=== PATIENT | male | born 1955 | race Caucasian/White ===

== ENCOUNTER 2017-03-12 15:17 | Inpatient (IN) | payer BC, OTHER ==
[~2017-03-12] VITALS: Ht 177.8 cm; Wt 95.3 kg
[~2017-03-12 15:17] MED LIST: ADVAIR 250-501 EACH INH; ASPIRIN81 M2 PO; Albuterol/Ipratropium Nebulize NEB; CEFDINIR300 MG PO; CEFTIN PO; CYMBALTA20 MG PO; DOXYCYCLINE HY100 MG PO; FAMOTIDINE20 MG PO; GABAPENTIN300 MG PO; LEVAQUIN500 MG PO; LOPRESSOR25 MG PO; METHADONE10 MG GT; METOPROLOL TART25 MG PO; MUCINEX DM ER1 EACH PO; NORCO 7.5-3251 EACH PO; NORCO1 EA GT; OXYCODONE HCL20 M1 PO; SPIRIVA18 MCG INH; ZITHROMAX500 MG PO; ZOFRAN ODT8 MG SC
[2017-03-12] MEDS ORDERED: IPRATROPIUM BROMIDE 0.02% 2.5 ML NEB NEB STA (16:02)
[2017-03-12] MEDS ORDERED: METHYLPREDNISOLONE SOD SUCC 125 MG/2ML VIAL IV STA (16:02)
[2017-03-12] MEDS ORDERED: ALBUTEROL SULF 0.083% NEB SOLN 3 ML NEB NEB STA (16:02)
[2017-03-12 16:13] LABS: BASOPHILS % 0.5 % (0.0-1.0); EOSINOPHILS # (AUTO) 0.2 (0.0-0.4); EOSINOPHILS % 1.7 % (0.0-6.0); HEMATOCRIT 37.4 % (38.2-49.6); HEMOGLOBIN 12.5 g/dL (14.0-18.0); LYMPHOCYTES # (AUTO) 1.6 (1.0-3.2); LYMPHOCYTES % 18.3 % (18.0-39.1); MEAN CORPUSCULAR HEMOGLOBIN 31.3 pg (28-32); MEAN CORPUSCULAR HGB CONC 33.4 g/dL (31-35); MEAN CORPUSCULAR VOLUME 93.5 fL (81-99); MONOCYTES # (AUTO) 0.5 (0.2-0.8); MONOCYTES % 5.6 % (4.4-11.3); NEUTROPHILS # (AUTO) 6.4 (2.1-6.9); NEUTROPHILS % 73.6 % (38.7-80.0); PLATELET COUNT 388 x10e3/uL (140-360); RED CELL DISTRIBUTION WIDTH 12.9 % (11.7-14.4)
[2017-03-12] MEDS ORDERED: ASPIRIN 81 MG CHEW TAB PO ONE (16:15)
[2017-03-12 16:26] LABS: ALBUMIN 3.1 g/dL (3.5-5.0); ALBUMIN/GLOBULIN RATIO 0.5 (0.8-2.0); ANION GAP 13.8 mmol/L (8-16); CALCIUM 9.6 mg/dL (8.4-10.2); CREATININE, SERUM 1.22 mg/dL (0.72-1.25); POTASSIUM 3.8 mmol/L (3.5-5.1)
[2017-03-12 16:32] LABS: CREATINE KINASE MB 3.2 ng/mL (0.00-5.00)
--- NOTE | 2017-03-12 16:32 | Diagnostic Imaging Report ---
PROCEDURE: A single AP view of the chest. COMPARISON: Patients [facility], [place], DX, CHEST 2 VIEWS, 01/10/2017, 1:28. INDICATIONS: SOB, COUGH, CHEST PAIN FINDINGS: Lines/tubes: Right chest Port-A-Cath with distal tip at the cavoatrial junction. Lungs: Prominence of the pulmonary vasculature and interstitium bilaterally. Pleura: There is no pneumothorax. Large left pleural effusion layering along the lateral left hemithorax. Heart and mediastinum: The cardiac silhouette is obscured, however, it appears enlarged. Bones: No acute bony abnormality. IMPRESSION: 1. Large left pleural effusion. Pathology in the left lower lobe may be obscured. Angela Lopez M.D. Dictated by: Angela Lopez M.D. on 03/12/2017 at 16:40 Electronically approved by: Angela Lopez M.D. on 03/12/2017 at 16:40
[2017-03-12 16:59] LABS: ABG HCO3 29 mmol/L (23-28); ABG PCO2 40 mmHg (41-51); ABG PH 7.46 (7.31-7.41); ABG PO2 79 mmHg (80-105)
[2017-03-12] MEDS ORDERED: ONDANSETRON HCL INJ 2 MG/ML VIAL IV PRN (18:00)
[2017-03-12 19:50] VITALS: BP 137/86
[2017-03-12] MEDS: ALBUTEROL/IPRATROPIUM 3 ML NEB NEB SCH ×2 (20:05→23:20)
[2017-03-12 20:23] VITALS: BP 137/86
[2017-03-12 20:47] VITALS: BP 137/86
[2017-03-12] MEDS ORDERED: ONDANSETRON HCL 4 MG ORAL DISINTEGRATING TAB SL PRN (21:15)
[2017-03-12] MEDS: GUAIFENESIN 600MG/DEXTROMETHORPHAN 30MG TABSR PO SCH (21:45)
[2017-03-12] MEDS: GABAPENTIN 300 MG CAP PO SCH (21:45)
[2017-03-12] MEDS: SODIUM CHLORIDE 0.9% 1000ML 1,000 ML IV SCH (21:45)
[2017-03-12] MEDS ORDERED: ALBUTEROL/IPRATROPIUM 3 ML NEB INH PRN (23:00)
[2017-03-13] VITALS: BP 125/67
[2017-03-13] MEDS: SODIUM CHLORIDE 0.9% 1000ML 1,000 ML IV SCH (01:26)
[2017-03-13] MEDS: OXYCODONE HCL IR 5 MG TAB PO PRN ×3 (01:43→17:09)
[2017-03-13] MEDS: ALBUTEROL/IPRATROPIUM 3 ML NEB NEB SCH ×5 (03:20→23:40)
[2017-03-13 04:00] VITALS: BP 100/63
[2017-03-13 06:25] LABS: BASOPHILS % 0.5 % (0.0-1.0); EOSINOPHILS # (AUTO) 0.1 (0.0-0.4); EOSINOPHILS % 1.7 % (0.0-6.0); HEMATOCRIT 32.4 % (38.2-49.6); HEMOGLOBIN 10.4 g/dL (14.0-18.0); LYMPHOCYTES # (AUTO) 2.1 (1.0-3.2); MEAN CORPUSCULAR HEMOGLOBIN 30.5 pg (28-32); MEAN CORPUSCULAR HGB CONC 32.1 g/dL (31-35); MONOCYTES # (AUTO) 0.6 (0.2-0.8); MONOCYTES % 6.9 % (4.4-11.3); NEUTROPHILS # (AUTO) 5.2 (2.1-6.9); NEUTROPHILS % 64.7 % (38.7-80.0); PLATELET COUNT 339 x10e3/uL (140-360); RED BLOOD COUNT 3.41 x10e6/uL (4.3-5.7)
[2017-03-13 06:53] LABS: ANION GAP 13.9 mmol/L (8-16); BLOOD UREA NITROGEN 20 mg/dL (7-26); BUN/CREATININE RATIO 17 (6-25); CALCIUM 8.9 mg/dL (8.4-10.2); CARBON DIOXIDE 28 mmol/L (22-29); CHLORIDE 101 mmol/L (98-107); CREATINE KINASE 77 IU/L (30-200); CREATININE, SERUM 1.15 mg/dL (0.72-1.25); EST GLOMERULAR FILTRATION RATE > 60 ML/MIN (60-); GLUCOSE 118 mg/dL (74-118); POTASSIUM 3.9 mmol/L (3.5-5.1); SODIUM 139 mmol/L (136-145)
[2017-03-13] MEDS: SALMETEROL/FLUTICASONE 250/50 INH SCH ×2 (07:00→19:45)
[2017-03-13 08:00] VITALS: BP 116/75
[2017-03-13] MEDS: ASPIRIN 81 MG CHEW TAB PO SCH (09:00)
[2017-03-13] MEDS: METOPROLOL TARTRATE 25 MG TAB PO SCH ×2 (09:08→16:45)
[2017-03-13] MEDS: GUAIFENESIN 600MG/DEXTROMETHORPHAN 30MG TABSR PO SCH ×2 (09:09→21:00)
[2017-03-13] MEDS: GABAPENTIN 300 MG CAP PO SCH ×3 (09:09→21:00)
--- NOTE | 2017-03-13 09:38 | History and Physical ---
PRIMARY CARE PHYSICIAN: Dr. Akins CHIEF COMPLAINT: Shortness of breath. HISTORY OF PRESENT ILLNESS: A 61-year-old man with a history of stage IV lung cancer with history of pericardial effusion, status post drain in July of 2016, now developing shortness of breath at rest for the past 3 days. Here, he was found to have a large pleural effusion on the left side. He is admitted for further evaluation and management. PAST MEDICAL HISTORY: Diastolic congestive heart failure, stage IV lung cancer, pericardial effusion, status post drain, pneumonia, COPD. PAST SURGICAL HISTORY: Pericardial window. ALLERGIES: PER ELECTRONIC MEDICAL RECORDS. FAMILY HISTORY/SOCIAL HISTORY: The patient denies any illicit drug use. REVIEW OF SYSTEMS: Denies any dizziness or chest pain. Denies any fever, chills or sweats. PHYSICAL EXAMINATION VITAL SIGNS: Have been reviewed. GENERAL: A tired-appearing man resting in bed. HEENT: Anicteric. Pupils respond to light. No oral lesions. CARDIOVASCULAR: Normal S1 and S2. LUNGS: He has reduced breath sounds. Markedly reduced on the left side and almost absent in the left lung field. ABDOMEN: Soft, nontender and nondistended. EXTREMITIES: He has no edema or calf tenderness. NEUROLOGICAL: He is alert and oriented times 3. Moves all extremities. SKIN: Dry. PSYCHIATRIC: Flat affect. LABS: Reviewed. MEDICATIONS: Reviewed. ASSESSMENT AND PLAN: This is a 61-year-old man with: 1. 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 2. Stage IV lung cancer: He follows up with Dr. Akins for chemotherapy. His last chemotherapy was back in December 2016. 3. Acute exacerbation of diastolic congestive heart failure: Will use Lasix and monitor I's and O's. 4. Hypertension: Will continue beta jeni. 5. Chronic obstructive pulmonary disease: Will continue with nebs and Advair. 6. Prophylaxis: Will use sequential compression devices and Pepcid. 7. Disposition: Monitor closely. Follow I's and O's. Job#: [id number] [place]
[2017-03-13 10:36] LABS: INR 1.11; PROTHROMBIN TIME 14.9 seconds (11.9-14.5)
[2017-03-13 12:00] VITALS: BP 97/80
--- NOTE | 2017-03-13 12:00 | Cardiology Report ---
DATE OF STUDY: March 12, 2017 ECHOCARDIOGRAM M-MODE: Normal chamber size. There is left ventricular hypertrophy. Normal contractility. Normal mitral and aortic valve. Pleural effusion. SECTOR SCAN: Dilated aortic root measuring at 4.0 cm. Left ventricular hypertrophy. Normal left ventricular contractility. Ejection fraction is approximately 50% to 55%. Aortic valve sclerotic. Mitral and tricuspid valves are normal. There is thickened pleural pericardium with pleural effusion. CARDIAC DOPPLER STUDY WITH COLOR: No significant aortic stenosis or regurgitation. CONCLUSIONS 1. Left ventricular hypertrophy with ejection fraction of 50% to 55%. 2. Mild aortic sclerosis with dilated aortic root, the aortic root measuring 4.0 cm. There is no evidence of aortic stenosis. 3. Incidentally noted pleural pericardium thickening with pleural effusion. Job#: [id number] cc:PAUL XAVIER MD
--- NOTE | 2017-03-13 12:57 | Diagnostic Imaging Report ---
PROCEDURE: CHEST XRAY POST PROCEDURE COMPARISON: [facility], CT, CT CHEST W, 01/11/2017, 10:56. [facility], DX, CHEST SINGLE (PORTABLE), 03/12/2017, 16:20. INDICATIONS: POST THORACENTESIS FINDINGS: See conclusion. CONCLUSION: 1. Status post left thoracentesis, with decrease size of left pleural effusion. There is still a moderate amount of pleural fluid, which is likely loculated. 2. No pneumothorax is visualized. 3. Interval placement of right upper chest Port-A-Cath, with tip projecting at the cavoatrial junction. 4. Bilateral COPD changes. The previously visualized 2.6 x 2.3 cm mass (likely representing bronchogenic neoplasm in the left upper lobe on CT) is not clearly seen on the current exam. Sagar Ashford M.D. Dictated by: Sagar Ashford M.D. on 03/13/2017 at 13:06 Electronically approved by: Sagar Ashford M.D. on 03/13/2017 at 13:06
[2017-03-13 13:19] LABS: BODY FLUID APPEARANCE CLOUDY; BODY FLUID COLOR RED; BODY FLUID TYPE PLEURAL
[2017-03-13 15:27] LABS: RBC,BODY FLUID 88407 cells/uL; WBC,BODY FLUID 5940 cells/uL
--- NOTE | 2017-03-13 15:52 | Diagnostic Imaging Report ---
PROCEDURE: ULTRASOUND GUIDED THORACENTESIS COMPARISON: None. INDICATIONS:LEFT PLEURAL EFFUSION FINDINGS: After informed consent was obtained, the patient was placed in the sitting position and preliminary ultrasound of the posterior chest identified a safe route into the left pleural effusion. The overlying skin was prepped and draped in usual sterile fashion. Lidocaine 1% was used for local anesthesia. Under ultrasound guidance, a centesis needle was advanced into the pleural fluid and 1100 cc of bloody pleural fluid were aspirated. The patient tolerated the procedure well and there were no immediate post-procedural complications. A post-thoracentesis chest radiograph will be obtained. CONCLUSION: Uncomplicated ultrasound-guided left thoracentesis with removal of 1100 cc. Sagar Ashford M.D. Dictated by: Sagar Ashford M.D. on 03/13/2017 at 16:01 Electronically approved by: Sagar Ashford M.D. on 03/13/2017 at 16:01
[2017-03-13 16:00] VITALS: BP 110/79
[2017-03-13 16:27] LABS: EOSINOPHILS,BODY FLUID 1 %; LYMPHOCYTES,BODY FLUID 50 %; MONO/MACROPHG,BODY FLUID 24 %; NEUTROPHILS,BODY FLUID 13 %
[2017-03-13 16:32] LABS: OTHER CELLS,BODY FLUID 12 %
[2017-03-13] MEDS: FUROSEMIDE INJ 10 MG/ML 2 ML VIAL IV SCH (18:08)
--- NOTE | 2017-03-13 19:06 | Consultation ---
DATE OF CONSULTATION: March 13, 2017 Srinivasan Omalley is a 61-year-old male who was referred to me for evaluation of malignant pleural effusion. History obtained from the patient reveals that he is being treated by a Dr. Michoacano Azul for stage IV lung cancer. The last chemotherapy was approximately a month back. The patient had presented with shortness of breath and subsequently found to have left-sided pleural effusion which has been tapped, 1100 mL of bloody fluid was obtained, and subsequently referred to me for further evaluation and treatment. SOCIAL HISTORY: History of excessive smoking. FAMILY HISTORY: Noncontributory. ALLERGIES: REPORTED NONE. MEDICATIONS: At this time. 1. Oxycodone 20 mg every 6 hours p.r.n. 2. Metoprolol 12.5 mg p.o. b.i.d. 3. Gabapentin 300 mg t.i.d. 4. Albuterol. 5. Guaifenesin. 6. Fludrocortisone. 7. Aspirin 81 mg a day. 8. Lasix 20 mg b.i.d.. 9. Ondansetron 8 mg q.8 h. p.r.n. REVIEW OF SYSTEMS: HEENT: Normal. CARDIAC: History of pericardial effusion which was tapped before. RESPIRATORY: Stage IV lung cancer being treated by Dr. Michoacano Azul. Now malignant pleural effusion. GI: Normal. : Normal. MUSCULOSKELETAL: Normal. NEUROENDOCRINE: Essentially normal. PHYSICAL EXAMINATION: GENERAL: Moderately built male. Anemic. No palpable adenopathy. HEART: Within normal limits. LUNGS: Showing diminished breath sounds at the left base. ABDOMEN: Obese. There is no hepatosplenomegaly. RECTAL: Exam deferred. CENTRAL NERVOUS SYSTEM: Essentially normal. EXTREMITIES: Essentially normal. LABORATORY DATA: Shows a hemoglobin of 10.4, hematocrit 32.4, white count 8100, platelets are 339,000. Chemistry shows a sodium of 139, potassium 3.8, chloride __, CO2 28, BUN 20, creatinine 1.2, glucose 123, calcium 9.6. Bilirubin 0.6, SGOT 17, SGPT 9, alkaline phosphatase 69. Total protein is high at 9.6, low albumin of 2.1. High globulins of 6.5. IMAGING: Shows the chest x-ray which status post left thoracentesis. There is a 2.6 x 2.3 mass at the left upper lobe. There is also a Port-A-Cath insertion, bilateral COPD. IMPRESSION: 1. Anemia of chronic disease. 2. Hyperproteinemia (9.6). 3. Hypoalbuminemia (3.1). 4. 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 5. Exudative bloody pleural effusion with an extremely high LDH and more than 6 grams of protein. 6. Chronic obstructive pulmonary disease. 7. Left upper lobe cancer. 8. History of pericardial effusion. PLANS, COMMENTS AND SUGGESTIONS: Suggest best supportive care during this hospitalization. Even though I have done quantitation of immunoglobulins, this is of academic interest. 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 Once stable enough, the patient can be discharged to the care of Dr. Michoacano Azul, his medical oncologist. Job#: [id number] cc:JULIEN LARIOS MD cc:ANDRE KNOX MD
[2017-03-13 20:00] VITALS: BP 107/59
[2017-03-14] VITALS (7 sets, daily range): BP systolic 95–116; BP diastolic 60–75
[2017-03-14] MEDS: SODIUM CHLORIDE 0.9% 1000ML 1,000 ML IV SCH ×3 (04:09→16:32)
[2017-03-14] MEDS: ALBUTEROL/IPRATROPIUM 3 ML NEB NEB SCH ×6 (04:10→22:45)
[2017-03-14] MEDS: FUROSEMIDE INJ 10 MG/ML 2 ML VIAL IV SCH ×2 (06:18→17:43)
[2017-03-14] MEDS: SALMETEROL/FLUTICASONE 250/50 INH SCH ×2 (07:20→19:25)
[2017-03-14] MEDS: METOPROLOL TARTRATE 25 MG TAB PO SCH ×2 (09:17→16:32)
[2017-03-14] MEDS: GABAPENTIN 300 MG CAP PO SCH ×3 (09:17→21:00)
[2017-03-14] MEDS: ASPIRIN 81 MG CHEW TAB PO SCH (09:17)
[2017-03-14] MEDS: GUAIFENESIN 600MG/DEXTROMETHORPHAN 30MG TABSR PO SCH ×2 (09:17→21:00)
[2017-03-14] MEDS: OXYCODONE HCL IR 5 MG TAB PO PRN ×2 (16:32)
--- NOTE | 2017-03-14 17:13 | Diagnostic Imaging Report ---
EXAM: CT Chest WITH contrast INDICATION: Chest pain COMPARISON: None available TECHNIQUE: Chest was scanned utilizing a multidetector helical scanner from the lung apex through the level of the diaphragm after administration of IV contrast. Coronal and sagittal reconstructions were submitted for interpretation. Protocol: Pulmonary embolus protocol IV CONTRAST: 100 mL of Isovue 370 COMPLICATIONS: None RADIATION DOSE: Total exam DLP: 565.4 mGy*cm. CTDIvol has been reviewed. It is below the limits set by the Radiation Protocol Committee (RPC). FINDINGS: LINES/ TUBES: Right internal jugular chest port with tip projecting over the expected region of the superior vena cava. Heart: No cardiomegaly. No pericardial effusion. Vessels: No intraluminal filling defect within the pulmonary arteries to the segmental level. Normal thoracic aorta and coronary arteries. Mediastinum: No mediastinal or hilar mass or lymphadenopathy. Multiple subcentimeter nodules are present in the mediastinum. Normal thyroid. Lungs: 2.8 cm nodule is present in the left upper lobe, series 3 image 22. Smaller 1.2 cm nodule is present in the left upper lobe, series 3 image 27. Emphysematous changes are present bilaterally. Bronchiectasis and atelectasis is present in the left lower lobe. Pleura: Interval increase of the left pleural effusion, now large in size. No pneumothorax. Soft tissues: Normal. No axillary mass or lymphadenopathy. Bones: No acute osseous abnormality. Degenerative changes of the thoracic spine. Adrenal glands: No adrenal nodules.. Abdomen: The partially visualized portions of the upper abdomen are unremarkable. Prominent biliary ducts likely represent reservoir effect. IMPRESSION: 1. Stable nodules in the left upper lobe, concerning for malignancy. 2. Large left pleural effusion. 3. Emphysematous changes. Signed by: Dr. Miguel Hanna M.D. on 03/14/2017 5:10 PM
[2017-03-14] MEDS ORDERED: SODIUM CHLORIDE 0.9% 50ML 50 ML ONE (18:24)
[2017-03-14] MEDS ORDERED: IOPAMIDOL 370 MG/ML 200 ML INFUS..BTL INJ ONE (18:24)
[2017-03-15] VITALS (7 sets, daily range): BP systolic 99–115; BP diastolic 57–78
[2017-03-15] MEDS: SODIUM CHLORIDE 0.9% 1000ML 1,000 ML IV SCH ×2 (01:55→10:00)
[2017-03-15] MEDS: ALBUTEROL/IPRATROPIUM 3 ML NEB NEB SCH ×6 (02:30→23:25)
[2017-03-15] MEDS: OXYCODONE HCL IR 5 MG TAB PO PRN ×3 (02:54→20:47)
[2017-03-15] MEDS: FUROSEMIDE INJ 10 MG/ML 2 ML VIAL IV SCH ×2 (06:00→17:35)
[2017-03-15 06:46] LABS: BASOPHILS % 0.5 % (0.0-1.0); EOSINOPHILS # (AUTO) 0.2 (0.0-0.4); EOSINOPHILS % 2.2 % (0.0-6.0); HEMATOCRIT 32.7 % (38.2-49.6); HEMOGLOBIN 10.8 g/dL (14.0-18.0); LYMPHOCYTES # (AUTO) 1.9 (1.0-3.2); LYMPHOCYTES % 25.2 % (18.0-39.1); MONOCYTES # (AUTO) 0.6 (0.2-0.8); MONOCYTES % 7.4 % (4.4-11.3); NEUTROPHILS # (AUTO) 4.9 (2.1-6.9); NEUTROPHILS % 64.3 % (38.7-80.0); PLATELET COUNT 360 x10e3/uL (140-360); RED BLOOD COUNT 3.48 x10e6/uL (4.3-5.7); RED CELL DISTRIBUTION WIDTH 13.1 % (11.7-14.4)
[2017-03-15 07:06] LABS: ANION GAP 13.7 mmol/L (8-16); BLOOD UREA NITROGEN 14 mg/dL (7-26); CALCIUM 8.8 mg/dL (8.4-10.2); CARBON DIOXIDE 26 mmol/L (22-29); CHLORIDE 100 mmol/L (98-107); GLUCOSE 150 mg/dL (74-118); SODIUM 137 mmol/L (136-145)
[2017-03-15 07:13] LABS: POTASSIUM 2.7 mmol/L (3.5-5.1)
[2017-03-15] MEDS: SALMETEROL/FLUTICASONE 250/50 INH SCH ×2 (07:26→19:40)
[2017-03-15 07:30] LABS: BUN/CREATININE RATIO 13 (6-25); CREATININE, SERUM 1.04 mg/dL (0.72-1.25); EST GLOMERULAR FILTRATION RATE > 60 ML/MIN (60-)
[2017-03-15] MEDS: ASPIRIN 81 MG CHEW TAB PO SCH (08:33)
[2017-03-15] MEDS: METOPROLOL TARTRATE 25 MG TAB PO SCH ×2 (08:34→17:35)
[2017-03-15] MEDS: GUAIFENESIN 600MG/DEXTROMETHORPHAN 30MG TABSR PO SCH ×2 (08:34→20:47)
[2017-03-15] MEDS: GABAPENTIN 300 MG CAP PO SCH ×3 (08:34→20:47)
[2017-03-15] MEDS ORDERED: MAGNESIUM SULFATE 2GM/50ML 50 ML IV ONE (09:00)
[2017-03-15] MEDS ORDERED: POTASSIUM CHLORIDE 20 MEQ TAB CR PO ONE ×2 (09:00→11:00)
[2017-03-16] VITALS (7 sets, daily range): BP systolic 101–109; BP diastolic 59–82
[2017-03-16] MEDS: SODIUM CHLORIDE 0.9% 1000ML 1,000 ML IV SCH ×2 (02:15→04:57)
[2017-03-16] MEDS: ALBUTEROL/IPRATROPIUM 3 ML NEB NEB SCH ×5 (03:20→19:30)
[2017-03-16] MEDS: OXYCODONE HCL IR 5 MG TAB PO PRN ×2 (04:57→12:25)
[2017-03-16] MEDS: FUROSEMIDE INJ 10 MG/ML 2 ML VIAL IV SCH ×2 (06:00→17:11)
[2017-03-16 06:15] LABS: ANION GAP 12.1 mmol/L (8-16); BLOOD UREA NITROGEN 10 mg/dL (7-26); BUN/CREATININE RATIO 10 (6-25); CALCIUM 8.8 mg/dL (8.4-10.2); CARBON DIOXIDE 26 mmol/L (22-29); CHLORIDE 103 mmol/L (98-107); CREATININE, SERUM 0.99 mg/dL (0.72-1.25); EST GLOMERULAR FILTRATION RATE > 60 ML/MIN (60-); GLUCOSE 123 mg/dL (74-118); POTASSIUM 3.1 mmol/L (3.5-5.1); SODIUM 138 mmol/L (136-145)
[2017-03-16] MEDS: SALMETEROL/FLUTICASONE 250/50 INH SCH (07:25)
[2017-03-16 08:05] LABS: EOSINOPHILS % (MANUAL) 1 % (0-7); LYMPHOCYTES % (MANUAL) 19 % (19-48); MONOCYTES % (MANUAL) 5 % (3.4-9.0); NEUTROPHILS % (MANUAL) 72 % (40-74)
[2017-03-16 08:06] LABS: HYPOCHROMASIA SLIGHT; PLATELET ESTIMATE ADEQUATE; PLATELET MORPHOLOGY COMMENT FEW GIANT; POIKILOCYTOSIS SLIGHT; RBC MORPHOLOGY COMMENT NORMAL
[2017-03-16 08:07] LABS: ELLIPTOCYTE, RBC SLIGHT
[2017-03-16] MEDS ORDERED: POTASSIUM CHLORIDE 20 MEQ TAB CR PO ONE (09:00)
[2017-03-16] MEDS: ASPIRIN 81 MG CHEW TAB PO SCH (09:32)
[2017-03-16] MEDS: METOPROLOL TARTRATE 25 MG TAB PO SCH ×2 (09:32→17:00)
[2017-03-16] MEDS: GABAPENTIN 300 MG CAP PO SCH ×3 (09:32→20:03)
[2017-03-16] MEDS: GUAIFENESIN 600MG/DEXTROMETHORPHAN 30MG TABSR PO SCH ×2 (09:32→20:03)
--- NOTE | 2017-03-16 21:06 | Consultation ---
DATE OF CONSULTATION: March 16, 2017 REQUESTING PHYSICIAN: Dr. Srinivasa Hinojosa. 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 HISTORY OF PRESENT ILLNESS: This is a 61-year-old gentleman with a history of stage 4 lung cancer followed by Dr. Michoacano Azul with his last chemotherapy treatment in December 2016. He has a previous history of pericardial effusion back in July of 2016 which was drained with Dr. Ivan Chaparro at [facility] in [facility]. He states over the past 6 months he has been doing fairly well; however, the past week or so has had increased shortness of breath and cough. He came to [facility] for further evaluation. He was found to have a large left-sided pleural effusion, now status post thoracentesis with residual large left pleural effusion. CV surgery consulted to evaluate loculated pleural effusion. He does have a history of smoking 1 pack a day for 40 years. He states he quit in July of last year. He does not report any previous asbestosis or other lung exposures. PAST MEDICAL HISTORY: Positive for diastolic heart failure and stage IV lung cancer which he reports as small cell. History of pericardial effusion in July 2016. History of pneumonia and COPD. PAST SURGICAL HISTORY: Positive for cholecystectomy, positive for pericardial window in July of [address] Chaparro. Positive for right wrist surgery and right elbow surgery. ALLERGIES: HALOPERIDOL, PENICILLIN. FAMILY HISTORY: Is positive for colon cancer in mother and positive for lung cancer in his dad and lung cancer in his brother. SOCIAL HISTORY: Positive for smoking for 40 years, 1 pack per day. No alcohol use and no drug use. REVIEW OF SYSTEMS: GENERAL: Positive for some fatigue, no malaise. HEENT: No decreased vision or decreased hearing. CARDIAC: No chest pain. RESPIRATORY: Positive for shortness of breath and cough. GI: No constipation or diarrhea. : No hematuria or dysuria. ENDOCRINE: No polyuria or polydipsia. INFECTIOUS: No fevers or sweating. All other review of systems are negative. PHYSICAL EXAMINATION: VITALS: Blood pressure 108.67, pulses 18, temperature 97.4. GENERAL: Alert and oriented and in no acute distress. HEENT: Extraocular movements are full. Mucous membranes are moist. NECK: Supple and nontender. No JVD. No carotid bruit. CARDIAC: Normal S1 and S2. No murmurs. LUNGS: Marked decreased breath sounds over the left side. ABDOMEN: Soft and nontender. Positive bowel sounds. EXTREMITIES: No edema. No clubbing or cyanosis. SKIN: Dry with no rashes or nonhealing ulcers. NEUROLOGIC: Alert and oriented times 3. PSYCHIATRIC: Normal affect. MUSCULOSKELETAL : Appears full range of motion in all joints. BACK: No CVA tenderness or muscle spasm. LABORATORY DATA: White count 7.5, hemoglobin 10, hematocrit 32 and platelet count 360,000. His sodium 138, potassium 3.1 and BUN is 10 and creatinine 0.99. IMAGING: Chest CT scan shows 2.8 cm nodule in the left upper lobe with smaller 1.2 cm nodule in the left upper lobe with a large left pleural effusion noted. ASSESSMENT: 1. Loculated left-sided pleural effusion. 2. History of lung cancer. 3. Chronic obstructive pulmonary disease. 4. Hypertension. 5. History of diastolic heart failure. PLAN: Will plan to transfer the patient to [facility] for VATS with chest tube placement at the left side. Transfer the patient at the patient's request. Patient is stable on nasal cannula at this time. Will plan OR tomorrow. Keep the patient n.p.o. tonight. Further recommendations per Dr. Ivan Chaparro to follow. Dictated by MAVIS Max Job#: [id number]
--- NOTE | 2017-04-26 14:53 | Discharge Summary ---
The patient initially came in with what was reported as malignant pleural effusion. The patient was treated with IV antibiotics while here. The patient was being seen by Dr. Suhail Chaparro who was consulted, whose PA saw the patient today and decided to transfer the patient today being on March 16, 2017. The patient was also being followed by Dr. Sonal Arcos. During admission, the patient had some pleural effusion with status post thoracentesis awaiting thoracic surgeon to evaluate the patient. Again, the patient was evaluated by MAVIS Max for Dr. Chaparro. The patient also had stage 4 lung cancer, and was being followed by the oncologist. The patient's IV fluids were discontinued while here due to diastolic congestive heart failure. Continue with some diuresis. The patient had effortless breathing, although decreased breath sounds. The patient was discharged, transferred today for higher level of care. On March 16, 2017, today's labs the sodium 138, potassium 3.1, chloride 103, CO2 of 26, BUN 10, creatinine 0.99, glucose 123, white count 7.57, hemoglobin 10.8, hematocrit 32.7, platelets 360,000. Again, the patient was discharged for higher level of care. Dictated by Justin Smith NP ANDRE KNOX MD Job#: [id number]
[2017-06-11] MEDS ORDERED: TESSALON PERLE100 MG PO (06:50)
[2017-06-11] MEDS ORDERED: LORATADINE10 MG PO (06:50)
[2017-06-11] MEDS ORDERED: LEVAQUIN500 MG PO (06:50)
[2017-06-11] MEDS ORDERED: MUCINEX DM ER1 EACH PO (06:50)
== END 2017-03-16 20:40 | disposition other institution (70) | DRG 180 ==
LOC: ER 15:17 → ERHOLD 18:36 → MED/SURG2 19:12
PROVIDERS: ADMIT Internal Medicine; ATTEND Internal Medicine
PROC: 0W9B3ZX Drainage of Left Pleural Cavity, Percutaneous Approach, Diagnostic (ICD-10-PCS; principal; 2017-03-13)
DX: C34.90 Malignant neoplasm of unspecified part of unspecified bronchus or lung (principal); I50.33 Acute on chronic diastolic (congestive) heart failure; J91.0 Malignant pleural effusion; I31.3 Pericardial effusion (noninflammatory); J44.9 Chronic obstructive pulmonary disease, unspecified; E88.09 Other disorders of plasma-protein metabolism, not elsewhere classified; I50.32 Chronic diastolic (congestive) heart failure; I11.0 Hypertensive heart disease with heart failure; D63.8 Anemia in other chronic diseases classified elsewhere; R77.1 Abnormality of globulin; F17.210 Nicotine dependence, cigarettes, uncomplicated; Z77.090 Contact with and (suspected) exposure to asbestos
CPT/HCPCS: 32555; 36415; 36600; 71045; 71260; 74470; 80048; 80053; 82550; 82553; 82784; 82805; 83615; 83735; 83880; 84157; 84484; 85025; 85610; 85730; 87040; 87070; 87205; 87400; 88112; 88305; 88342; 89051; 93005; 93306; 94640; 94760; 99284; J1940; J2930; J7030; Q9967

== ENCOUNTER 2017-06-08 21:11 | Inpatient (IN) | payer OTHER ==
[~2017-06-08] VITALS: Ht 177.8 cm; Wt 96.0 kg
--- OUTSIDE RECORDS SUMMARY | 2017-06-08 21:16 | XMS REPORT | Clinical Summary ---
Author Author [place] [facility] Organization [facility] Address Unknown Phone Unavailable Care Team Providers Care Fpga Design Engineer Name Role Phone PCP Unavailable Allergies Active Allergy Reactions Severity Noted Date Comments Haloperidol Other (See Comments) 08/07/2016 Dystonic reaction Penicillins Rash Low 08/07/2016 Current Medications Prescription Sig. Disp. Refills Start End Date Status Date aspirin 81 MG EC tablet Take 81 mg by mouth Active daily. HYDROcodone-acetaminophen Take 1 tablet by mouth Active (NORCO 7.5-325) 7.5-325 every 6 (six) hours as mg per tablet needed for Pain. tiotropium (SPIRIVA) 18 Inhale 1 capsule (18 mcg 30 capsule 2 08/15/19 Active mcg inhalation capsule total) by mouth via 17 18 inhaler daily. albuterol HFA (VENTOLIN Inhale 1 puff by mouth 1 Inhaler 0 08/15/19 08/15/19 Active HFA) 90 mcg/actuation via inhaler every 6 (six) 17 18 inhaler hours as needed for Wheezing. fluticasone-salmeterol Inhale 1 puff by mouth 1 Inhaler 3 08/16/19 08/16/19 Active (ADVAIR) 250-50 mcg/dose via inhaler 2 (two) times 17 18 diskus inhaler daily. oxyCODONE (ROXICODONE) 15 Take 20 mg by mouth every Active MG immediate release 6 (six) hours as needed tabletIndications: Pain for Pain. gabapentin (NEURONTIN) Take 1 capsule (300 mg 0 03/27/19 Active 300 MG capsule total) by mouth 3 (three) 18 times daily. gabapentin (NEURONTIN) Take 300 mg by mouth 03/27/19 Discontin 300 MG capsule daily. 18 ued nicotine (NICODERM CQ) 21 Place 1 patch onto the 30 patch 0 08/15/19 03/27/19 Discontin mg/24 hr patch skin daily. 17 18 ued budesonide-formoterol Inhale 2 puffs by mouth 21.6 g 3 08/15/19 Discontin (SYMBICORT) 160-4.5 via inhaler 2 (two) times 17 17 ued mcg/actuation inhaler daily. acetaminophen-codeine Take 1 tablet by mouth 30 tablet 0 08/15/19 Discontin (TYLENOL #4) 300-60 mg every 4 (four) hours as 17 18 ued per tablet needed for Pain. Max Daily Amount: 6 tablets promethazine (PHENERGAN) Take 2 tablets (25 mg 30 tablet 0 10/10/19 10/17/19 12.5 MG tablet total) by mouth every 6 17 17 (six) hours as needed for Nausea for up to 7 days. metoprolol (LOPRESSOR) 25 Take 0.5 tablets (12.5 mg 30 tablet 0 04/27/19 MG tablet total) by mouth 2 (two) 18 18 times daily for 30 days. potassium chloride SA Take 2 tablets (40 mEq 40 tablet 0 03/27/19 (K-DUR,KLOR-CON) 20 MEQ total) by mouth 2 (two) 18 18 tablet times daily for 10 days. furosemide (LASIX) 20 MG Take 1 tablet (20 mg 20 tablet 0 03/27/19 04/06/19 tablet total) by mouth 2 (two) 18 18 times daily for 10 days. Active Problems Problem Noted Date Neutropenic fever, enteritis 10/04/2016 Severe sepsis(995.92) 10/04/2016 Enteritis 10/04/2016 Sinus tachycardia 10/04/2016 Pleural effusion 10/04/2016 COPD (chronic obstructive pulmonary disease) ([facility]) 08/14/2016 Metastatic lung carcinoma ([facility]) 08/13/2016 Neuropathy 08/09/2016 Mediastinal lymphadenopathy 08/08/2016 Lung mass 08/08/2016 Tobacco abuse 08/08/2016 Shock (HCC) 08/08/2016 Acute pulmonary insufficiency following thoracic surgery ([facility]) 08/08/2016 Pericardial effusion 08/07/2016 S/P thoracotomy Encounters Date Type Specialty Care Team Description 04/14/2017 [facility] Shukri Azul, Squamous cell carcinoma Encounter MD of bronchus in left upper Foteh, Anishusta Michael lobe (HCC);Malignant neoplasm of lung, unspecified laterality, unspecified part of lung (HCC) 04/13/2017 Outside Orders Central Scheduling Shukri Azul, Squamous cell carcinoma MD of bronchus in left upper lobe ([facility]) (Primary Dx);Malignant neoplasm of lung, unspecified laterality, unspecified part of lung (HCC) 03/19/2017 Anesthesia Erik Soto MD Event 03/19/2017 Procedure Pass 03/19/2017 Surgery Ivan Chaparro, THORACOSCOPY (VATS) MD 03/16/2017 [facility] Ivan Chaparro, Pulmonary emphysema, - Encounter MD unspecified emphysema 03/27/2017 type ([facility]);Pleural effusion;Centrilobular emphysema ([facility]) 03/16/2017 Orders Only General Internal Medicine 10/03/2016 [facility] Samantha Benavidez Acute pulmonary - Encounter MD Isi insufficiency following 10/10/2016 Jarrod Nix thoracic surgery MD Cayetano ([facility]);Metastatic Vitor Davis, adenocarcinoma ([facility]);Neutropenic fever SohailAntelmo-D ([facility]);Severe sepsis ([facility]);Enteritis;Pleural effusion;Pulmonary emphysema, unspecified emphysema type ([facility]);Metastatic lung carcinoma, unspecified laterality ([facility]);Sinus tachycardia;Ileus ([facility]) 08/08/2016 Orders Only General Internal Medicine 08/08/2016 Anesthesia Luther Shrestha, Jonathan KRAUSE 08/08/2016 Procedure Pass 08/08/2016 Surgery Ivan Chaparro, CREATION,PERICARDIAL MD WINDOW 08/07/2016 [facility] Ivan Chaparro, Pericardial - Encounter effusion;Acute pulmonary 08/14/2016 Yris Davison, insufficiency following thoracic surgery Jose Garcia MD (HCC);Lung mass;Mediastinal lymphadenopathy;Tobacco abuse;Pleural effusion;Neuropathy;Hypok alemia;Metastatic adenocarcinoma (HCC) after 06/07/2016 Immunizations Name Dates Previously Given Next Due Pneumococcal 08/12/2016 Polysaccharide (Pneumovax) Family History Relation Name Status Comments Father Social History Tobacco Use Types Packs/Day Years Used Date Current Every Day Smoker 2 Tobacco Cessation: Ready to Quit: Yes; Counseling Given: No Comments: Patient states counseling given Alcohol Use Drinks/Week oz/Week Comments No Sex Assigned at Date Recorded Not on file Last Filed Vital Signs Vital Sign Reading Time Taken Blood Pressure 116/66 04/14/2017 11:36 AM BRANCH SERVICE REPRESENTATIVE Pulse 117 04/14/2017 11:36 AM BRANCH SERVICE REPRESENTATIVE Temperature 37.9 C (100.2 F) 04/14/2017 11:36 AM BRANCH SERVICE REPRESENTATIVE Respiratory Rate 16 04/14/2017 11:36 AM BRANCH SERVICE REPRESENTATIVE Oxygen Saturation 99% 04/14/2017 11:36 AM BRANCH SERVICE REPRESENTATIVE Inhaled Oxygen - - Concentration Weight 89.7 kg (197 lb 11.2 oz) 03/27/2017 3:32 AM BRANCH SERVICE REPRESENTATIVE Height 177.8 cm (5' 10") 03/16/2017 9:55 PM BRANCH SERVICE REPRESENTATIVE Body Mass Index 28.37 03/27/2017 3:32 AM BRANCH SERVICE REPRESENTATIVE Plan of Treatment Not on file Procedures Procedure Name Priority Date/Time Associated Diagnosis Comments THORACOSCOPY (VATS) 03/19/2017 RECURRENT PERICARDIAL 3:25 PM BRANCH SERVICE REPRESENTATIVE EFFUSION BRONCHOSCOPY 08/08/2016 Pericardial effusion 10:15 AM CDT THORACOSCOPY (VATS) 08/08/2016 Pericardial effusion 10:15 AM CDT CREATION,PERICARDIAL 08/08/2016 Pericardial effusion WINDOW 10:15 AM CDT after 06/07/2016 Results * US chest (04/14/2017 1:42 PM) Specimen Performing Laboratory GE RIS Narrative FINAL REPORT Ultrasound of the chest, 04/14/2017. CLINICAL HISTORY: Evaluate for pleural effusion. DISCUSSION: Sonographic evaluation of the left chest was performed to evaluate for possible thoracentesis. Only a small amount of multiloculated left pleural effusion is identified. IMPRESSION: Minimal left pleural effusion, insufficient for thoracentesis. Signed: Chad Velazquez MD Report Verified Date/Time:04/14/2017 15:00:07 Reading Location: [address] Ultrasound Reading Room Procedure Note Interface, External Ris In - 04/14/2017 3:02 PM BRANCH SERVICE REPRESENTATIVE FINAL REPORT Ultrasound of the chest, 04/14/2017. CLINICAL HISTORY: Evaluate for pleural effusion. DISCUSSION: Sonographic evaluation of the left chest was performed to evaluate for possible thoracentesis. Only a small amount of multiloculated left pleural effusion is identified. IMPRESSION: Minimal left pleural effusion, insufficient for thoracentesis. Signed: Chad Velazquez MD Report Verified Date/Time: 04/14/2017 15:00:07 Reading Location: [facility] [id number] Ultrasound Reading Room * PT/aPTT (04/14/2017 11:04 AM) Only the most recent of 2 results within the time period is included. Component Value Ref Range Protime 14.7 11.7 - 14.7 seconds INR 1.2 <=5.9 PTT 30.8 22.5 - 36.0 seconds Specimen Performing Laboratory Blood [address] [address] Narrative RECOMMENDED COUMADIN/WARFARIN INR THERAPY RANGES STANDARD DOSE: 2.0 - 3.0 Includes: PROPHYLAXIS for venous thrombosis, systemic embolization; TREATMENT for venous thrombosis and/or pulmonary embolus. HIGH RISK: Target INR is 2.5-3.5 for patients with mechanical heart valves. * Platelet count (04/14/2017 11:04 AM) Component Value Ref Range Platelets 354 150 - 450 K/CU MM Specimen Performing Laboratory [address] [address] * PERMANENT LAB REPORT - SCAN (04/09/2017 2:00 PM) * RHYTHM STRIP - SCAN (04/06/2017 12:11 PM) Only the most recent of 5 results within the time period is included. * XR abdomen / KUB 1 view (03/26/2017 4:41 PM) Only the most recent of 2 results within the time period is included. Specimen Performing Laboratory GE RIS Narrative FINAL REPORT EXAM: Supine AP radiographs of the abdomen, 2 images HISTORY PROVIDED: Nausea and vomiting COMPARISON: 10/04/2016 IMPRESSION: The bowel gas pattern is nonspecific but appears nonobstructive. A moderate to large amount of stool seen within the colon is compatible with a clinical diagnosis of constipation. Given supine positioning, this examination is insensitive for the detection of free air. No acute osseous abnormality. Degenerative changes of the spine are present. There are cholecystectomy clips in the right upper quadrant. Vascular calcifications are noted. Signed: Parminder Degroot MD Report Verified Date/Time:03/26/2017 17:04:56 Reading Location: [facility] Reading Room Procedure Note Interface, External Ris In - 03/26/2017 5:07 PM BRANCH SERVICE REPRESENTATIVE FINAL REPORT EXAM: Supine AP radiographs of the abdomen, 2 images HISTORY PROVIDED: Nausea and vomiting COMPARISON: 10/04/2016 IMPRESSION: The bowel gas pattern is nonspecific but appears nonobstructive. A moderate to large amount of stool seen within the colon is compatible with a clinical diagnosis of constipation. Given supine positioning, this examination is insensitive for the detection of free air. No acute osseous abnormality. Degenerative changes of the spine are present. There are cholecystectomy clips in the right upper quadrant. Vascular calcifications are noted. Signed: Parminder Degroot MD Report Verified Date/Time: 03/26/2017 17:04:56 Reading Location: [facility] Reading Room * XR chest 1 view portable / bedside (03/26/2017 1:27 PM) Only the most recent of 19 results within the time period is included. Specimen Performing Laboratory GE RIS Narrative FINAL REPORT EXAM: Frontal chest radiograph HISTORY PROVIDED: Postop, evaluate pneumothorax COMPARISON: 03/25/2017 IMPRESSION: The right IJ Port-A-Cath is unchanged position with its tip projecting over the SVC. No significant change is seen in the left upper lobe lung mass compatible with known history of malignancy. Bilateral pulmonary opacities demonstrate no significant change. A left basilar pneumothorax is similar as is a small left pleural effusion and pleural thickening. Cardiomediastinal contours are stable. Signed: Parminder Degroot MD Report Verified Date/Time:03/26/2017 14:29:12 Reading Location: [facility] Reading Room Procedure Note Interface, External Ris In - 03/26/2017 2:31 PM BRANCH SERVICE REPRESENTATIVE FINAL REPORT EXAM: Frontal chest radiograph HISTORY PROVIDED: Postop, evaluate pneumothorax COMPARISON: 03/25/2017 IMPRESSION: The right IJ Port-A-Cath is unchanged position with its tip projecting over the SVC. No significant change is seen in the left upper lobe lung mass compatible with known history of malignancy. Bilateral pulmonary opacities demonstrate no significant change. A left basilar pneumothorax is similar as is a small left pleural effusion and pleural thickening. Cardiomediastinal contours are stable. Signed: Parminder Degroot MD Report Verified Date/Time: 03/26/2017 14:29:12 Reading Location: [facility] Mammo Reading Room * Magnesium (03/23/2017 4:51 AM) Only the most recent of 22 results within the time period is included. Component Value Ref Range Magnesium 1.4 (L) 1.6 - 2.6 mg/dL Specimen Performing Laboratory Blood [address] [address] * Basic Metabolic Panel (03/23/2017 4:51 AM) Only the most recent of 21 results within the time period is included. Component Value Ref Range Sodium 134 (L) 136 - 145 meq/L Potassium 3.5 3.5 - 5.1 meq/L Chloride 97 (L) 98 - 107 meq/L CO2 27 22 - 29 meq/L BUN 15 7 - 21 mg/dL Creatinine 0.97 0.57 - 1.25 mg/dL Glucose 114 (H) 70 - 105 mg/dL Calcium 9.7 8.4 - 10.2 mg/dL EGFR 79Comment: ESTIMATED GFR IS NOT ACCURATE mL/min/1.73 sq m CREATININE CLEARANCE IN PREDICTING GLOMERULAR FILTRATION RATE. ESTIMATED GFR IS NOT APPLICABLE FOR DIALYSIS PATIENTS. Specimen Performing Laboratory Blood [address] [address] * CBC with platelet count + automated diff (03/21/2017 9:32 AM) Only the most recent of 14 results within the time period is included. Component Value Ref Range WBC 8.2 3.5 - 10.5 K/ L RBC 3.71 (L) 4.63 - 6.08 M/ L Hemoglobin 11.2 (L) 13.7 - 17.5 GM/DL Hematocrit 34.1 (L) 40.1 - 51.0 % MCV 91.9 79.0 - 92.2 fL MCH 30.2 25.7 - 32.2 pg MCHC 32.8 32.3 - 36.5 GM/DL RDW 13.2 11.6 - 14.4 % Platelets 336 150 - 450 K/CU MM MPV 9.1 (L) 9.4 - 12.4 fL nRBC 0 0 - 0 /100 WBC % Neutros 68 % % Lymphs 23 % % Monos 7 % % Eos 2 % % Baso 0 % # Neutros 5.52 (H) 1.78 - 5.38 K/ L # Lymphs 1.88 1.32 - 3.57 K/ L # Monos 0.60 0.30 - 0.82 K/ L # Eos 0.12 0.04 - 0.54 K/ L # Baso 0.03 0.01 - 0.08 K/ L Immature 0 0 - 1 % Granulocytes-Relative Specimen Performing [place] [address] * CBC with platelet count + automated diff (03/21/2017 9:32 AM) Only the most recent of 14 results within the time period is included. Specimen Performing Laboratory Blood Narrative The following orders were created for panel order CBC with platelet count + automated diff. Procedure Abnormality Status --------- - ------ CBC with platelet count ...[[id number]]AbnormalFinal result Please view results for these tests on the individual orders. * POC-Lactic Acid, Venous (03/21/2017 3:07 AM) Component Value Ref Range POC-Lactic Acid, Venous 0.8 (L)Comment: TESTED AT [address] 0.9 - 1.7 mmol/L [place] [address] Specimen Performing [place] [address] * TRANSFUSION SERVICE REPORT - SCAN (03/20/2017 5:52 PM) Only the most recent of 3 results within the time period is included. * LIPASE (03/20/2017 12:27 PM) Component Value Ref Range Scan Result Specimen Performing Laboratory Body Fluid [facility] [address] [place], [place] * Glucose, body fluid (03/20/2017 12:23 PM) Component Value Ref Range Glucose, Body Fluid 5 (L) 70 - 110 mg/dL Specimen Performing Laboratory Body Fluid - Pleural, [facility] Left [address] [place] [address] Narrative Absence of reference range indicates that normals have not been defined. Assay performance has not been validated for this type of specimen. USE EXISTING SPECIMEN USE EXISTING SPECIMEN * Amylase, body fluid (03/20/2017 12:23 PM) Component Value Ref Range Amylase, Fluid 45 30 - 110 U/L Specimen Performing Laboratory Body Fluid - Pleural, [facility] Left [address] [place] [address] Narrative Absence of reference range indicates that normals have not been defined. Assay performance has not been validated for this type of specimen. USE EXISTING SPECIMEN USE EXISTING SPECIMEN * Lactic acid, arterial, whole blood (03/19/2017 8:53 PM) Only the most recent of 2 results within the time period is included. Component Value Ref Range Lactate, Art 1.1 0.5 - 2.2 mmol/L Specimen Performing Laboratory Blood, Arterial [address] [address] Narrative Effective 06/27/2015: Units/Reference Range Change New: 0.5-2.2 mmol/LPrevious: 5-20 mg/dL * Calcium, Ionized (03/19/2017 8:52 PM) Only the most recent of 4 results within the time period is included. Component Value Ref Range Calcium, Ion 1.01 (L) 1.12 - 1.27 mmol/L pH, Blood 7.43 Specimen Performing Laboratory Blood [address] [address] * Blood gas, arterial (03/19/2017 8:52 PM) Only the most recent of 10 results within the time period is included. Component Value Ref Range pH, Arterial 7.43 7.35 - 7.45 pCO2, Arterial 44 35 - 45 mmHg pO2, Arterial 110 (H) 80 - 90 mmHg O2 Sat, Arterial 98.2 (H) 96.0 - 97.0 % HCO3, Arterial 28 21 - 29 mmol/L Base Excess, Arterial 3.3 (H) -2.0 - 3.0 mmol/L Patient Temperature 36.6 C FIO2 44.0 % Specimen Performing Laboratory Blood, Arterial [address] [address] * aPTT (03/19/2017 8:47 PM) Only the most recent of 3 results within the time period is included. Component Value Ref Range PTT 32.3 22.5 - 36.0 seconds Specimen Performing Laboratory Blood [address] [address] * Prothrombin time/INR (03/19/2017 8:47 PM) Only the most recent of 3 results within the time period is included. Component Value Ref Range Protime 14.8 (H) 11.7 - 14.7 seconds INR 1.2 <=5.9 Specimen Performing Laboratory Blood [address] [address] Narrative RECOMMENDED COUMADIN/WARFARIN INR THERAPY RANGES STANDARD DOSE: 2.0 - 3.0 Includes: PROPHYLAXIS for venous thrombosis, systemic embolization; TREATMENT for venous thrombosis and/or pulmonary embolus. HIGH RISK: Target INR is 2.5-3.5 for patients with mechanical heart valves. * Fibrinogen (03/19/2017 8:47 PM) Component Value Ref Range Fibrinogen 608 (H) 225 - 434 mg/dl Specimen Performing Laboratory Blood [address] [address] * Prepare RBC (03/19/2017 8:42 PM) Component Value Ref Range CROSSMATCH COMPATIBLE Unit ABO A Pos UNIT NUMBER [id number] Status RETURNED FROM ISSUE Blood Bank Product RED BLOOD CELLS PRODUCT CODE E6058X76 CROSSMATCH COMPATIBLE Unit ABO A Pos UNIT NUMBER [id number] Status RETURNED FROM ISSUE Blood Bank Product RED BLOOD CELLS PRODUCT CODE [id number] Specimen Performing Laboratory [place] * pH, body fluid (03/19/2017 8:37 PM) Component Value Ref Range pH, Body Fluid 7.36 Specimen Performing Laboratory Body Fluid - Pleural, [facility] Left [address] [place] [address] * Body fluid cell count with differential (03/19/2017 8:37 PM) Component Value Ref Range Appearance Bloody (A) Clear Color Red (A) Colorless, Straw RBCs 13189 (H) <=1 /cu mm Adjusted WBC Count 2748 (H) <=5 /cu mm Lining Cells 962 (H) <=1 /cu mm % Segs 7 % % Lymphs 81 % % Monos 12 % % Eos 0 % % Baso 0 % Container Body Fluid EDTA Tube Specimen Performing Laboratory Body Fluid - Pleural, [facility] Left [address] [place] [address] * Protein, body fluid (03/19/2017 8:37 PM) Component Value Ref Range Protein, Fluid 7.8 Light's criteria identifies effusions if one or more are present: Pleural to serum protein ratio of more than 0.5; Pleural to Serum LDH of more than 0.6; Pleural LDH of more than two third of upper serum reference limit g/dL Specimen Performing Laboratory Body Fluid - Pleural, [facility] Left [address] [place] [address] Narrative Absence of reference range indicates that normals have not been defined. Assay performance has not been validated for this type of specimen. Left pleural effusion Left pleural effusion * Lactate dehydrogenase (LDH), body fluid (03/19/2017 8:37 PM) Component Value Ref Range LDH, Fluid >[address] Light's criteria identifies effusions if one or more are present: Pleural to serum protein ratio of more than 0.5; Pleural to serum LDH ratio of more than 0.6; Pleural LDH more than two third of upper serum reference limit U/L Specimen Performing Laboratory Body Fluid - Pleural, [facility] Left [address] [place] [address] Narrative Absence of reference range indicates that normals have not been defined. Assay performance has not been validated for this type of specimen. Left pleural effusion Left pleural effusion Left pleural effusion * AFB culture + smear (03/19/2017 8:27 PM) Only the most recent of 3 results within the time period is included. Component Value Ref Range Result No acid-fast bacilli isolated in 42 days AFB Smear No acid fast bacilli seen Specimen Performing Laboratory Body Fluid - Pleural, [facility] Left [address] [place] [address] * Anaerobic culture (03/19/2017 8:27 PM) Only the most recent of 4 results within the time period is included. Component Value Ref Range Result No anaerobes isolated Specimen Performing Laboratory Body Fluid - Pleural, [facility] Left [address] [place] [address] * Surgically obtained culture + gram stain (03/19/2017 8:27 PM) Only the most recent of 4 results within the time period is included. Component Value Ref Range Result No growth Gram Stain Result 1+ WBCs Gram Stain Result No organisms seen Specimen Performing Laboratory Body Fluid - Pleural, [facility] Left [address] [place] [address] * Fungus culture + smear (03/19/2017 8:27 PM) Only the most recent of 3 results within the time period is included. Component Value Ref Range Result No fungus isolated in 28 days Fungus Smear No fungi seen Specimen Performing Laboratory Body Fluid - Pleural, [facility] Left [address] [place] [address] * Cytology (03/19/2017 7:55 PM) Only the most recent of 3 results within the time period is included. Component Value Ref Range Cytology See Separate Report Specimen Performing Laboratory Body Fluid - Pleural, [facility] Left [address] [place] [address] * Cytology (03/19/2017 7:55 PM) Only the most recent of 3 results within the time period is included. Component Value Ref Range Case Report Medical Cytology Report Case: [id number] Authorizing Provider: Ivan Chaparro, Collected: 03/19/20171954 Ordering Location: [address] Received: 03/20/2017 1010 Service Pathologist: Linh Abad MD Specimen: Pleural, Left DIAGNOSIS LEFT PLEURAL FLUID (CYTOSPINS AND CELL BLOCK): - POSITIVE FOR MALIGNANCY; FEATURES CONSISTENT WITH METASTATIC ADENOCARCINOMA WITH FEATURES SIMILAR TO THOSE NOTED IN PREVIOUS PERICARDIAL FLUID SEE COMMENT Signing Pathologist Direct Phone Line: [phone] COMMENT The malignant cells in this left pleural effusion are similar to those noted in this patient's prior pericardial fluid sample, which also showed features consistent with metastatic adenocarcinoma ([id number]), from August 08, 2016. The cytologic features are quite similar in these two samples; both cases show/ed immunoreactivity for MOC-31 and CK 7, and are negative for Napsin and TTF-1. In the current tumor, CK5/6, WT-1, and p63 are negative also. Immunohistochemical stain results are similar, including CK 7 and MOC 31 positivity as well. However, a calretinin stain is also strongly positive, and a D2 40 stain, less positive. Additional subsequent immunohistochemical stains are performed in the current sample, including a CD15 and CEA, the former of which is positive, and the latter, negative Dr. Chaparro is called on 03/25/2017, and the initial results are discussed. Since an unexpected finding of a positive calretinin and positive D2 40 is noted in the current sample, the possibility of a malignant mesothelioma in this case is considered. However, the positive MOC 31 and positive CD15 would mitigate against this diagnostic possibility (these results are not specific, however). Thus, the overall features are not entirely definitive, as noted originally.This patient's clinical history is most consistent with a primary carcinoma of the lung, As discussed with Drs. Chaparro and Katharina Haney. Attempts to study additional immunohistochemical stains on the previous pericardial effusion are not successful, due to depletion of cellular material in the cell block in that case. The current case also shows cellular depletion in the block (slides A14 and A.15). Dr. Taylor Pena reviewed the initial study on 03/25/2017, and agrees with the findings, diagnosis as given, and comments. A report in Medical Records from [facility] [address] [place] [address], [address], [place] [address], is filed in Medical Records at [facility], from results obtained on 09/10/2016, in the prior pericardial sample ([id number]); indicating a POSITIVE result for PD-L1, IHC (antiboney clone [id number]); FISH studies for ALK(2p23) MET(7q31.2), ROS1 (6q22.1) and RET (10q11.21) were NEGATIVE (see entire report, available in the medical records department (Maggie Payton ), rechecked 03/27/2017. CPT Code(s) 11648, 35013 26556 x 1 45813 x 8 CLINICAL DATA Left pleural effusion, previous malignant pericardial effusion (see [id number]), history of lung cancer, Stage IV,based on the previous sample and the findings of a lung mass and probable necrotic lymph nodes, on radiologic exam. The lung tumor was not biopsied. SPECIMEN SOURCE LEFT PLEURAL FLUID GROSS DESCRIPTION 1300 mls bloody; 4 cytospins, cell block Collected: [id number] Received: [id number] MICROSCOPIC DESCRIPTION See comment. STATEMENT OF ADEQUACY Satisfactory SPECIAL STUDIES The following special studies were performed on this case and the interpretation is incorporated in the diagnostic report above: See comment section The immunohistochemistry test was developed and its performance characteristics determined by [facility], Pathology Laboratory. It has not been cleared or approved by the U.S. Food and Drug Administration. The FDA has determined that such clearance or approval is not necessary. The test is used for clinical purposes. It should not be regarded as investigational or for research. This laboratory is certified under the Clinical Laboratory Improvement Amendments of 1988 (CLIA-88) as qualified to perform high complexity clinical laboratory testing. Technical component was [facility], Department of performed at Pathology, [address] [place] [address], Professional component [facility], Department of was performed at Pathology, [address] [place] [address], Specimen Performing Laboratory Body Fluid - Pleural, [facility] Left [address] [place] [address] * [facility] Critical Labs (ABG,NA,K,H&H,GLU) (03/19/2017 7:53 PM) Only the most recent of 2 results within the time period is included. Specimen Performing Laboratory Blood, Arterial Narrative The following orders were created for panel order [facility] Critical Labs (ABG,NA,K,H& H,GLU). Procedure Abnormality Status --------- - ------ Blood gas, arterial[[id number]]Abnormal Final result Sodium Na-Stat Lab[[id number]] Normal Final result Potassium-Stat Lab[[id number]] Normal Final result Glucose-Stat Lab[[id number]] Abnormal Final result HGB/HCT (H&H)-Stat Lab[[id number]] Abnormal Final result Please view results for these tests on the individual orders. * Potassium-Stat Lab (03/19/2017 7:53 PM) Only the most recent of 5 results within the time period is included. Component Value Ref Range Potassium 3.6 3.6 - 5.5 meq/L Specimen Performing Laboratory Blood, [address] [address] * Sodium Na-Stat Lab (03/19/2017 7:53 PM) Only the most recent of 3 results within the time period is included. Component Value Ref Range Sodium 139 135 - 148 meq/L Specimen Performing Laboratory Blood, [address] [address] * Glucose-Stat Lab (03/19/2017 7:53 PM) Only the most recent of 6 results within the time period is included. Component Value Ref Range Glucose 137 (H) 70 - 110 mg/dL Specimen Performing Laboratory Blood, [address] [address] * HGB/HCT (H&H)-Stat Lab (03/19/2017 7:53 PM) Only the most recent of 6 results within the time period is included. Component Value Ref Range Hemoglobin 12.2 (L) 13.0 - 16.8 g/dL Hematocrit 36.0 (L) 40.0 - 50.0 % Specimen Performing Laboratory Blood, [address] [address] * CT chest without IV contrast (03/18/2017 6:21 PM) Specimen Performing Laboratory [employer] Narrative FINAL REPORT CLINICAL INDICATION: Pleural effusion COMPARISON: 08/13/2016 Multiple axial images of the chest were performed without IV contrast. This exam was performed according to our departmental dose-optimization program, which includes automated exposure control, adjustment of the mA and/or kV according to patient size and/or use of the iterative reconstruction technique. FINDINGS: Lung parenchyma: There is been interval increase in the size of a left upper lobe nodule, which now measures 2.9 x 2.7 cm where it previously measured 2.4 x 2.1 cm. A left upper lobe, perihilar mass measuring 1.4 cm stable from previous. Also stable is a 6 mm nodule in the right anterior midlung. There is stable appearance of pulmonary emphysema and diffuse interstitial thickening, probably scarring. Compressive atelectasis is noted in the left lower lung. Pleural effusion: Large left pleural effusion Pneumothorax: None. Tracheobronchial tree: No significant findings. Pulmonary vasculature: No significant findings. Cardiac contours and great vessels: Atherosclerotic calcification of the coronary arteries, aorta and great vessels arising from the arch Mediastinum: No significant findings. Lymph Nodes: Stable prominent mediastinal lymph nodes, including a 1.3 cm short axis diameter precarinal node. Skeleton: No acute abnormality. Other: Right IJ chest port Limited images of upper abdomen: Previous cholecystectomy IMPRESSION: Significant interval increase in the size of a left pleural effusion, now large. There is adjacent compressive atelectasis in the left lower lung. Pneumonitis should be excluded clinically. Interval increase in the size of a left upper lobe nodule, concerning for bronchogenic malignancy and measuring 2.9 x 2.7 cm. Other pulmonary nodules appear grossly similar to previous as does mediastinal adenopathy. Pulmonary emphysema. Signed: Jeff Savage MD Report Verified Date/Time:03/19/2017 00:57:13 Reading Location: [address] Body Reading Room Procedure Note Interface, External Ris In - 03/19/2017 12:59 AM BRANCH SERVICE REPRESENTATIVE FINAL REPORT CLINICAL INDICATION: Pleural effusion COMPARISON: 08/13/2016 Multiple axial images of the chest were performed without IV contrast. This exam was performed according to our departmental dose-optimization program, which includes automated exposure control, adjustment of the mA and/or kV according to patient size and/or use of the iterative reconstruction technique. FINDINGS: Lung parenchyma: There is been interval increase in the size of a left upper lobe nodule, which now measures 2.9 x 2.7 cm where it previously measured 2.4 x 2.1 cm. A left upper lobe, perihilar mass measuring 1.4 cm stable from previous. Also stable is a 6 mm nodule in the right anterior midlung. There is stable appearance of pulmonary emphysema and diffuse interstitial thickening, probably scarring. Compressive atelectasis is noted in the left lower lung. Pleural effusion: Large left pleural effusion Pneumothorax: None. Tracheobronchial tree: No significant findings. Pulmonary vasculature: No significant findings. Cardiac contours and great vessels: Atherosclerotic calcification of the coronary arteries, aorta and great vessels arising from the arch Mediastinum: No significant findings. Lymph Nodes: Stable prominent mediastinal lymph nodes, including a 1.3 cm short axis diameter precarinal node. Skeleton: No acute abnormality. Other: Right IJ chest port Limited images of upper abdomen: Previous cholecystectomy IMPRESSION: Significant interval increase in the size of a left pleural effusion, now large. There is adjacent compressive atelectasis in the left lower lung. Pneumonitis should be excluded clinically. Interval increase in the size of a left upper lobe nodule, concerning for bronchogenic malignancy and measuring 2.9 x 2.7 cm. Other pulmonary nodules appear grossly similar to previous as does mediastinal adenopathy. Pulmonary emphysema. Signed: Jeff Savage MD Report Verified Date/Time: 03/19/2017 00:57:13 Reading Location: [facility] B1 C013Y CT Body Reading Room * Electrocardiogram, 12-lead (03/16/2017 11:01 PM) Only the most recent of 2 results within the time period is included. Specimen Performing Laboratory [employer] [facility] Narrative Ventricular Rate 103 BPM Atrial Rate 103 BPM P-R Interval 144 ms QRS Duration 76 ms Q-T Interval 336 ms QTC Calculation(Bazett) 440 ms P Midland 47 degrees R Midland 41 degrees T [place]land 33 degrees Sinus tachycardia Poor R wave progression When compared with ECG of 08-AUG-2016 08:24, No significant change was found Confirmed by MD RAYMOND YOCHAI ([id number]) on 03/17/2017 6:46:55 AM Procedure Note Interface, External Ris In - 03/17/2017 6:47 AM BRANCH SERVICE REPRESENTATIVE Ventricular Rate 103 BPM Atrial Rate 103 BPM P-R Interval 144 ms QRS Duration 76 ms Q-T Interval 336 ms QTC Calculation(Bazett) 440 ms P Midland 47 degrees R Mid[place] 41 degrees T [place] 33 degrees Sinus tachycardia Poor R wave progression When compared with ECG of 08-AUG-2016 08:24, No significant change was found Confirmed by MD RAYMOND YOCHAI ([id number]) on 03/17/2017 6:46:55 AM * Type and screen, automated (03/16/2017 10:39 PM) Only the most recent of 2 results within the time period is included. Component Value Ref Range ABO/RH AUTOMATED (BEAKER) A POSITIVE Ab Scrn NEGATIVE Specimen Performing Laboratory Blood [facility] [address] [place] [address] * Comprehensive metabolic panel (03/16/2017 10:39 PM) Only the most recent of 2 results within the time period is included. Component Value Ref Range Protein, Total 8.5 (H) 6.0 - 8.3 gm/dL Albumin 3.2 (L) 3.5 - 5.0 g/dL Alkaline Phosphatase 58 40 - 150 U/L Total Bilirubin 0.5 0.2 - 1.2 mg/dL Sodium 136 136 - 145 meq/L Potassium 3.8 3.5 - 5.1 meq/L Chloride 102 98 - 107 meq/L CO2 25 22 - 29 meq/L BUN 10 7 - 21 mg/dL Creatinine 0.96 0.57 - 1.25 mg/dL Glucose 107 (H) 70 - 105 mg/dL Calcium 9.0 8.4 - 10.2 mg/dL AST 11 5 - 34 U/L ALT 7 6 - 55 U/L EGFR 80Comment: ESTIMATED GFR IS NOT ACCURATE mL/min/1.73 sq m CREATININE CLEARANCE IN PREDICTING GLOMERULAR FILTRATION RATE. ESTIMATED GFR IS NOT APPLICABLE FOR DIALYSIS PATIENTS. Specimen Performing Laboratory Blood [address] [address] * EKG-SCANNED (10/15/2016 11:51 AM) * Manual Differential (10/09/2016 4:11 AM) Only the most recent of 5 results within the time period is included. Component Value Ref Range Total Counted WBC Morphology Normal Platelet Morphology Normal RBC Morphology Normal Specimen Performing Laboratory Blood - Arm, Right [address] [address] * CBC (Hemogram only) (10/07/2016 3:54 AM) Only the most recent of 3 results within the time period is included. Component Value Ref Range WBC 4.6 3.5 - 10.5 K/ L RBC 3.76 (L) 4.63 - 6.08 M/ L Hemoglobin 11.4 (L) 13.7 - 17.5 GM/DL Hematocrit 33.2 (L) 40.1 - 51.0 % MCV 88.3 79.0 - 92.2 fL MCH 30.3 25.7 - 32.2 pg MCHC 34.3 32.3 - 36.5 GM/DL RDW 14.6 (H) 11.6 - 14.4 % Platelets 169 150 - 450 K/CU MM MPV 10.2 9.4 - 12.4 fL nRBC 0 0 - 0 /100 WBC Specimen Performing Laboratory Blood - Arm, [address] [address] * Vancomycin level, trough (10/06/2016 10:48 AM) Component Value Ref Range Vancomycin Tr 10.9 10.0 - 20.0 ug/mL Specimen Performing Laboratory Blood - Arm, [place] [address] Narrative Wait for result before giving dose. HOLD vancomycin if trough >20 * Potassium (10/06/2016 7:16 AM) Only the most recent of 2 results within the time period is included. Component Value Ref Range Potassium 3.6 3.5 - 5.1 meq/L Specimen Performing Laboratory Blood - Arm, [place] [address] * Phosphorus (10/06/2016 2:38 AM) Only the most recent of 3 results within the time period is included. Component Value Ref Range Phosphorus 2.4 2.3 - 4.7 mg/dL Specimen Performing Laboratory Blood - Line, [place] [address] * 2D Echo W/Doppler(CW/PW/Color) (10/04/2016 10:24 AM) Specimen Performing Laboratory [facility] Narrative Echocardiography Laboratory [address] [place] [address] Voice:[phone] Transthoracic Echocardiogram Pat.Name:JULIUS OMALLEY Pat.ID:[id number] .Date: 10/04/2016 Refer.MD:ROCIO NIX Exam Time: 10:24:00 AM Study Type:Echo Complete Height:70inWeight:251lb BSA: 2.3 h2JZVJsr:1955,60Y Sex: MALEBP: 122/61 HR:134 bpm Sonogrphr: Neha Vera RDCS Pat. Stat.:Inpatient Room:[facility] CPT - 4: 84840 Reason for Study:Hypotension or hemodynamic instability History / Clinical:Dyspnea, Pericardial effusion, Lung mass Procedures:2D ECHO W/ DOPPLER (CW/PW/COLOR) Race: SUMMARY: Rapid rhythm during the exam. HR is 130 bpm Left ventricular chamber size (by PSLAX dimension) is small (male - LVIDd < 4.2 cm). Global LV systolic function is normal. Estimated LVEF by qualitative assessment is normal (> 60%). Increased (cardiac index 3.5-4.0 L/min/m2) cardiac output state at rest is noted. Grade 1 diastolic dysfunction (impaired relaxation and low-normal LA pressure). The right ventricular chamber size and systolic function are within normal limits. A trace of tricuspid regurgitation. No significant pericardial effusion is visualized. S/P pericardial window on 08-08-16. Echodensities are noted anterior to the free wall of the right ventricle. Differential diagnosis includes an or ganized effusion vs. a prominent epicardial fat pad. The estimated RA pressure by IVC dynamics 5-10 mmHg. FINDINGS: Rhythm/BP: Rapid rhythm during the exam. HR is 130 bpm LV: All of the LV segments contract normally. Global LV systolic functionis normal. No evidence of LV hypertrophy. Left ventricularchamber size (by PSLAX dimension) is small (male- LVIDd < 4.2 cm). Grade 1 diastolic dysfunction (impairedrelaxation and low-normal LA pressure). Estimated LVEFby qualitative assessment is normal (> 60%). Increased (cardiacindex 3.5-4.0 L/min/m2) cardiac output state at restis noted. LV endocardium is adequately visualized with IV contrast. LA: LA size is normal (16-34 ml/m2). RV: The right ventricular chamber size and systolic function are withinnormal limits. RA: RA cavity size is normal. AV: Mild AoV cusp thickening. AoV cusp mobility is normal. Mild AoVcusp calcification. MV: Mild MV leaflet thickening. TV: A trace of tricuspid regurgitation. TV structure appears normalby available views. Unable to estimate peak systolic PApressure; inadequate TR velocity signal. PV: Normal PV structure and function. AO: Aortic root size (Sinus of Valsalva diameter) is normal. Pericard: No significant pericardial effusion is visualized. S/P pericardialwindow on 08-08-16 Systemic Veins: The estimated RA pressure by IVC dynamics 5-10 mmHg. PA/PV/Pleural: The right upper pulmonary vein (RUPV) is normal. Quality:Technically difficult exam. MEASUREMENTS: 2D LA Sng Plane LA Vol49.9 mlIndex 21.7 ml/m2 LA Area 19.7 cm2(8.8-23.4) LVOT Stroke Vol & Cardiac Out LVOT 2 cm Parasternal Long Mid[place] Ao An 2.04 cm (1.4-2.6) LV%fs 55.9 %(25-46)* Ao Rtd3.45 cmLVPWd 1.01 cm IVSd1.07 cm LA Ds3.1 cm (2.3-3.9) LVIDd3.2 cm (4.3-5.1)* LV Wmn 1.04 cm LVIDs 1.41 cm (2-4)* DOPPLER LVOT Stroke Vol & Cardiac Out LVOT VTI17.8 cmLVOT CO 7.29 l/min LVOT SV 55.9 mlLVOT CI 3.17 l/min/m2 Aortic Valve SVi (LVOT)24.3 Signed 10/04/2016 04:16 PM Flako Silva M.D. Procedure Note Interface, External Ris In - 10/05/2016 7:56 PM CDT Echocardiography Laboratory [address] [place] [address] Voice: [phone] Transthoracic Echocardiogram Pat.Name: JULIUS OMALLEY Pat.ID: [id number] St.Date: 10/04/2016 Refer.MD: ROCIO NIX Exam Time: 10:24:00 AM Study Type:Echo Complete Height: 70in Weight: 251lb BSA: 2.3 m2 Age: 9 1955,60Y Sex: MALE BP: 122/61 HR: 134 bpm Sonogrphr: Neha Vera RDCS Pat. Stat.:Inpatient Room: [facility] CPT - 4: 75613 Reason for Study:Hypotension or hemodynamic instability History / Clinical:Dyspnea, Pericardial effusion, Lung mass Procedures:2D ECHO W/ DOPPLER (CW/PW/COLOR) Race: SUMMARY: Rapid rhythm during the exam. HR is 130 bpm Left ventricular chamber size (by PSLAX dimension) is small (male - LVIDd < 4.2 cm). Global LV systolic function is normal. Estimated LVEF by qualitative assessment is normal (> 60%). Increased (cardiac index 3.5-4.0 L/min/m2) cardiac output state at rest is noted. Grade 1 diastolic dysfunction (impaired relaxation and low-normal LA pressure). The right ventricular chamber size and systolic function are within normal limits. A trace of tricuspid regurgitation. No significant pericardial effusion is visualized. S/P pericardial window on 08-08-16. Echodensities are noted anterior to the free wall of the right ventricle. Differential diagnosis includes an or ganized effusion vs. a prominent epicardial fat pad. The estimated RA pressure by IVC dynamics 5-10 mmHg. FINDINGS: Rhythm/BP: Rapid rhythm during the exam. HR is 130 bpm LV: All of the LV segments contract normally. Global LV systolic function is normal. No evidence of LV hypertrophy. Left ventricular chamber size (by PSLAX dimension) is small (male - LVIDd < 4.2 cm). Grade 1 diastolic dysfunction (impaired relaxation and low-normal LA pressure). Estimated LVEF by qualitative assessment is normal (> 60%). Increased (cardiac index 3.5-4.0 L/min/m2) cardiac output state at rest is noted. LV endocardium is adequately visualized with IV contrast. LA: LA size is normal (16-34 ml/m2). RV: The right ventricular chamber size and systolic function are within normal limits. RA: RA cavity size is normal. AV: Mild AoV cusp thickening. AoV cusp mobility is normal. Mild AoV cusp calcification. MV: Mild MV leaflet thickening. TV: A trace of tricuspid regurgitation. TV structure appears normal by available views. Unable to estimate peak systolic PA pressure; inadequate TR velocity signal. PV: Normal PV structure and function. AO: Aortic root size (Sinus of Valsalva diameter) is normal. Pericard: No significant pericardial effusion is visualized. S/P pericardial window on 08-08-16 Systemic Veins: The estimated RA pressure by IVC dynamics 5-10 mmHg. PA/PV/Pleural: The right upper pulmonary vein (RUPV) is normal. Quality: Technically difficult exam. MEASUREMENTS: 2D LA Sng Plane LA Vol 49.9 ml Index 21.7 ml/m2 LA Area 19.7 cm2 (8.8-23.4) LVOT Stroke Vol & Cardiac Out LVOT 2 cm Parasternal Long [place] Ao An 2.04 cm (1.4-2.6) LV%fs 55.9 % (25-46)* Ao Rtd 3.45 cm LVPWd 1.01 cm IVSd 1.07 cm LA Ds 3.1 cm (2.3-3.9) LVIDd 3.2 cm (4.3-5.1)* LV Wmn 1.04 cm LVIDs 1.41 cm (2-4)* DOPPLER LVOT Stroke Vol & Cardiac Out LVOT VTI 17.8 cm LVOT CO 7.29 l/min LVOT SV 55.9 ml LVOT CI 3.17 l/min/m2 Aortic Valve SVi (LVOT) 24.3 Signed 10/04/2016 04:16 PM Flako Silva M.D. * Lactic acid, venous, whole blood (10/04/2016 9:34 AM) Only the most recent of 2 results within the time period is included. Component Value Ref Range Lactate, Venous 1.7Comment: Specimen slightly hemolyzed 0.5 - 2.2 mmol/L Specimen Performing Laboratory Blood - Line, Venous [address] [address] Narrative Effective 06/27/2015: Units/Reference Range Change New: 0.5-2.2 mmol/LPrevious: 5-20 mg/dL * Urine culture (10/04/2016 8:50 AM) Component Value Ref Range Result No growth Specimen Performing Laboratory Urine [address] [address] * Urinalysis w/ Microscopic (10/04/2016 8:10 AM) Component Value Ref Range Color, UA Yellow Clarity, UA Clear Specific [place], UA >1.050 (H) 1.001 - 1.035 pH, UA 6.0 5.0 - 8.0 Protein, UA 70 mg/dL (A) Negative Glucose, UA Negative Negative Ketones, UA Trace (A) Negative Bilirubin, UA Negative Negative Blood, UA Negative Negative Nitrite, UA Negative Negative Leukocytes, UA Negative Negative Urobilinogen, UA 0.2 0.2 - 1.0 mg/dL RBC, UA 1 /HPF WBC, UA 1 /HPF Mucus Rare Specimen Source Urine, Voided Specimen Performing Laboratory Urine - Urine, Voided [address] [address] * Blood culture #2 (10/04/2016 2:15 AM) Only the most recent of 2 results within the time period is included. Component Value Ref Range Result No growth in 5 days Specimen Performing Laboratory Blood - Arm, Right [address] [address] * IR CV Access Fluoro (08/14/2016 11:30 AM) Specimen Performing Laboratory [facility] Narrative FINAL REPORT Procedure: Right internal jugularPortacath placement, History: Need for chemotherapy Sedation: Onemg Versed, 50mcg fentanyl. Monitored conscious sedation by the registered nurse. Intraservice physician time was 20 minutes. Approach: Right internal jugular vein Modality: Ultrasound and fluoroscopy Fluoroscopy time: 1.1 minutes total dose: 10.8 mGy, reference air kerma method Technique: Using maximal sterile barrier technique and after obtaining written informed consent , the right internal jugularvein was evaluated. The vein was patent and compressible. Images of the vein were recorded on PACS. Real-time ultrasound was used to access the vein.. A catheter was then advanced with fluoroscopy to the junction of the superior vena cava and right atrium. A subcutaneous pocket was created and a Portacath placed and connected to the catheter. Pocket was irrigated withgentamycin solution and then closed with subcuticular resorbable suture. The patient tolerated the procedure well. Conclusion: Placement of right internal jugularPortacath. Signed: Lashonda Brice MD Report Verified Date/Time:08/15/2016 15:55:55 Reading Location: [place] [address] Angio Body Reading Room Procedure Note Interface, External Ris In - 08/15/2016 3:58 PM CDT FINAL REPORT Procedure: Right internal jugular Portacath placement, History: Need for chemotherapy Sedation: One mg Versed, 50 mcg fentanyl. Monitored conscious sedation by the registered nurse. Intraservice physician time was 20 minutes. Approach: Right internal jugular vein Modality: Ultrasound and fluoroscopy Fluoroscopy time: 1.1 minutes total dose: 10.8 mGy, reference air kerma method Technique: Using maximal sterile barrier technique and after obtaining written informed consent , the right internal jugular vein was evaluated. The vein was patent and compressible. Images of the vein were recorded on PACS. Real-time ultrasound was used to access the vein.. A catheter was then advanced with fluoroscopy to the junction of the superior vena cava and right atrium. A subcutaneous pocket was created and a Portacath placed and connected to the catheter. Pocket was irrigated with gentamycin solution and then closed with subcuticular resorbable suture. The patient tolerated the procedure well. Conclusion: Placement of right internal jugular Portacath. Signed: Lashonda Brice MD Report Verified Date/Time: 08/15/2016 15:55:55 Reading Location: [facility] P048 Angio Body Reading Room * PULMONARY FUNCTION - SCAN (08/13/2016 2:00 PM) * CT abdomen/pelvis with IV contrast (08/13/2016 3:27 AM) Specimen Performing Laboratory [employer] Narrative FINAL REPORT CT OF THE CHEST, ABDOMEN, AND PELVIS CLINICAL HISTORY:Lung cancer TECHNIQUE: CT of the chest, abdomen, and pelvis is performed with intravenous contrast administration. Oral contrast was not administered. This exam was performed according to our departmental dose-optimization program which includes automated exposure control, adjustment of the mA and/or kV according to patient size and/or use of iterative reconstruction technique. COMPARISON FILM:None DISCUSSION: LINES/TUBES: None. LUNGS/AIRWAYS: There is a 2.6 x 2.4 x 2.1 cm mass in the left upper lobe associated with pleural retraction and scarring. Additional 6 mm nodule in the right middle lobe (image 32). Diffuse emphysema. Subpleural reticulation and scarring in the bilateral lower lobes. Subsegmental atelectasis in the left lower lobe. PLEURA: Trace left pleural effusion. HEART AND MEDIASTINUM: Necrotic mediastinal and hilar lymphadenopathy. The lower right paratracheal/4R lymph nodes measure up to 1.6 x 2.3 cm. Para-aortic/level 6 lymph node measures 2.5 x 1.6 cm. Subaortic/level 5 lymph node measures 2.8 x 1.6 cm. Left hilar/level 10 lymph nodes measure up to 2 x 1.3 cm. Right hilar/level 10 lymph nodes measure up to 1.7 x 1.2 cm. There are subcentimeter level 2R and 2L lymph nodes which are also concerning for malignancy although they do not meet size criteria for enlargement, measuring up to 1 x 0.8 cm on the left and 0.9 x 0.8 cm on the right. Thyroid unremarkable. Thoracic aorta normal in course and caliber. Trace pericardial effusion and pericardial thickening. HEPATOBILIARY: Cholelithiasis. No definite focal liver lesion. Main portal vein is patent. No biliary ductal dilation. PANCREAS: No pancreatic ductal dilation. No peripancreatic inflammatory change. SPLEEN: No splenomegaly. ADRENALS: There is a 2.1 x 1.2 cm right adrenal nodule. Additional 1.1 cm right adrenal nodule. Left adrenal gland mildly thickened without discrete nodule. KIDNEYS/URETERS: No definite solid renal lesion. No hydronephrosis or hydroureter. PELVIC ORGANS/BLADDER: Unremarkable. GI TRACT: No bowel wall thickening or distention. Normal appendix. PERITONEUM/RETROPERITONEUM: No free fluid or free air. LYMPH NODES: No upper abdominal, retroperitoneal, mesenteric, or pelvic lymphadenopathy. VESSELS: Diffuse aortoiliac atherosclerotic calcifications. BONES AND SOFT TISSUES: Findings of prior umbilical hernia repair with mesh. Unchanged subcutaneous emphysema along the left lateral chest and abdominal wall, as seen on prior chest x-ray from 08/12/2016. Indeterminate 9 mm lytic lesion at the inferior endplate of L2 without surrounding sclerosis. IMPRESSION: 1. Primary pulmonary mass measures 2.6 cm in the the left upper lobe and is associated with necrotic mediastinal and contralateral hilar lymphadenopathy. Indeterminate contralateral 6 mm nodule in the right middle lobe. Associated trace left pleural effusion. 2. Two right-sided adrenal nodules may represent metastatic disease. 3. Indeterminate 9 mm lytic lesion at the inferior endplate of L2. No other destructive osseous lesion. Consider further evaluation with nuclear medicine bone scan. Signed: Robert Ureña MD Report Verified Date/Time:08/13/2016 09:19:34 Reading Location: [facility] Diagnostic Imaging Reading Room - [place] [address] Procedure Note Interface, External Ris In - 08/13/2016 9:21 AM CDT FINAL REPORT CT OF THE CHEST, ABDOMEN, AND PELVIS CLINICAL HISTORY: Lung cancer TECHNIQUE: CT of the chest, abdomen, and pelvis is performed with intravenous contrast administration. Oral contrast was not administered. This exam was performed according to our departmental dose-optimization program which includes automated exposure control, adjustment of the mA and/or kV according to patient size and/or use of iterative reconstruction technique. COMPARISON FILM: None DISCUSSION: LINES/TUBES: None. LUNGS/AIRWAYS: There is a 2.6 x 2.4 x 2.1 cm mass in the left upper lobe associated with pleural retraction and scarring. Additional 6 mm nodule in the right middle lobe (image 32). Diffuse emphysema. Subpleural reticulation and scarring in the bilateral lower lobes. Subsegmental atelectasis in the left lower lobe. PLEURA: Trace left pleural effusion. HEART AND MEDIASTINUM: Necrotic mediastinal and hilar lymphadenopathy. The lower right paratracheal/4R lymph nodes measure up to 1.6 x 2.3 cm. Para-aortic/level 6 lymph node measures 2.5 x 1.6 cm. Subaortic/level 5 lymph node measures 2.8 x 1.6 cm. Left hilar/level 10 lymph nodes measure up to 2 x 1.3 cm. Right hilar/level 10 lymph nodes measure up to 1.7 x 1.2 cm. There are subcentimeter level 2R and 2L lymph nodes which are also concerning for malignancy although they do not meet size criteria for enlargement, measuring up to 1 x 0.8 cm on the left and 0.9 x 0.8 cm on the right. Thyroid unremarkable. Thoracic aorta normal in course and caliber. Trace pericardial effusion and pericardial thickening. HEPATOBILIARY: Cholelithiasis. No definite focal liver lesion. Main portal vein is patent. No biliary ductal dilation. PANCREAS: No pancreatic ductal dilation. No peripancreatic inflammatory change. SPLEEN: No splenomegaly. ADRENALS: There is a 2.1 x 1.2 cm right adrenal nodule. Additional 1.1 cm right adrenal nodule. Left adrenal gland mildly thickened without discrete nodule. KIDNEYS/URETERS: No definite solid renal lesion. No hydronephrosis or hydroureter. PELVIC ORGANS/BLADDER: Unremarkable. GI TRACT: No bowel wall thickening or distention. Normal appendix. PERITONEUM/RETROPERITONEUM: No free fluid or free air. LYMPH NODES: No upper abdominal, retroperitoneal, mesenteric, or pelvic lymphadenopathy. VESSELS: Diffuse aortoiliac atherosclerotic calcifications. BONES AND SOFT TISSUES: Findings of prior umbilical hernia repair with mesh. Unchanged subcutaneous emphysema along the left lateral chest and abdominal wall, as seen on prior chest x-ray from 08/12/2016. Indeterminate 9 mm lytic lesion at the inferior endplate of L2 without surrounding sclerosis. IMPRESSION: 1. Primary pulmonary mass measures 2.6 cm in the the left upper lobe and is associated with necrotic mediastinal and contralateral hilar lymphadenopathy. Indeterminate contralateral 6 mm nodule in the right middle lobe. Associated trace left pleural effusion. 2. Two right-sided adrenal nodules may represent metastatic disease. 3. Indeterminate 9 mm lytic lesion at the inferior endplate of L2. No other destructive osseous lesion. Consider further evaluation with nuclear medicine bone scan. Signed: Robert Ureña MD Report Verified Date/Time: 08/13/2016 09:19:34 Reading Location: [facility] Diagnostic Imaging Reading Room - [facility] F1 1120 * CT brain without & with IV contrast (08/13/2016 3:26 AM) Specimen Performing Laboratory GE RIS Narrative FINAL REPORT CT head with and without contrast INDICATION: Metastatic adenocarcinoma. TECHNIQUE: Axial pre and post intravenous contrast enhanced CT images through the head were obtained. This exam was performed according to our departmental dose optimization program which includes automated exposure control, adjustment of the mA and/or kV according to patient size and/or use of iterative reconstruction technique. COMPARISON: None available FINDINGS: There is no evident parenchymal or extra-axial mass. No destructive osseous lesions are identified. Left paramedian high frontal lobe and frontal opercular encephalomalacia is present, likely postischemic. Minimal microvascular ischemic changes are chronic appearing. There are no specific CT findings of acute infarct. Please note that CT is insensitive for early or small infarcts. There is no hematoma, extra-axial collection, hydrocephalus, or midline shift. Generalized volume loss and vascular calcifications are noted. There is bilateral frontoethmoidal sinus mucosal disease with right frontal sinus fluid secretions. The mastoid air cells and orbits are unremarkable. IMPRESSION: 1. No specific CT evidence of intracranial metastasis. 2. Chronic appearing ischemic and involutional changes. 3. Findings suggesting acute on chronic frontoethmoidal sinusitis. Signed: Chasity Jones MD Report Verified Date/Time:08/13/2016 07:29:57 Reading Location: [facility] Neuro Reading Room Procedure Note Interface, External Ris In - 08/13/2016 7:32 AM CDT FINAL REPORT CT head with and without contrast INDICATION: Metastatic adenocarcinoma. TECHNIQUE: Axial pre and post intravenous contrast enhanced CT images through the head were obtained. This exam was performed according to our departmental dose optimization program which includes automated exposure control, adjustment of the mA and/or kV according to patient size and/or use of iterative reconstruction technique. COMPARISON: None available FINDINGS: There is no evident parenchymal or extra-axial mass. No destructive osseous lesions are identified. Left paramedian high frontal lobe and frontal opercular encephalomalacia is present, likely postischemic. Minimal microvascular ischemic changes are chronic appearing. There are no specific CT findings of acute infarct. Please note that CT is insensitive for early or small infarcts. There is no hematoma, extra-axial collection, hydrocephalus, or midline shift. Generalized volume loss and vascular calcifications are noted. There is bilateral frontoethmoidal sinus mucosal disease with right frontal sinus fluid secretions. The mastoid air cells and orbits are unremarkable. IMPRESSION: 1. No specific CT evidence of intracranial metastasis. 2. Chronic appearing ischemic and involutional changes. 3. Findings suggesting acute on chronic frontoethmoidal sinusitis. Signed: Chasity Jones MD Report Verified Date/Time: 08/13/2016 07:29:57 Reading Location: [address] Neuro Reading Room * CT chest with IV contrast (08/13/2016 3:26 AM) Specimen Performing Laboratory [place] Narrative FINAL REPORT CT OF THE CHEST, ABDOMEN, AND PELVIS CLINICAL HISTORY:Lung cancer TECHNIQUE: CT of the chest, abdomen, and pelvis is performed with intravenous contrast administration. Oral contrast was not administered. This exam was performed according to our departmental dose-optimization program which includes automated exposure control, adjustment of the mA and/or kV according to patient size and/or use of iterative reconstruction technique. COMPARISON FILM:None DISCUSSION: LINES/TUBES: None. LUNGS/AIRWAYS: There is a 2.6 x 2.4 x 2.1 cm mass in the left upper lobe associated with pleural retraction and scarring. Additional 6 mm nodule in the right middle lobe (image 32). Diffuse emphysema. Subpleural reticulation and scarring in the bilateral lower lobes. Subsegmental atelectasis in the left lower lobe. PLEURA: Trace left pleural effusion. HEART AND MEDIASTINUM: Necrotic mediastinal and hilar lymphadenopathy. The lower right paratracheal/4R lymph nodes measure up to 1.6 x 2.3 cm. Para-aortic/level 6 lymph node measures 2.5 x 1.6 cm. Subaortic/level 5 lymph node measures 2.8 x 1.6 cm. Left hilar/level 10 lymph nodes measure up to 2 x 1.3 cm. Right hilar/level 10 lymph nodes measure up to 1.7 x 1.2 cm. There are subcentimeter level 2R and 2L lymph nodes which are also concerning for malignancy although they do not meet size criteria for enlargement, measuring up to 1 x 0.8 cm on the left and 0.9 x 0.8 cm on the right. Thyroid unremarkable. Thoracic aorta normal in course and caliber. Trace pericardial effusion and pericardial thickening. HEPATOBILIARY: Cholelithiasis. No definite focal liver lesion. Main portal vein is patent. No biliary ductal dilation. PANCREAS: No pancreatic ductal dilation. No peripancreatic inflammatory change. SPLEEN: No splenomegaly. ADRENALS: There is a 2.1 x 1.2 cm right adrenal nodule. Additional 1.1 cm right adrenal nodule. Left adrenal gland mildly thickened without discrete nodule. KIDNEYS/URETERS: No definite solid renal lesion. No hydronephrosis or hydroureter. PELVIC ORGANS/BLADDER: Unremarkable. GI TRACT: No bowel wall thickening or distention. Normal appendix. PERITONEUM/RETROPERITONEUM: No free fluid or free air. LYMPH NODES: No upper abdominal, retroperitoneal, mesenteric, or pelvic lymphadenopathy. VESSELS: Diffuse aortoiliac atherosclerotic calcifications. BONES AND SOFT TISSUES: Findings of prior umbilical hernia repair with mesh. Unchanged subcutaneous emphysema along the left lateral chest and abdominal wall, as seen on prior chest x-ray from 08/12/2016. Indeterminate 9 mm lytic lesion at the inferior endplate of L2 without surrounding sclerosis. IMPRESSION: 1. Primary pulmonary mass measures 2.6 cm in the the left upper lobe and is associated with necrotic mediastinal and contralateral hilar lymphadenopathy. Indeterminate contralateral 6 mm nodule in the right middle lobe. Associated trace left pleural effusion. 2. Two right-sided adrenal nodules may represent metastatic disease. 3. Indeterminate 9 mm lytic lesion at the inferior endplate of L2. No other destructive osseous lesion. Consider further evaluation with nuclear medicine bone scan. Signed: Robert Ureña MD Report Verified Date/Time:08/13/2016 09:19:34 Reading Location: [facility] Diagnostic Imaging Reading Room - [place] [address] Procedure Note Interface, External Ris In - 08/13/2016 9:21 AM CDT FINAL REPORT CT OF THE CHEST, ABDOMEN, AND PELVIS CLINICAL HISTORY: Lung cancer TECHNIQUE: CT of the chest, abdomen, and pelvis is performed with intravenous contrast administration. Oral contrast was not administered. This exam was performed according to our departmental dose-optimization program which includes automated exposure control, adjustment of the mA and/or kV according to patient size and/or use of iterative reconstruction technique. COMPARISON FILM: None DISCUSSION: LINES/TUBES: None. LUNGS/AIRWAYS: There is a 2.6 x 2.4 x 2.1 cm mass in the left upper lobe associated with pleural retraction and scarring. Additional 6 mm nodule in the right middle lobe (image 32). Diffuse emphysema. Subpleural reticulation and scarring in the bilateral lower lobes. Subsegmental atelectasis in the left lower lobe. PLEURA: Trace left pleural effusion. HEART AND MEDIASTINUM: Necrotic mediastinal and hilar lymphadenopathy. The lower right paratracheal/4R lymph nodes measure up to 1.6 x 2.3 cm. Para-aortic/level 6 lymph node measures 2.5 x 1.6 cm. Subaortic/level 5 lymph node measures 2.8 x 1.6 cm. Left hilar/level 10 lymph nodes measure up to 2 x 1.3 cm. Right hilar/level 10 lymph nodes measure up to 1.7 x 1.2 cm. There are subcentimeter level 2R and 2L lymph nodes which are also concerning for malignancy although they do not meet size criteria for enlargement, measuring up to 1 x 0.8 cm on the left and 0.9 x 0.8 cm on the right. Thyroid unremarkable. Thoracic aorta normal in course and caliber. Trace pericardial effusion and pericardial thickening. HEPATOBILIARY: Cholelithiasis. No definite focal liver lesion. Main portal vein is patent. No biliary ductal dilation. PANCREAS: No pancreatic ductal dilation. No peripancreatic inflammatory change. SPLEEN: No splenomegaly. ADRENALS: There is a 2.1 x 1.2 cm right adrenal nodule. Additional 1.1 cm right adrenal nodule. Left adrenal gland mildly thickened without discrete nodule. KIDNEYS/URETERS: No definite solid renal lesion. No hydronephrosis or hydroureter. PELVIC ORGANS/BLADDER: Unremarkable. GI TRACT: No bowel wall thickening or distention. Normal appendix. PERITONEUM/RETROPERITONEUM: No free fluid or free air. LYMPH NODES: No upper abdominal, retroperitoneal, mesenteric, or pelvic lymphadenopathy. VESSELS: Diffuse aortoiliac atherosclerotic calcifications. BONES AND SOFT TISSUES: Findings of prior umbilical hernia repair with mesh. Unchanged subcutaneous emphysema along the left lateral chest and abdominal wall, as seen on prior chest x-ray from 08/12/2016. Indeterminate 9 mm lytic lesion at the inferior endplate of L2 without surrounding sclerosis. IMPRESSION: 1. Primary pulmonary mass measures 2.6 cm in the the left upper lobe and is associated with necrotic mediastinal and contralateral hilar lymphadenopathy. Indeterminate contralateral 6 mm nodule in the right middle lobe. Associated trace left pleural effusion. 2. Two right-sided adrenal nodules may represent metastatic disease. 3. Indeterminate 9 mm lytic lesion at the inferior endplate of L2. No other destructive osseous lesion. Consider further evaluation with nuclear medicine bone scan. Signed: Robert Ureña MD Report Verified Date/Time: 08/13/2016 09:19:34 Reading Location: [facility] Diagnostic Imaging Reading Room - [place] [address] * Pulmonary Funct Lab Spirometry (08/12/2016 3:41 PM) Narrative Kareem Forde, DIRECTOR BUSINESS INTELLIGENCE, PROPERTY MASTER 08/12/20163:41 PM [facility] PFT CHARTING REPORT Infection Control/Hand Hygiene procedures followed throughout the encounter with patient: Yes Patient Identification Method: Patient name verified on armband, and Medical record on armband, Is the order complete?: Yes Account ID#: [id number] Patient Name: Julius Omalley Birthdate: 1955 Age: 60 y.o. Sex: male Admission Date: 08/07/2016Patient Status: Inpatient Reasons/Symptom for having the Test?: a history/complaint of a dyspnea Type of study/treatment ordered by physician: Spirometry with bronchodilators Lab Results Component Value Date HGB 16.7 08/12/2016 Ranges: Adult Male 13 - 16.8 g/dlAdult Female 12 - 15 g/dl 6 Minute Walk (read only) 08/12/2016 08/12/2016 08/12/2016 Pulse 84 - 107 SpO2 93 93 93 Study Date: 08/12/2016Study Time: 1504 ASSESSMENT History & Physical Mode of Arrival: Testing was performed at patient bedside Pulse: 107Resp: 18 SPO2: 94 %On 3 LPM/ FiO2 Pain Assessment Pain:None TESTING/THERAPEUTICS Medications ordered or required for procedure: Albuterol, PT EDUCATION/INSTRUCTIONS Barriers to learning: No known barriers to learning. Learning need identified: Yes, Patient/Family/[place] was informed of the ordered study by the physician Barriers to performing study or treatment: Patient has no known disability to perform the study or treatment. DISCHARGE The study was completed in accordance with the physician's order and patient released from the lab without adverse outcome. * Hepatic function panel (08/10/2016 4:32 AM) Component Value Ref Range Protein, Total 7.0 6.0 - 8.3 gm/dL Albumin 2.8 (L) 3.5 - 5.0 g/dL Total Bilirubin 1.5 (H) 0.2 - 1.2 mg/dL Bilirubin, Direct 0.8 (H) 0.1 - 0.5 mg/dL Alkaline Phosphatase 65 40 - 150 U/L AST 27 5 - 34 U/L ALT 14 6 - 55 U/L Specimen Performing [place] [address] * POC-Glucose meter (08/09/2016 1:33 PM) Only the most recent of 11 results within the time period is included. Component Value Ref Range POC-Glucose Meter 111 (H)Comment: TESTED AT [address] 70 - 110 mg /dL [facility] [id number] Specimen Performing [place] [address] * Oxygen saturation, measured (08/09/2016 3:51 AM) Component Value Ref Range O2 Saturation (Measured) 71.7 % Specimen Performing Laboratory [address] [address] * Limited 2D Echocardiogram (08/08/2016 5:10 PM) Specimen Performing Laboratory DIGISONICS Narrative Echocardiography Laboratory [address] [place] [address] Voice:[phone] Limited Transthoracic Echocardiogram Pat.Name:JULIUS OMALLEY Pat.ID:[id number] .Date: 08/08/2016 Refer.MD:BEVERLY RIOS Exam Time: 5:10:00 PMStudy Type:Limited Echo Height:70inWeight:174lb BSA: 1.97 m2 DOBAge:1955 ,60Y Sex: MALEBP: 109/60 HR:75 bpmSonogrphr: Julia Prajapati RDCS Pat. Stat.:Inpatient Room:[facility] Reason for Study:Suspected pericardial conditions History / Clinical:Dyspnea, Pericardial effusion, Lung mass Procedures:LIMITED 2D ECHOCARDIOGRAM Race: SUMMARY: Left ventricular chamber size (by PSLAX dimension) is small (male - LVIDd < 4.2 cm). No evidence of LV hypertrophy. LV linear measurements done on parasternal suboptimal view. Unable to reliably assess overall LV systolic function. There are no parasternal and apical views. The right ventricular chamber size and systolic function are within normal limits. A small pericardial effusion is present. The estimated RA pressure by IVC dynamics 11-15 mmHg. Limited exam to follow up pericardial effusion. S/P pericardial window 08-08-17. FINDINGS: LV: No evidence of LV hypertrophy. LV linear measurements done onparasternal suboptimal view. Left ventricular chamber size(by PSLAX dimension) is small (male - LVIDd < 4.2 cm ). Unableto reliably assess overall LV systolic function. Thereare no parasternal and apical views. Degree (grade) ofdiastolic dysfunction is indeterminate. Unable to reliablyassess LV ejection fraction. Appears low normal by availableviews. LA: LA size is normal. RV: The right ventricular chamber size and systolic function are withinnormal limits. RA: RA cavity size is mildly enlarged. AV: Mild AoV cusp thickening. MV: Mild MV leaflet thickening. TV: A trace of tricuspid regurgitation. TV structure appears normalby available views. Estimated Peak systolic PA pressureis 30-35 mm Hg. PV: PV is not well visualized. AO: Aortic root size (Sinus of Valsalva diameter) is normal. Pericard: A small pericardial effusion is present. Systemic Veins: The estimated RA pressure by IVC dynamics 11-15 mmHg. Comparison: No prior exam available for comparison. Limited exam to followup pericardial effusion. S/P pericardial window 08-08-16. MEASUREMENTS: 2D RA Sng Plane RA Vol72.9 mlIndex 37 ml/m2 RA Area 22.8 cm2(8.3-19.5)* Parasternal [place] Ao An 1.97 cm (1.4-2.6) LVPWd0.983 cm Ao Rtd3.46 cm LA Ds 3.67 cm (2.3-3.9) IVSd1.03 cmLV Wmn 1.01 cm LVIDd 4.03 cm (4.3-5.1)* Right Ventricle RV Dim3.53 cm Signed 08/09/2016 02:44 PM Curt Alberts M.D. Procedure Note Interface, External Ris In - 08/09/2016 2:45 PM CDT Echocardiography Laboratory [address] [place] [id number] Voice: [phone] Limited Transthoracic Echocardiogram Pat.Name: JULIUS OMALLEY Pat.ID: [id number] St.Date: 08/08/2016 Refer.: BEVERLY RIOS Exam Time: 5:10:00 PM Study Type:Limited Echo Height: 70in Weight: 174lb BSA: 1.97 m2 Age: 9 1955,60Y Sex: MALE BP: 109/60 HR: 75 bpm Sonogrphr: Julia Prajapati RDCS Pat. Stat.:Inpatient Room: 2C52 Reason for Study:Suspected pericardial conditions History / Clinical:Dyspnea, Pericardial effusion, Lung mass Procedures:LIMITED 2D ECHOCARDIOGRAM Race: SUMMARY: Left ventricular chamber size (by PSLAX dimension) is small (male - LVIDd < 4.2 cm). No evidence of LV hypertrophy. LV linear measurements done on parasternal suboptimal view. Unable to reliably assess overall LV systolic function. There are no parasternal and apical views. The right ventricular chamber size and systolic function are within normal limits. A small pericardial effusion is present. The estimated RA pressure by IVC dynamics 11-15 mmHg. Limited exam to follow up pericardial effusion. S/P pericardial window 08-08-17. FINDINGS: LV: No evidence of LV hypertrophy. LV linear measurements done on parasternal suboptimal view. Left ventricular chamber size (by PSLAX dimension) is small (male - LVIDd < 4.2 cm). Unable to reliably assess overall LV systolic function. There are no parasternal and apical views. Degree (grade) of diastolic dysfunction is indeterminate. Unable to reliably assess LV ejection fraction. Appears low normal by available views. LA: LA size is normal. RV: The right ventricular chamber size and systolic function are within normal limits. RA: RA cavity size is mildly enlarged. AV: Mild AoV cusp thickening. MV: Mild MV leaflet thickening. TV: A trace of tricuspid regurgitation. TV structure appears normal by available views. Estimated Peak systolic PA pressure is 30-35 mm Hg. PV: PV is not well visualized. AO: Aortic root size (Sinus of Valsalva diameter) is normal. Pericard: A small pericardial effusion is present. Systemic Veins: The estimated RA pressure by IVC dynamics 11-15 mmHg. Comparison: No prior exam available for comparison. Limited exam to follow up pericardial effusion. S/P pericardial window 08-08-16. MEASUREMENTS: 2D RA Sng Plane RA Vol 72.9 ml Index 37 ml/m2 RA Area 22.8 cm2 (8.3-19.5)* Parasternal [place] Ao An 1.97 cm (1.4-2.6) LVPWd 0.983 cm Ao Rtd 3.46 cm LA Ds 3.67 cm (2.3-3.9) IVSd 1.03 cm LV Wmn 1.01 cm LVIDd 4.03 cm (4.3-5.1)* Right Ventricle RV Dim 3.53 cm Signed 08/09/2016 02:44 PM Curt Alberts M.D. * Platelet Count-Stat Lab (08/08/2016 11:36 AM) Component Value Ref Range Platelets 156 150 - 430 K/CU MM Specimen Performing Laboratory [place] [address] * Tissue Exam (08/08/2016 10:10 AM) Component Value Ref Range Case Report Surgical Pathology Report Case: [id number] Authorizing Provider: Ivan Chaparro, Collected: 08/08/2016 1010 MD Ordering Location: [facility] [place] [facility] Received: 08/08/2016 1118 PERIOPERATIVE SERVICES Pathologist: Linh Abad MD Specimen: Pericardium, Left, LEFT PERICARDIUM DIAGNOSIS A. LEFT SIDE, PERICARDIUM, BIOPSY: - DENSE FIBROSIS, CONSISTENT WITH FIBROUS PERICARDITIS - FOCAL CHRONIC INFLAMMATION AND ADHESIONS TO ADIPOSE TISSUE CPT Code(s) 65470 CLINICAL HISTORY Malignant neoplasm of lung, unspecified laterality, unspecified part of lung, pericardial adhesion SPECIMEN SOURCE Left pericardium GROSS DESCRIPTION The specimen is received in a fluidless container labeled with patient information, labeled "left pericardium", consists of faria-red membranous tissue measuring 1.6 x 1 cm with associated adipose tissue measuring 2.5 x 1 x 0.4 cm. The tissue is entirely submitted in cassette A1. 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 There are adhesions to adjacent adipose tissue, also with reactive changes. In some foci (not prominent) there are some possible reactive mesothelial cells, and there are few there are a few foci of chronic inflammatory cells, also not prominent. A few plasma cells are noted, along with predominant lymphocytes. Atypia or malignancy of any type is not noted Specimen Performing Laboratory Tissue - Pericardium, [facility] Left [address] [place] [id number] after 06/07/2016
--- OUTSIDE RECORDS SUMMARY | 2017-06-08 21:17 | XMS REPORT | Continuity of Care Document ---
Author Author [facility] Organization [facility] Address [address] [place] [address] Phone Unavailable Care Team Providers Care Acidity Tester Name Role Phone MODESTA DIAS DO PCP Insurance Providers Guarantor Julius Omalley Address [address] [place] [address] Email PTDECLINED Payer [facility] Policy Number [id number] Subscriber's Name Julius Omalley Relationship 18 Self / Same As Patient Effective Date 17 Advance Directives Directive Response Recorded Date/Time Does the patient have an advance directive? No 04/20/17 4:21pm If yes, is advance directive on file with [facility]? No 04/20/17 4:21pm If not on file with [facility] will patient provide a copy? No 04/20/17 4:21pm Do you have a Directive to Physician? No 04/20/17 12:37pm Do you have a Medical Power of [employer]? No 04/20/17 12:37pm Do you have an out of hospital Do Not Resuscitate Order? No 04/20/17 12:37pm Do you have any special needs we should be aware of? No 04/20/17 12:37pm Do you have a support person here with you today? Yes 04/20/17 12:37pm Did patient receive Notice of Privacy Practices? Yes 04/20/17 12:37pm Did patient receive patient rights and responsibilities? Yes 04/20/17 12:37pm Problems Medical Problem Onset Date Status Acute cholecystitis Unknown Antineoplastic chemotherapy induced pancytopenia Unknown CHF (congestive heart failure) Unknown COPD (chronic obstructive pulmonary disease) Unknown COPD exacerbation Unknown Dyspnea Unknown Edema extremities Unknown Lung cancer Unknown Malignant pleural effusion Unknown Neutropenia with fever Unknown Pericardial effusion Unknown Pneumonia Unknown Pneumonia Unknown Pulmonary nodules Unknown Sepsis Unknown Tachycardia Unknown Medications Current Home Medications Medication Dose Units Route Directions Days Qty Instructions Start Date Albuterol/Ipratropium Nebulize 3 Ml Inha 3 Ml Nebullizer Rt Q4h as needed for Wheezing 30 Days 12/18/16 Aspirin 81 Mg Tablet 81 Mg Oral Daily Fluticasone/Salmeterol (Advair 250-50 Diskus) 1 Each Disk.w.dev 1 Inh Inhalation Twice A Day Gabapentin 300 Mg Capsule 300 Mg Oral Three Times A Day 60 Cap Guaifenesin/Dextromethorphan (Mucinex Dm Er 600-30 Mg Tablet) 1 Each Tab.er.12h 1 Each Oral Every 12 Hours 12 Days 01/12/17 Metoprolol Tartrate (Lopressor) 25 Mg Tab 12.5 Mg Oral Twice A Day 30 Days 01/12/17 Ondansetron (Zofran Odt) 8 Mg Tab.rapdis 8 Mg Subcutaneously Every 8 Hours as needed for Nausea Oxycodone Hcl 20 Mg Tablet 20 Mg Oral Every 6 Hours as needed for Pain Past Home Medications Medication Directions Ordered Status Acetaminophen/Hydrocodone ([place]) 1 Ea Tab, 1 Ea G Tube 3-4 Times Daily Discontinued Azithromycin (Zithromax) 500 Mg Tablet, 500 Mg Oral Daily 01/12/17 Discontinued Cefdinir (Omnicef) 300 Mg Capsule, 300 Mg Oral Every 12 Hours 12/18/16 Discontinued Ceftin , 500 Mg Oral Twice A Day 01/12/17 Discontinued Doxycycline Hyclate 100 Mg Capsule, 100 Mg Oral Twice A Day 12/24/16 Discontinued Famotidine 20 Mg Tab, 20 Mg Oral Twice Daily Before Meals 12/18/16 Discontinued Gabapentin 300 Mg Capsule, 300 Mg Oral Bedtime Discontinued Gabapentin 300 Mg Capsule, 600 Mg Oral Bedtime Discontinued Guaifenesin/Dextromethorphan (Mucinex Dm Er 600-30 Mg Tablet) 1 Each Tab.er.12h , 1 Each Oral Every 6 Hours 12/18/16 Discontinued Hydrocodone Bit/Acetaminophen ([place] 7.5-325 Tablet) 1 Each Tablet, 1 Ea Oral Every 6 Hours as needed for Pain Discontinued Levofloxacin (Levaquin) 500 Mg Tablet, 750 Mg Oral Daily 12/18/16 Discontinued Methadone Hcl (Methadone) 10 Mg Tab, 10 Mg G Tube Twice A Day Discontinued Metoprolol Tartrate 25 Mg Tablet, 25 Mg Oral Twice A Day Discontinued Social History Social History Problem Response Recorded Date/Time Onset Date Status Hx Psychiatric Problems No 04/20/2017 4:21pm Not Applicable Not Applicable Hx Eating Disorder No 04/20/2017 4:21pm Not Applicable Not Applicable Hx Substance Use Disorder No 04/20/2017 4:21pm Not Applicable Not Applicable Hx Depression No 04/20/2017 4:21pm Not Applicable Not Applicable Hx Alcohol Use Y - socially 04/20/2017 4:21pm Not Applicable Not Applicable Hx Substance Use Treatment No 04/20/2017 4:21pm Not Applicable Not Applicable Hx Physical Abuse No 04/20/2017 4:21pm Not Applicable Not Applicable Smoking Status Start Date Stop Date Former smoker Hospital Discharge Instructions No hospital discharge instruction information available. Plan of Care Discharge Date 04/24/17 1:50pm Disposition HOME, SELF-CARE Instructions/Education Provided Pneumonia - Bacterial Prescriptions See Medication Section Additional Instructions/Education Follow up with Oncologist. Follow up with PCP in one week. Functional Status Query Response Date Recorded Assistive Devices None April 20, 2017 4:24pm Ambulation Ability Independent April 20, 2017 4:24pm Toileting Ability Independent April 23, 2017 9:30am Allergies, Adverse Reactions, Alerts Allergen Type Severity Reaction Status Last Updated Haloperidol Lactate Allergy Mild JAW LOCKED Active 04/20/17 Penicillin Allergy Mild RASH Active 04/20/17 Haloperidol Allergy Mild JAW LOCKED Active 09/14/16 Immunizations No immunization information available. Vital Signs Acute Vital Signs Vital Response Date/Time Temperature (Fahrenheit) 96.7 degrees F (97.6 - 99.5) 04/24/2017 8:00am Pulse Pulse Rate (adult) 85 bpm (60 - 90) 04/24/2017 12:58pm Pulse Pulse Rate (adult) 85 bpm (60 - 90) 04/24/2017 12:58pm Pulse Pulse Rate (adult) 112 bpm (60 - 90) 04/24/2017 12:58pm Respiratory Rate 18 bpm (12 - 24) 04/24/2017 12:58pm Blood Pressure 96/53 mm Hg 04/24/2017 8:00am Height 5 ft 8 in 04/20/2017 5:40pm Weight 198.31 lb 04/23/2017 8:44am Body Mass Index 30.2 kg/m^2 04/23/2017 8:44am Results Laboratory Results Test Name Result Units Flags Reference Collection Date/Time Result Date/ Time Comments Urine Opiates Screen POSITIVE H NEGATIVE 08/06/2016 7:00pm 08/06/2016 8:13pm This test provides only a screen. Positive results should be repeated by a confirmatory test. Urine Barbiturates Screen NEGATIVE NEGATIVE 08/06/2016 7:00pm 2016 8:08pm Urine Phencyclidine Screen NEGATIVE NEGATIVE 08/06/2016 7:00pm 2016 8:08pm Urine Amphetamines Screen NEGATIVE NEGATIVE 08/06/2016 7:00pm 2016 8:08pm Urine Benzodiazepines Screen NEGATIVE NEGATIVE 08/06/2016 7:00pm 8:08pm Urine Cocaine Screen NEGATIVE NEGATIVE 08/06/2016 7:00pm 08/06/2016 8 :08pm Urine Cannabinoids Screen NEGATIVE NEGATIVE 08/06/2016 7:00pm 2016 8:08pm THESE RESULTS ARE FOR MEDICAL TREATMENT ONLY *THIS REPORT CONTAINS UNCONFIRMED SCREENING RESULTS* POSITIVE RESULTS WILL BE CONFIRMED BY REFERENCE LAB UPON REQUEST CUT-OFF DRUG CLASS CONCENTRATION ng/mL Amphetamines 1000 Methamphetamines 1000 Cocaine 300 Opiate 300 Phencyclidine 25 Cannabinoid 50 Barbiturates 300 Benzodiazepine 300 Methadone 300 Acetaminophen Level < 3 ug/mL L 1008/06/2016 7:11pm 08/06/2016 8: 23pm Salicylates Level < 5.0 mg/dL 0-08/06/2016 7:11pm 08/06/2016 8:30pm Myelocytes % 1 % H 0-0 09/16/2016 11:10am 09/16/2016 1:47pm Blast Cells % 1 09/15/2016 6:00am 09/15/2016 11:48am Toxic Granulation MODERATE 09/17/2016 8:00am 09/17/2016 9:07am Dohle Bodies FEW 09/17/2016 8:00am 09/17/2016 9:07am Smudge Cells FEW 10/03/2016 7:30pm 10/03/2016 8:41pm Amylase Level 31 U/L 25-125 10/03/2016 7:30pm 10/03/2016 8:03pm Lipase < 4 U/L L 8-78 10/03/2016 7:30pm 10/03/2016 8:03pm Urine Fine Granular Casts 1-5 H 0 11/12/2016 4:45pm 11/12/2016 5:48pm Metamyelocytes % 1 % H 0-0 12/12/2016 12:30pm 12/12/2016 5:36pm Anisocytosis SLIGHT 12/18/2016 6:11am 12/18/2016 8:09am Hemoglobin A1c Percent 5.3 % 4.0-7.0 12/14/2016 3:00am 12/14/2016 3: 21am Phosphorus Level 4.3 MG/DL 2.3-4.7 12/18/2016 6:11am 12/18/2016 7:13am Thyroid Stimulating Hormone (TSH) 1.764 uIU/mL 0.350-4.940 12/14/2016 3: 00am 12/14/2016 3:46am Random Vancomycin Level 3.3 ug/mL 12/18/2016 1:20pm 12/18/2016 1: 57pm Vancomycin Level Trough 21.3 ug/mL *H 5.0-10.0 12/17/2016 11:05am 2016 12:46pm Results called to Linh QuanRN at 1245 on 12/17/16 by Chino Reina. RB OK. Band Neutrophils % 2 % 01/11/2017 6:43am 01/11/2017 10:06am D-Dimer Quantitative (PE/DVT) 1.19 ug/mLFEU H 0.00-0.45 01/10/2017 11: 20am 01/10/2017 12:27pm B-Type Natriuretic Peptide 12.8 pg/mL 0-100 01/09/2017 11:59pm 2016 5:04am Differential Total Cells Counted 100 03/15/2017 6:24am 03/16/2017 8 :07am Neutrophils % (Manual) 72 % 40-74 03/15/2017 6:24am 03/16/2017 8:07am Lymphocytes % (Manual) 19 % 19-48 03/15/2017 6:24am 03/16/2017 8:07am Monocytes % (Manual) 5 % 3.4-9.0 03/15/2017 6:24am 03/16/2017 8:07am Eosinophils % (Manual) 1 % 0-7 03/15/2017 6:24am 03/16/2017 8:07am Reactive Lymphocytes 3 03/15/2017 6:24am 03/16/2017 8:07am Platelet Estimate ADEQUATE 03/15/2017 6:24am 03/16/2017 8:07am Platelet Morphology Comment FEW GIANT 03/15/2017 6:24am 03/16/2017 8:07am Hypochromasia SLIGHT 03/15/2017 6:24am 03/16/2017 8:07am Poikilocytosis SLIGHT 03/15/2017 6:24am 03/16/2017 8:07am Elliptocytes SLIGHT 03/15/2017 6:24am 03/16/2017 8:07am Red Cell Morphology Comment NORMAL 03/15/2017 6:24am 03/16/2017 8: 07am Magnesium Level 1.5 MG/DL 1.3-2.1 03/16/2017 7:00am 03/16/2017 9:42am Body Fluid Type PLEURAL 03/13/2017 12:00pm 03/13/2017 1:19pm Body Fluid Color RED 03/13/2017 12:00pm 03/13/2017 1:19pm Body Fluid Appearance CLOUDY 03/13/2017 12:00pm 03/13/2017 1:19pm Body Fluid WBC 5940 cells/uL 03/13/2017 12:00pm 03/13/2017 3:28pm Body Fluid RBC 30708 cells/uL 03/13/2017 12:00pm 03/13/2017 3:28pm Body Fluid Neutrophils 13 % 03/13/2017 12:00pm 03/13/2017 4:35pm Body Fluid Lymphocytes 50 % 03/13/2017 12:00pm 03/13/2017 4:35pm Body Fluid Monocytes 24 % 03/13/2017 12:00pm 03/13/2017 4:35pm Body Fluid Eosinophils 1 % 03/13/2017 12:00pm 03/13/2017 4:35pm Body Fluid Other Cells 12 % 03/13/2017 12:00pm 03/13/2017 4:35pm Blast Cells for Path Review Body Fluid Total Cells Counted 100 03/13/2017 12:00pm 03/13/2017 4: 35pm Body Fluid Total Protein 6.6 g/dL 03/13/2017 12:00pm 03/13/2017 3: 23pm Body Fluid Lactate Dehydrogenase 97081 IU/L 03/13/2017 12:00pm 2017 3:23pm No reference range has been established for this specimen type. No reference range has been established for this specimen type. Arterial Blood pH 7.46 H 7.31-7.41 03/12/2017 4:30pm 03/12/2017 5: 00pm Arterial Blood Partial Pressure CO2 40 mmHg L 41-51 03/12/2017 4:30pm 5:00pm Arterial Blood Partial Pressure O2 79 mmHg L 80-105 03/12/2017 4:30pm 5:00pm Arterial Blood HCO3 29 mmol/L H 23-28 03/12/2017 4:30pm 03/12/2017 5: 00pm Arterial Blood Base Excess 5.0 mmol/L H -2 - 3 03/12/2017 4:30pm 2017 5:00pm Arterial Blood Oxygen Saturation 96.0 % 95-98 03/12/2017 4:30pm 2017 5:00pm Immunoglobulin A 353 mg/dL 61-437 03/13/2017 5:46am 03/15/2017 2:27pm Immunoglobulin G 2389 mg/dL H 700-1600 03/13/2017 5:46am 03/15/2017 2: 27pm Immunoglobulin M 45 mg/dL 20-172 03/13/2017 5:46am 03/15/2017 2:27pm Performed at: - [facility] [address] [id number] Emergency Medicine Medical Director: Gabriel Doe MD, Phone: [phone] White Blood Count 6.07 x10e3/uL 4.8-10.8 04/24/2017 10:17am 04/24/2017 10:36am Red Blood Count 3.63 x10e6/uL L 4.3-5.7 04/24/2017 10:17am 04/24/2017 10 :36am Hemoglobin 10.7 g/dL L 14.0-18.0 04/24/2017 10:17am 04/24/2017 10:36am 04/24/17 by Rosanna Reyes Hematocrit 32.7 % L 38.2-49.6 04/24/2017 10:17am 04/24/2017 10:36am Mean Corpuscular Volume 90.1 fL 81-99 04/24/2017 10:17am 04/24/2017 10: 36am Mean Corpuscular Hemoglobin 29.5 pg 28-32 04/24/2017 10:17am 2017 10:36am Mean Corpuscular Hemoglobin Concent 32.7 g/dL 31-35 04/24/2017 10:17am 04/24/2017 10:36am Red Cell Distribution Width 14.7 % H 11.7-14.4 04/24/2017 10:17am 2017 10:36am Platelet Count 302 x10e3/uL 140-360 04/24/2017 10:17am 04/24/2017 10: 36am Neutrophils (%) (Auto) 56.9 % 38.7-80.0 04/24/2017 10:17am 04/24/2017 10:36am Lymphocytes (%) (Auto) 31.0 % 18.0-39.1 04/24/2017 10:17am 04/24/2017 10:36am Monocytes (%) (Auto) 8.1 % 4.4-11.3 04/24/2017 10:17am 04/24/2017 10: 36am Eosinophils (%) (Auto) 3.0 % 0.0-6.0 04/24/2017 10:17am 04/24/2017 10: 36am Basophils (%) (Auto) 0.7 % 0.0-1.0 04/24/2017 10:17am 04/24/2017 10: 36am IM GRANULOCYTES % 0.3 % 0.0-1.0 04/24/2017 10:17am 04/24/2017 10:36am Neutrophils # (Auto) 3.5 2.1-6.9 04/24/2017 10:17am 04/24/2017 10: 36am Lymphocytes # (Auto) 1.9 1.0-3.2 04/24/2017 10:17am 04/24/2017 10: 36am Monocytes # (Auto) 0.5 0.2-0.8 04/24/2017 10:17am 04/24/2017 10:36am Eosinophils # (Auto) 0.2 0.0-0.4 04/24/2017 10:17am 04/24/2017 10: 36am Basophils # (Auto) 0.0 0.0-0.1 04/24/2017 10:17am 04/24/2017 10:36am Absolute Immature Granulocyte (auto 0.02 x10e3/uL 0-0.1 04/24/2017 10: 17am 04/24/2017 10:36am Prothrombin Time 13.5 seconds 11.9-14.5 04/20/2017 10:38am 04/20/2017 11:27am Prothromb Time International Ratio 1.11 04/20/2017 10:38am 2017 11:27am Oral Anticoagulant Therapy INR Values: 1. Low Intensity Therapy 1.5 - 2.0 2. Moderate Intensity Therapy 2.0 - 3.0 3. High Intensity Therapy(1) 2.5 - 3.5 4. High Intensity Therapy(2) 3.0 - 4.0 5. Panic Value INR > 5.0 Activated Partial Thromboplast Time 31.7 seconds 23.8-35.5 04/20/2017 10 :38am 04/20/2017 11:27am Urine Color YELLOW YELLOW 04/20/2017 11:35am 04/20/2017 11:46am Urine Clarity SL CLOUDY H CLEAR 04/20/2017 11:35am 04/20/2017 11:46am Urine Specific [place] 1.005 L 1.010-1.025 04/20/2017 11:35am 2017 11:46am Urine pH 7 5 - 7 04/20/2017 11:35am 04/20/2017 11:46am Urine Leukocyte Esterase TRACE H NEGATIVE 04/20/2017 11:35am 2017 11:46am Urine Nitrite NEGATIVE NEGATIVE 04/20/2017 11:35am 04/20/2017 11: 46am Urine Protein NEGATIVE NEGATIVE 04/20/2017 11:35am 04/20/2017 11: 46am Urine Glucose (UA) NEGATIVE NEGATIVE 04/20/2017 11:35am 04/20/2017 11 :46am Urine Ketones NEGATIVE NEGATIVE 04/20/2017 11:35am 04/20/2017 11: 46am Urine Urobilinogen 4 mg/dL H 0.2 - 1 04/20/2017 11:35am 04/20/2017 11: 46am Urine Bilirubin NEGATIVE NEGATIVE 04/20/2017 11:35am 04/20/2017 11: 46am Urine Blood NEGATIVE NEGATIVE 04/20/2017 11:35am 04/20/2017 11:46am Urine WBC 0-5 /HPF 0-5 04/20/2017 11:35am 04/20/2017 11:54am Urine RBC NONE /HPF 0-5 04/20/2017 11:35am 04/20/2017 11:54am Urine Bacteria NONE /HPF NONE 04/20/2017 11:35am 04/20/2017 11:54am Urine Epithelial Cells FEW /LPF NONE 04/20/2017 11:35am 04/20/2017 11: 54am Urine Mucus RARE RARE 04/20/2017 11:35am 04/20/2017 11:54am Sodium Level 138 mmol/L 136-145 04/20/2017 10:38am 04/20/2017 11:41am Potassium Level 3.8 mmol/L 3.5-5.1 04/20/2017 10:38am 04/20/2017 11: 41am Chloride Level 102 mmol/L 98-107 04/20/2017 10:38am 04/20/2017 11:41am Influenza Virus Types A,B Antigen NEGATIVE NEGATIVE 04/20/2017 11: 00am 04/20/2017 12:07pm Carbon Dioxide Level 25 mmol/L 04/20/2017 10:38am 04/20/2017 11: 41am Anion Gap 14.8 mmol/L 804/20/2017 10:38am 04/20/2017 11:41am Blood Urea Nitrogen 15 mg/dL 09-1704/20/2017 10:38am 04/20/2017 11: 41am Creatinine 1.14 mg/dL 0.72-1.25 04/20/2017 10:38am 04/20/2017 11:41am BUN/Creatinine Ratio 13 6-25 04/20/2017 10:3804/20/2017 11:41am Estimat Glomerular Filtration Rate > 60 ML/MIN 60- 04/20/2017 10:38am 04/20/2017 11:41am Ranges were taken from the National Kidney Disease Education Program and the National Kid[employer] Foundation literature. Reference ranges: 60 or greater: Normal 16-59 (for 3 consecutive months): Chronic kidney disease 15 or less: Kidney failure Glucose Level 130 mg/dL H 74-118 04/20/2017 10:38am 04/20/2017 11:41am Calcium Level 9.3 mg/dL 8.4-10.2 04/20/2017 10:3804/20/2017 11:41am Lactic Acid Level 12.5 MG/DL 4.5-19.8 04/20/2017 11:00am 04/20/2017 11: 28am Total Bilirubin 0.6 mg/dL 0.2-1.2 04/20/2017 10:38am 04/20/2017 11: 41am Aspartate Amino Transf (AST/SGOT) 22 IU/L 5-34 04/20/2017 10:38am 04/20 11:41am Alanine Aminotransferase (ALT/SGPT) 14 IU/L 0-55 04/20/2017 10:38am 11:41am Total Protein 10.5 g/dL H 6.5-8.1 04/20/2017 10:3804/20/2017 11:41am Albumin 3.2 g/dL L 3.5-5.0 04/20/2017 10:38am 04/20/2017 11:41am Globulin 7.3 g/dL H 2.3-3.5 04/20/2017 10:38am 04/20/2017 11:41am Albumin/Globulin Ratio 0.4 L 0.8-2.0 04/20/2017 10:38am 04/20/2017 11: 41am Alkaline Phosphatase 77 IU/L 40-150 04/20/2017 10:38am 04/20/2017 11: 41am B-Type Natriuretic Peptide 12.6 pg/mL 0-100 04/20/2017 10:38am 2017 11:41am Creatine Kinase 75 IU/L 30-200 04/20/2017 10:38am 04/20/2017 11:41am Creatine Kinase MB 2.50 ng/mL 0-5.0 04/20/2017 10:38am 04/20/2017 11: 44am Troponin I < 0.001 ng/mL 0-0.300 04/20/2017 10:38am 04/20/2017 11:44am Microbiology Results Procedure Source Organism/Result Collection Date/Time Result Date/Time Result Status Blood Culture Blood BACILLUS SP NOT B. ANTHRACIS 12/12/2016 12:20pm 2016 8:30am Final Blood Culture Blood NO GROWTH AFTER 72 HOURS 11:00am 04/23/2017 11:08am Preliminary Procedures Procedure Status Date Provider(s) RESECTION OF GALLBLADDER, PERCUTANEOUS ENDOSCOPIC APPROACH Completed PARMINDER MONTANA MD DRAINAGE OF LEFT PLEURAL CAVITY, PERC APPROACH, DIAGN Completed 03/13/17 FRAN RIVERA MD Computed tomography of chest with contrast Active 08/06/16 RENETTA IVY MD Computed tomography of abdomen and pelvis with contrast Active 09/14/16 PAUL XAVIER MD X-ray of chest, single view Active 09/14/16 PAUL XAVIER MD US gallbladder Active 09/14/16 PAUL XAVIER MD Computed tomography of abdomen and pelvis with contrast Active 10/03/16 RENETTA IVY MD Computed tomography of abdomen and pelvis with contrast Active 11/12/16 RENETTA IVY MD X-ray of chest, two views Active 12/17/16 QUENTIN CLINE NP Computed tomography of chest without contrast Active 12/21/16 QUENTIN CLINE NP X-ray of chest, two views Active 01/10/17 RENETTA IVY MD Computed tomography of chest with contrast Active 01/11/17 DAVION ZHANG MD Thoracentesis with ultrasound guidance Active 03/13/17 JULIEN LARIOS MD Computed tomography of chest with contrast Active 03/14/17 ARVIND FLOWERS Ultrasound of chest including mediastinum Active 04/21/17 PARMINDER MYRICK MD X-ray of chest, two views Active 04/23/17 KURT AHUMADA MD Encounters Encounter Location Arrival/Admit Date Discharge/Depart Date Attending Provider Discharged Inpatient [facility] 04/20/17 2:24pm 04/24/17 1:50pm KURT AHUMADA MD Discharged Inpatient [facility] 03/12/17 6:36pm 03/16/17 8:40pm ANDRE KNOX MD Discharged Inpatient [facility] 01/10/17 5:39am 01/12/17 2:20pm ANDRE KNOX MD Discharged Inpatient [facility] 12/19/16 11:01pm 7:57pm ANDRE KNOX MD Discharged Inpatient [facility] 12/12/16 2:39pm 12/18/16 5:40pm ANDRE KNOX MD Departed Emergency Room [facility] 11/12/16 4:25pm 12:01am RENETTA IVY MD Departed Emergency Room [facility] 10/03/16 7:18pm 11:23pm RENETTA IVY MD Discharged Inpatient [facility] 09/14/16 7:57pm 09/18/16 12:10pm ANDRE KNOX MD Discharged Inpatient [facility] 08/07/16 12:25am 10:14pm ARMAAN RIVERA MD
--- OUTSIDE RECORDS SUMMARY | 2017-06-08 21:29 | XMS REPORT | Clinical Summary ---
Author Author [facility] Organization [facility] Address Unknown Phone Unavailable Care Team Providers Care Urologist Md Name Role Phone PCP Unavailable Allergies Active [...] effusion 10/04/2016 COPD (chronic obstructive pulmonary disease) ([facility]) 08/14/2016 Metastatic lung carcinoma ([facility]) 08/13/2016 Neuropathy 08/09/2016 Mediastinal lymphadenopathy 08/08/2016 Lung mass 08/08/2016 Tobacco abuse 08/08/2016 Shock (HCC) 08/08/2016 Acute pulmonary insufficiency following thoracic surgery ([facility]) 08/08/2016 Pericardial effusion 08/07/2016 S/P thoracotomy Encounters Date Type Specialty Care Team Description 04/14/2017 [facility] Radiology Shukri Azul, Squamous cell carcinoma Encounter MD of bronchus in left upper Foteh, Anishusta Michael lobe (HCC);Malignant neoplasm of lung, unspecified laterality, unspecified part of lung (HCC) 04/13/2017 Outside Orders Central Scheduling Shukri Azul, Squamous cell carcinoma MD of bronchus in left upper lobe ([facility]) (Primary Dx);Malignant neoplasm of lung, unspecified laterality, unspecified part of lung (HCC) 03/19/2017 Anesthesia Erik Soto MD Event 03/19/2017 Procedure Pass 03/19/2017 Surgery Ivan Chaparro, THORACOSCOPY (VATS) MD 03/16/2017 [facility] Cardiology Ivan Chaparro, Pulmonary emphysema, - Encounter MD unspecified emphysema 03/27/2017 type ([facility]);Pleural effusion;Centrilobular emphysema ([facility]) 03/16/2017 Orders Only General Internal Medicine 10/03/2016 [facility] Cardiology Samantha Benavidez Acute pulmonary - Encounter MD Isi insufficiency following 10/10/2016 Jarrod Nix thoracic surgery MD Cayetano ([facility]);Metastatic Vitor Davis, adenocarcinoma ([facility]);Neutropenic fever SohailAntelmo-D ([facility]);Severe sepsis ([facility]);Enteritis;Pleural effusion;Pulmonary emphysema, unspecified emphysema type ([facility]);Metastatic lung carcinoma, unspecified laterality ([facility]);Sinus tachycardia;Ileus ([facility]) 08/08/2016 Orders Only General Internal Medicine 08/08/2016 Anesthesia Luther Shrestha, Jonathan KRAUSE 08/08/2016 Procedure Pass 08/08/2016 Surgery Ivan Chaparro, CREATION,PERICARDIAL MD WINDOW 08/07/2016 [facility] Cardiology Ivan Chaparro, Pericardial - Encounter effusion;Acute [...] Taken Blood Pressure 116/66 04/14/2017 11:36 AM COMPLIANCE TESTING ANALYST Pulse 117 04/14/2017 11:36 AM COMPLIANCE TESTING ANALYST Temperature 37.9 C (100.2 F) 04/14/2017 11:36 AM COMPLIANCE TESTING ANALYST Respiratory Rate 16 04/14/2017 11:36 AM COMPLIANCE TESTING ANALYST Oxygen Saturation 99% 04/14/2017 11:36 AM COMPLIANCE TESTING ANALYST Inhaled Oxygen - - Concentration Weight 89.7 kg (197 lb 11.2 oz) 03/27/2017 3:32 AM COMPLIANCE TESTING ANALYST Height 177.8 cm (5' 10") 03/16/2017 9:55 PM COMPLIANCE TESTING ANALYST Body Mass Index 28.37 03/27/2017 3:32 AM COMPLIANCE TESTING ANALYST Plan of Treatment Not on file Procedures Procedure Name Priority Date/Time Associated Diagnosis Comments THORACOSCOPY (VATS) 03/19/2017 RECURRENT PERICARDIAL 3:25 PM COMPLIANCE TESTING ANALYST EFFUSION BRONCHOSCOPY 08/08/2016 Pericardial effusion 10:15 AM [...] MD Report Verified Date/Time:04/14/2017 15:00:07 Reading Location: [address] Ultrasound Reading Room Procedure Note Interface, External Ris In - 04/14/2017 3:02 PM COMPLIANCE TESTING ANALYST FINAL REPORT Ultrasound of the chest, 04/14/2017. CLINICAL HISTORY: Evaluate for pleural effusion. DISCUSSION: Sonographic evaluation of the left chest was performed to evaluate for possible thoracentesis. Only a small amount of multiloculated left pleural effusion is identified. IMPRESSION: Minimal left pleural effusion, insufficient for thoracentesis. Signed: Chad Velazquez MD Report Verified Date/Time: 04/14/2017 15:00:07 Reading Location: [facility] [id number] Ultrasound Reading Room * PT/aPTT (04/14/2017 11:04 AM) Only the most recent of 2 results within the time period is included. Component Value Ref Range Protime 14.7 11.7 - 14.7 seconds INR 1.2 <=5.9 PTT 30.8 22.5 - 36.0 seconds Specimen Performing Laboratory Blood [address] [address] Narrative RECOMMENDED COUMADIN/WARFARIN INR THERAPY RANGES STANDARD DOSE: 2.0 - 3.0 Includes: PROPHYLAXIS for venous thrombosis, systemic embolization; TREATMENT for venous thrombosis and/or pulmonary embolus. HIGH RISK: Target INR is 2.5-3.5 for patients with mechanical heart valves. * Platelet count (04/14/2017 11:04 AM) Component Value Ref Range Platelets 354 150 - 450 K/CU MM Specimen Performing Laboratory [address] [address] * PERMANENT LAB REPORT - SCAN (04/09/2017 [...] MD Report Verified Date/Time:03/26/2017 17:04:56 Reading Location: [facility] Reading Room Procedure Note Interface, External Ris In - 03/26/2017 5:07 PM COMPLIANCE TESTING ANALYST FINAL REPORT EXAM: Supine AP radiographs of [...] Report Verified Date/Time: 03/26/2017 17:04:56 Reading Location: [facility] Reading Room * XR chest 1 view [...] MD Report Verified Date/Time:03/26/2017 14:29:12 Reading Location: [facility] Reading Room Procedure Note Interface, External Ris In - 03/26/2017 2:31 PM COMPLIANCE TESTING ANALYST FINAL REPORT EXAM: Frontal chest radiograph HISTORY [...] Report Verified Date/Time: 03/26/2017 14:29:12 Reading Location: [facility] Mammo Reading Room * Magnesium (03/23/2017 4:51 AM) Only the most recent of 22 results within the time period is included. Component Value Ref Range Magnesium 1.4 (L) 1.6 - 2.6 mg/dL Specimen Performing Laboratory Blood [address] [address] * Basic Metabolic Panel (03/23/2017 4:51 AM) [...] FOR DIALYSIS PATIENTS. Specimen Performing Laboratory Blood [address] [address] * CBC with platelet count + automated [...] 1 % Granulocytes-Relative Specimen [place] [address] * CBC with platelet count + automated diff (03/21/2017 9:32 AM) Only the most recent of 14 results within the time period is included. Specimen Performing Laboratory Blood Narrative The following orders were created for panel order CBC with platelet count + automated diff. Procedure Abnormality Status --------- - ------ CBC with platelet count ...[[id number]]AbnormalFinal result Please view results for these tests on the individual orders. * POC-Lactic Acid, Venous (03/21/2017 3:07 AM) Component Value Ref Range POC-Lactic Acid, Venous 0.8 (L)Comment: TESTED AT [address] 0.9 - 1.7 mmol/L [place] [address] Specimen Performing [place] [address] * TRANSFUSION SERVICE REPORT - SCAN (03/20/2017 5:52 PM) Only the most recent of 3 results within the time period is included. * LIPASE (03/20/2017 12:27 PM) Component Value Ref Range Scan Result Specimen Performing Laboratory Body Fluid [facility] [address] [place], [place] * Glucose, body fluid (03/20/2017 12:23 PM) Component Value Ref Range Glucose, Body Fluid 5 (L) 70 - 110 mg/dL Specimen Performing Laboratory Body Fluid - Pleural, [facility] Left [address] [place] [address] Narrative Absence of reference range indicates that normals have not been defined. Assay performance has not been validated for this type of specimen. USE EXISTING SPECIMEN USE EXISTING SPECIMEN * Amylase, body fluid (03/20/2017 12:23 PM) Component Value Ref Range Amylase, Fluid 45 30 - 110 U/L Specimen Performing Laboratory Body Fluid - Pleural, [facility] Left [address] [place] [address] Narrative Absence of reference range indicates that [...] 2.2 mmol/L Specimen Performing Laboratory Blood, Arterial [address] [address] Narrative Effective 06/27/2015: Units/Reference Range Change New: 0.5-2.2 mmol/LPrevious: 5-20 mg/dL * Calcium, Ionized (03/19/2017 8:52 PM) Only the most recent of 4 results within the time period is included. Component Value Ref Range Calcium, Ion 1.01 (L) 1.12 - 1.27 mmol/L pH, Blood 7.43 Specimen Performing Laboratory Blood [address] [address] * Blood gas, arterial (03/19/2017 8:52 PM) [...] 44.0 % Specimen Performing Laboratory Blood, Arterial [address] [address] * aPTT (03/19/2017 8:47 PM) Only the most recent of 3 results within the time period is included. Component Value Ref Range PTT 32.3 22.5 - 36.0 seconds Specimen Performing Laboratory Blood [address] [address] * Prothrombin time/INR (03/19/2017 8:47 PM) Only the most recent of 3 results within the time period is included. Component Value Ref Range Protime 14.8 (H) 11.7 - 14.7 seconds INR 1.2 <=5.9 Specimen Performing Laboratory Blood [address] [address] Narrative RECOMMENDED COUMADIN/WARFARIN INR THERAPY RANGES STANDARD DOSE: 2.0 - 3.0 Includes: PROPHYLAXIS for venous thrombosis, systemic embolization; TREATMENT for venous thrombosis and/or pulmonary embolus. HIGH RISK: Target INR is 2.5-3.5 for patients with mechanical heart valves. * Fibrinogen (03/19/2017 8:47 PM) Component Value Ref Range Fibrinogen 608 (H) 225 - 434 mg/dl Specimen Performing Laboratory Blood [address] [address] * Prepare RBC (03/19/2017 8:42 PM) Component Value Ref Range CROSSMATCH COMPATIBLE Unit ABO A Pos UNIT NUMBER [id number] Status RETURNED FROM ISSUE Blood Bank Product RED BLOOD CELLS PRODUCT CODE Y6232A01 CROSSMATCH COMPATIBLE Unit ABO A Pos UNIT NUMBER [id number] Status RETURNED FROM ISSUE Blood Bank Product RED BLOOD CELLS PRODUCT CODE [id number] Specimen Performing Laboratory [place] * pH, body fluid (03/19/2017 8:37 PM) Component Value Ref Range pH, Body Fluid 7.36 Specimen Performing Laboratory Body Fluid - Pleural, [facility] Left [address] [place] [address] * Body fluid cell count with differential (03/19/2017 8:37 PM) Component Value Ref Range Appearance Bloody (A) Clear Color Red (A) Colorless, Straw RBCs [address] (H) <=1 /cu mm Adjusted WBC Count 2748 (H) <=5 /cu mm Lining Cells 962 (H) <=1 /cu mm % Segs 7 % % Lymphs 81 % % Monos 12 % % Eos 0 % % Baso 0 % Container Body Fluid EDTA Tube Specimen Performing Laboratory Body Fluid - Pleural, [facility] Left [address] [place] [address] * Protein, body fluid (03/19/2017 8:37 PM) Component Value Ref Range Protein, Fluid 7.8 Light's criteria identifies effusions if one or more are present: Pleural to serum protein ratio of more than 0.5; Pleural to Serum LDH of more than 0.6; Pleural LDH of more than two third of upper serum reference limit g/dL Specimen Performing Laboratory Body Fluid - Pleural, [facility] Left [address] [place] [address] Narrative Absence of reference range indicates that normals have not been defined. Assay performance has not been validated for this type of specimen. Left pleural effusion Left pleural effusion * Lactate dehydrogenase (LDH), body fluid (03/19/2017 8:37 PM) Component Value Ref Range LDH, Fluid >[address] Light's criteria identifies effusions if one or more are present: Pleural to serum protein ratio of more than 0.5; Pleural to serum LDH ratio of more than 0.6; Pleural LDH more than two third of upper serum reference limit U/L Specimen Performing Laboratory Body Fluid - Pleural, [facility] Left [address] [place] [address] Narrative Absence of reference range indicates that [...] Specimen Performing Laboratory Body Fluid - Pleural, [facility] Left [address] [place] [address] * Anaerobic culture (03/19/2017 8:27 PM) Only the most recent of 4 results within the time period is included. Component Value Ref Range Result No anaerobes isolated Specimen Performing Laboratory Body Fluid - Pleural, [facility] Left [address] [place] [address] * Surgically obtained culture + gram stain (03/19/2017 8:27 PM) Only the most recent of 4 results within the time period is included. Component Value Ref Range Result No growth Gram Stain Result 1+ WBCs Gram Stain Result No organisms seen Specimen Performing Laboratory Body Fluid - Pleural, [facility] Left [address] [place] [address] * Fungus culture + smear (03/19/2017 8:27 PM) Only the most recent of 3 results within the time period is included. Component Value Ref Range Result No fungus isolated in 28 days Fungus Smear No fungi seen Specimen Performing Laboratory Body Fluid - Pleural, [facility] Left [address] [place] [address] * Cytology (03/19/2017 7:55 PM) Only the most recent of 3 results within the time period is included. Component Value Ref Range Cytology See Separate Report Specimen Performing Laboratory Body Fluid - Pleural, [facility] Left [address] [place] [address] * Cytology (03/19/2017 7:55 PM) Only the most recent of 3 results within the time period is included. Component Value Ref Range Case Report Medical Cytology Report Case: [id number] Authorizing Provider: Ivan Chaparro, Collected: 03/19/20171954 Ordering Location: [address] Received: 03/20/2017 1010 Service Pathologist: Linh Abad MD Specimen: Pleural, Left DIAGNOSIS LEFT PLEURAL FLUID (CYTOSPINS AND CELL BLOCK): - POSITIVE FOR MALIGNANCY; FEATURES CONSISTENT WITH METASTATIC ADENOCARCINOMA WITH FEATURES SIMILAR TO THOSE NOTED IN PREVIOUS PERICARDIAL FLUID SEE COMMENT Signing Pathologist Direct Phone Line: [phone] COMMENT The malignant cells in this left pleural effusion are similar to those noted in this patient's prior pericardial fluid sample, which also showed features consistent with metastatic adenocarcinoma ([id number]), from August 08, 2016. The cytologic features [...] comments. A report in Medical Records from [employer] [address] [place] [address], [address], [place] [address], is filed in Medical Records at [facility], from results obtained on 09/10/2016, in the prior pericardial sample ([id number]); indicating a POSITIVE result for PD-L1, IHC (antiboney clone 22C3); FISH studies for ALK(2p23) MET(7q31.2), ROS1 (6q22.1) and RET (10q11.21) were NEGATIVE (see entire report, available in the medical records department (Maggie Payton ), rechecked 03/27/2017. CPT Code(s) 76737, [address] 63602 x 1 16350 x 8 CLINICAL DATA Left pleural effusion, previous malignant pericardial effusion (see [id number]), history of lung cancer, Stage IV,based on the previous sample and the findings of a lung mass and probable necrotic lymph nodes, on radiologic exam. The lung tumor was not biopsied. SPECIMEN SOURCE LEFT PLEURAL FLUID GROSS DESCRIPTION 1300 mls bloody; 4 cytospins, cell block Collected: [id number] Received: [id number] MICROSCOPIC DESCRIPTION See comment. STATEMENT OF ADEQUACY Satisfactory SPECIAL STUDIES The following special studies were performed on this case and the interpretation is incorporated in the diagnostic report above: See comment section The immunohistochemistry test was developed and its performance characteristics determined by [facility], Pathology Laboratory. It has not been cleared [...] complexity clinical laboratory testing. Technical component was [facility], Department of performed at Pathology, [address] [place] [address], Professional component [facility], Department of was performed at Pathology, [address] [place] [address], Specimen Performing Laboratory Body Fluid - Pleural, [facility] Left [address] [place] [address] * [facility] Critical Labs (ABG,NA,K,H&H,GLU) (03/19/2017 7:53 PM) Only the most recent of 2 results within the time period is included. Specimen Performing Laboratory Blood, Arterial Narrative The following orders were created for panel order [facility] Critical Labs (ABG,NA,K,H& H,GLU). Procedure Abnormality Status --------- - ------ Blood gas, arterial[[id number]]Abnormal Final result Sodium Na-Stat Lab[[id number]] Normal Final result Potassium-Stat Lab[[id number]] Normal Final result Glucose-Stat Lab[[id number]] Abnormal Final result HGB/HCT (H&H)-Stat Lab[[id number]] Abnormal Final result Please view results for these tests on the individual orders. * Potassium-Stat Lab (03/19/2017 7:53 PM) Only the most recent of 5 results within the time period is included. Component Value Ref Range Potassium 3.6 3.6 - 5.5 meq/L Specimen Performing Laboratory Blood, [address] [address] * Sodium Na-Stat Lab (03/19/2017 7:53 PM) Only the most recent of 3 results within the time period is included. Component Value Ref Range Sodium 139 135 - 148 meq/L Specimen Performing Laboratory Blood, [address] [address] * Glucose-Stat Lab (03/19/2017 7:53 PM) Only the most recent of 6 results within the time period is included. Component Value Ref Range Glucose 137 (H) 70 - 110 mg/dL Specimen Performing Laboratory Blood, [address] [address] * HGB/HCT (H&H)-Stat Lab (03/19/2017 7:53 PM) Only the most recent of 6 results within the time period is included. Component Value Ref Range Hemoglobin 12.2 (L) 13.0 - 16.8 g/dL Hematocrit 36.0 (L) 40.0 - 50.0 % Specimen Performing Laboratory Blood, [address] [address] * CT chest without IV contrast (03/18/2017 6:21 PM) Specimen Performing Laboratory [employer] Narrative FINAL REPORT CLINICAL INDICATION: Pleural effusion [...] MD Report Verified Date/Time:03/19/2017 00:57:13 Reading Location: [address] Body Reading Room Procedure Note Interface, External Ris In - 03/19/2017 12:59 AM COMPLIANCE TESTING ANALYST FINAL REPORT CLINICAL INDICATION: Pleural effusion COMPARISON: [...] Report Verified Date/Time: 03/19/2017 00:57:13 Reading Location: [facility] B1 C013Y CT Body Reading Room * Electrocardiogram, 12-lead (03/16/2017 11:01 PM) Only the most recent of 2 results within the time period is included. Specimen Performing Laboratory [employer] [facility] Narrative Ventricular Rate 103 BPM Atrial Rate 103 BPM P-R Interval 144 ms QRS Duration 76 ms Q-T Interval 336 ms QTC Calculation(Bazett) 440 ms P Medway 47 degrees R Medway 41 degrees T [place] 33 degrees Sinus tachycardia Poor R wave progression When compared with ECG of 08-AUG-2016 08:24, No significant change was found Confirmed by MD RAYMOND YOCHAI ([id number]) on 03/17/2017 6:46:55 AM Procedure Note Interface, External Ris In - 03/17/2017 6:47 AM COMPLIANCE TESTING ANALYST Ventricular Rate 103 BPM Atrial Rate 103 BPM P-R Interval 144 ms QRS Duration 76 ms Q-T Interval 336 ms QTC Calculation(Bazett) 440 ms P [place] 47 degrees R [place]way 41 degrees T [place] 33 degrees Sinus tachycardia Poor R wave [...] NEGATIVE Specimen Performing Laboratory Blood [facility] [address] [place] [address] * Comprehensive metabolic panel (03/16/2017 10:39 PM) [...] FOR DIALYSIS PATIENTS. Specimen Performing Laboratory Blood [address] [address] * EKG-SCANNED (10/15/2016 11:51 AM) * Manual Differential (10/09/2016 4:11 AM) Only the most recent of 5 results within the time period is included. Component Value Ref Range Total Counted WBC Morphology Normal Platelet Morphology Normal RBC Morphology Normal Specimen Performing Laboratory Blood - Arm, Right [address] [address] * CBC (Hemogram only) (10/07/2016 3:54 AM) [...] WBC Specimen Performing Laboratory Blood - Arm, [address] [address] * Vancomycin level, trough (10/06/2016 10:48 AM) Component Value Ref Range Vancomycin Tr 10.9 10.0 - 20.0 ug/mL Specimen Performing Laboratory Blood - Arm, [place] [address] Narrative Wait for result before giving dose. HOLD vancomycin if trough >20 * Potassium (10/06/2016 7:16 AM) Only the most recent of 2 results within the time period is included. Component Value Ref Range Potassium 3.6 3.5 - 5.1 meq/L Specimen Performing Laboratory Blood - Arm, [place] [address] * Phosphorus (10/06/2016 2:38 AM) Only the most recent of 3 results within the time period is included. Component Value Ref Range Phosphorus 2.4 2.3 - 4.7 mg/dL Specimen Performing Laboratory Blood - Line, [place] [address] * 2D Echo W/Doppler(CW/PW/Color) (10/04/2016 10:24 AM) Specimen Performing Laboratory DIGISONICS Narrative Echocardiography Laboratory [address] [place] [address] Voice:[phone] Transthoracic Echocardiogram Pat.Name:JULIUS OMALLEY Pat.ID:[id number] .Date: 10/04/2016 Refer.MD:ROCIO NIX Exam Time: 10:24:00 AM Study Type:Echo Complete Height:70inWeight:251lb BSA: 2.3 i6LTEYub:1955,60Y Sex: MALEBP: 122/61 HR:134 bpm Sonogrphr: Neha Vera RDCS Pat. Stat.:Inpatient Room:[facility] CPT - 4: 75765 Reason for Study:Hypotension or hemodynamic instability History [...] Cardiac Out LVOT 2 cm Parasternal Long [place] Ao An 2.04 cm (1.4-2.6) LV%fs 55.9 [...] - 10/05/2016 7:56 PM CDT Echocardiography Laboratory [address] [place] [address] Voice: [phone] Transthoracic Echocardiogram Pat.Name: JULIUS OMALLEY Pat.ID: [id number] St.Date: 10/04/2016 Refer.MD: ROCIO NIX Exam Time: 10:24:00 AM Study Type:Echo Complete Height: 70in Weight: 251lb BSA: 2.3 m2 Age: 9 1955,60Y Sex: MALE BP: 122/61 HR: 134 bpm Sonogrphr: Neha Vera RDCS Pat. Stat.:Inpatient Room: [facility] CPT - 4: 94410 Reason for Study:Hypotension or hemodynamic instability History [...] Cardiac Out LVOT 2 cm Parasternal Long [place] Ao An 2.04 cm (1.4-2.6) LV%fs 55.9 [...] Specimen Performing Laboratory Blood - Line, Venous [address] [address] Narrative Effective 06/27/2015: Units/Reference Range Change New: 0.5-2.2 mmol/LPrevious: 5-20 mg/dL * Urine culture (10/04/2016 8:50 AM) Component Value Ref Range Result No growth Specimen Performing Laboratory Urine [address] [address] * Urinalysis w/ Microscopic (10/04/2016 8:10 AM) Component Value Ref Range Color, UA Yellow Clarity, UA Clear Specific Evangeline, UA >1.050 (H) 1.001 - 1.035 pH, [...] Specimen Performing Laboratory Urine - Urine, Voided [address] [address] * Blood culture #2 (10/04/2016 2:15 AM) Only the most recent of 2 results within the time period is included. Component Value Ref Range Result No growth in 5 days Specimen Performing Laboratory Blood - Arm, Right [address] [address] * IR CV Access Fluoro (08/14/2016 11:30 [...] MD Report Verified Date/Time:08/15/2016 15:55:55 Reading Location: [place] [address] Angio Body Reading Room Procedure Note Interface, [...] Report Verified Date/Time: 08/15/2016 15:55:55 Reading Location: [facility] P048 Angio Body Reading Room * PULMONARY FUNCTION - SCAN (08/13/2016 2:00 PM) * CT abdomen/pelvis with IV contrast (08/13/2016 3:27 AM) Specimen Performing Laboratory [facility] Narrative FINAL REPORT CT OF THE CHEST, [...] MD Report Verified Date/Time:08/13/2016 09:19:34 Reading Location: [facility] Diagnostic Imaging Reading Room - [place] [address] Procedure Note Interface, External Ris In - [...] Report Verified Date/Time: 08/13/2016 09:19:34 Reading Location: [facility] Diagnostic Imaging Reading Room - [facility] F1 1120 * CT brain without & [...] MD Report Verified Date/Time:08/13/2016 07:29:57 Reading Location: [facility] C0[facility] Neuro Reading Room Procedure Note Interface, [...] Report Verified Date/Time: 08/13/2016 07:29:57 Reading Location: [address] Neuro Reading Room * CT chest with IV contrast (08/13/2016 3:26 AM) Specimen Performing Laboratory [facility] Narrative FINAL REPORT CT OF THE CHEST, [...] MD Report Verified Date/Time:08/13/2016 09:19:34 Reading Location: [facility] Diagnostic Imaging Reading Room - [place] [address] Procedure Note Interface, External Ris In [...] Report Verified Date/Time: 08/13/2016 09:19:34 Reading Location: [facility] Diagnostic Imaging Reading Room - [place] [address] * Pulmonary Funct Lab Spirometry (08/12/2016 3:41 PM) Narrative Kareem Forde, FINANCIAL RISK MANAGER, DOCUMENT CONTROL MANAGER 08/12/20163:41 PM [facility] PFT CHARTING REPORT Infection Control/Hand Hygiene procedures followed throughout the encounter with patient: Yes Patient Identification Method: Patient name verified on armband, and Medical record on armband, Is the order complete?: Yes Account ID#: [id number] Patient Name: Julius Omalley Birthdate: 1955 Age: [...] - 55 U/L Specimen [place] [address] * POC-Glucose meter (08/09/2016 1:33 PM) Only the most recent of 11 results within the time period is included. Component Value Ref Range POC-Glucose Meter 111 (H)Comment: TESTED AT [address] 70 - 110 mg /dL [facility] [address] Specimen [place]forming [place] [address] * Oxygen saturation, measured (08/09/2016 3:51 AM) Component Value Ref Range O2 Saturation (Measured) 71.7 % Specimen Performing Laboratory [address] [address] * Limited 2D Echocardiogram (08/08/2016 5:10 PM) Specimen Performing Laboratory DIGISONICS Narrative Echocardiography Laboratory [address] [place] [address] Voice:[phone] Limited Transthoracic Echocardiogram Pat.Name:JULIUS OMALLEY Pat.ID:[id number] .Date: 08/08/2016 Refer.MD:BEVERLY RIOS Exam Time: 5:10:00 PMStudy Type:Limited Echo Height:70inWeight:174lb BSA: 1.97 m2 DOBAge:1955 ,60Y Sex: MALEBP: 109/60 HR:75 bpmSonogrphr: Julia Prajapati RDCS Pat. Stat.:Inpatient Room:[facility] [place] Reason for Study:Suspected pericardial conditions History / [...] ml/m2 RA Area 22.8 cm2(8.3-19.5)* Parasternal Long [place] Ao An 1.97 cm (1.4-2.6) LVPWd0.983 cm Ao Rtd3.46 cm LA Ds 3.67 cm (2.3-3.9) IVSd1.03 cmLV Wmn 1.01 cm LVIDd 4.03 cm (4.3-5.1)* Right Ventricle RV Dim3.53 cm Signed 08/09/2016 02:44 PM Curt Alberts M.D. Procedure Note Interface, External Ris In - 08/09/2016 2:45 PM CDT Echocardiography Laboratory [address] [place] [address] Voice: [phone] Limited Transthoracic Echocardiogram Pat.Name: JULIUS OMALLEY Pat.ID: [id number] St.Date: 08/08/2016 Refer.: BEVERLY RIOS Exam Time: [...] RA Area 22.8 cm2 (8.3-19.5)* Parasternal [place] Ao An 1.97 cm (1.4-2.6) LVPWd 0.983 [...] K/CU MM Specimen Performing Laboratory [place] [address] * Tissue Exam (08/08/2016 10:10 AM) Component Value Ref Range Case Report Surgical Pathology Report Case: [id number] Authorizing Provider: Ivan Chaparro, Collected: 08/08/2016 1010 MD Ordering Location: [facility] Received: 08/08/2016 1118 PERIOPERATIVE SERVICES Pathologist: Linh Abad MD Specimen: Pericardium, Left, LEFT PERICARDIUM DIAGNOSIS A. LEFT SIDE, PERICARDIUM, BIOPSY: - DENSE FIBROSIS, CONSISTENT WITH FIBROUS PERICARDITIS - FOCAL CHRONIC INFLAMMATION AND ADHESIONS TO ADIPOSE TISSUE CPT Code(s) 54827 CLINICAL HISTORY Malignant neoplasm of lung, unspecified [...] noted Specimen Performing Laboratory Tissue - Pericardium, [facility] Left [address] [place] [id number] after 06/07/2016
[2017-06-08] MEDS ORDERED: ACETAMINOPHEN 325 MG TAB PO ONE (21:45)
[2017-06-08 22:09] LABS: BASOPHILS # (AUTO) 0.1 (0.0-0.1); BASOPHILS % 0.6 % (0.0-1.0); EOSINOPHILS # (AUTO) 0.4 (0.0-0.4); EOSINOPHILS % 3.7 % (0.0-6.0); HEMATOCRIT 37.7 % (38.2-49.6); HEMOGLOBIN 12.4 g/dL (14.0-18.0); LYMPHOCYTES # (AUTO) 2.5 (1.0-3.2); LYMPHOCYTES % 26.2 % (18.0-39.1); MEAN CORPUSCULAR HEMOGLOBIN 29.3 pg (28-32); MEAN CORPUSCULAR HGB CONC 32.9 g/dL (31-35); MEAN CORPUSCULAR VOLUME 89.1 fL (81-99); MONOCYTES # (AUTO) 0.7 (0.2-0.8); MONOCYTES % 7.1 % (4.4-11.3); NEUTROPHILS # (AUTO) 5.9 (2.1-6.9); NEUTROPHILS % 62.1 % (38.7-80.0); PLATELET COUNT 320 x10e3/uL (140-360); RED BLOOD COUNT 4.23 x10e6/uL (4.3-5.7); RED CELL DISTRIBUTION WIDTH 14.6 % (11.7-14.4)
[2017-06-08 22:27] LABS: ALANINE AMINOTRANSFERASE 15 IU/L (0-55); ALBUMIN 3.2 g/dL (3.5-5.0); ALBUMIN/GLOBULIN RATIO 0.5 (0.8-2.0); ALKALINE PHOSPHATASE 66 IU/L (40-150); ANION GAP 13.6 mmol/L (8-16); BLOOD UREA NITROGEN 15 mg/dL (7-26); BUN/CREATININE RATIO 13 (6-25); CALCIUM 9.7 mg/dL (8.4-10.2); CARBON DIOXIDE 27 mmol/L (22-29); CHLORIDE 99 mmol/L (98-107); CREATINE KINASE 51 IU/L (30-200); CREATININE, SERUM 1.19 mg/dL (0.72-1.25); EST GLOMERULAR FILTRATION RATE > 60 ML/MIN (60-); GLUCOSE 157 mg/dL (74-118); POTASSIUM 3.6 mmol/L (3.5-5.1); SODIUM 136 mmol/L (136-145)
[2017-06-08 22:32] LABS: B-TYPE NATRIURETIC PEPTIDE2 < 10.0 pg/mL (0-100)
--- NOTE | 2017-06-08 22:41 | Diagnostic Imaging Report ---
CHEST SINGLE (PORTABLE), 06/08/2017 9:43 PM Technique: CHEST SINGLE (PORTABLE) Comparison: 04/23/2017 Clinical history: Shortness of breath Findings: See Impression Impression: 1. Lines/Tubes: Stable right port over the cavoatrial junction. 2. Stable cardiomediastinal silhouette. 3. Emphysema with scattered scarring. Mild right basilar opacity could reflect atelectasis, or infection. Recommend upright PA and lateral for better evaluation. 4. Left upper lobe mass in keeping with malignancy. 5. No significant effusion. Signed by: Dr Adia Lopez MD on 06/08/2017 10:38 PM
[2017-06-08] MEDS ORDERED: SODIUM CHLORIDE 0.9% 1000ML 1,000 ML IV ONE (22:45)
[2017-06-08] MEDS ORDERED: SODIUM CHLORIDE 0.9% 1000ML 1,000 ML ONE (22:50)
--- OUTSIDE RECORDS SUMMARY | 2017-06-08 23:27 | XMS REPORT | Clinical Summary ---
Author Author [place] Organization [facility] Address Unknown Phone Unavailable Care Team Providers Care Barrel Assembler Name Role Phone PCP Unavailable Allergies Active [...] effusion 10/04/2016 COPD (chronic obstructive pulmonary disease) ([facility]) 08/14/2016 Metastatic lung carcinoma ([facility]) 08/13/2016 Neuropathy 08/09/2016 Mediastinal lymphadenopathy 08/08/2016 Lung mass 08/08/2016 Tobacco abuse 08/08/2016 Shock (HCC) 08/08/2016 Acute pulmonary insufficiency following thoracic surgery ([facility]) 08/08/2016 Pericardial effusion 08/07/2016 S/P thoracotomy Encounters Date Type Specialty Care Team Description 04/14/2017 [facility] Radiology Shukri Azul, Squamous cell carcinoma Encounter MD of bronchus in left upper Foteh, Anishusta Michael lobe (HCC);Malignant neoplasm of lung, unspecified laterality, unspecified part of lung (HCC) 04/13/2017 Outside Orders Central Scheduling Shukri Azul, Squamous cell carcinoma MD of bronchus in left upper lobe ([facility]) (Primary Dx);Malignant neoplasm of lung, unspecified laterality, unspecified part of lung (HCC) 03/19/2017 Anesthesia Erik Soto MD Event 03/19/2017 Procedure Pass 03/19/2017 Surgery Ivan Chaparro, THORACOSCOPY (VATS) MD 03/16/2017 [facility] Cardiology Ivan Chaparro, Pulmonary emphysema, - Encounter MD unspecified emphysema 03/27/2017 type ([facility]);Pleural effusion;Centrilobular emphysema ([facility]) 03/16/2017 Orders Only General Internal Medicine 10/03/2016 [facility] Cardiology Samantha Benavidez Acute pulmonary - Encounter MD Isi insufficiency following 10/10/2016 Jarrod Nix thoracic surgery MD Cayetano ([facility]);Metastatic Vitor Davis, adenocarcinoma ([facility]);Neutropenic fever SohailAntelmo-D ([facility]);Severe sepsis ([facility]);Enteritis;Pleural effusion;Pulmonary emphysema, unspecified emphysema type ([facility]);Metastatic lung carcinoma, unspecified laterality ([facility]);Sinus tachycardia;Ileus ([facility]) 08/08/2016 Orders Only General Internal Medicine 08/08/2016 Anesthesia Luther Shrestha, Jonathan KRAUSE 08/08/2016 Procedure Pass 08/08/2016 Surgery Ivan Chaparro, CREATION,PERICARDIAL MD WINDOW 08/07/2016 [facility] Cardiology Ivan Chaparro, Pericardial - Encounter [...] Taken Blood Pressure 116/66 04/14/2017 11:36 AM NEUROSCIENCE SPECIALIST Pulse 117 04/14/2017 11:36 AM NEUROSCIENCE SPECIALIST Temperature 37.9 C (100.2 F) 04/14/2017 11:36 AM NEUROSCIENCE SPECIALIST Respiratory Rate 16 04/14/2017 11:36 AM NEUROSCIENCE SPECIALIST Oxygen Saturation 99% 04/14/2017 11:36 AM NEUROSCIENCE SPECIALIST Inhaled Oxygen - - Concentration Weight 89.7 kg (197 lb 11.2 oz) 03/27/2017 3:32 AM NEUROSCIENCE SPECIALIST Height 177.8 cm (5' 10") 03/16/2017 9:55 PM NEUROSCIENCE SPECIALIST Body Mass Index 28.37 03/27/2017 3:32 AM NEUROSCIENCE SPECIALIST Plan of Treatment Not on file Procedures Procedure Name Priority Date/Time Associated Diagnosis Comments THORACOSCOPY (VATS) 03/19/2017 RECURRENT PERICARDIAL 3:25 PM NEUROSCIENCE SPECIALIST EFFUSION BRONCHOSCOPY 08/08/2016 Pericardial effusion 10:15 AM [...] MD Report Verified Date/Time:04/14/2017 15:00:07 Reading Location: [address] Ultrasound Reading Room Procedure Note Interface, External Ris In - 04/14/2017 3:02 PM NEUROSCIENCE SPECIALIST FINAL REPORT Ultrasound of the chest, 04/14/2017. CLINICAL HISTORY: Evaluate for pleural effusion. DISCUSSION: Sonographic evaluation of the left chest was performed to evaluate for possible thoracentesis. Only a small amount of multiloculated left pleural effusion is identified. IMPRESSION: Minimal left pleural effusion, insufficient for thoracentesis. Signed: Chad Velazquez MD Report Verified Date/Time: 04/14/2017 15:00:07 Reading Location: [facility] P006J Ultrasound Reading Room * PT/aPTT (04/14/2017 11:04 AM) Only the most recent of 2 results within the time period is included. Component Value Ref Range Protime 14.7 11.7 - 14.7 seconds INR 1.2 <=5.9 PTT 30.8 22.5 - 36.0 seconds Specimen Performing Laboratory Blood [address] [address] Narrative RECOMMENDED COUMADIN/WARFARIN INR THERAPY RANGES STANDARD DOSE: 2.0 - 3.0 Includes: PROPHYLAXIS for venous thrombosis, systemic embolization; TREATMENT for venous thrombosis and/or pulmonary embolus. HIGH RISK: Target INR is 2.5-3.5 for patients with mechanical heart valves. * Platelet count (04/14/2017 11:04 AM) Component Value Ref Range Platelets 354 150 - 450 K/CU MM Specimen Performing Laboratory [address] [address] * PERMANENT LAB REPORT - SCAN (04/09/2017 [...] MD Report Verified Date/Time:03/26/2017 17:04:56 Reading Location: [facility] Reading Room Procedure Note Interface, External Ris In - 03/26/2017 5:07 PM NEUROSCIENCE SPECIALIST FINAL REPORT EXAM: Supine AP radiographs of [...] Report Verified Date/Time: 03/26/2017 17:04:56 Reading Location: [facility] Reading Room * XR chest [...] MD Report Verified Date/Time:03/26/2017 14:29:12 Reading Location: [facility] Reading Room Procedure Note Interface, External Ris In - 03/26/2017 2:31 PM NEUROSCIENCE SPECIALIST FINAL REPORT EXAM: Frontal chest radiograph HISTORY [...] Report Verified Date/Time: 03/26/2017 14:29:12 Reading Location: [facility] Mammo Reading Room * Magnesium (03/23/2017 4:51 AM) Only the most recent of 22 results within the time period is included. Component Value Ref Range Magnesium 1.4 (L) 1.6 - 2.6 mg/dL Specimen Performing Laboratory Blood [address] [address] * Basic Metabolic Panel (03/23/2017 4:51 AM) [...] FOR DIALYSIS PATIENTS. Specimen Performing Laboratory Blood [address] [address] * CBC with platelet count + automated [...] 1 % Granulocytes-Relative Specimen [place] [address] * CBC with platelet count + automated diff (03/21/2017 9:32 AM) Only the most recent of 14 results within the time period is included. Specimen Performing Laboratory Blood Narrative The following orders were created for panel order CBC with platelet count + automated diff. Procedure Abnormality Status --------- - ------ CBC with platelet count ...[[id number]]AbnormalFinal result Please view results for these tests on the individual orders. * POC-Lactic Acid, Venous (03/21/2017 3:07 AM) Component Value Ref Range POC-Lactic Acid, Venous 0.8 (L)Comment: TESTED AT [address] 0.9 - 1.7 mmol/L [place] [address] Specimen Performing [place] [address] * TRANSFUSION SERVICE REPORT - SCAN (03/20/2017 5:52 PM) Only the most recent of 3 results within the time period is included. * LIPASE (03/20/2017 12:27 PM) Component Value Ref Range Scan Result Specimen Performing Laboratory Body Fluid [facility] [address] [place], [place] * Glucose, body fluid (03/20/2017 12:23 PM) Component Value Ref Range Glucose, Body Fluid 5 (L) 70 - 110 mg/dL Specimen Performing Laboratory Body Fluid - Pleural, [facility] Left [address] [place] [address] Narrative Absence of reference range indicates that normals have not been defined. Assay performance has not been validated for this type of specimen. USE EXISTING SPECIMEN USE EXISTING SPECIMEN * Amylase, body fluid (03/20/2017 12:23 PM) Component Value Ref Range Amylase, Fluid 45 30 - 110 U/L Specimen Performing Laboratory Body Fluid - Pleural, [facility] Left [address] [place] [address] Narrative Absence of reference range indicates that [...] 2.2 mmol/L Specimen Performing Laboratory Blood, Arterial [address] [address] Narrative Effective 06/27/2015: Units/Reference Range Change New: 0.5-2.2 mmol/LPrevious: 5-20 mg/dL * Calcium, Ionized (03/19/2017 8:52 PM) Only the most recent of 4 results within the time period is included. Component Value Ref Range Calcium, Ion 1.01 (L) 1.12 - 1.27 mmol/L pH, Blood 7.43 Specimen Performing Laboratory Blood [address] [address] * Blood gas, arterial (03/19/2017 8:52 PM) [...] 44.0 % Specimen Performing Laboratory Blood, Arterial [address] [address] * aPTT (03/19/2017 8:47 PM) Only the most recent of 3 results within the time period is included. Component Value Ref Range PTT 32.3 22.5 - 36.0 seconds Specimen Performing Laboratory Blood [address] [address] * Prothrombin time/INR (03/19/2017 8:47 PM) Only the most recent of 3 results within the time period is included. Component Value Ref Range Protime 14.8 (H) 11.7 - 14.7 seconds INR 1.2 <=5.9 Specimen Performing Laboratory Blood [address] [address] Narrative RECOMMENDED COUMADIN/WARFARIN INR THERAPY RANGES STANDARD DOSE: 2.0 - 3.0 Includes: PROPHYLAXIS for venous thrombosis, systemic embolization; TREATMENT for venous thrombosis and/or pulmonary embolus. HIGH RISK: Target INR is 2.5-3.5 for patients with mechanical heart valves. * Fibrinogen (03/19/2017 8:47 PM) Component Value Ref Range Fibrinogen 608 (H) 225 - 434 mg/dl Specimen Performing Laboratory Blood [address] [address] * Prepare RBC (03/19/2017 8:42 PM) Component Value Ref Range CROSSMATCH COMPATIBLE Unit ABO A Pos UNIT NUMBER [id number] Status RETURNED FROM ISSUE Blood Bank Product RED BLOOD CELLS PRODUCT CODE C3841C53 CROSSMATCH COMPATIBLE Unit ABO A Pos UNIT NUMBER [id number] Status RETURNED FROM ISSUE Blood Bank Product RED BLOOD CELLS PRODUCT CODE E6748X17 Specimen Performing Laboratory [place] * pH, body fluid (03/19/2017 8:37 PM) Component Value Ref Range pH, Body Fluid 7.36 Specimen Performing Laboratory Body Fluid - Pleural, [facility] Left [address] [place] [address] * Body fluid cell count with differential (03/19/2017 8:37 PM) Component Value Ref Range Appearance Bloody (A) Clear Color Red (A) Colorless, Straw RBCs 91994 (H) <=1 /cu mm Adjusted WBC Count 2748 (H) <=5 /cu mm Lining Cells 962 (H) <=1 /cu mm % Segs 7 % % Lymphs 81 % % Monos 12 % % Eos 0 % % Baso 0 % Container Body Fluid EDTA Tube Specimen Performing Laboratory Body Fluid - Pleural, [facility] Left [address] [place] [address] * Protein, body fluid (03/19/2017 8:37 PM) Component Value Ref Range Protein, Fluid 7.8 Light's criteria identifies effusions if one or more are present: Pleural to serum protein ratio of more than 0.5; Pleural to Serum LDH of more than 0.6; Pleural LDH of more than two third of upper serum reference limit g/dL Specimen Performing Laboratory Body Fluid - Pleural, [facility] Left [address] [place] [address] Narrative Absence of reference range indicates that normals have not been defined. Assay performance has not been validated for this type of specimen. Left pleural effusion Left pleural effusion * Lactate dehydrogenase (LDH), body fluid (03/19/2017 8:37 PM) Component Value Ref Range LDH, Fluid >79788 Light's criteria identifies effusions if one or more are present: Pleural to serum protein ratio of more than 0.5; Pleural to serum LDH ratio of more than 0.6; Pleural LDH more than two third of upper serum reference limit U/L Specimen Performing Laboratory Body Fluid - Pleural, [facility] Left [address] [place] [address] Narrative Absence of reference range indicates that [...] Specimen Performing Laboratory Body Fluid - Pleural, [facility] Left [address] [place] [address] * Anaerobic culture (03/19/2017 8:27 PM) Only the most recent of 4 results within the time period is included. Component Value Ref Range Result No anaerobes isolated Specimen Performing Laboratory Body Fluid - Pleural, [facility] Left [address] [place] [address] * Surgically obtained culture + gram stain (03/19/2017 8:27 PM) Only the most recent of 4 results within the time period is included. Component Value Ref Range Result No growth Gram Stain Result 1+ WBCs Gram Stain Result No organisms seen Specimen Performing Laboratory Body Fluid - Pleural, [facility] Left [address] [place] [address] * Fungus culture + smear (03/19/2017 8:27 PM) Only the most recent of 3 results within the time period is included. Component Value Ref Range Result No fungus isolated in 28 days Fungus Smear No fungi seen Specimen Performing Laboratory Body Fluid - Pleural, [facility] Left [address] [place] [address] * Cytology (03/19/2017 7:55 PM) Only the most recent of 3 results within the time period is included. Component Value Ref Range Cytology See Separate Report Specimen Performing Laboratory Body Fluid - Pleural, [facility] Left [address] [place] [address] * Cytology (03/19/2017 7:55 PM) Only the most recent of 3 results within the time period is included. Component Value Ref Range Case Report Medical Cytology Report Case: [id number] Authorizing Provider: Ivan Chaparro, Collected: 03/19/20171954 Ordering Location: [address] Received: 03/20/2017 1010 Service Pathologist: Linh Abad MD Specimen: Pleural, Left DIAGNOSIS LEFT PLEURAL FLUID (CYTOSPINS AND CELL BLOCK): - POSITIVE FOR MALIGNANCY; FEATURES CONSISTENT WITH METASTATIC ADENOCARCINOMA WITH FEATURES SIMILAR TO THOSE NOTED IN PREVIOUS PERICARDIAL FLUID SEE COMMENT Signing Pathologist Direct Phone Line: [phone] COMMENT The malignant cells in this left pleural effusion are similar to those noted in this patient's prior pericardial fluid sample, which also showed features consistent with metastatic adenocarcinoma ([id number]), from August 08, 2016. The cytologic features [...] comments. A report in Medical Records from [employer] [address] [place] [address], [address], [place] [address], is filed in Medical Records at [facility], from results obtained on 09/10/2016, in the prior pericardial sample ([id number]); indicating a POSITIVE result for PD-L1, IHC (antiboney clone [id number]); FISH studies for ALK(2p23) MET(7q31.2), ROS1 (6q22.1) and RET (10q11.21) were NEGATIVE (see entire report, available in the medical records department (Maggie Payton ), rechecked 03/27/2017. CPT Code(s) 86080, 40744 78156 x 1 89340 x 8 CLINICAL DATA Left pleural effusion, previous malignant pericardial effusion (see [id number]), history of lung cancer, Stage IV,based on the previous sample and the findings of a lung mass and probable necrotic lymph nodes, on radiologic exam. The lung tumor was not biopsied. SPECIMEN SOURCE LEFT PLEURAL FLUID GROSS DESCRIPTION 1300 mls bloody; 4 cytospins, cell block Collected: [id number] Received: [id number] MICROSCOPIC DESCRIPTION See comment. STATEMENT OF ADEQUACY Satisfactory SPECIAL STUDIES The following special studies were performed on this case and the interpretation is incorporated in the diagnostic report above: See comment section The immunohistochemistry test was developed and its performance characteristics determined by [facility], Pathology Laboratory. It has not been [...] complexity clinical laboratory testing. Technical component was [facility], Department of performed at Pathology, [address] [place] [address], Professional component [facility], Department of was performed at Pathology, [address] [place] [address], Specimen Performing Laboratory Body Fluid - Pleural, [facility] Left [address] [place] [address] * [facility] Critical Labs (ABG,NA,K,H&H,GLU) (03/19/2017 7:53 PM) Only the most recent of 2 results within the time period is included. Specimen Performing Laboratory Blood, Arterial Narrative The following orders were created for panel order [facility] Critical Labs (ABG,NA,K,H& H,GLU). Procedure Abnormality Status --------- - ------ Blood gas, arterial[[id number]]Abnormal Final result Sodium Na-Stat Lab[[id number]] Normal Final result Potassium-Stat Lab[[id number]] Normal Final result Glucose-Stat Lab[[id number]] Abnormal Final result HGB/HCT (H&H)-Stat Lab[[id number]] Abnormal Final result Please view results for these tests on the individual orders. * Potassium-Stat Lab (03/19/2017 7:53 PM) Only the most recent of 5 results within the time period is included. Component Value Ref Range Potassium 3.6 3.6 - 5.5 meq/L Specimen Performing Laboratory Blood, [address] [address] * Sodium Na-Stat Lab (03/19/2017 7:53 PM) Only the most recent of 3 results within the time period is included. Component Value Ref Range Sodium 139 135 - 148 meq/L Specimen Performing Laboratory Blood, [address] [address] * Glucose-Stat Lab (03/19/2017 7:53 PM) Only the most recent of 6 results within the time period is included. Component Value Ref Range Glucose 137 (H) 70 - 110 mg/dL Specimen Performing Laboratory Blood, [address] [address] * HGB/HCT (H&H)-Stat Lab (03/19/2017 7:53 PM) Only the most recent of 6 results within the time period is included. Component Value Ref Range Hemoglobin 12.2 (L) 13.0 - 16.8 g/dL Hematocrit 36.0 (L) 40.0 - 50.0 % Specimen Performing Laboratory Blood, [address] [address] * CT chest without IV contrast (03/18/2017 6:21 PM) Specimen Performing Laboratory GE Lydia Narrative FINAL REPORT CLINICAL INDICATION: Pleural effusion [...] MD Report Verified Date/Time:03/19/2017 00:57:13 Reading Location: [address] Body Reading Room Procedure Note Interface, External Ris In - 03/19/2017 12:59 AM NEUROSCIENCE SPECIALIST FINAL REPORT CLINICAL INDICATION: Pleural effusion COMPARISON: [...] Report Verified Date/Time: 03/19/2017 00:57:13 Reading Location: [facility] B1 C013Y CT Body Reading Room * Electrocardiogram, 12-lead (03/16/2017 11:01 PM) Only the most recent of 2 results within the time period is included. Specimen Performing Laboratory [employer] Narrative Ventricular Rate 103 BPM Atrial Rate 103 BPM P-R Interval 144 ms QRS Duration 76 ms Q-T Interval 336 ms QTC Calculation(Bazett) 440 ms P [place] 47 degrees R [place] 41 degrees T [place] 33 degrees Sinus tachycardia Poor R wave progression When compared with ECG of 08-AUG-2016 08:24, No significant change was found Confirmed by MD RAYMOND YOCHAI ([id number]) on 03/17/2017 6:46:55 AM Procedure Note Interface, External Ris In - 03/17/2017 6:47 AM NEUROSCIENCE SPECIALIST Ventricular Rate 103 BPM Atrial Rate 103 BPM P-R Interval 144 ms QRS Duration 76 ms Q-T Interval 336 ms QTC Calculation(Bazett) 440 ms P [place] 47 degrees R [place] 41 degrees T [place] 33 degrees Sinus tachycardia Poor R wave [...] Scrn NEGATIVE Specimen Performing Laboratory Blood [facility] [address] [place] [address] * Comprehensive metabolic panel (03/16/2017 10:39 PM) [...] FOR DIALYSIS PATIENTS. Specimen Performing Laboratory Blood [address] [address] * EKG-SCANNED (10/15/2016 11:51 AM) * Manual Differential (10/09/2016 4:11 AM) Only the most recent of 5 results within the time period is included. Component Value Ref Range Total Counted WBC Morphology Normal Platelet Morphology Normal RBC Morphology Normal Specimen Performing Laboratory Blood - Arm, Right [address] [address] * CBC (Hemogram only) (10/07/2016 3:54 AM) [...] WBC Specimen Performing Laboratory Blood - Arm, [address] [address] * Vancomycin level, trough (10/06/2016 10:48 AM) Component Value Ref Range Vancomycin Tr 10.9 10.0 - 20.0 ug/mL Specimen Performing Laboratory Blood - Arm, [place] [address] Narrative Wait for result before giving dose. HOLD vancomycin if trough >20 * Potassium (10/06/2016 7:16 AM) Only the most recent of 2 results within the time period is included. Component Value Ref Range Potassium 3.6 3.5 - 5.1 meq/L Specimen Performing Laboratory Blood - Arm, [place] [address] * Phosphorus (10/06/2016 2:38 AM) Only the most recent of 3 results within the time period is included. Component Value Ref Range Phosphorus 2.4 2.3 - 4.7 mg/dL Specimen Performing Laboratory Blood - Line, [place] [address] * 2D Echo W/Doppler(CW/PW/Color) (10/04/2016 10:24 AM) Specimen Performing Laboratory DIGISONICS Narrative Echocardiography Laboratory [address] [place] [address] Voice:[phone] Transthoracic Echocardiogram Pat.Name:JLUIUS OMALLEY Pat.ID:[id number] .Date: 10/04/2016 Refer.MD:ROCIO NIX Exam Time: 10:24:00 AM Study Type:Echo Complete Height:70inWeight:251lb BSA: 2.3 q6WUOOrc:1955,60Y Sex: MALEBP: 122/61 HR:134 bpm Sonogrphr: Neha Vera RDCS Pat. Stat.:Inpatient Room:[facility] CPT - 4: 98366 Reason for Study:Hypotension or hemodynamic instability History [...] Cardiac Out LVOT 2 cm Parasternal Long [place] Ao An 2.04 cm (1.4-2.6) LV%fs 55.9 [...] - 10/05/2016 7:56 PM CDT Echocardiography Laboratory [address] [place] [address] Voice: [phone] Transthoracic Echocardiogram Pat.Name: JULIUS OMALLEY Pat.ID: [id number] St.Date: 10/04/2016 Refer.MD: ROCIO NIX Exam Time: 10:24:00 AM Study Type:Echo Complete Height: 70in Weight: 251lb BSA: 2.3 m2 Age: 9 1955,60Y Sex: MALE BP: 122/61 HR: 134 bpm Sonogrphr: Neha Vera RDCS Pat. Stat.:Inpatient Room: [facility] CPT - 4: 60325 Reason for Study:Hypotension or hemodynamic instability History [...] Cardiac Out LVOT 2 cm Parasternal Long [place] Ao An 2.04 cm (1.4-2.6) LV%fs 55.9 [...] Specimen Performing Laboratory Blood - Line, Venous [address] [address] Narrative Effective 06/27/2015: Units/Reference Range Change New: 0.5-2.2 mmol/LPrevious: 5-20 mg/dL * Urine culture (10/04/2016 8:50 AM) Component Value Ref Range Result No growth Specimen Performing Laboratory Urine [address] [address] * Urinalysis w/ Microscopic (10/04/2016 8:10 AM) Component Value Ref Range Color, UA Yellow Clarity, UA Clear Specific [place], UA >1.050 (H) 1.001 - 1.035 pH, [...] Specimen Performing Laboratory Urine - Urine, Voided [address] [address] * Blood culture #2 (10/04/2016 2:15 AM) Only the most recent of 2 results within the time period is included. Component Value Ref Range Result No growth in 5 days Specimen Performing Laboratory Blood - Arm, Right [address] [address] * IR CV Access Fluoro (08/14/2016 11:30 [...] MD Report Verified Date/Time:08/15/2016 15:55:55 Reading Location: [place] [address] Angio Body Reading Room Procedure Note Interface, [...] Report Verified Date/Time: 08/15/2016 15:55:55 Reading Location: [facility] P048 Angio Body Reading Room * PULMONARY FUNCTION - SCAN (08/13/2016 2:00 PM) * CT abdomen/pelvis with IV contrast (08/13/2016 3:27 AM) Specimen Performing Laboratory [facility] Narrative FINAL REPORT CT OF THE CHEST, [...] MD Report Verified Date/Time:08/13/2016 09:19:34 Reading Location: [facility] Diagnostic Imaging Reading Room - [place] [address] Procedure Note Interface, External Ris In - [...] Report Verified Date/Time: 08/13/2016 09:19:34 Reading Location: [facility] Diagnostic Imaging Reading Room - [facility] F1 1120 * CT brain [...] MD Report Verified Date/Time:08/13/2016 07:29:57 Reading Location: [facility] C0[facility] Neuro Reading Room Procedure Note Interface, [...] Report Verified Date/Time: 08/13/2016 07:29:57 Reading Location: [address] Neuro Reading Room * CT chest with IV contrast (08/13/2016 3:26 AM) Specimen Performing Laboratory [facility] Narrative FINAL REPORT CT OF THE CHEST, [...] MD Report Verified Date/Time:08/13/2016 09:19:34 Reading Location: [facility] Diagnostic Imaging Reading Room - [place] [address] Procedure Note Interface, External Ris In [...] Report Verified Date/Time: 08/13/2016 09:19:34 Reading Location: [facility] Diagnostic Imaging Reading Room - [place] [address] * Pulmonary Funct Lab Spirometry (08/12/2016 3:41 PM) Narrative Kareem Forde, HEALTH COMMISSIONER, CLINICAL SYSTEMS EDUCATOR 08/12/20163:41 PM [facility] PFT CHARTING REPORT Infection Control/Hand Hygiene procedures followed throughout the encounter with patient: Yes Patient Identification Method: Patient name verified on armband, and Medical record on armband, Is the order complete?: Yes Account ID#: [id number] Patient Name: Julius Omalley Birthdate: 1955 Age: [...] - 55 U/L Specimen [place] [address] * POC-Glucose meter (08/09/2016 1:33 PM) Only the most recent of 11 results within the time period is included. Component Value Ref Range POC-Glucose Meter 111 (H)Comment: TESTED AT [address] 70 - 110 mg /dL [facility] [id number] Specimen [place] [address] * Oxygen saturation, measured (08/09/2016 3:51 AM) Component Value Ref Range O2 Saturation (Measured) 71.7 % Specimen Performing Laboratory [address] [address] * Limited 2D Echocardiogram (08/08/2016 5:10 PM) Specimen Performing Laboratory DIGISONICS Narrative Echocardiography Laboratory [address] [place] [address] Voice:[phone] Limited Transthoracic Echocardiogram Pat.Name:JULIUS OMALLEY Pat.ID:[id number] .Date: 08/08/2016 Refer.MD:BEVERLY RIOS Exam Time: 5:10:00 PMStudy Type:Limited Echo Height:70inWeight:174lb BSA: 1.97 m2 DOBAge:1955 ,60Y Sex: MALEBP: 109/60 HR:75 bpmSonogrphr: Julia Prajapati RDCS Pat. Stat.:[place] [place]:Suspected pericardial conditions History / [...] ml/m2 RA Area 22.8 cm2(8.3-19.5)* Parasternal Long [place] Ao An 1.97 cm (1.4-2.6) LVPWd0.983 cm Ao Rtd3.46 cm LA Ds 3.67 cm (2.3-3.9) IVSd1.03 cmLV Wmn 1.01 cm LVIDd 4.03 cm (4.3-5.1)* Right Ventricle RV Dim3.53 cm Signed 08/09/2016 02:44 PM Curt Alberts M.D. Procedure Note Interface, External Ris In - 08/09/2016 2:45 PM CDT Echocardiography Laboratory [address] [place] [address] Voice: [phone] Limited Transthoracic Echocardiogram Pat.Name: JULIUS OMALLEY Pat.ID: [id number] St.Date: 08/08/2016 Refer.: BEVERLY RIOS Exam Time: [...] RA Area 22.8 cm2 (8.3-19.5)* Parasternal Long [place] Ao An 1.97 cm (1.4-2.6) LVPWd 0.983 [...] K/CU MM Specimen Performing [place] [address] * Tissue Exam (08/08/2016 10:10 AM) Component Value Ref Range Case Report Surgical Pathology Report Case: [id number] Authorizing Provider: Ivan Chaparro, Collected: 08/08/2016 1010 MD Ordering Location: [facility] Received: 08/08/2016 1118 PERIOPERATIVE SERVICES Pathologist: Linh Abad MD Specimen: Pericardium, Left, LEFT PERICARDIUM DIAGNOSIS A. LEFT SIDE, PERICARDIUM, BIOPSY: - DENSE FIBROSIS, CONSISTENT WITH FIBROUS PERICARDITIS - FOCAL CHRONIC INFLAMMATION AND ADHESIONS TO ADIPOSE TISSUE CPT Code(s) 19152 CLINICAL HISTORY Malignant neoplasm of lung, unspecified [...] noted Specimen Performing Laboratory Tissue - Pericardium, [facility] Left [address] [place] [id number] after 06/07/2016
[2017-06-08] MEDS: CEFTRIAXONE SOD 1 GM VIAL IV SCH (23:34)
[2017-06-08] MEDS: AZITHROMYCIN 500MG/NS 250 ML 250 ML IV SCH (23:34)
[2017-06-08] MEDS: ALBUTEROL SULF 0.083% NEB SOLN 3 ML NEB NEB SCH (23:41)
[2017-06-08 23:56] VITALS: BP 125/65
[2017-06-09] VITALS (9 sets, daily range): BP systolic 94–125; BP diastolic 55–70
[2017-06-09] MEDS: SODIUM CHLORIDE 0.9% 1000ML 1,000 ML IV SCH ×2 (00:30→11:49)
[2017-06-09] MEDS: ALBUTEROL SULF 0.083% NEB SOLN 3 ML NEB NEB SCH ×5 (02:40→23:10)
[2017-06-09] MEDS: IPRATROPIUM BROMIDE 0.02% 2.5 ML NEB NEB SCH ×3 (02:40→18:40)
[2017-06-09 07:26] LABS: CREATINE KINASE 42 IU/L (30-200)
[2017-06-09] MEDS: OXYCODONE HCL 20 MG TAB CR PO PRN ×3 (09:54→22:00)
[2017-06-09 15:19] LABS: CREATINE KINASE 43 IU/L (30-200)
[2017-06-09] MEDS: CEFTRIAXONE SOD 1 GM VIAL IV SCH (21:51)
[2017-06-09 22:29] LABS: CHOL/HDL RATIO 4.3 (3.9-4.7)
[2017-06-09] MEDS: AZITHROMYCIN 500MG/NS 250 ML 250 ML IV SCH (22:57)
[2017-06-09 23:01] LABS: CREATINE KINASE 40 IU/L (30-200)
[2017-06-10] VITALS (8 sets, daily range): BP systolic 96–118; BP diastolic 56–64
--- NOTE | 2017-06-10 00:16 | History and Physical ---
TIME: 7:45 a.m. PRIMARY CARE PHYSICIAN: Dr. Shukri Azul. CHIEF COMPLAINT: Shortness of breath and leg swelling. HISTORY OF PRESENT ILLNESS: This is a 61-year-old man with a history of COPD and small cell lung cancer, now developing shortness of breath and leg swelling, prompted visit to the hospital. Patient states that the last chemo was 2 weeks ago. Patient denies any fever, chills, or sweats. Denies any other symptoms. PAST MEDICAL HISTORY: Stage 4 small cell lung cancer, status post chemotherapy; malignant pericardial effusion; recurrent left pleural effusion, status post thoracoscopy. Patient is also status post pericardial window, congestive heart failure. PAST SURGICAL HISTORY: Pericardial window, thoracoscopy, and thoracentesis. ALLERGIES: PER ELECTRONIC MEDICAL RECORD. FAMILY HISTORY/SOCIAL HISTORY: Patient has an [id number] smoking history. Quit cigarette 1 year ago. Patient is and has 2 children. No alcohol or illicit. MEDICATIONS: Per electronic medical record. REVIEW OF SYSTEMS: Denies any dizziness or chest pain. PHYSICAL EXAMINATION VITAL SIGNS: Reviewed. GENERAL: A tired-appearing man resting in bed. HEENT: Anicteric. Pupils respond to light. No oral lesions. CARDIOVASCULAR: Normal S1 and S2. LUNGS: Reduced breath sounds throughout. No wheezing. He has mild to moderate air movement throughout. ABDOMEN: Soft, nontender. EXTREMITIES: No edema. SKIN: Dry. PSYCHIATRIC: Flat affect. LABS: Reviewed. MEDICATIONS: Reviewed. ASSESSMENT AND PLAN: This is a 61-year-old man with 1. Acute exacerbation of chronic obstructive pulmonary disease. We will provide supportive oxygen care and steroid with antihistamine and antitussive medication. We will use empiric antibiotics. 2. History of stage 4 small cell lung cancer. Patient's last chemotherapy was 2 weeks ago. Patient will need followup with oncology outpatient. 3. Hypoxia. Continue oxygen support. 4. Hyperglycemia with obesity, body mass index 30.4. We will obtain hemoglobin A1c and lipid panel. 5. Physical deconditioning, physical therapy. 6. Normocytic anemia, mild. We will follow. 7. Prophylaxis: We will use Lovenox and Pepcid. 8. Disposition: Monitor closely. Job#: [id number]
[2017-06-10] MEDS: SODIUM CHLORIDE 0.9% 1000ML 1,000 ML IV SCH ×2 (02:01→17:48)
[2017-06-10] MEDS: ALBUTEROL SULF 0.083% NEB SOLN 3 ML NEB NEB SCH ×5 (02:55→20:20)
[2017-06-10] MEDS: IPRATROPIUM BROMIDE 0.02% 2.5 ML NEB NEB SCH ×4 (02:55→20:20)
[2017-06-10] MEDS: OXYCODONE HCL 20 MG TAB CR PO PRN ×3 (04:15→21:53)
[2017-06-10] MEDS ORDERED: LORATADINE 10 MG TAB PO SCH (09:00)
[2017-06-10] MEDS: FAMOTIDINE 20 MG TAB PO SCH ×2 (09:00→17:48)
[2017-06-10] MEDS: LORATADINE 10 MG TAB PO SCH (09:00)
[2017-06-10] MEDS: BENZONATATE 100 MG CAP PO SCH ×3 (09:00→21:15)
[2017-06-10] MEDS: GUAIFENESIN 600MG/DEXTROMETHORPHAN 30MG TABSR PO SCH ×2 (09:00→17:48)
[2017-06-10] MEDS ORDERED: ENOXAPARIN SOD INJ 40 MG/0.4 ML SYR SC SCH (17:00)
[2017-06-10] MEDS: CEFTRIAXONE SOD 1 GM VIAL IV SCH (22:31)
[2017-06-10] MEDS: AZITHROMYCIN 500MG/NS 250 ML 250 ML IV SCH (22:31)
[2017-06-11] VITALS: BP 114/59
[2017-06-11] MEDS: ALBUTEROL SULF 0.083% NEB SOLN 3 ML NEB NEB SCH ×3 (00:15→07:10)
[2017-06-11 04:00] VITALS: BP 121/60
[2017-06-11] MEDS: SODIUM CHLORIDE 0.9% 1000ML 1,000 ML IV SCH (04:14)
[2017-06-11] MEDS: IPRATROPIUM BROMIDE 0.02% 2.5 ML NEB NEB SCH ×2 (04:15→07:10)
[2017-06-11] MEDS ORDERED: TESSALON PERLE100 MG PO (06:50)
[2017-06-11] MEDS ORDERED: LEVAQUIN500 MG PO (06:50)
[2017-06-11] MEDS ORDERED: LORATADINE10 MG PO (06:50)
[2017-06-11] MEDS ORDERED: MUCINEX DM ER1 EACH PO (06:50)
[2017-06-11 07:20] VITALS: BP 122/58
[2017-06-11 07:30] VITALS: BP 122/58
[2017-06-11] MEDS: FAMOTIDINE 20 MG TAB PO SCH (08:03)
[2017-06-11] MEDS: GUAIFENESIN 600MG/DEXTROMETHORPHAN 30MG TABSR PO SCH (08:03)
[2017-06-11] MEDS: LORATADINE 10 MG TAB PO SCH (08:03)
[2017-06-11] MEDS: BENZONATATE 100 MG CAP PO SCH (08:03)
--- NOTE | 2017-06-11 08:53 | Progress Note ---
DATE: June 10, 2017 TIME: 8:15 a.m. OVERNIGHT: Feeling a little better. REVIEW OF SYSTEMS: Denies any dizziness. VITAL SIGNS: Reviewed. PHYSICAL EXAMINATION GENERAL: A tired-appearing man resting in bed. HEENT: Anicteric. CARDIOVASCULAR: Normal S1 and S2. LUNGS: Reduced breath sounds throughout. ABDOMEN: Soft, nontender. EXTREMITIES: No edema. SKIN: Dry. PSYCHIATRIC: Flat affect. LABS: Reviewed. MEDICATIONS: Reviewed. ASSESSMENT AND PLAN: A 61-year-old man. 1. Acute exacerbation of chronic obstructive pulmonary disease. 2. History of stage-IV lung cancer. 3. Hypoxia. 4. Hyperglycemia with obesity, body mass index 30.4. 5. Physical deconditioning. 6. Normocytic anemia. PLAN 1. Continue steroid therapy. 2. Continue antitussive medication. 3. Continue antibiotics. 4. Continue antihistamine. 5. Discharge planning and oxygen support. Job#: [id number]
--- NOTE | 2017-06-11 11:30 | Discharge Summary ---
PRINCIPAL DIAGNOSES 1. Acute exacerbation of chronic obstructive pulmonary disease. 2. Hypoxia. 3. Hyperglycemia and obesity. New diagnosis of prediabetes. Hemoglobin A1c 5.9. 4. Physical deconditioning. 5. Normocytic anemia. SECONDARY DIAGNOSIS: Chronic obstructive pulmonary disease. CHIEF COMPLAINT: Shortness of breath. HISTORY OF PRESENT ILLNESS: A 61-year-old man with shortness of breath. Refer to the H and P for further details. HOSPITAL COURSE: The patient was found to have acute exacerbation of COPD and treated with antitussive medications, antihistamines, nebs, steroids, oxygen support, and antibiotics and did well. He has stage IV lung cancer. Will need to follow up outpatient for chemotherapy and management by oncology. Had hypoxia and has improved. He uses 3 L of oxygen at home. He is currently on 3 L of oxygen here. Obesity and hyperglycemia. Hemoglobin A1c 5.9 and new diagnosis of prediabetes. Physical deconditioning was treated with physical therapy. Normocytic anemia remained stable. He is currently appropriate for discharge and follow up. DISCHARGE MEDICATIONS: Per electronic medical record. FOLLOWUP 1. Primary care doctor in 1 week. 2. Oncologist in 1 week. JULIEN LARIOS MD Job#: [id number] [place]
== END 2017-06-11 10:10 | disposition home or self-care (01) | DRG 191 ==
LOC: ER 21:26 → ERHOLD 23:24 → MED/SURG3 23:27
PROVIDERS: ADMIT Internal Medicine; ATTEND Internal Medicine
DX: J44.1 Chronic obstructive pulmonary disease with (acute) exacerbation (principal); C34.90 Malignant neoplasm of unspecified part of unspecified bronchus or lung; I50.9 Heart failure, unspecified; Z99.81 Dependence on supplemental oxygen; R53.81 Other malaise; D64.9 Anemia, unspecified; R09.02 Hypoxemia; R73.9 Hyperglycemia, unspecified; Z79.899 Other long term (current) drug therapy; Z68.30 Body mass index [BMI] 30.0-30.9, adult
CPT/HCPCS: 36415; 71045; 80053; 80061; 82550; 82553; 83036; 83605; 83880; 84484; 85025; 87040; 94640; 96361; 99284; J0456; J0696; J1650; J7030

== ENCOUNTER 2017-06-29 22:01 | Emergency (ER) | payer OTHER ==
[~2017-06-29] VITALS: Ht 177.8 cm; Wt 95.7 kg
[~2017-06-29 22:01] MED LIST changes: +LORATADINE10 MG PO; +TESSALON PERLE100 MG PO
--- OUTSIDE RECORDS SUMMARY | 2017-06-29 22:05 | XMS REPORT | Clinical Summary ---
Author Author [facility] Organization [facility] Address Unknown Phone Unavailable Care Team Providers Care [employer] Professor Name Role Phone PCP Unavailable Allergies Active [...] effusion 10/04/2016 COPD (chronic obstructive pulmonary disease) ([facility]) 08/14/2016 Metastatic lung carcinoma ([facility]) 08/13/2016 Neuropathy 08/09/2016 Mediastinal lymphadenopathy 08/08/2016 Lung mass 08/08/2016 Tobacco abuse 08/08/2016 Shock (HCC) 08/08/2016 Acute pulmonary insufficiency following thoracic surgery ([facility]) 08/08/2016 Pericardial effusion 08/07/2016 S/P thoracotomy Encounters Date Type Specialty Care Team Description 04/14/2017 [facility] Shukri Azul, Squamous cell carcinoma Encounter MD of bronchus in left upper Foteh, Anishusta Michael lobe (HCC);Malignant neoplasm of lung, unspecified laterality, unspecified part of lung (HCC) 04/13/2017 Outside Orders Central Scheduling Shukri Azul, Squamous cell carcinoma MD of bronchus in left upper lobe ([facility]) (Primary Dx);Malignant neoplasm of lung, unspecified laterality, unspecified part of lung (HCC) 03/19/2017 Anesthesia Erik Soto MD Event 03/19/2017 Procedure Pass 03/19/2017 Surgery Ivan Chaparro THORACOSCOPY (VATS) MD 03/16/2017 [facility] Ivan Chaparro, Pulmonary emphysema, - Encounter MD unspecified emphysema 03/27/2017 type ([facility]);Pleural effusion;Centrilobular emphysema ([facility]) 03/16/2017 Orders Only General Internal Medicine 10/03/2016 [facility] Tosha Benavidez Acute pulmonary - Encounter MD Isi insufficiency following 10/10/2016 Jarrod Nix thoracic surgery MD Cayetano ([facility]);Metastatic Vitor Davis, adenocarcinoma ([facility]);Neutropenic fever Antelmo Sauceda ([facility]);Severe sepsis ([facility]);Enteritis;Pleural effusion;Pulmonary emphysema, unspecified emphysema type ([facility]);Metastatic lung carcinoma, unspecified laterality ([facility]);Sinus tachycardia;Ileus ([facility]) 08/08/2016 Orders Only General Internal Medicine 08/08/2016 Anesthesia Luther Shrestha Event MD 08/08/2016 Procedure Pass 08/08/2016 Surgery Ivan Chaparro, CREATION,PERICARDIAL MD WINDOW 08/07/2016 [facility] Ivan Chaparro, Pericardial - Encounter effusion;Acute pulmonary 08/14/2016 Yris Davison, insufficiency following thoracic surgery Jose Garcia MD ([facility]);Lung mass;Mediastinal lymphadenopathy;Tobacco abuse;Pleural effusion;Neuropathy;Hypok alemia;Metastatic adenocarcinoma (HCC) after 06/28/2016 Immunizations Name Dates Previously Given Next Due [...] Taken Blood Pressure 116/66 04/14/2017 11:36 AM ELECTRICIAN OUTSIDE Pulse 117 04/14/2017 11:36 AM ELECTRICIAN OUTSIDE Temperature 37.9 C (100.2 F) 04/14/2017 11:36 AM ELECTRICIAN OUTSIDE Respiratory Rate 16 04/14/2017 11:36 AM ELECTRICIAN OUTSIDE Oxygen Saturation 99% 04/14/2017 11:36 AM ELECTRICIAN OUTSIDE Inhaled Oxygen - - Concentration Weight 89.7 kg (197 lb 11.2 oz) 03/27/2017 3:32 AM ELECTRICIAN OUTSIDE Height 177.8 cm (5' 10") 03/16/2017 9:55 PM ELECTRICIAN OUTSIDE Body Mass Index 28.37 03/27/2017 3:32 AM ELECTRICIAN OUTSIDE Plan of Treatment Not on file Procedures Procedure Name Priority Date/Time Associated Diagnosis Comments THORACOSCOPY (VATS) 03/19/2017 RECURRENT PERICARDIAL 3:25 PM ELECTRICIAN OUTSIDE EFFUSION BRONCHOSCOPY 08/08/2016 Pericardial effusion 10:15 AM CDT THORACOSCOPY (VATS) 08/08/2016 Pericardial effusion 10:15 AM CDT CREATION,PERICARDIAL 08/08/2016 Pericardial effusion WINDOW 10:15 AM CDT after 06/28/2016 Results * US chest (04/14/2017 1:42 PM) Specimen Performing Laboratory [facility] [place] Narrative FINAL REPORT Ultrasound of the chest, 04/14/2017. CLINICAL HISTORY: Evaluate for pleural effusion. DISCUSSION: Sonographic evaluation of the left chest was performed to evaluate for possible thoracentesis. Only a small amount of multiloculated left pleural effusion is identified. IMPRESSION: Minimal left pleural effusion, insufficient for thoracentesis. Signed: Chad Velazquez MD Report Verified Date/Time:04/14/2017 15:00:07 Reading Location: [address] Ultrasound Reading Room Procedure Note Interface, External Ris In - 04/14/2017 3:02 PM ELECTRICIAN OUTSIDE FINAL REPORT Ultrasound of the chest, 04/14/2017. CLINICAL HISTORY: Evaluate for pleural effusion. DISCUSSION: Sonographic evaluation of the left chest was performed to evaluate for possible thoracentesis. Only a small amount of multiloculated left pleural effusion is identified. IMPRESSION: Minimal left pleural effusion, insufficient for thoracentesis. Signed: Chad Velazquez MD Report Verified Date/Time: 04/14/2017 15:00:07 Reading Location: [facility] P006J Ultrasound Reading Room * PT/aPTT (04/14/2017 11:04 AM) Only the most recent of 2 results within the time period is included. Component Value Ref Range Protime 14.7 11.7 - 14.7 seconds INR 1.2 <=5.9 PTT 30.8 22.5 - 36.0 seconds Specimen Performing Laboratory Blood [address] [address] Narrative RECOMMENDED COUMADIN/WARFARIN INR THERAPY RANGES STANDARD DOSE: 2.0 - 3.0 Includes: PROPHYLAXIS for venous thrombosis, systemic embolization; TREATMENT for venous thrombosis and/or pulmonary embolus. HIGH RISK: Target INR is 2.5-3.5 for patients with mechanical heart valves. * Platelet count (04/14/2017 11:04 AM) Component Value Ref Range Platelets 354 150 - 450 K/CU MM Specimen Performing Laboratory Blood [address] [address] * PERMANENT LAB REPORT - SCAN (04/09/2017 [...] MD Report Verified Date/Time:03/26/2017 17:04:56 Reading Location: [facility] Reading Room Procedure Note Interface, External Ris In - 03/26/2017 5:07 PM ELECTRICIAN OUTSIDE FINAL REPORT EXAM: Supine AP radiographs of [...] Report Verified Date/Time: 03/26/2017 17:04:56 Reading Location: [facility] Reading Room * XR chest [...] MD Report Verified Date/Time:03/26/2017 14:29:12 Reading Location: [facility] Reading Room Procedure Note Interface, External Ris In - 03/26/2017 2:31 PM ELECTRICIAN OUTSIDE FINAL REPORT EXAM: Frontal chest radiograph HISTORY [...] Report Verified Date/Time: 03/26/2017 14:29:12 Reading Location: [facility] Mammo Reading Room * Magnesium (03/23/2017 4:51 AM) Only the most recent of 22 results within the time period is included. Component Value Ref Range Magnesium 1.4 (L) 1.6 - 2.6 mg/dL Specimen Performing Laboratory Blood [address] [address] * Basic Metabolic Panel (03/23/2017 4:51 AM) [...] FOR DIALYSIS PATIENTS. Specimen Performing Laboratory Blood [address] [address] * CBC with platelet count + automated [...] 1 % Granulocytes-Relative Specimen Performing [place] [address] * CBC with platelet count + automated diff (03/21/2017 9:32 AM) Only the most recent of 14 results within the time period is included. Specimen Performing Laboratory Blood Narrative The following orders were created for panel order CBC with platelet count + automated diff. Procedure Abnormality Status --------- - ------ CBC with platelet count ...[[id number]]AbnormalFinal result Please view results for these tests on the individual orders. * POC-Lactic Acid, Venous (03/21/2017 3:07 AM) Component Value Ref Range POC-Lactic Acid, Venous 0.8 (L)Comment: TESTED AT [address] 0.9 - 1.7 mmol/L [place] [address] Specimen Performing [place] [address] * TRANSFUSION SERVICE REPORT - SCAN (03/20/2017 5:52 PM) Only the most recent of 3 results within the time period is included. * LIPASE (03/20/2017 12:27 PM) Component Value Ref Range Scan Result Specimen Performing Laboratory Body Fluid [facility] NON-INTERFACED LAB [facility] [place], [place] * Glucose, body fluid (03/20/2017 12:23 PM) Component Value Ref Range Glucose, Body Fluid 5 (L) 70 - 110 mg/dL Specimen Performing Laboratory Body Fluid - Pleural, [facility] Left [address] [place] [address] Narrative Absence of reference range indicates that normals have not been defined. Assay performance has not been validated for this type of specimen. USE EXISTING SPECIMEN USE EXISTING SPECIMEN * Amylase, body fluid (03/20/2017 12:23 PM) Component Value Ref Range Amylase, Fluid 45 30 - 110 U/L Specimen Performing Laboratory Body Fluid - Pleural, [facility] Left [address] [place] [address] Narrative Absence of reference range indicates that [...] 2.2 mmol/L Specimen Performing Laboratory Blood, Arterial [address] [address] Narrative Effective 06/27/2015: Units/Reference Range Change New: 0.5-2.2 mmol/LPrevious: 5-20 mg/dL * Calcium, Ionized (03/19/2017 8:52 PM) Only the most recent of 4 results within the time period is included. Component Value Ref Range Calcium, Ion 1.01 (L) 1.12 - 1.27 mmol/L pH, Blood 7.43 Specimen Performing Laboratory Blood [address] [address] * Blood gas, arterial (03/19/2017 8:52 PM) [...] 44.0 % Specimen Performing Laboratory Blood, Arterial [address] [address] * aPTT (03/19/2017 8:47 PM) Only the most recent of 3 results within the time period is included. Component Value Ref Range PTT 32.3 22.5 - 36.0 seconds Specimen Performing Laboratory Blood [address] [address] * Prothrombin time/INR (03/19/2017 8:47 PM) Only the most recent of 3 results within the time period is included. Component Value Ref Range Protime 14.8 (H) 11.7 - 14.7 seconds INR 1.2 <=5.9 Specimen Performing Laboratory Blood [address] [address] Narrative RECOMMENDED COUMADIN/WARFARIN INR THERAPY RANGES STANDARD DOSE: 2.0 - 3.0 Includes: PROPHYLAXIS for venous thrombosis, systemic embolization; TREATMENT for venous thrombosis and/or pulmonary embolus. HIGH RISK: Target INR is 2.5-3.5 for patients with mechanical heart valves. * Fibrinogen (03/19/2017 8:47 PM) Component Value Ref Range Fibrinogen 608 (H) 225 - 434 mg/dl Specimen Performing Laboratory Blood [address] [address] * Prepare RBC (03/19/2017 8:42 PM) Component Value Ref Range CROSSMATCH COMPATIBLE Unit ABO A Pos UNIT NUMBER [id number] Status RETURNED FROM ISSUE Blood Bank Product RED BLOOD CELLS PRODUCT CODE M9307O35 CROSSMATCH COMPATIBLE Unit ABO A Pos UNIT NUMBER [id number] Status RETURNED FROM ISSUE Blood Bank Product RED BLOOD CELLS PRODUCT CODE [id number] Specimen Performing Laboratory [place] * pH, body fluid (03/19/2017 8:37 PM) Component Value Ref Range pH, Body Fluid 7.36 Specimen Performing Laboratory Body Fluid - Pleural, [facility] Left [address] [place] [address] * Body fluid cell count with differential (03/19/2017 8:37 PM) Component Value Ref Range Appearance Bloody (A) Clear Color Red (A) Colorless, Straw RBCs 9[address] (H) <=1 /cu mm Adjusted WBC Count 2748 (H) <=5 /cu mm Lining Cells 962 (H) <=1 /cu mm % Segs 7 % % Lymphs 81 % % Monos 12 % % Eos 0 % % Baso 0 % Container Body Fluid EDTA Tube Specimen Performing Laboratory Body Fluid - Pleural, [facility] Left [address] [place] [address] * Protein, body fluid (03/19/2017 8:37 PM) Component Value Ref Range Protein, Fluid 7.8 Light's criteria identifies effusions if one or more are present: Pleural to serum protein ratio of more than 0.5; Pleural to Serum LDH of more than 0.6; Pleural LDH of more than two third of upper serum reference limit g/dL Specimen Performing Laboratory Body Fluid - Pleural, [facility] Left [address] [place] [address] Narrative Absence of reference range indicates that normals have not been defined. Assay performance has not been validated for this type of specimen. Left pleural effusion Left pleural effusion * Lactate dehydrogenase (LDH), body fluid (03/19/2017 8:37 PM) Component Value Ref Range LDH, Fluid >589[address] Light's criteria identifies effusions if one or more are present: Pleural to serum protein ratio of more than 0.5; Pleural to serum LDH ratio of more than 0.6; Pleural LDH more than two third of upper serum reference limit U/L Specimen Performing Laboratory Body Fluid - Pleural, [facility] Left [address] [place] [address] Narrative Absence of reference range indicates that [...] Specimen Performing Laboratory Body Fluid - Pleural, [facility] Left [address] [place] [address] * Anaerobic culture (03/19/2017 8:27 PM) Only the most recent of 4 results within the time period is included. Component Value Ref Range Result No anaerobes isolated Specimen Performing Laboratory Body Fluid - Pleural, [facility] Left [address] [place] [address] * Surgically obtained culture + gram stain (03/19/2017 8:27 PM) Only the most recent of 4 results within the time period is included. Component Value Ref Range Result No growth Gram Stain Result 1+ WBCs Gram Stain Result No organisms seen Specimen Performing Laboratory Body Fluid - Pleural, [facility] Left [address] [place] [address] * Fungus culture + smear (03/19/2017 8:27 PM) Only the most recent of 3 results within the time period is included. Component Value Ref Range Result No fungus isolated in 28 days Fungus Smear No fungi seen Specimen Performing Laboratory Body Fluid - Pleural, [facility] Left [address] [place] [address] * Cytology (03/19/2017 7:55 PM) Only the most recent of 3 results within the time period is included. Component Value Ref Range Cytology See Separate Report Specimen Performing Laboratory Body Fluid - Pleural, [facility] Left [address] [place] [address] * Cytology (03/19/2017 7:55 PM) Only the most recent of 3 results within the time period is included. Component Value Ref Range Case Report Medical Cytology Report Case: [id number] Authorizing Provider: Ivan Chaparor, Collected: 03/19/20171954 Ordering Location: [address] Received: 03/20/2017 1010 Service Pathologist: Linh Abad MD Specimen: Pleural, Left DIAGNOSIS LEFT PLEURAL FLUID (CYTOSPINS AND CELL BLOCK): - POSITIVE FOR MALIGNANCY; FEATURES CONSISTENT WITH METASTATIC ADENOCARCINOMA WITH FEATURES SIMILAR TO THOSE NOTED IN PREVIOUS PERICARDIAL FLUID SEE COMMENT Signing Pathologist Direct Phone Line: [phone] COMMENT The malignant cells in this left pleural effusion are similar to those noted in this patient's prior pericardial fluid sample, which also showed features consistent with metastatic adenocarcinoma ([id number]), from August 08, 2016. The cytologic features [...] comments. A report in Medical Records from [facility] [address] [place] [address], [address], [place] [address], is filed in Medical Records at [facility], from results obtained on 09/10/2016, in the prior pericardial sample ([id number]); indicating a POSITIVE result for PD-L1, IHC (antiboney clone 22C3); FISH studies for ALK(2p23) MET(7q31.2), ROS1 (6q22.1) and RET (10q11.21) were NEGATIVE (see entire report, available in the medical records department (Maggie Payton ), rechecked 03/27/2017. CPT Code(s) 45048, 38807 46956 x 1 04603 x 8 CLINICAL DATA Left pleural effusion, previous malignant pericardial effusion (see [id number]), history of lung cancer, Stage IV,based on the previous sample and the findings of a lung mass and probable necrotic lymph nodes, on radiologic exam. The lung tumor was not biopsied. SPECIMEN SOURCE LEFT PLEURAL FLUID GROSS DESCRIPTION 1300 mls bloody; 4 cytospins, cell block Collected: [id number] Received: [id number] MICROSCOPIC DESCRIPTION See comment. STATEMENT OF ADEQUACY Satisfactory SPECIAL STUDIES The following special studies were performed on this case and the interpretation is incorporated in the diagnostic report above: See comment section The immunohistochemistry test was developed and its performance characteristics determined by [facility], Pathology Laboratory. It has not been [...] complexity clinical laboratory testing. Technical component was [facility], Department of performed at Pathology, [address] [place] [address], Professional component [facility], Department of was performed at Pathology, [address] [place] [address], Specimen Performing Laboratory Body Fluid - Pleural, [facility] Left [address] [place], [place] [id number] * [facility] Critical Labs (ABG,NA,K,H&H,GLU) (03/19/2017 7:53 PM) Only the most recent of 2 results within the time period is included. Specimen Performing Laboratory Blood, Arterial Narrative The following orders were created for panel order [facility]RL Critical Labs (ABG,NA,K,H& H,GLU). Procedure Abnormality Status --------- - ------ Blood gas, arterial[[id number]]Abnormal Final result Sodium Na-Stat Lab[[id number]] Normal Final result Potassium-Stat Lab[[id number]] Normal Final result Glucose-Stat Lab[[id number]] Abnormal Final result HGB/HCT (H&H)-Stat Lab[[id number]] Abnormal Final result Please view results for these tests on the individual orders. * Potassium-Stat Lab (03/19/2017 7:53 PM) Only the most recent of 5 results within the time period is included. Component Value Ref Range Potassium 3.6 3.6 - 5.5 meq/L Specimen Performing Laboratory Blood, [address] [address] * Sodium Na-Stat Lab (03/19/2017 7:53 PM) Only the most recent of 3 results within the time period is included. Component Value Ref Range Sodium 139 135 - 148 meq/L Specimen Performing Laboratory Blood, [address] [address] * Glucose-Stat Lab (03/19/2017 7:53 PM) Only the most recent of 6 results within the time period is included. Component Value Ref Range Glucose 137 (H) 70 - 110 mg/dL Specimen Performing Laboratory Blood, [address] [address] * HGB/HCT (H&H)-Stat Lab (03/19/2017 7:53 PM) Only the most recent of 6 results within the time period is included. Component Value Ref Range Hemoglobin 12.2 (L) 13.0 - 16.8 g/dL Hematocrit 36.0 (L) 40.0 - 50.0 % Specimen Performing Laboratory Blood, [address] [address] * CT chest without IV contrast (03/18/2017 6:21 PM) Specimen Performing Laboratory GE RIS Narrative FINAL REPORT CLINICAL INDICATION: Pleural effusion [...] MD Report Verified Date/Time:03/19/2017 00:57:13 Reading Location: [address] Body Reading Room Procedure Note Interface, External Ris In - 03/19/2017 12:59 AM ELECTRICIAN OUTSIDE FINAL REPORT CLINICAL INDICATION: Pleural effusion COMPARISON: [...] Report Verified Date/Time: 03/19/2017 00:57:13 Reading Location: [facility] B1 C013Y CT Body Reading Room * Electrocardiogram, 12-lead (03/16/2017 11:01 PM) Only the most recent of 2 results within the time period is included. Specimen Performing Laboratory [employer] MUSE Narrative Ventricular Rate 103 BPM Atrial Rate 103 BPM P-R Interval 144 ms QRS Duration 76 ms Q-T Interval 336 ms QTC Calculation(Bazett) 440 ms P Success 47 degrees R Success 41 degrees T Success 33 degrees Sinus tachycardia Poor R wave progression When compared with ECG of 08-AUG-2016 08:24, No significant change was found Confirmed by MD RAYMOND YOCHAI ([id number]) on 03/17/2017 6:46:55 AM Procedure Note Interface, External Ris In - 03/17/2017 6:47 AM ELECTRICIAN OUTSIDE Ventricular Rate 103 BPM Atrial Rate 103 BPM P-R Interval 144 ms QRS Duration 76 ms Q-T Interval 336 ms QTC Calculation(Bazett) 440 ms P Success 47 degrees R Success 41 degrees T Success 33 degrees Sinus tachycardia Poor R wave [...] Scrn NEGATIVE Specimen Performing Laboratory Blood [facility] [address] [address] * Comprehensive metabolic panel (03/16/2017 10:39 PM) [...] FOR DIALYSIS PATIENTS. Specimen Performing Laboratory Blood [address] [address] * EKG-SCANNED (10/15/2016 11:51 AM) * Manual Differential (10/09/2016 4:11 AM) Only the most recent of 5 results within the time period is included. Component Value Ref Range Total Counted WBC Morphology Normal Platelet Morphology Normal RBC Morphology Normal Specimen Performing Laboratory Blood - Arm, Right [address] [address] * CBC (Hemogram only) (10/07/2016 3:54 AM) [...] WBC Specimen Performing Laboratory Blood - Arm, [address] [address] * Vancomycin level, trough (10/06/2016 10:48 AM) Component Value Ref Range Vancomycin Tr 10.9 10.0 - 20.0 ug/mL Specimen Performing Laboratory Blood - Arm, [place] [address] Narrative Wait for result before giving dose. HOLD vancomycin if trough >20 * Potassium (10/06/2016 7:16 AM) Only the most recent of 2 results within the time period is included. Component Value Ref Range Potassium 3.6 3.5 - 5.1 meq/L Specimen Performing Laboratory Blood - Arm, [place] [address] * Phosphorus (10/06/2016 2:38 AM) Only the most recent of 3 results within the time period is included. Component Value Ref Range Phosphorus 2.4 2.3 - 4.7 mg/dL Specimen Performing Laboratory Blood - Line, [place] [address] * 2D Echo W/Doppler(CW/PW/Color) (10/04/2016 10:24 AM) Specimen Performing Laboratory DIGISONICS Narrative Echocardiography Laboratory [address] [place] [address] Voice:[phone] Transthoracic Echocardiogram Pat.Name:JULIUS OMALLEY Pat.ID:[id number] .Date: 10/04/2016 Refer.:ROCIO NIX Exam Time: 10:24:00 AM Study Type:Echo Complete Height:70inWeight:251lb BSA: 2.3 b3VHPApv:1955,60Y Sex: MALEBP: 122/61 HR:134 bpm Sonogrphr: Neha Vera RDCS Pat. Stat.:Inpatient Room:[facility] CPT - 4: 46867 Reason for Study:Hypotension or hemodynamic instability History [...] Cardiac Out LVOT 2 cm Parasternal Long Success Ao An 2.04 cm (1.4-2.6) LV%fs 55.9 [...] - 10/05/2016 7:56 PM CDT Echocardiography Laboratory [address] [place] [address] Voice: [phone] Transthoracic Echocardiogram Pat.Name: JULIUS OMALLEY Pat.ID: [id number] .Date: 10/04/2016 Refer.MD: ROCIO NIX Exam Time: 10:24:00 AM Study Type:Echo Complete Height: 70in Weight: 251lb BSA: 2.3 m2 Age: 9 1955,60Y Sex: MALE BP: 122/61 HR: 134 bpm Sonogrphr: Neha Vera RDCS Pat. Stat.:Inpatient Room: [facility] CPT - 4: 49039 Reason for Study:Hypotension or hemodynamic instability History [...] Cardiac Out LVOT 2 cm Parasternal Long Success Ao An 2.04 cm (1.4-2.6) LV%fs 55.9 [...] Specimen Performing Laboratory Blood - Line, [place] [address] Narrative Effective 06/27/2015: Units/Reference Range Change New: 0.5-2.2 mmol/LPrevious: 5-20 mg/dL * Urine culture (10/04/2016 8:50 AM) Component Value Ref Range Result No growth Specimen Performing [place] [address] * Urinalysis w/ Microscopic (10/04/2016 8:10 AM) Component Value Ref Range Color, UA Yellow Clarity, UA Clear Specific [place], UA >1.050 (H) 1.001 - 1.035 pH, [...] Specimen Performing Laboratory Urine - Urine, Voided [address] [address] * Blood culture #2 (10/04/2016 2:15 AM) Only the most recent of 2 results within the time period is included. Component Value Ref Range Result No growth in 5 days Specimen Performing Laboratory Blood - Arm, Right [address] [address] * IR CV Access Fluoro (08/14/2016 11:30 [...] MD Report Verified Date/Time:08/15/2016 15:55:55 Reading Location: [place] [address] Angio Body Reading Room Procedure Note Interface, [...] Report Verified Date/Time: 08/15/2016 15:55:55 Reading Location: [place] [id number] Angio Body Reading Room * PULMONARY FUNCTION - SCAN (08/13/2016 2:00 PM) * CT abdomen/pelvis with IV contrast (08/13/2016 3:27 AM) Specimen Performing Laboratory Move In History Narrative FINAL REPORT CT OF THE CHEST, [...] MD Report Verified Date/Time:08/13/2016 09:19:34 Reading Location: [facility] Diagnostic Imaging Reading Room - [place] [address] Procedure Note Interface, External Ris In - [...] Report Verified Date/Time: 08/13/2016 09:19:34 Reading Location: [facility] Diagnostic Imaging Reading Room - [facility] F1 1120 * CT brain without & [...] MD Report Verified Date/Time:08/13/2016 07:29:57 Reading Location: [facility] C013 Neuro Reading Room Procedure Note Interface, External [...] Report Verified Date/Time: 08/13/2016 07:29:57 Reading Location: [address] Neuro Reading Room * CT chest with IV contrast (08/13/2016 3:26 AM) Specimen Performing Laboratory Move In History Narrative FINAL REPORT CT OF THE CHEST, [...] MD Report Verified Date/Time:08/13/2016 09:19:34 Reading Location: [facility] Diagnostic Imaging Reading Room - [place] [address] 1120 Procedure Note Interface, External Ris In [...] Report Verified Date/Time: 08/13/2016 09:19:34 Reading Location: [facility] Diagnostic Imaging Reading Room - [place] [address] * Pulmonary Funct Lab Spirometry (08/12/2016 3:41 PM) Narrative Kareem Forde, PHTHALIC ACID PURIFIER, BAKER PIE 08/12/20163:41 PM [facility] PFT CHARTING REPORT Infection Control/Hand Hygiene procedures followed throughout the encounter with patient: Yes Patient Identification Method: Patient name verified on armband, and Medical record on armband, Is the order complete?: Yes Account ID#: [id number] Patient Name: Julius Omalley Birthdate: 1955 Age: [...] - 55 U/L Specimen Performing [place] [address] * POC-Glucose meter (08/09/2016 1:33 PM) Only the most recent of 11 results within the time period is included. Component Value Ref Range POC-Glucose Meter 111 (H)Comment: TESTED AT [address] 70 - 110 mg /dL [place] [address] Specimen Performing [place] [address] * Oxygen saturation, measured (08/09/2016 3:51 AM) Component Value Ref Range O2 Saturation (Measured) 71.7 % Specimen Performing [place] [address] * Limited 2D Echocardiogram (08/08/2016 5:10 PM) Specimen Performing Laboratory DIGISONICS Narrative Echocardiography Laboratory [address] [place] [address] Voice:[phone] Limited Transthoracic Echocardiogram Pat.Name:EDILIA JULIUS Pat.ID:[id number] .Date: 08/08/2016 Refer.MD:BEVERLY RIOS Exam Time: 5:10:00 PMStudy Type:Limited Echo Height:70inWeight:174lb BSA: 1.97 m2 DOBAge:1955 ,60Y Sex: MALEBP: 109/60 HR:75 bpmSonogrphr: Julia Prajapati RDCS Pat. Stat.:Inpatient Room:[facility] [place] Reason for Study:Suspected pericardial conditions History / [...] up pericardial effusion. S/P pericardial window 08-08-16. FINDINGS: LV: No evidence of LV hypertrophy. [...] ml/m2 RA Area 22.8 cm2(8.3-19.5)* Parasternal Long Success Ao An 1.97 cm (1.4-2.6) LVPWd0.983 cm Ao Rtd3.46 cm LA Ds 3.67 cm (2.3-3.9) IVSd1.03 cmLV Wmn 1.01 cm LVIDd 4.03 cm (4.3-5.1)* Right Ventricle RV Dim3.53 cm Signed 08/09/2016 02:44 PM Curt Alberts M.D. Procedure Note Interface, External Ris In - 08/09/2016 2:45 PM CDT Echocardiography Laboratory [address] [place] [address] Voice: [phone] Limited Transthoracic Echocardiogram Pat.Name: JULIUS OMALLEY Pat.ID: [id number] St.Date: 08/08/2016 Refer.: BEVERLY RIOS Exam Time: [...] RA Area 22.8 cm2 (8.3-19.5)* Parasternal Long Success Ao An 1.97 cm (1.4-2.6) LVPWd 0.983 [...] K/CU MM Specimen Performing Laboratory [place] [address] * Tissue Exam (08/08/2016 10:10 AM) Component Value Ref Range Case Report Surgical Pathology Report Case: [id number] Authorizing Provider: Ivan Chaparro, Collected: 08/08/2016 1010 MD Ordering Location: [facility] Received: 08/08/2016 1118 PERIOPERATIVE SERVICES Pathologist: Linh Abad MD Specimen: Pericardium, Left, LEFT PERICARDIUM DIAGNOSIS A. LEFT SIDE, PERICARDIUM, BIOPSY: - DENSE FIBROSIS, CONSISTENT WITH FIBROUS PERICARDITIS - FOCAL CHRONIC INFLAMMATION AND ADHESIONS TO ADIPOSE TISSUE CPT Code(s) 55670 CLINICAL HISTORY Malignant neoplasm of lung, unspecified [...] noted Specimen Performing Laboratory Tissue - Pericardium, [facility] Left [address] [place] [id number] after 06/28/2016
--- OUTSIDE RECORDS SUMMARY | 2017-06-29 22:06 | XMS REPORT | Continuity of Care Document ---
Author Author [facility] Organization [facility] Address [address] [place] [address] Phone Unavailable Care Team Providers Care Boring Machine Operator Production Name Role Phone PUJA RODRÍGUEZ MD PCP Insurance Providers Guarantor Julius Omalley Address [address] [place] [address] Email PTDECLINED [facility] Policy Number [id number] Subscriber's Name Julius Omalley Relationship 18 Self / Same As Patient Effective Date 17 Advance Directives Directive Response Recorded Date/Time Does the patient have an advance directive? No 06/08/17 11:51pm If yes, is advance directive on file with [facility]? No 06/08/17 11:51pm If not on file with [facility] will patient provide a copy? No 06/08/17 11:51pm Do you have a Directive to Physician? No 06/08/17 11:07pm Do you have a Medical Power of Landscape Gardener? No 06/08/17 11:07pm Do you have an out of hospital Do Not Resuscitate Order? No 06/08/17 11:07pm Do you have any special needs we should be aware of? No 06/08/17 11:07pm Do you have a support person here with you today? Yes 06/08/17 11:07pm Did patient receive Notice of Privacy Practices? Yes 06/08/17 11:07pm Did patient receive patient rights and responsibilities? Yes 06/08/17 11:07pm Problems Medical Problem Onset Date Status Acute cholecystitis Unknown Antineoplastic chemotherapy induced pancytopenia Unknown CHF (congestive heart failure) Unknown COPD (chronic obstructive pulmonary disease) Unknown COPD exacerbation Unknown COPD exacerbation Unknown Dyspnea Unknown Edema extremities Unknown Lung cancer Unknown Malignant pleural effusion Unknown Neutropenia with fever Unknown Pericardial effusion Unknown Pneumonia Unknown Pneumonia Unknown Pneumonia Unknown Pulmonary nodules Unknown Sepsis Unknown Stage 4 lung cancer Unknown Tachycardia Unknown Medications Current Home Medications Medication Dose Units Route Directions Days Qty Instructions Start Date Albuterol/Ipratropium Nebulize 3 Ml Inha 3 Ml Nebullizer Rt Q4h as needed for Wheezing 30 Days 12/18/16 Aspirin 81 Mg Tablet 81 Mg Oral Daily Benzonatate (Tessalon Perle) 100 Mg Capsule 100 Mg Oral Three Times A Day 7 Days 06/11/17 Fluticasone/Salmeterol (Advair 250-50 Diskus) 1 Each Disk.w.dev 1 Inh Inhalation Twice A Day Gabapentin 300 Mg Capsule 300 Mg Oral Three Times A Day 60 Cap Guaifenesin/Dextromethorphan (Mucinex Dm Er 600-30 Mg Tablet) 1 Each Tab.er.12h 1 Each Oral Every 12 Hours 12 Days 01/12/17 Guaifenesin/Dextromethorphan (Mucinex Dm Er 600-30 Mg Tablet) 1 Each Tab.er.12h 1 Each Oral Twice A Day 7 Days 06/11/17 Levofloxacin (Levaquin) 500 Mg Tablet 500 Mg Oral Daily 5 Days Loratadine 10 Mg Tablet 10 Mg Oral Daily 30 Days 06/11/17 Metoprolol Tartrate (Lopressor) 25 Mg Tab 12.5 Mg Oral Twice A Day 30 Days 01/12/17 Ondansetron (Zofran Odt) 8 Mg Tab.rapdis 8 Mg Subcutaneously Every 8 Hours as needed for Nausea Oxycodone Hcl 20 Mg Tablet 20 Mg Oral Every 6 Hours as needed for Pain Past Home Medications Medication Directions Ordered Status Acetaminophen/Hydrocodone ([place]) 1 Ea Tab, 1 Ea G Tube [...] Every 6 Hours 12/18/16 Discontinued Hydrocodone Bit/Acetaminophen ([place] 7.5-325 Tablet) 1 Each Tablet, 1 Ea [...] Onset Date Status Hx Psychiatric Problems No 06/08/2017 11:51pm Not Applicable Not Applicable Hx Eating Disorder No 06/08/2017 11:51pm Not Applicable Not Applicable Hx Substance Use Disorder No 06/08/2017 11:51pm Not Applicable Not Applicable Hx Depression No 06/08/2017 11:51pm Not Applicable Not Applicable Hx Alcohol Use Y - socially 06/08/2017 11:51pm Not Applicable Not Applicable Hx Substance Use Treatment No 06/08/2017 11:51pm Not Applicable Not Applicable Hx Physical Abuse No 06/08/2017 11:51pm Not Applicable Not Applicable Smoking Status Start Date Stop Date Former smoker Hospital Discharge Instructions No hospital discharge instruction information available. Plan of Care Discharge Date 06/11/17 10:10am Disposition HOME, SELF-CARE Instructions/Education Provided Pneumonia - Bacterial Prescriptions See Medication Section Referrals pcp (Internal Medicine) Order Date: 5-7 Days Entered Date: 06/11/2017 6:50am Additional Instructions/Education Cardiac diet Activities as tolerated Follow up with PCP in 5-7 days Functional Status Query Response Date Recorded Assistive Devices None June 09, 2017 12:33am Ambulation Ability Independent June 09, 2017 12:33am Toileting Ability Independent June 09, 2017 12:33am Allergies, Adverse Reactions, Alerts Allergen Type Severity Reaction Status Last Updated Haloperidol Lactate Allergy Mild JAW LOCKED Active 04/20/17 Penicillin Allergy Mild RASH Active 04/20/17 Haloperidol Allergy Mild JAW LOCKED Active 09/14/16 Immunizations No immunization information available. Vital Signs Acute Vital Signs Vital Response Date/Time Temperature (Fahrenheit) 99.7 degrees F (97.6 - 99.5) 06/11/2017 7:30am Pulse Pulse Rate (adult) 107 bpm (60 - 90) 06/11/2017 7:30am Respiratory Rate 20 bpm (12 - 24) 06/11/2017 7:30am Blood Pressure 122/58 mm Hg 06/11/2017 7:30am Height 5 ft 10 in 06/08/2017 11:57pm Weight 211.56 lb 06/08/2017 11:57pm Body Mass Index 30.4 kg/m^2 06/08/2017 11:57pm Results Laboratory Results Test Name Result Units Flags Reference Collection Date/Time Result Date/ Time Comments Myelocytes % 1 % H 0-0 09/16/2016 [...] 5:36pm Anisocytosis SLIGHT 12/18/2016 6:11am 12/18/2016 8:09am Phosphorus Level 4.3 MG/DL 2.3-4.7 12/18/2016 6:11am [...] 03/13/2017 12:00pm 03/13/2017 3:28pm Body Fluid RBC 99827 cells/uL 03/13/2017 12:00pm 03/13/2017 3:28pm Body Fluid [...] 03/13/2017 3: 23pm Body Fluid Lactate Dehydrogenase 02228 IU/L 03/13/2017 12:00pm 2017 3:23pm No reference [...] 20-172 03/13/2017 5:46am 03/15/2017 2:27pm Performed at: [facility] [address] [id number] Commercial Accountant: Gabriel Doe MD, Phone: [phone] Prothrombin Time 13.5 seconds 11.9-14.5 04/20/2017 10:38am [...] CLEAR 04/20/2017 11:35am 04/20/2017 11:46am Urine Specific [place] 1.005 L 1.010-1.025 04/20/2017 11:35am 2017 11:46am [...] Mucus RARE RARE 04/20/2017 11:35am 04/20/2017 11:54am Influenza Virus Types A,B Antigen NEGATIVE NEGATIVE 04/20/2017 11: 00am 04/20/2017 12:07pm White Blood Count 9.56 x10e3/uL 4.8-10.8 06/08/2017 10:00pm 06/08/2017 10:10pm Red Blood Count 4.23 x10e6/uL L 4.3-5.7 06/08/2017 10:00pm 06/08/2017 10 :10pm Hemoglobin 12.4 g/dL L 14.0-18.0 06/08/2017 10:00pm 06/08/2017 10:10pm Hematocrit 37.7 % L 38.2-49.6 06/08/2017 10:00pm 06/08/2017 10:10pm Mean Corpuscular Volume 89.1 fL 81-99 06/08/2017 10:00pm 06/08/2017 10: 10pm Mean Corpuscular Hemoglobin 29.3 pg 28-32 06/08/2017 10:00pm 2017 10:10pm Mean Corpuscular Hemoglobin Concent 32.9 g/dL 31-35 06/08/2017 10:00pm 06/08/2017 10:10pm Red Cell Distribution Width 14.6 % H 11.7-14.4 06/08/2017 10:00pm 2017 10:10pm Platelet Count 320 x10e3/uL 140-360 06/08/2017 10:00pm 06/08/2017 10: 10pm Neutrophils (%) (Auto) 62.1 % 38.7-80.0 06/08/2017 10:00pm 06/08/2017 10:10pm Lymphocytes (%) (Auto) 26.2 % 18.0-39.1 06/08/2017 10:00pm 06/08/2017 10:10pm Monocytes (%) (Auto) 7.1 % 4.4-11.3 06/08/2017 10:00pm 06/08/2017 10: 10pm Eosinophils (%) (Auto) 3.7 % 0.0-6.0 06/08/2017 10:00pm 06/08/2017 10: 10pm Basophils (%) (Auto) 0.6 % 0.0-1.0 06/08/2017 10:00pm 06/08/2017 10: 10pm IM GRANULOCYTES % 0.3 % 0.0-1.0 06/08/2017 10:00pm 06/08/2017 10:10pm Neutrophils # (Auto) 5.9 2.1-6.9 06/08/2017 10:00pm 06/08/2017 10: 10pm Lymphocytes # (Auto) 2.5 1.0-3.2 06/08/2017 10:00pm 06/08/2017 10: 10pm Monocytes # (Auto) 0.7 0.2-0.8 06/08/2017 10:00pm 06/08/2017 10:10pm Eosinophils # (Auto) 0.4 0.0-0.4 06/08/2017 10:00pm 06/08/2017 10: 10pm Basophils # (Auto) 0.1 0.0-0.1 06/08/2017 10:00pm 06/08/2017 10:10pm Absolute Immature Granulocyte (auto 0.03 x10e3/uL 0-0.1 06/08/2017 10: 00pm 06/08/2017 10:10pm Sodium Level 136 mmol/L 136-145 06/08/2017 10:00pm 06/08/2017 10:28pm Potassium Level 3.6 mmol/L 3.5-5.1 06/08/2017 10:00pm 06/08/2017 10: 28pm Chloride Level 99 mmol/L 98-107 06/08/2017 10:00pm 06/08/2017 10:28pm Carbon Dioxide Level 27 mmol/L 22-06/08/2017 10:00pm 06/08/2017 10: 28pm Anion Gap 13.6 mmol/L 8-06/08/2017 10:00pm 06/08/2017 10:28pm Blood Urea Nitrogen 15 mg/dL 7-06/08/2017 10:00pm 06/08/2017 10: 28pm Creatinine 1.19 mg/dL 0.72-1.25 06/08/2017 10:00pm 06/08/2017 10:28pm BUN/Creatinine Ratio 13 6-25 06/08/2017 10:00pm 06/08/2017 10:28pm Estimat Glomerular Filtration Rate > 60 ML/MIN 60- 06/08/2017 10:00pm 06/08/2017 10:28pm Ranges were taken from the National Kidney Disease Education Program and the National Kidney Foundation literature. Reference ranges: 60 or greater: Normal 16-59 (for 3 consecutive months): Chronic kidney disease 15 or less: Kidney failure Glucose Level 157 mg/dL H 74-118 06/08/2017 10:00pm 06/08/2017 10:28pm Calcium Level 9.7 mg/dL 8.4-10.2 06/08/2017 10:00pm 06/08/2017 10:28pm Hemoglobin A1c Percent 5.9 % 4.0-7.0 06/09/2017 2:50pm 06/09/2017 11: 08pm Lactic Acid Level 20.4 MG/DL H 4.5-19.8 06/08/2017 10:00pm 06/08/2017 10 :22pm Total Bilirubin 0.5 mg/dL 0.2-1.2 06/08/2017 10:00pm 06/08/2017 10: 28pm Aspartate Amino Transf (AST/SGOT) 15 IU/L 5-34 06/08/2017 10:00pm 06/08 10:28pm Alanine Aminotransferase (ALT/SGPT) 15 IU/L 0-55 06/08/2017 10:00pm 10:28pm Total Protein 9.3 g/dL H 6.5-8.1 06/08/2017 10:00pm 06/08/2017 10:28pm Albumin 3.2 g/dL L 3.5-5.0 06/08/2017 10:00pm 06/08/2017 10:28pm Globulin 6.1 g/dL H 2.3-3.5 06/08/2017 10:00pm 06/08/2017 10:28pm Albumin/Globulin Ratio 0.5 L 0.8-2.0 06/08/2017 10:00pm 06/08/2017 10: 28pm Alkaline Phosphatase 66 IU/L 40-150 06/08/2017 10:00pm 06/08/2017 10: 28pm Triglycerides Level 104 MG/DL 0-149 06/09/2017 2:50pm 06/09/2017 11: 08pm Cholesterol Level 115 MD/DL 0-199 06/09/2017 2:50pm 06/09/2017 11:08pm Less than 200 mg/dL Low Risk 201 - 239 mg/dL Borderline Risk 240 mg/dl and greater High Risk LDL Cholesterol 67 MG/DL 60-130 06/09/2017 2:50pm 06/09/2017 11:08pm HDL Cholesterol 27 MG/DL L 40-60 06/09/2017 2:50pm 06/09/2017 11:08pm Cholesterol/HDL Ratio 4.3 3.9-4.7 06/09/2017 2:50pm 06/09/2017 11: 08pm B-Type Natriuretic Peptide < 10.0 pg/mL 0-100 06/08/2017 10:00pm 2017 10:32pm Creatine Kinase 40 IU/L 30-200 06/09/2017 10:28pm 06/09/2017 11:08pm Creatine Kinase MB 1.80 ng/mL 0-5.0 06/09/2017 10:28pm 06/09/2017 11: 37pm Troponin I < 0.001 ng/mL 0-0.300 06/09/2017 10:28pm 06/09/2017 11:37pm Microbiology Results Procedure Source Organism/Result Collection Date/Time Result Date/Time Result Status Blood Culture Blood BACILLUS SP NOT B. ANTHRACIS 12/12/2016 12:20pm 2016 8:30am Final Blood Culture Blood NO GROWTH AFTER 48 HOURS 10:00pm 06/10/2017 10:10pm Preliminary Procedures Procedure Status Date Provider(s) RESECTION OF GALLBLADDER, PERCUTANEOUS ENDOSCOPIC APPROACH Completed PARMINDER MONTANA MD DRAINAGE OF LEFT PLEURAL CAVITY, PERC APPROACH, DIAGN Completed 03/13/17 FRAN RIVERA MD Computed tomography of abdomen and pelvis [...] chest without contrast Active 12/21/16 QUENTIN CLINE EMPLOYMENT RECRUITER X-ray of chest, two views Active 01/10/17 [...] Attending Provider Discharged [facility]patient [facility] 06/08/17 11:24pm 10:10am JULIEN LARIOS MD Discharged [facility]patient [facility] 04/20/17 2:24pm 04/24/17 1:50pm KURT AHUMADA MD Discharged Inpatient [facility] 03/12/17 6:36pm 03/16/17 8:40pm ANDRE KNOX MD [...]
[2017-06-29] MEDS ORDERED: ACETAMINOPHEN 325 MG TAB PO PRN (22:15)
[2017-06-29] MEDS ORDERED: SODIUM CHLORIDE 0.9% 1000ML 1,000 ML IV ONE (22:15)
[2017-06-29] MEDS ORDERED: ACETAMINOPHEN 325 MG TAB PO ONE (22:30)
[2017-06-29 22:43] LABS: BASOPHILS # (AUTO) 0.1 (0.0-0.1); BASOPHILS % 0.4 % (0.0-1.0); EOSINOPHILS # (AUTO) 0.2 (0.0-0.4); EOSINOPHILS % 1.5 % (0.0-6.0); HEMATOCRIT 41.2 % (38.2-49.6); HEMOGLOBIN 13.7 g/dL (14.0-18.0); LYMPHOCYTES # (AUTO) 3.1 (1.0-3.2); LYMPHOCYTES % 24.3 % (18.0-39.1); MEAN CORPUSCULAR HEMOGLOBIN 29.7 pg (28-32); MEAN CORPUSCULAR HGB CONC 33.3 g/dL (31-35); MEAN CORPUSCULAR VOLUME 89.4 fL (81-99); MONOCYTES # (AUTO) 0.8 (0.2-0.8); NEUTROPHILS # (AUTO) 8.7 (2.1-6.9); NEUTROPHILS % 67.5 % (38.7-80.0); PLATELET COUNT 329 x10e3/uL (140-360); RED BLOOD COUNT 4.61 x10e6/uL (4.3-5.7); RED CELL DISTRIBUTION WIDTH 15.2 % (11.7-14.4)
[2017-06-29 22:48] LABS: INR 1.04; PARTIAL THROMBOPLASTIN TIME 29.2 seconds (23.8-35.5); PROTHROMBIN TIME 12.8 seconds (11.9-14.5)
[2017-06-29 22:57] LABS: ALANINE AMINOTRANSFERASE 13 IU/L (0-55); ALBUMIN 3.5 g/dL (3.5-5.0); ALBUMIN/GLOBULIN RATIO 0.6 (0.8-2.0); ALKALINE PHOSPHATASE 83 IU/L (40-150); ANION GAP 13.9 mmol/L (8-16); BLOOD UREA NITROGEN 13 mg/dL (7-26); BUN/CREATININE RATIO 12 (6-25); CALCIUM 10.4 mg/dL (8.4-10.2); CARBON DIOXIDE 25 mmol/L (22-29); CHLORIDE 104 mmol/L (98-107); CREATINE KINASE 54 IU/L (30-200); CREATININE, SERUM 1.13 mg/dL (0.72-1.25); EST GLOMERULAR FILTRATION RATE > 60 ML/MIN (60-); GLUCOSE 136 mg/dL (74-118); POTASSIUM 3.9 mmol/L (3.5-5.1); SODIUM 139 mmol/L (136-145)
--- NOTE | 2017-06-29 23:16 | Diagnostic Imaging Report ---
CHEST SINGLE (PORTABLE), 06/29/2017 10:12 PM Technique: CHEST SINGLE (PORTABLE) Comparison: 06/08/2017 Clinical history: Shortness of breath Findings: See Impression Impression: 1. Lines/Tubes: Stable right port over the cavoatrial junction. 2. Stable cardiomediastinal silhouette. 3. Emphysema with scattered scarring. Persistent right basilar opacity which could reflect atelectasis or infection. 4. Left upper lobe mass in keeping with malignancy. 5. No significant effusion. Signed by: Dr Adia Lopez MD on 06/29/2017 11:12 PM
[2017-06-29 23:25] LABS: B-TYPE NATRIURETIC PEPTIDE2 < 10.0 pg/mL (0-100)
--- NOTE | 2017-06-30 01:25 | Diagnostic Imaging Report ---
EXAM: CT CHEST W DATE: 06/30/2017 12:28 AM INDICATION: Chest pain COMPARISON: 12/21/2016 TECHNIQUE: Multidetector CT scanning of the chest was performed. Coronal and sagittal multiplanar reformations were obtained. IV Contrast: 57 ml Isovue 370/300 FINDINGS: Right port terminates in the distal SVC. LUNGS AND PLEURA: Severe emphysema. Increased left upper lobe mass measuring 5.5 x 3.2 cm (prior 2.1 x 1.8 cm) with new 2.1 cm central inferior satellite nodule. Surrounding septal thickening could be due to congestion or localized tumor lymphangitic spread. Stable 5 mm nodule along the right fissure. There is extensive left greater than right hilar and mediastinal adenopathy (2.8 cm left hilar node, 1.5 cm right hilar node, 1.6 cm prevascular node). Decreased now tiny left pleural effusion. HEART, MEDIASTINUM, VESSELS: No evidence of acute pulmonary embolus into the segmental level. Slow flow/poor opacification of the pulmonary arteries distal to the left upper lobe mass. Normal heart size with stable mild pericardial thickening. Coronary artery and aortic calcifications. UPPER ABDOMEN: Cholecystectomy. Stable right adrenal dominant 2 cm nodule and bilateral adrenal low density nodularity, possibly underlying adenomas. MUSCULOSKELETAL: No suspicious findings. IMPRESSION: 1. Emphysema with increasing left upper lobe malignancy, new metastatic satellite nodule and extensive mediastinal and bilateral hilar adenopathy. 2. No evidence of acute pulmonary artery embolism. Signed by: Dr Adia Lopez MD on 06/30/2017 1:21 AM
[2017-06-30] MEDS ORDERED: HYDROMORPHONE 2MG/ML INJ IV ONE (02:15)
[2017-06-30] MEDS ORDERED: SODIUM CHLORIDE 0.9% 50ML 50 ML ONE (06:09)
[2017-06-30] MEDS ORDERED: IOPAMIDOL 370 MG/ML 200 ML INFUS..BTL INJ ONE (06:09)
== END 2017-06-30 02:20 | disposition home or self-care (01) ==
LOC: ER 22:01
DX: R09.1 Pleurisy (principal); C34.12 Malignant neoplasm of upper lobe, left bronchus or lung; C77.1 Secondary and unspecified malignant neoplasm of intrathoracic lymph nodes; R00.0 Tachycardia, unspecified; J44.9 Chronic obstructive pulmonary disease, unspecified; G62.9 Polyneuropathy, unspecified; Z87.891 Personal history of nicotine dependence; Z79.891 Long term (current) use of opiate analgesic
CPT/HCPCS: 36415; 71045; 71260; 80053; 82550; 82553; 83605; 83880; 84484; 85025; 85379; 85610; 85730; 87040; 87071; 87205; 99284; J7030; Q9967

== ENCOUNTER 2017-09-04 20:51 | Emergency (ER) | payer OTHER ==
[~2017-09-04] VITALS: Ht 177.8 cm; Wt 95.7 kg
[2017-09-04] MEDS ORDERED: PANTOPRAZOLE 40 MG 10ML VIAL IV STA (21:20)
[2017-09-04] MEDS ORDERED: ALBUTEROL SULF 0.083% NEB SOLN 3 ML NEB NEB STA (21:20)
[2017-09-04] MEDS ORDERED: IPRATROPIUM BROMIDE 0.02% 2.5 ML NEB NEB ONE (21:30)
[2017-09-04 21:33] LABS: BASOPHILS % 0.5 % (0.0-1.0); EOSINOPHILS # (AUTO) 0.1 (0.0-0.4); EOSINOPHILS % 2.7 % (0.0-6.0); HEMATOCRIT 31.8 % (38.2-49.6); HEMOGLOBIN 10.6 g/dL (14.0-18.0); LYMPHOCYTES # (AUTO) 2.1 (1.0-3.2); LYMPHOCYTES % 52.1 % (18.0-39.1); MEAN CORPUSCULAR HEMOGLOBIN 29.6 pg (28-32); MEAN CORPUSCULAR HGB CONC 33.3 g/dL (31-35); MEAN CORPUSCULAR VOLUME 88.8 fL (81-99); MONOCYTES # (AUTO) 0.7 (0.2-0.8); MONOCYTES % 17.3 % (4.4-11.3); NEUTROPHILS # (AUTO) 0.9 (2.1-6.9); NEUTROPHILS % 22.5 % (38.7-80.0); PLATELET COUNT 162 x10e3/uL (140-360); RED BLOOD COUNT 3.58 x10e6/uL (4.3-5.7); RED CELL DISTRIBUTION WIDTH 14.4 % (11.7-14.4)
[2017-09-04 21:43] LABS: INR 1.09; PROTHROMBIN TIME 13.3 seconds (11.9-14.5)
[2017-09-04 21:44] LABS: PARTIAL THROMBOPLASTIN TIME 33.2 seconds (23.8-35.5)
[2017-09-04 21:52] LABS: ALANINE AMINOTRANSFERASE 96 IU/L (0-55); ALBUMIN 3.1 g/dL (3.5-5.0); ALBUMIN/GLOBULIN RATIO 0.6 (0.8-2.0); ALKALINE PHOSPHATASE 82 IU/L (40-150); ANION GAP 14.5 mmol/L (8-16); BLOOD UREA NITROGEN 10 mg/dL (7-26); BUN/CREATININE RATIO 10 (6-25); CALCIUM 9.6 mg/dL (8.4-10.2); CARBON DIOXIDE 26 mmol/L (22-29); CHLORIDE 100 mmol/L (98-107); CREATINE KINASE 62 IU/L (30-200); CREATININE, SERUM 0.99 mg/dL (0.72-1.25); EST GLOMERULAR FILTRATION RATE > 60 ML/MIN (60-); GLUCOSE 122 mg/dL (74-118); MAGNESIUM 1.5 MG/DL (1.3-2.1); POTASSIUM 3.5 mmol/L (3.5-5.1); SODIUM 137 mmol/L (136-145)
[2017-09-04 21:55] LABS: B-TYPE NATRIURETIC PEPTIDE2 16.2 pg/mL (0-100)
[2017-09-04] MEDS ORDERED: SODIUM CHLORIDE 0.9% 500ML 500 ML IV ONE (22:00)
[2017-09-04] MEDS ORDERED: IOPAMIDOL 370 MG/ML 200 ML INFUS..BTL INJ ONE (22:07)
[2017-09-04] MEDS ORDERED: SODIUM CHLORIDE 0.9% 50ML 50 ML ONE (22:07)
--- NOTE | 2017-09-04 22:24 | Diagnostic Imaging Report ---
CHEST 2 VIEWS, Technique: CHEST 2 VIEWS Comparison: 06/29/2017 Clinical history: \S\sob cough, h/o lung ca on chemo (right port-a-cath) \S\[id number] \S\2125 DISCUSSION: Stable right port at the cavoatrial junction. Stable cardiomediastinal silhouette with mediastinal adenopathy better assessed on prior CT. Emphysema with approximately 5 cm left upper lobe mass in keeping with known malignancy. Trace left pleural effusion. IMPRESSION: Overall, no significant change. No new or acute abnormality. Signed by: Dr Adia Lopez MD on 09/04/2017 10:21 PM
[2017-09-04] MEDS ORDERED: METHYLPREDNISOLONE SOD SUCC 125 MG/2ML VIAL IV STA (23:26)
[2017-09-04 23:47] LABS: CLARITY,URINE CLEAR (CLEAR); COLOR,URINE YELLOW (YELLOW); LEUKOCYTE ESTERASE ,URINE NEGATIVE (NEGATIVE)
[2017-09-04 23:48] LABS: BILIRUBIN,URINE NEGATIVE (NEGATIVE); EPITHELIAL CELLS,URINE RARE /LPF; KETONES,URINE TRACE (NEGATIVE); MUCUS,URINE MODERATE (RARE); NITRITE,URINE NEGATIVE (NEGATIVE); PROTEIN,URINE DIPSTICK NEGATIVE (NEGATIVE); RBC,URINE 0-5 /HPF (0-5); URINE UROBILINOGEN 0.2 mg/dL (0.2 - 1); WBC,URINE (MAN) 0-5 /HPF (0-5)
--- NOTE | 2017-09-05 00:30 | Diagnostic Imaging Report ---
EXAM: CT CHEST W DATE: 09/04/2017 9:59 PM INDICATION: Stage IV lung cancer, Shortness of breath, concern for pulmonary embolism COMPARISON: 06/30/2017 TECHNIQUE: Multidetector CT scanning of the chest was performed. Coronal and sagittal multiplanar reformations were obtained. IV Contrast: 100 ml Isovue 370/300 FINDINGS: Right port terminates at the cavoatrial junction. LUNGS AND PLEURA: Severe emphysema. Stable to slight increase in left upper lobe mass measuring 5.7 x 3 cm, prior 5.5 x 3.2 cm, confluent with 2.1 cm central inferior satellite nodule. Surrounding septal thickening could be due to congestion or localized tumor lymphangitic spread extending to the pleural surface. Stable 5 mm nodule along the right fissure. Extensive hilar and mediastinal adenopathy, several of which appear slightly larger (left AP window node 2.9 cm in short axis on image 54, prior 2.8 cm, and prevascular nodes measuring 1.8 and 1.6 cm on images 50, 41 (prior 1.6 and 1.5 cm). Stable tiny left pleural effusion. HEART, MEDIASTINUM, VESSELS: No evidence of acute pulmonary embolus into the segmental level. Slow flow/poor opacification of the pulmonary arteries distal to the left upper lobe mass. Normal heart size with stable mild pericardial thickening. Coronary artery and aortic calcifications. UPPER ABDOMEN: Cholecystectomy. Stable right adrenal dominant 2 cm nodule and bilateral adrenal low density nodularity over multiple priors from 2017. MUSCULOSKELETAL: No suspicious findings. IMPRESSION: 1. Emphysema with stable to slight increase in left upper lobe malignancy and metastatic mediastinal and bilateral hilar adenopathy. 2. No evidence of acute pulmonary artery embolism. Signed by: Dr Adia Lopez MD on 09/05/2017 12:27 AM
[2017-09-05 00:55] VITALS: BP 129/79
== END 2017-09-05 00:56 | disposition home or self-care (01) ==
LOC: ER 20:51
DX: R06.00 Dyspnea, unspecified (principal); R05 Cough; C34.12 Malignant neoplasm of upper lobe, left bronchus or lung; J20.9 Acute bronchitis, unspecified; J44.1 Chronic obstructive pulmonary disease with (acute) exacerbation
CPT/HCPCS: 36415; 71046; 71260; 80053; 81001; 82550; 82553; 83605; 83735; 83880; 84484; 85025; 85379; 85610; 85730; 87040; 87086; 93005; 93970; 96374; 96375; 99284; J2930; J7040; Q9967

== ENCOUNTER → 2017-10-06 | Outpatient (CLI) | payer OTHER ==
[~2017-10-06] MED LIST changes: +IOPAMIDOL 370 MG/ML 200 ML INFUS..BTL INJ ONE; +SODIUM CHLORIDE 0.9% 50ML 50 ML ONE
[2017-10-06 09:42] LABS: BLOOD UREA NITROGEN 14 mg/dL (7-26); BUN/CREATININE RATIO 16 (6-25); EST GLOMERULAR FILTRATION RATE > 60 ML/MIN (60-)
--- NOTE | 2017-10-06 12:47 | Diagnostic Imaging Report ---
PROCEDURE: CT scan of the chest WITH intravenous contrast, using standard protocol. TECHNIQUE: The chest was scanned utilizing a multidetector helical scanner from the lung apex through the level of the adrenal glands after the IV administration of 100 cc of Isovue 370. Coronal and sagittal multiplanar reformations were obtained. COMPARISON: [facility], CT, CT CHEST W, 09/04/2017, 23:45. INDICATIONS: NEOPLASM OF UPPER LOBE FINDINGS: Lines/tubes: Stable right upper chest Port-A-Cath Lungs and Airways: Stable moderate bilateral paraseptal and centrilobular emphysematous changes, worse in the upper lobes, as well as bilateral subpleural reticulation and mild architectural distortion, consistent with fibrotic changes. Interval increase in size of 6.7 x 3.4 x 3.8 cm lobulated solid spiculated mass in the left upper lobe, which previously measured 5.8 x 2.9 x 3.2 cm. There is surrounding septal thickening. Stable 7 mm nodular density in the left major fissure (series 3, image 69). Stable 5 mm nodule in the minor fissure (series 3, image 57). Stable linear opacities in the lingula and lateral and posterior left lower lobes, likely reflecting scarring. No other masses or nodules. Mild left lower lobe atelectatic changes. Airways are clear, without endobronchial lesions. Pleura: Stable trace left pleural effusion Heart and mediastinum: Thyroid is unremarkable. Heart size is normal. No pericardial effusion. Atherosclerotic calcification of the coronary arteries and thoracic aorta. The aorta is non-aneurysmal. Main pulmonary artery is normal in caliber. Lymph nodes: Interval increase in size in multiple mediastinal and bilateral hilar lymph nodes, for example: Paraortic lymph node, which measures 3.3 cm in short axis previously measured 2.9 cm (series 2 image 51). Left hilar lymph node which measures 2.5 cm in short axis previously measured 1.9 cm (series 2, image 55). Prevascular lymph node which measures 1.8 cm in short axis previously measured 1.5 cm (series 2, image 48). Stable left supraclavicular adenopathy (series 2, image 13-16). Abdomen: Limited contrast-enhanced views of the upper abdomen show no abnormality within the visualized spleen, pancreas, or kidneys. Diffuse hepatic steatosis. No focal hepatic lesions. Stable 1.1 and 0.8 cm nodular densities in the right adrenal gland (series 2, images 112 and 116). Left adrenal gland is unremarkable. Bones: No aggressive lytic lesions. Multilevel degenerative disc changes in the thoracic spine. Soft tissues are grossly unremarkable. IMPRESSION: 1. Findings consistent with disease progression manifested by increasing size of primary mass in the left upper lobe, likely representing adenocarcinoma, increase in size of metastatic mediastinal, hilar, and left supraclavicular lymph nodes. 2. Septal thickening, surrounding the primary mass likely represents lymphangitic spread. 3. Nodular densities in the right adrenal gland are stable, likely represent metastatic lesions. Sagar Ashford M.D. Dictated by: Sagar Ashford M.D. on 10/06/2017 at 12:53 Electronically approved by: Sagar Ashford M.D. on 10/06/2017 at 12:53
== END ==
LOC: CT 08:37
PROVIDERS: ATTEND Internal Medicine Medical Oncology
DX: C34.12 Malignant neoplasm of upper lobe, left bronchus or lung (principal)
CPT/HCPCS: 36415; 71260; 82565; 84520; Q9967

== ENCOUNTER → 2017-11-10 | Outpatient (CLI) | payer OTHER ==
[~2017-11-10] MED LIST changes: -IOPAMIDOL 370 MG/ML 200 ML INFUS..BTL INJ ONE; -SODIUM CHLORIDE 0.9% 50ML 50 ML ONE
--- NOTE | 2017-11-10 15:25 | Diagnostic Imaging Report ---
Frontal and lateral views of the chest. HISTORY: Fever COMPARISON: CT of the chest September 04, 2017. Chest radiographs September 04, 2017. DISCUSSION: Soft tissue attenuation partially limits sensitivity of the exam. Unchanged appearance of the right chest port. Lungs: Diffusely increased pulmonary interstitial markings, increased since August 2017. The left anterior lung mass appears slightly larger compared to the prior chest radiograph. Slightly increased more confluent left basilar opacity. Pleura: The costophrenic angles are not entirely included. Heart and mediastinum: The cardiac silhouette appears unchanged. Bones: No change. IMPRESSION: 1. Findings concerning for interval increased size of the left pulmonary mass. 2. Mild patchy left basilar opacity may reflect superimposed pneumonia or aspiration. 3. Diffuse interstitial thickening and emphysematous changes. Signed by: Dr. Danie Carmona D.O., M.M.M. on 11/10/2017 3:20 PM
== END ==
LOC: RAD 14:15
PROVIDERS: ATTEND Internal Medicine Medical Oncology
DX: R50.9 Fever, unspecified (principal)
CPT/HCPCS: 71046

== ENCOUNTER 2017-11-12 14:19 | Inpatient (IN) | payer OTHER ==
[~2017-11-12] VITALS: Ht 177.8 cm; Wt 95.3 kg
[~2017-11-12 14:19] MED LIST changes: +ZOFRAN ODT8 MG PO; -ZOFRAN ODT8 MG SC
[2017-11-12] MEDS ORDERED: VANCOMYCIN 1GM/NS 250 ML 250 ML IV STA (14:28)
[2017-11-12] MEDS ORDERED: CEFEPIME HCL 1 GM VIAL IV STA (14:28)
[2017-11-12] MEDS ORDERED: FOLIC ACID1 MG PO (14:39)
[2017-11-12] MEDS ORDERED: DEXAMETHASONE4 MG PO (14:39)
--- NOTE | 2017-11-12 14:58 | Diagnostic Imaging Report ---
EXAM: CHEST SINGLE (PORTABLE) 11/12/2017 at 1437 hours INDICATION: Shortness of breath COMPARISON: Chest x-ray dated 11/10/[address] dated 09/04/2017 FINDINGS: Single portable AP view of the chest. Visualized bones, soft tissues and cardiomediastinal silhouette appear unchanged. Mediastinum is widened secondary to adenopathy. Diffuse emphysematous changes. IMPRESSION: 1. Lines/tubes: Right IJ chest port unchanged in location. 2. Left central perihilar mass again noted unchanged from the prior study. 3. Increased interstitial markings in both lung bland. Signed by: Dr. Chan Alex DO on 11/12/2017 2:53 PM
[2017-11-12] MEDS ORDERED: VANCOMYCIN HCL 1GM/NS 250 ML BAG IV SCH (15:00)
[2017-11-12 15:04] LABS: BASOPHILS % 0.2 % (0.0-1.0); HEMATOCRIT 34.3 % (38.2-49.6); HEMOGLOBIN 10.9 g/dL (14.0-18.0); LYMPHOCYTES # (AUTO) 1.7 (1.0-3.2); LYMPHOCYTES % 16.4 % (18.0-39.1); MEAN CORPUSCULAR HEMOGLOBIN 29.6 pg (28-32); MEAN CORPUSCULAR HGB CONC 31.8 g/dL (31-35); MEAN CORPUSCULAR VOLUME 93.2 fL (81-99); MONOCYTES # (AUTO) 0.4 (0.2-0.8); MONOCYTES % 3.6 % (4.4-11.3); NEUTROPHILS # (AUTO) 8.3 (2.1-6.9); NEUTROPHILS % 78.8 % (38.7-80.0); PLATELET COUNT 431 x10e3/uL (140-360); RED BLOOD COUNT 3.68 x10e6/uL (4.3-5.7); RED CELL DISTRIBUTION WIDTH 15.3 % (11.7-14.4)
[2017-11-12] MEDS: VANCOMYCIN HCL 1GM/NS 250 ML BAG IV SCH (15:12)
[2017-11-12 15:34] LABS: ALANINE AMINOTRANSFERASE 10 IU/L (0-55); ALBUMIN 3.4 g/dL (3.5-5.0); ALBUMIN/GLOBULIN RATIO 0.6 (0.8-2.0); ALKALINE PHOSPHATASE 64 IU/L (40-150); ANION GAP 16.8 mmol/L (8-16); BLOOD UREA NITROGEN 16 mg/dL (7-26); BUN/CREATININE RATIO 15 (6-25); CALCIUM 9.9 mg/dL (8.4-10.2); CARBON DIOXIDE 23 mmol/L (22-29); CHLORIDE 105 mmol/L (98-107); EST GLOMERULAR FILTRATION RATE > 60 ML/MIN (60-); GLUCOSE 170 mg/dL (74-118); POTASSIUM 3.8 mmol/L (3.5-5.1); SODIUM 141 mmol/L (136-145)
[2017-11-12 15:58] LABS: CREATINE KINASE 96 IU/L (30-200)
[2017-11-12] MEDS ORDERED: FUROSEMIDE INJ 10 MG/ML 4 ML VIAL IV ONE (16:00)
[2017-11-12 17:23] VITALS: BP 138/82
[2017-11-12] MEDS ORDERED: OXYCODONE HCL IR 15 MG TAB PO PRN (17:45)
[2017-11-12] MEDS ORDERED: ONDANSETRON 8 MG SC PRN (17:45)
[2017-11-12] MEDS ORDERED: ONDANSETRON HCL INJ 2 MG/ML VIAL IV PRN (17:45)
[2017-11-12] MEDS ORDERED: ALBUTEROL/IPRATROPIUM 3 ML NEB INH PRN (17:45)
[2017-11-12] MEDS ORDERED: OXYCODONE HCL 20 MG TAB CR PO PRN (17:45)
[2017-11-12] MEDS ORDERED: [UNRECOGNIZED DRUG - OTHER] NEB PRN (17:45)
[2017-11-12] MEDS ORDERED: ALBUTEROL NEB PRN (17:45)
[2017-11-12] MEDS: OXYCODONE HCL IR 5 MG TAB PO PRN ×2 (18:08→23:45)
[2017-11-12 18:13] VITALS: BP 138/82
[2017-11-12] MEDS ORDERED: POTASSIUM CHLO20 ME1 PO (18:51)
[2017-11-12] MEDS ORDERED: LASIX40 MG PO (18:51)
[2017-11-12] MEDS ORDERED: METOLAZONE5 MG PO (18:51)
[2017-11-12] MEDS ORDERED: HYDROCHLOROTHIA25 MG PO (18:51)
[2017-11-12 20:00] VITALS: BP 100/66
[2017-11-12] MEDS: BENZONATATE 100 MG CAP PO SCH (20:22)
[2017-11-12] MEDS: GABAPENTIN 300 MG CAP PO SCH (20:22)
[2017-11-13] VITALS (9 sets, daily range): BP systolic 98–124; BP diastolic 58–72
[2017-11-13 00:16] LABS: CREATINE KINASE MB < 2.40 ng/mL (0-4.3)
[2017-11-13 00:37] LABS: CREATINE KINASE 103 IU/L (30-200)
[2017-11-13] MEDS: OXYCODONE HCL IR 5 MG TAB PO PRN ×3 (04:47→18:31)
[2017-11-13] MEDS ORDERED: GUAIFENESIN 600MG/DEXTROMETHORPHAN 30MG TABSR PO SCH (05:30)
[2017-11-13] MEDS ORDERED: GUAIFENESIN/DEXTROMETHORPHAN LIQD 5 ML UDC NG PRN (06:00)
--- NOTE | 2017-11-13 06:52 | History and Physical ---
PRIMARY CARE PHYSICIAN: Dr. Mccurdy of oncology. CHIEF COMPLAINT: Cough, shortness of breath, and fever. HISTORY OF PRESENT ILLNESS: This is a 62-year-old male with a history of lung cancer stage IV, who has been developing productive cough for the past few days, went to get his chemo yesterday, was not given, was sent to the hospital for management of his symptoms. Patient denies any dizziness, chest pain, nausea, vomiting, or diarrhea. PAST MEDICAL HISTORY: COPD; diastolic congestive heart failure; prediabetes, hemoglobin A1c 5.9 in May 2017; obesity; physical deconditioning; normocytic anemia; stage IV lung cancer, status post chemotherapy; malignant pericardial effusion; recurrent left pleural effusion, status post thoracoscopy; also status post pericardial window. PAST SURGICAL HISTORY: Pericardial window, thoracoscopy, and thoracentesis. ALLERGIES: PER ELECTRONIC MEDICAL RECORD. FAMILY HISTORY/SOCIAL HISTORY: Patient has an [id number] smoking history. Quit cigarettes 1 year ago. He is and has 2 children. No alcohol or illicit. MEDICATIONS: Per electronic medical record. REVIEW OF SYSTEMS: Denies any dizziness or chest pain. Denies any nausea, vomiting, or diarrhea. Denies any neck pain, back pain, or vision changes. PHYSICAL EXAMINATION VITAL SIGNS: Reviewed. GENERAL: A tired-appearing man resting in bed. HEENT: Anicteric. CARDIOVASCULAR: Normal S1 and S2. LUNGS: He has mildly coarse breath sounds. No wheezing. ABDOMEN: Soft, nontender. EXTREMITIES: No edema or calf tenderness. NEUROLOGIC: He is alert and oriented times 3. Moves all extremities. SKIN: Dry. PSYCHIATRIC: Flat affect. LABS: Reviewed. MEDICATIONS: Reviewed. ASSESSMENT: This is a 62-year-old man with 1. Acute exacerbation of chronic obstructive pulmonary disease. 2. Stage IV lung cancer. 3. Obesity. 4. Hypertension. 5. Congestive heart failure, diastolic, apparently euvolemic. 6. Normocytic anemia which is mild to moderate. 7. Prediabetes. 8. Early pneumonia/bronchopneumonia. PLAN 1. We will continue with IV vancomycin. Obtain vancomycin trough every 3 days. We will also treat him with IV aztreonam. PATIENT IS ALLERGIC TO PENICILLIN; so, we will use IV aztreonam instead of ceftriaxone. We will obtain sputum cultures. 2. We will use antitussive medications. 3. We will use antihistamine. 4. Obtain hemoglobin A1c and lipid panel. 5. Use Lovenox and Pepcid. 6. Monitor closely and follow up vancomycin trough. Job#: [id number] CF
[2017-11-13] MEDS: AZTREONAM 1 GM/NS 50 ML 50 ML IV SCH ×3 (07:16→22:01)
[2017-11-13 08:28] LABS: CREATINE KINASE 80 IU/L (30-200)
[2017-11-13] MEDS ORDERED: NON-FORMULARY MEDICATION (Aspirin 81 MG) PO SCH (09:00)
[2017-11-13] MEDS ORDERED: LORATADINE 10 MG TAB PO SCH (09:00)
[2017-11-13] MEDS ORDERED: BENZONATATE 100 MG CAP PO SCH (09:00)
[2017-11-13 09:07] LABS: CHOL/HDL RATIO 5.8 (3.9-4.7)
[2017-11-13] MEDS: FAMOTIDINE 20 MG TAB PO SCH ×2 (10:02→15:40)
[2017-11-13] MEDS: FOLIC ACID 1 MG TAB PO SCH (10:02)
[2017-11-13] MEDS: ASPIRIN 81 MG ENTERIC COATED PO SCH (10:02)
[2017-11-13] MEDS: LORATADINE 10 MG TAB PO SCH (10:02)
[2017-11-13] MEDS: FUROSEMIDE 40 MG TAB PO SCH (10:02)
[2017-11-13] MEDS: HYDROCHLOROTHIAZIDE 25 MG TAB PO SCH (10:02)
[2017-11-13] MEDS: METOPROLOL TARTRATE 25 MG TAB PO SCH ×2 (10:03→17:00)
[2017-11-13] MEDS: BENZONATATE 100 MG CAP PO SCH ×3 (10:03→20:57)
[2017-11-13] MEDS: GUAIFENESIN 600MG/DEXTROMETHORPHAN 30MG TABSR PO SCH ×2 (10:03→17:28)
[2017-11-13] MEDS: METOLAZONE 5 MG TAB PO SCH (10:03)
[2017-11-13] MEDS: GABAPENTIN 300 MG CAP PO SCH ×3 (10:03→20:57)
[2017-11-13] MEDS ORDERED: SODIUM CHLORIDE 0.9% 250ML 250 ML ONE ×2 (15:27→20:46)
[2017-11-13] MEDS: VANCOMYCIN HCL 1GM/NS 250 ML BAG IV SCH (15:40)
[2017-11-13] MEDS: ENOXAPARIN SOD INJ 40 MG/0.4 ML SYR SC SCH (17:28)
[2017-11-13] MEDS: SALMETEROL/FLUTICASONE 250/50 INH SCH (19:30)
[2017-11-14] VITALS (8 sets, daily range): BP systolic 104–122; BP diastolic 61–75
[2017-11-14] MEDS: OXYCODONE HCL IR 5 MG TAB PO PRN ×3 (00:26→15:40)
[2017-11-14] MEDS: AZTREONAM 1 GM/NS 50 ML 50 ML IV SCH ×3 (05:22→21:16)
--- NOTE | 2017-11-14 06:46 | Progress Note ---
DATE: November 14, 2017 TIME: 5:43 a.m. OVERNIGHT: Some cough. REVIEW OF SYSTEMS: Denies any dizziness or chest pain. Denies any back pain or vision changes. No headache. PHYSICAL EXAMINATION VITAL SIGNS: Reviewed. GENERAL: A tired-appearing man resting in bed. HEENT: Anicteric. CARDIOVASCULAR: Normal S1 and S2. LUNGS: Mildly coarse breath sounds. Coughing with deep inspiration. ABDOMEN: Soft, nontender, and nondistended. EXTREMITIES: No edema. SKIN: Dry. PSYCHIATRIC: Normal affect. NEUROLOGICAL: Alert and oriented x3. LABS: Reviewed. MEDICATIONS: Reviewed. ASSESSMENT AND PLAN: A 62-year-old man with: 1. Acute exacerbation of chronic obstructive pulmonary disease. 2. Prolonged cough. 3. Obesity. 4. Hypertension. 5. Diastolic congestive heart failure, euvolemic. 6. Normocytic anemia, mild to moderate. 7. Prediabetes. 8. Early bronchopneumonia. PLAN 1. Continue IV vancomycin and IV aztreonam. 2. Follow up vancomycin trough. 3. Continue antitussive medications and antihistamine. 4. Hemoglobin A1c is 6.1. LDL 110 and triglycerides 127. 5. Continue Lovenox and Pepcid. 6. Continue supportive care. Obtain urinary antigen for strep and Legionella. Job#: [id number] MARV
[2017-11-14] MEDS: FAMOTIDINE 20 MG TAB PO SCH ×2 (07:41→18:03)
[2017-11-14] MEDS: SALMETEROL/FLUTICASONE 250/50 INH SCH ×2 (09:00→17:00)
[2017-11-14] MEDS: HYDROCHLOROTHIAZIDE 25 MG TAB PO SCH (09:23)
[2017-11-14] MEDS: BENZONATATE 100 MG CAP PO SCH ×3 (09:23→21:16)
[2017-11-14] MEDS: FOLIC ACID 1 MG TAB PO SCH (09:23)
[2017-11-14] MEDS: ASPIRIN 81 MG ENTERIC COATED PO SCH (09:23)
[2017-11-14] MEDS: METOPROLOL TARTRATE 25 MG TAB PO SCH ×2 (09:23→18:03)
[2017-11-14] MEDS: FUROSEMIDE 40 MG TAB PO SCH (09:23)
[2017-11-14] MEDS: METOLAZONE 5 MG TAB PO SCH (09:23)
[2017-11-14] MEDS: GABAPENTIN 300 MG CAP PO SCH ×3 (09:23→21:16)
[2017-11-14] MEDS: LORATADINE 10 MG TAB PO SCH (09:23)
[2017-11-14] MEDS: GUAIFENESIN 600MG/DEXTROMETHORPHAN 30MG TABSR PO SCH ×2 (09:23→18:02)
[2017-11-14] MEDS: VANCOMYCIN HCL 1GM/NS 250 ML BAG IV SCH (15:15)
[2017-11-14] MEDS: ENOXAPARIN SOD INJ 40 MG/0.4 ML SYR SC SCH (18:02)
[2017-11-15] VITALS (7 sets, daily range): BP systolic 99–146; BP diastolic 60–79
[2017-11-15] MEDS: OXYCODONE HCL IR 5 MG TAB PO PRN ×3 (01:33→16:55)
[2017-11-15] MEDS: AZTREONAM 1 GM/NS 50 ML 50 ML IV SCH ×3 (05:43→21:20)
[2017-11-15] MEDS: ASPIRIN 81 MG ENTERIC COATED PO SCH (08:25)
[2017-11-15] MEDS: LORATADINE 10 MG TAB PO SCH (08:25)
[2017-11-15] MEDS: FUROSEMIDE 40 MG TAB PO SCH (08:25)
[2017-11-15] MEDS: METOPROLOL TARTRATE 25 MG TAB PO SCH ×2 (08:25→16:55)
[2017-11-15] MEDS: METOLAZONE 5 MG TAB PO SCH (08:25)
[2017-11-15] MEDS: FOLIC ACID 1 MG TAB PO SCH (08:25)
[2017-11-15] MEDS: FAMOTIDINE 20 MG TAB PO SCH ×2 (08:25→16:00)
[2017-11-15] MEDS: HYDROCHLOROTHIAZIDE 25 MG TAB PO SCH (08:25)
[2017-11-15] MEDS: BENZONATATE 100 MG CAP PO SCH ×3 (08:25→21:20)
[2017-11-15] MEDS: GUAIFENESIN 600MG/DEXTROMETHORPHAN 30MG TABSR PO SCH ×2 (08:25→16:54)
[2017-11-15] MEDS: GABAPENTIN 300 MG CAP PO SCH ×3 (08:25→21:20)
[2017-11-15] MEDS: SALMETEROL/FLUTICASONE 250/50 INH SCH ×2 (09:00→17:00)
--- NOTE | 2017-11-15 13:11 | Progress Note ---
DATE: November 15, 2017 TIME: 11:20 a.m. OVERNIGHT: No acute events. Patient continues with cough. REVIEW OF SYSTEMS: The patient denies chest pain, shortness of breath, or dizziness. The patient was without fever, nausea, vomiting, diarrhea, blurry vision or leg pain. Patient continues with report of scantily productive, thick, grayish-colored sputum with frequent cough. Reports mild joint pain managed with medications. PHYSICAL EXAMINATION VITAL SIGNS: T 99.2, P 110, respirations 20, BP 146/79, SpO2 98% on 2 L nasal cannula. GENERAL APPEARANCE: A tired-appearing man resting in bed. HEENT: Normocephalic. No sinus tenderness. Oral mucosa is dry and intact. Trachea is midline without JVD. CV: S1 and S2 distant but without clicks, murmurs or rubs. LUNGS: Bilateral breath sounds coarse in all bland with slight expiratory wheezes. Nonproductive cough with deep inspiration upon examination. ABDOMEN: Soft, nondistended, nontender. EXTREMITIES: Scant post-tibial edema noted with overgrown nails. SKIN: Dry. PSYCHIATRIC: Normal affect. NEUROLOGICAL: A and O times 3, moves all extremities on command without gross focal defects noted. LABS: Urine legionella pending. Vancomycin trough therapeutic at 5.5, slightly. Other values reviewed. MEDICATIONS 1. Claritin 10 mg p.o. daily. 2. Pepcid 20 mg b.i.d. a.c. p.o. 3. Zaroxolyn 2.5 p.o. daily. 4. Hydrochlorothiazide 25 p.o. daily. 5. Lasix 40 mg p.o. daily. 6. Oxycodone 30 mg p.o. p.r.n. q.4 h. 7. An 81-mg aspirin p.o. daily. 8. Lopressor 12.5 p.o. b.i.d. 9. Mucinex DM 1 p.o. b.i.d. 10. Neurontin 300 mg p.o. t.i.d. 11. Folic acid 1 mg p.o. daily. 12. Tessalon Perles 100 mg p.o. t.i.d. 13. Aztreonam q.8 h. IV. 14. Lovenox 40 mg daily subcutaneous. 15. One gram vancomycin q.24 h. IV. 16. Advair inhaler b.i.d. 17. P.R.N. guaifenesin. 18. Albuterol q.4 h. p.r.n. 19. P.R.N. Zofran. ASSESSMENT AND PLAN: This is a 62-year-old man with: 1. Acute exacerbation of chronic obstructive pulmonary disease: Antitussives, antihistamines, nebs. 2. Prolonged cough: Antitussives, antihistamines. 3. Obesity: Outpatient counseling. Hemoglobin A1c is 6.1. T, G and CL in limits. 4. Hypertension: SBP ranging from max 146 to minimum of 104 in the last 24 hours. Continue to monitor. 5. Diastolic congestive heart failure: The patient is euvolemic. Continue with scheduled diuretics. Follow up counts in the morning. 6. Normocytic anemia, mild to moderate: Continue to monitor. 7. Prediabetes. Hemoglobin A1c is 6.1. Outpatient management. 8. Early bronchopneumonia: HCAP. Continue IV antibiotics. 9. Prophylaxis: Lovenox and Pepcid. 10. Disposition: Today is day #3 of IV antibiotics. Continue supportive care. Sputum production is slightly improved this day. Continue treatment plan as above. Job#: [id number]
[2017-11-15] MEDS: VANCOMYCIN HCL 1GM/NS 250 ML BAG IV SCH (16:00)
[2017-11-15] MEDS: ENOXAPARIN SOD INJ 40 MG/0.4 ML SYR SC SCH (16:54)
[2017-11-16] MEDS: OXYCODONE HCL IR 5 MG TAB PO PRN ×3 (00:02→12:27)
[2017-11-16 00:38] VITALS: BP 109/66
[2017-11-16 04:00] VITALS: BP 113/69
[2017-11-16] MEDS: AZTREONAM 1 GM/NS 50 ML 50 ML IV SCH ×2 (05:01→14:29)
[2017-11-16] MEDS ORDERED: AZITHROMYCIN 500MG/NS 250 ML 250 ML IV SCH (07:00)
[2017-11-16] MEDS: ASPIRIN 81 MG ENTERIC COATED PO SCH (07:54)
[2017-11-16] MEDS: FOLIC ACID 1 MG TAB PO SCH (07:54)
[2017-11-16] MEDS: LORATADINE 10 MG TAB PO SCH (07:54)
[2017-11-16] MEDS: FUROSEMIDE 40 MG TAB PO SCH (07:54)
[2017-11-16] MEDS: GABAPENTIN 300 MG CAP PO SCH ×2 (07:54→14:29)
[2017-11-16] MEDS: METOPROLOL TARTRATE 25 MG TAB PO SCH (07:54)
[2017-11-16] MEDS: FAMOTIDINE 20 MG TAB PO SCH (07:54)
[2017-11-16] MEDS: HYDROCHLOROTHIAZIDE 25 MG TAB PO SCH (07:54)
[2017-11-16] MEDS: BENZONATATE 100 MG CAP PO SCH ×2 (07:54→14:29)
[2017-11-16] MEDS: GUAIFENESIN 600MG/DEXTROMETHORPHAN 30MG TABSR PO SCH (07:54)
[2017-11-16] MEDS: METOLAZONE 5 MG TAB PO SCH (07:54)
[2017-11-16 08:00] VITALS: BP 99/67
[2017-11-16 08:33] LABS: ANION GAP 15.7 mmol/L (8-16); CALCIUM 9.4 mg/dL (8.4-10.2); CREATININE, SERUM 1.42 mg/dL (0.72-1.25); POTASSIUM 3.7 mmol/L (3.5-5.1)
[2017-11-16] MEDS: SALMETEROL/FLUTICASONE 250/50 INH SCH (09:00)
[2017-11-16] MEDS ORDERED: DOXYCYCLINE HY100 M4 PO (10:17)
[2017-11-16] MEDS ORDERED: LORATADINE10 MG PO (10:17)
[2017-11-16] MEDS ORDERED: ZITHROMAX500 MG PO (10:18)
[2017-11-16 12:00] VITALS: BP 108/65
[2017-11-16 16:00] VITALS: BP 99/56
--- NOTE | 2017-11-16 19:21 | Discharge Summary ---
PRINCIPAL DIAGNOSES 1. Acute exacerbation of chronic obstructive pulmonary disease. 2. Obesity. 3. Diastolic congestive heart failure. The patient is euvolemic. 4. Normocytic anemia, mild to moderate. 5. Prediabetes. The patient had a hemoglobin A1c of 6.1, LDL 110 and triglycerides 127. 6. Early bronchopneumonia. SECONDARY DIAGNOSES 1. Prediabetes. 2. Obesity. CHIEF COMPLAINT: Cough and shortness of breath. HISTORY OF PRESENT ILLNESS: A 62-year-old man with cough and shortness of breath. Please refer to the H and P for further details. HOSPITAL COURSE: The patient was found to have acute exacerbation of COPD and early bronchopneumonia treated with antibiotics, broad-spectrum of vancomycin and aztreonam. The patient was transitioned to azithromycin. He will be discharged home on doxycycline and azithromycin. He is doing better. He has severe COPD and on 3 L of oxygen at home. He will continue at home. The patient also had prediabetes and diastolic congestive heart failure. He was euvolemic. He is doing better and currently appropriate for discharge and followup. DISCHARGE MEDICATIONS: Per electronic medical record. FOLLOWUP: Primary care doctor in 1 week. CONDITION ON DISCHARGE: Stable and improving. DISCHARGE LOCATION: Home. JULIEN LARIOS MD Job#: [id number] [place]
== END 2017-11-16 16:07 | disposition home or self-care (01) | DRG 190 ==
LOC: ER 14:19 → ERHOLD 14:52 → IMCU 16:55 → MED/SURG 11-13 20:09 → OBSVTOIN 11-14 05:43
PROVIDERS: ADMIT Internal Medicine; ATTEND Internal Medicine
DX: J44.1 Chronic obstructive pulmonary disease with (acute) exacerbation (principal); J18.0 Bronchopneumonia, unspecified organism; I50.32 Chronic diastolic (congestive) heart failure; C34.90 Malignant neoplasm of unspecified part of unspecified bronchus or lung; C34.12 Malignant neoplasm of upper lobe, left bronchus or lung; J44.0 Chronic obstructive pulmonary disease with (acute) lower respiratory infection; R73.03 Prediabetes; D64.9 Anemia, unspecified; I11.0 Hypertensive heart disease with heart failure; E66.9 Obesity, unspecified; Z68.30 Body mass index [BMI] 30.0-30.9, adult; Z99.81 Dependence on supplemental oxygen
CPT/HCPCS: 36415; 71045; 80048; 80053; 80061; 80202; 82550; 82553; 83036; 83518; 83605; 83880; 84484; 85025; 87040; 87070; 87186; 87205; 87449; 99285; G0378; J0456; J0692; J1650; J1940; J2405; J3370; J7050

== ENCOUNTER 2017-12-16 18:12 | Inpatient (IN) | payer OTHER ==
[~2017-12-16] VITALS: Ht 177.8 cm; Wt 106.2 kg
[~2017-12-16 18:12] MED LIST changes: +DEXAMETHASONE4 MG PO; +DOXYCYCLINE HY100 M4 PO; +FOLIC ACID1 MG PO; +HYDROCHLOROTHIA25 MG PO; +LASIX40 MG PO; +METOLAZONE5 MG PO; +POTASSIUM CHLO20 ME1 PO
--- OUTSIDE RECORDS SUMMARY | 2017-12-16 18:18 | XMS REPORT | Clinical Summary ---
Author Author [facility] Organization [facility] Address Unknown Phone Unavailable Care Team Providers Care Radiotelegraphist Name Role Phone PCP Unavailable Allergies Active Allergy Reactions Severity Noted Date Comments Haloperidol Other (See Comments) 08/07/2016 Dystonic reaction Penicillins Rash Low 08/07/2016 Current Medications Prescription Sig. Disp. Refills Start End Date Status Date aspirin 81 MG EC tablet Take 81 mg by mouth Active daily. oxyCODONE (ROXICODONE) 15 Take 30 mg by mouth every Active MG immediate release 6 (six) hours as needed tabletIndications: Pain for Pain . gabapentin (NEURONTIN) Take 1 capsule (300 mg 0 03/27/19 Active 300 MG capsule total) by mouth 3 (three) 18 times daily. folic acid (FOLVITE) 1 MG Take 1 mg by mouth daily. Active tabletIndications: Folate Deficiency fluticasone-salmeterol Inhale 1 puff by mouth Active (ADVAIR DISKUS) 250-50 via inhaler daily. mcg/dose diskus inhaler potassium chloride SA Take 20 mEq by mouth Active (K-DUR,KLOR-CON) 20 MEQ daily. tablet albuterol (PROVENTIL) 2.5 USE 1 UNIT DOSE VIA 2 09/15/19 Active mg /3 mL (0.083 %) NEBULIZER EVERY 6 HOURS 18 nebulizer solution benzonatate (TESSALON) Take 100 mg by mouth 0 11/17/19 Active 100 MG capsule every 8 (eight) hours. 18 dexamethasone (DECADRON) Take 4 mg by mouth 2 2 11/17/19 Active 4 MG tablet (two) times daily. 18 furosemide (LASIX) 40 MG Take 40 mg by mouth as 1 10/24/19 Active tablet directed. 18 hydroCHLOROthiazide Take 25 mg by mouth 5 11/17/19 Active (HYDRODIURIL) 25 MG daily. 18 tablet metOLazone (ZAROXOLYN) Take 2.5 mg by mouth 1 11/21/19 Active 2.5 MG tablet daily. 18 acetaminophen (TYLENOL) Take 2 tablets (650 mg 30 tablet 0 12/07/19 12/02/19 Active 325 MG tablet total) by mouth every 6 18 19 (six) hours as needed for up to 360 days. docusate sodium (COLACE) Take 1 capsule (100 mg 10 capsule 0 12/07/19 12/17/19 Active 100 MG capsule total) by mouth 2 (two) 18 18 times daily for 10 days. pantoprazole (PROTONIX) Take 1 tablet (40 mg 30 tablet 0 12/08/19 Active 40 MG tablet total) by mouth daily. 18 gabapentin (NEURONTIN) Take 300 mg by mouth 03/27/19 Discontin 300 MG capsule daily. 18 ued HYDROcodone-acetaminophen Take 1 tablet by mouth 07/23/19 Discontin (NORCO 7.5-325) 7.5-325 every 6 (six) hours as 18 ued mg per tablet needed for Pain. nicotine (NICODERM CQ) 21 Place 1 patch onto the 30 patch 0 08/15/19 03/27/19 Discontin mg/24 hr patch skin daily. 17 18 ued tiotropium (SPIRIVA) 18 Inhale 1 capsule (18 mcg 30 capsule 2 08/15/19 08/15/19 mcg inhalation capsule total) by mouth via 17 18 inhaler daily. albuterol HFA (VENTOLIN Inhale 1 puff by mouth 1 Inhaler 0 08/15/19 08/15/19 HFA) 90 mcg/actuation via inhaler every 6 (six) 17 18 inhaler hours as needed for Wheezing. acetaminophen-codeine Take 1 tablet by mouth 30 tablet 0 08/15/19 03/27/19 Discontin (TYLENOL #4) 300-60 mg every 4 (four) hours as 17 18 ued per tablet needed for Pain. Max Daily Amount: 6 tablets fluticasone-salmeterol Inhale 1 puff by mouth 1 Inhaler 3 08/16/19 08/16/19 (ADVAIR) 250-50 mcg/dose via inhaler 2 (two) times 17 18 diskus inhaler daily. metoprolol (LOPRESSOR) 25 Take 0.5 tablets (12.5 mg 30 tablet 0 03/27/19 04/27/19 MG tablet total) by mouth 2 (two) 18 18 times daily for 30 days. potassium chloride SA Take 2 tablets (40 mEq 40 tablet 0 03/27/19 04/06/19 (K-DUR,KLOR-CON) 20 MEQ total) by mouth 2 (two) 18 18 tablet times daily for 10 days. furosemide (LASIX) 20 MG Take 1 tablet (20 mg 20 tablet 0 03/27/19 04/06/19 tablet total) by mouth 2 (two) 18 18 times daily for 10 days. nitrofurantoin, Take 1 capsule (100 mg 10 capsule 0 07/23/19 07/28/19 macrocrystal-monohydrate, total) by mouth every 12 18 18 (MACROBID) 100 MG capsule (twelve) hours for 5 days. levoFLOXacin (LEVAQUIN) Take 1 tablet (750 mg 5 tablet 0 12/08/19 12/13/19 750 MG tablet total) by mouth daily for 18 18 5 days. Active Problems Problem Noted Date Dyspnea and respiratory abnormality 11/27/2017 Neutropenic fever ([facility]) 11/27/2017 Anemia 11/27/2017 Severe sepsis(995.92) 10/04/2016 COPD (chronic obstructive pulmonary disease) ([facility]) 08/14/2016 Metastatic lung carcinoma ([facility]) 08/13/2016 Resolved Problems Problem Noted Date Resolved Date Appendicitis 07/19/2017 11/27/2017 Acute appendicitis with generalized peritonitis 07/19/2017 11/27/2017 Colitis 07/18/2017 11/27/2017 Neutropenic fever, enteritis 10/04/2016 11/27/2017 Enteritis 10/04/2016 11/27/2017 Sinus tachycardia 10/04/2016 11/27/2017 Pleural effusion 10/04/2016 11/27/2017 Neuropathy 08/09/2016 11/27/2017 Mediastinal lymphadenopathy 08/08/2016 11/27/2017 Lung mass 08/08/2016 11/27/2017 Tobacco abuse 08/08/2016 11/27/2017 Shock (HCC) 08/08/2016 11/27/2017 Acute pulmonary insufficiency following thoracic surgery (HCC) 08/08/2016 11/27/2017 Pericardial effusion 08/07/2016 11/27/2017 S/P thoracotomy 11/27/2017 Encounters Date Type Specialty Care Team Description 11/26/2017 [facility] General Internal Medicine Deo Plasencia MD Dyspnea and respiratory - Encounter Ben Ortiz-Peterson abnormality (Primary 12/06/2017 MD Pricila Dx);Secondary carcinoma Lauren Segovia MD of lung, unspecified RileyLos rey, laterality MD (HCC);Neutropenic fever (HCC);Other hypervolemia;Centrilobula r emphysema (HCC);Severe sepsis (HCC);Other emphysema (HCC) 11/26/2017 Orders Only General Internal Medicine 09/18/2017 Outside Orders Radiology Shukri Azul, Non-small cell lung MD cancer, unspecified laterality (HCC) (Primary Dx) 07/22/2017 Orders Only Iva Salas 07/19/2017 Anesthesia Artie Onrelas, Event HEAD ANIMAL TRAINER 07/19/2017 Procedure Pass 07/19/2017 Surgery Javad Moctezuma, LAPAROSCOPY,APPENDECTOMY 07/17/2017 [facility] General Internal Medicine Curt Keith, Colitis (Primary - Encounter MD Dx);Lower abdominal 07/22/2017 Laurie Saavedra Judy, pain;Acute febrile MD illness;Malignant Caroline Peterson MD neoplasm of lung, unspecified laterality, unspecified part of lung (HCC);Sinus tachycardia;Secondary carcinoma of lung, unspecified laterality (HCC);Tobacco abuse;Other acute appendicitis;Centrilobula r emphysema (HCC) 07/17/2017 Orders Only General Internal Medicine 04/14/2017 [facility] Radiology Shukri Azul, Squamous cell carcinoma Encounter MD of bronchus in left upper F[place]h, Anishusta Michael lobe (HCC);Malignant neoplasm of lung, unspecified laterality, unspecified part of lung (HCC) 04/13/2017 Outside Orders Central Scheduling Shukri Azul, 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) (Primary Dx);Malignant neoplasm of lung, unspecified laterality, unspecified part of lung (HCC) 03/19/2017 Anesthesia Erik Soto MD Event 03/19/2017 Procedure Pass 03/19/2017 Surgery Ivan Chaparro, THORACOSCOPY (VATS) 03/16/2017 [facility] Cardiology Ivan Chaparro, Pulmonary emphysema, - Encounter MD unspecified emphysema 03/27/2017 type (HCC);Pleural effusion;Centrilobular emphysema (HCC) 03/16/2017 Orders Only General Internal Medicine after 12/15/2016 Immunizations Name Dates Previously Given Next Due Influenza Four-QIV Non-PF 12/06/2017 5+ YR Pneumococcal 08/12/2016 Polysaccharide (Pneumovax) Family History Relation Name Status Comments Father Social History Tobacco Use Types Packs/Day Years Used Date Current Every Day Smoker 2 Smokeless Tobacco: Never Used Tobacco Cessation: Ready to Quit: Yes; Counseling Given: No Comments: Patient states counseling given Alcohol Use Drinks/Week oz/Week Comments No Sex Assigned at Date Recorded Not on file Last Filed Vital Signs Vital Sign Reading Time Taken Blood Pressure 129/71 12/06/2017 7:24 AM CDT Pulse 80 12/06/2017 7:45 AM CDT Temperature 37.5 C (99.5 F) 12/06/2017 7:24 AM CDT Respiratory Rate 18 12/06/2017 7:45 AM CDT Oxygen Saturation 98% 12/06/2017 7:56 AM CDT Inhaled Oxygen - - Concentration Weight 101.4 kg (223 lb 8 oz) 12/06/2017 6:00 AM CDT Height 177.8 cm (5' 10") 11/27/2017 1:50 AM CDT Body Mass Index 32.07 12/06/2017 6:00 AM CDT Plan of Treatment Not on file Procedures Procedure Name Priority Date/Time Associated Diagnosis Comments CRITICAL CARE Routine 11/29/2017 Results for this 10:48 AM CDT procedure are in the results section. LAPAROSCOPY,APPENDECTOMY 07/19/2017 Acute appendicitis with 1:30 PM CDT generalized peritonitis THORACOSCOPY (VATS) 03/19/2017 RECURRENT PERICARDIAL 3:25 PM RIG SUPERINTENDENT EFFUSION after 12/15/2016 Results * RHYTHM STRIP - SCAN (12/08/2017 11:21 AM) Only the most recent of 5 results within the time period is included. * CBC with platelet count + automated diff (12/06/2017 4:52 AM) Only the most recent of 17 results within the time period is included. Component Value Ref Range WBC 6.8 3.5 - 10.5 K/L RBC 3.65 (L) 4.63 - 6.08 M/L Hemoglobin 10.3 (L) 13.7 - 17.5 GM/DL Hematocrit 33.6 (L) 40.1 - 51.0 % MCV 92.1 79.0 - 92.2 fL MCH 28.2 25.7 - 32.2 pg MCHC 30.7 (L) 32.3 - 36.5 GM/DL RDW 17.4 (H) 11.6 - 14.4 % Platelets 415 150 - 450 K/CU MM MPV 9.5 9.4 - 12.4 fL nRBC 0 0 - 0 /100 WBC % Neutros 58 % % Lymphs 29 % % Monos 11 % % Eos 0 % % Baso 1 % # Neutros 3.97 1.78 - 5.38 K/L # Lymphs 2.01 1.32 - 3.57 K/L # Monos 0.72 0.30 - 0.82 K/L # Eos 0.01 (L) 0.04 - 0.54 K/L # Baso 0.04 0.01 - 0.08 K/L Immature 1 0 - 1 % Granulocytes-Relative Specimen Performing Laboratory Blood - Arm, [place] [address] * CBC with platelet count + automated diff (12/06/2017 4:52 AM) Only the most recent of 17 results within the time period is included. Specimen Performing Laboratory Blood Narrative The following orders were created for panel order CBC with platelet count + automated diff. Procedure Abnormality Status --------- ------ CBC with platelet count ...[[id number]]AbnormalFinal result Please view results for these tests on the individual orders. * Manual Differential (12/04/2017 10:35 AM) Only the most recent of 7 results within the time period is included. Component Value Ref Range % Neutros 60 % % Lymphs 28 % % Monos 10 % % Bands 1 0 - 10 % % Atypical Lymphs 1 (H) 0 - 0 % # Neutros 4.02 1.78 - 5.38 K/ul # Lymphs 1.88 1.32 - 3.57 K/ul # Monos 0.67 0.30 - 0.82 K/uL # Bands 0.07 0.00 - 0.80 K/uL # Atypical Lymphs 0.07 (H) 0.00 - 0.00 K/uL Total Counted 100 nRBC (manual) 2 (H) 0 - 0 /100 WBC WBC Morphology Normal Large Platelet Present Polychromasia 1+ few Hypochromia 1+ few Artifact Present Platelet Conc Adequate Specimen Performing Laboratory Blood - Arm, [place] [address] Narrative Received comment: User comments: Slide comments: * ECHOCARDIOGRAM REPORT - SCAN (12/03/2017 6:20 PM) * Vancomycin level, trough (12/03/2017 12:10 PM) Only the most recent of 3 results within the time period is included. Component Value Ref Range Vancomycin Tr 24.0 (H) 10.0 - 20.0 ug/mL Specimen [place] [address] Narrative Please draw 30 minutes prior to Vancomycin dose. Thank you. * 2D Echo W/Doppler(CW/PW/Color) (12/03/2017 11:06 AM) Component Value Ref Range Ejection Fraction Specimen Performing Laboratory [facility] CP[facility] Narrative Transthoracic Echocardiography Report (TTE) Demographics Patient Name JULIUS OMALLEYDate of Study 12/03/2017 JEAN [id number] GenderMale Visit Number [id number] [facility] [id number] Number [id number] Number Date of Birth1955 Referring Physician Deo Plasencia MD Age62 year(s) Puzzle Assembler Chuy Heredia MD Physician Fellow TORRES Joseph Procedure Type of Study TTE procedure:2DECHO W DOPPLER(CW/PW/COLOR) (Routine) Indications:Shortness of breath. Clinical History COPD LUNG CANCER PERICARDIAL WINDOW 08/08/16 Contrast Medium: Definity. Height: 70 inches Weight: 101.6 kg (224 lbs) BSA: 2.19 m^2 BMI: 32.14 kg/m^2 HR: 106 bpm BP: 109/63 mmHg Summary Global LV systolic function normal . Normal LV wall thickness. LV diastolic function is indeterminate due to tachycardia. Estimated peak systolic PA pressure is cannot be determined due to inadequate TR velocity signal . The inferior vena cava is not well visualized. Previous Study In comparison with the prior exam on 10/04/2016 there are no significant changes. Signature Findings Technical Quality: Technically adequate exam. Rhythm/BPRapid rhythm during the exam. Left Ventricle LV endocardium is adequately visualized with IV ultrasound enhancing agent. The left ventricle is chamber size (by vol index) is normal. Normal LV wall thickness. All of the LV segments are hyperkinetic . LV diastolic function is indeterminate due to tachycardia. Global LV systolic function normal . Left AtriumLA size is normal . LA is partially visualized. Right VentricleThe right ventricular chamber size and systolic function are within normal limits. Right Atrium RA size is probably normal based on available views. Aortic Valve Mild AoV cusp thickening. Mitral Valve Mild mitral annular calcification. Mild MV leaflet thickening. Tricuspid ValveTV structure is normal. No evidence of tricuspid regurgitation. Estimated peak systolic PA pressure is cannot be determined due to inadequate TR velocity signal . Pulmonic Valve Normal PV structure and function by limited views and Doppler. AortaAortic root size (SInus of Valsalva diameter) is normal . Proximal ascending aorta size is normal . PericardiumNo significant pericardial effusion is visualized. IVC/SVC/PA/PV/PleuralThe inferior vena cava is not well visualized. Chambers/Structures Left Atrium LA Volume: 32.15 ml LA Area: 13.98 cm^2 LA Vol. Index: 15 ml/m^2 Left Ventricle LVIDd: 4.95 cm LVEDV:91.9 ml LVIDs: 3.8 cmLVESV:40.38 ml LV Septum Diastolic: 1.06 cm LVEF 2D Cube: 55.4 % LV Septum Systolic: 1.21 cm LV PW Diastolic: 0.91 cm LV FS: 23.2 % LV PW Systolic: 1.13 cm LVEDV Chavez's:89.86 ml LVEDVI: 41 ml/m^2 LVESV Chavez's:28.58 ml LVESVI: 13 ml/m^2 LVEF Chavez's: 68.2 % LVOT Diameter: 2.11 cm LVEF: 56.1 % Aorta Ao Root S of Arely.: 3.1 cmAscending Aorta: 2.65 cm Doppler/Quantitative Measurements Mitral Valve MV Peak E-Wave: 0.6 m/s MV Peak A-Wave: 0.82 m/s E/A Ratio: 0.74 Peak Gradient: 1.46 mmHg MV Jamie. Peak: Tissue Doppler E' Septal Velocity: 0.1 m/s E/E': 6.15 Aortic Valve Peak Velocity: 1.31 m/sMean Velocity: 1.05 m/s Peak Gradient: 6.91 mmHg Mean Gradient: 4.84 mmHg AV Area (continuity): 2.31 cm^2 AV VTI: 21.61 cm AV DVI: 0.66 LVOT Peak Velocity: 1.07 m/s Peak Gradient: 4.59 mmHg Mean Velocity: 0.71 m/s Mean Gradient: 2.27 mmHg LVOT Diameter: 2.11 cmLVOT VTI: 14.26 cm LVOT Area: 3.5 cm^2 LVOT SV:49.84 ml LVOT CO: 5.28 l/min LVOT CI: 2.41 l/min/m^2 Procedure Note Interface, External Ris In - 12/03/2017 5:41 PM CDT Transthoracic Echocardiography Report (TTE) Demographics Patient Name JULIUS OMALLEY Date of Study 12/03/2017 JEAN Gender Male Visit Number [id number] Race Unknown Room Number 915 Number Date of 1955 Referring Physician Deo Plasencia MD Age 62 year(s) Puzzle Assembler Chuy Solomon Interpreting Lalita Heredia MD Physician Fellow TORRES Joseph Procedure Type of Study TTE procedure:2DECHO W DOPPLER(CW/PW/COLOR) (Routine) Indications:Shortness of breath. Clinical History COPD LUNG CANCER PERICARDIAL WINDOW 08/08/16 Contrast Medium: Definity. Height: 70 inches Weight: 101.6 kg (224 lbs) BSA: 2.19 m^2 BMI: 32.14 kg/m^2 HR: 106 bpm BP: 109/63 mmHg Summary Global LV systolic function normal . Normal LV wall thickness. LV diastolic function is indeterminate due to tachycardia. Estimated peak systolic PA pressure is cannot be determined due to inadequate TR velocity signal . The inferior vena cava is not well visualized. Previous Study In comparison with the prior exam on 10/04/2016 there are no significant changes. Signature Findings Technical Quality: Technically adequate exam. Rhythm/BP Rapid rhythm during the exam. Left Ventricle LV endocardium is adequately visualized with IV ultrasound enhancing agent. The left ventricle is chamber size (by vol index) is normal. Normal LV wall thickness. All of the LV segments are hyperkinetic . LV diastolic function is indeterminate due to tachycardia. Global LV systolic function normal . Left Atrium LA size is normal . LA is partially visualized. Right Ventricle The right ventricular chamber size and systolic function are within normal limits. Right Atrium RA size is probably normal based on available views. Aortic Valve Mild AoV cusp thickening. Mitral Valve Mild mitral annular calcification. Mild MV leaflet thickening. Tricuspid Valve TV structure is normal. No evidence of tricuspid regurgitation. Estimated peak systolic PA pressure is cannot be determined due to inadequate TR velocity signal . Pulmonic Valve Normal PV structure and function by limited views and Doppler. Aorta Aortic root size (SInus of Valsalva diameter) is normal . Proximal ascending aorta size is normal . Pericardium No significant pericardial effusion is visualized. IVC/SVC/PA/PV/Pleural The inferior vena cava is not well visualized. Chambers/Structures Left Atrium LA Volume: 32.15 ml LA Area: 13.98 cm^2 LA Vol. Index: 15 ml/m^2 Left Ventricle LVIDd: 4.95 cm LVEDV:91.9 ml LVIDs: 3.8 cm LVESV:40.38 ml LV Septum Diastolic: 1.06 cm LVEF 2D Cube: 55.4 % LV Septum Systolic: 1.21 cm LV PW Diastolic: 0.91 cm LV FS: 23.2 % LV PW Systolic: 1.13 cm LVEDV Chavez's:89.86 ml LVEDVI: 41 ml/m^2 LVESV Chavez's:28.58 ml LVESVI: 13 ml/m^2 LVEF Chavez's: 68.2 % LVOT Diameter: 2.11 cm LVEF: 56.1 % Aorta Ao Root S of Arely.: 3.1 cm Ascending Aorta: 2.65 cm Doppler/Quantitative Measurements Mitral Valve MV Peak E-Wave: 0.6 m/s MV Peak A-Wave: 0.82 m/s E/A Ratio: 0.74 Peak Gradient: 1.46 mmHg MV Jamie. Peak: Tissue Doppler E' Septal Velocity: 0.1 m/s E/E': 6.15 Aortic Valve Peak Velocity: 1.31 m/s Mean Velocity: 1.05 m/s Peak Gradient: 6.91 mmHg Mean Gradient: 4.84 mmHg AV Area (continuity): 2.31 cm^2 AV VTI: 21.61 cm AV DVI: 0.66 LVOT Peak Velocity: 1.07 m/s Peak Gradient: 4.59 mmHg Mean Velocity: 0.71 m/s Mean Gradient: 2.27 mmHg LVOT Diameter: 2.11 cm LVOT VTI: 14.26 cm LVOT Area: 3.5 cm^2 LVOT SV:49.84 ml LVOT CO: 5.28 l/min LVOT CI: 2.41 l/min/m^2 * Sputum Culture + Gram Stain (12/03/2017 5:48 AM) Only the most recent of 2 results within the time period is included. Component Value Ref Range Result 1+ Stenotrophomonas maltophilia (A) Specimen Performing Laboratory Sputum - Expectorated [address] [address] Narrative 1+ Normal respiratory seb present. Organism Antibiotic Method Susceptibility Stenotrophomonas Ceftazidime 2: Susceptible maltophilia Stenotrophomonas Levofloxacin <=1: Susceptible maltophilia Stenotrophomonas Minocycline <=1: Susceptible maltophilia Stenotrophomonas Trimethoprim + <=40: Susceptible maltophilia Sulfamethoxazole * Basic Metabolic Panel (12/03/2017 4:55 AM) Only the most recent of 16 results within the time period is included. Component Value Ref Range Sodium 137 136 - 145 meq/L Potassium 3.8 3.5 - 5.1 meq/L Chloride 98 98 - 107 meq/L CO2 29 22 - 29 meq/L BUN 14 7 - 21 mg/dL Creatinine 1.05 0.57 - 1.25 mg/dL Glucose 133 (H) 70 - 105 mg/dL Calcium 9.1 8.4 - 10.2 mg/dL EGFR 72Comment: ESTIMATED GFR IS NOT ACCURATE mL/min/1.73 sq m CREATININE CLEARANCE IN PREDICTING GLOMERULAR FILTRATION RATE. ESTIMATED GFR IS NOT APPLICABLE FOR DIALYSIS PATIENTS. Specimen Performing Laboratory Blood - Arm, Right [address] [address] * HISTOPLASMA AB,ID (12/02/2017 10:23 AM) Component Value Ref Range Histoplasma Ab,Id NEGATIVE Comment: REFERENCE RANGE:NEGATIVE INTERPRETIVE CRITERIA: NEGATIVE:A ntibody Not Detected POSITIVE:A ntibody Detected Positive immunodiffusion (ID) reactions involve one or more specific precipitin bands.Of these bands the first to appear in active histoplasmosis is the "M" band, which is seen in approximately 70% of proven cases. This band is also seen in some patients with past infections and in 20% of those with recent histoplasmin skin testing. The "H" band is usually seen in active and progressive histoplasmosis and almost always in the presence of the "M" band, although it is found less often (approx. 10% of proven cases.) Specimen Performing Laboratory Blood - Arm, Right [facility] [id number] [place] [address] Narrative Performing Lab *[facility] [address] [place] [phone] Wolf Ruano MD * Fungal Panel (12/02/2017 10:23 AM) Component Value Ref Range Fungal Panel1 Refer to individual Aspergillus, Blastomyces, Coccidioides & Histoplasma Ab results. Specimen Performing Laboratory Blood - Arm, [facility] [address] [address] * Coccidioides antibodies (12/02/2017 10:23 AM) Component Value Ref Range Coccidioides Ab,Id NEGATIVE Comment: REFERENCE RANGE:NEGATIVE INTERPRETIVE CRITERIA: NEGATIVE:A ntibody Not Detected POSITIVE:A ntibody Detected The immunodiffusion (ID) procedure correlates both in sensitivity and clinical utility with the CF test. The ID test, which detects IgG directed to the "F" antigen, becomes positive within 4 weeks after infection and remains positive throughout clinically active disease. It is most useful in confirming the specificity of low CF titers, where line(s) of identity are formed with reference antisera. Positive ID reactions are diagnostic for coccidioidomycosis and usually indicate active or recent disease and remain detectable for up to 1 year thereafter. Specimen Performing Laboratory Blood - Arm, [facility] [address] [address] Narrative Performing Lab *[facility] [address] [place] [phone] Wolf Ruano MD * Blastomyces antibody (12/02/2017 10:23 AM) Component Value Ref Range Blastomyces Ab,Id NEGATIVE Comment: REFERENCE RANGE: NEGATIVE INTERPRETIVE CRITERIA: NEGATIVE: Antibody Not Detected POSITIVE: Antibody Detected A positive result is diagnostic of active or recent blastomycosis and is found in approximately 80% of proven cases of blastomycosis. Specimen Performing Laboratory Blood - Arm, [facility] [address] [address] [address] Narrative Performing Lab *[facility] [address] [place] [phone] Wolf Ruano MD * Aspergillus antibodies (12/02/2017 10:23 AM) Component Value Ref Range Aspergillus flavus Ab NEGATIVE Aspergillus niger Ab NEGATIVE Aspergillus Fumigatus NEGATIVE Comment: REFERENCE RANGE: NEGATIVE INTERPRETIVE CRITERIA: Negative: Antibody not detected Positive: Antibody detected A positive result is represented by 1 or more precipitin bands, and may indicate fungus ball, allergic bronchopulmonary aspergillosis (PATRICIO) or invasive aspergillosis.Generally, the appearance of 3-4 bands indicates either fungus ball or PATRICIO. Specimen Performing Laboratory Blood - Arm, Right [facility] [address] [address] Narrative Performing Lab *[facility] [address] [place] [phone] Wolf Ruano MD * Aspergillus galactomannan antigen (12/02/2017 10:23 AM) Component Value Ref Range Aspergillus Index Value <0.50 Aspergillus Antigen NOT DETECTED Comment: REFERENCE RANGE: <0.50, NOT DETECTED A negative result does not exclude invasive aspergillosis. Follow-up testing may be indicated for high-risk patients. Specimen Performing Laboratory Blood - Arm, Right [facility] [address] [address] Narrative Performing Lab *[facility] [address] [place] [phone] Wolf Ruano MD * Histoplasma antigen, urine (12/02/2017 7:44 AM) Component Value Ref Range Histoplasma Antigen <0.5 ng/mL Comment: REFERENCE RANGE: <0.5 ng/mL Histoplasma galactomannan is frequently detected in urine from patients with disseminated histoplasmosis. However, a negative result does not exclude a diagnosis of histoplasmosis. Many patients with acute pulmonary disease or chronic cavitary disease do not exhibit antigenuria. Galactomannan levels in urine typically decrease with successful treatment. Specimens from patients with other endemic mycoses, such as blastomycosis, coccidioidomycosis, or aspergillosis, may also be positive in this assay. This test should be used in conjunction with other diagnostics tests, including culture, molecular assays, and histology in making a final diagnosis. This test was developed and its analytical performance characteristics have been determined by [facility]. It has not been cleared or approved by the U.S. Food and Drug Administration.The FDA has determined that such clearance or approval is not necessary. This assay has been validated pursuant to the CLIA regulations andis used for clinical purposes. Specimen Performing Laboratory Urine - Urine, Voided [facility] [address] [place] [address] Narrative Performing Lab *[facility] [address] [place] [address] Wolf Ruano MD * CT chest with IV contrast (12/01/2017 10:24 PM) Specimen Performing Laboratory GE RIS Narrative FINAL REPORT Chest CT without contrast CLINICAL HISTORY: Lung mass. TECHNIQUE: Contiguous axial images of the chest without contrast. This exam was performed according to the departmental dose optimization program which includes automated exposure control, adjustment of the mA and/or kV according to the patient size, and/or use of an iterative reconstruction technique. COMPARISON: CTPA dated 11/27/2017. Chest: Lungs/pleura: Moderate paraseptal and centrilobular emphysematous changes. Bilateral interlobular septal thickening particularly within the bilateral peripheral upper lobes The left pleural effusion. Unchanged size of the left lingular heterogeneously enhancing mass measuring approximately 5.6 x 3.5 m. There is adjacent left lingular consolidation may represent postobstructive collapse however superimposed infection cannot be excluded. The mass abuts the multiple lymph node conglomerates within the mediastinum. Triangular shaped nodule in the right minor fissure measuring approximately 3 mm may represent an intrafissural lymph node. Bilateral lower lobe dependent atelectasis. Mediastinum/archie: In the thenar multiple pathologically enlarged mediastinal and bilateral hilar lymph nodes not significantly change since 11/27/2017. The largest of which is in the left AP window measuring 3.9 x 3.2 cm with central heterogeneity suggestive of necrosis . Right upper paratracheal lymph node measuring 1.2 x 1.0 cm. Heart: The heart is normal in size. No pericardial effusion. Moderate to severe coronary artery calcifications. The thoracic aorta is normal in caliber. The pulmonary artery is normal in caliber. Axillae/subcutaneous soft tissues: No pathologically enlarged axillary lymph nodes. No suspicious subcutaneous nodules or fluid collections. Visualized upper abdomen: Unchanged nodularity of the right adrenal gland. Postsurgical changes of cholecystectomy. Remainder of the visualized abdomen is unremarkable. Bones: No aggressive osseous lesions or acute fractures. Multilevel degenerative changes in thoracic spine. 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 Consolidative opacity in the lingula may represent post objective collapse secondary to the mass however superimposed infection cannot excluded. Interlobular thickening superimposed on emphysematous changes may represent interstitial pulmonary edema versus fibrotic changes. Signed: Candy Merritt MD Report Verified Date/Time:12/01/2017 22:48:30 Reading Location: [facility] C013 Transitional Reading Room Procedure Note Interface, External Ris In - 12/01/2017 10:50 PM CDT FINAL REPORT Chest CT without contrast CLINICAL HISTORY: Lung mass. TECHNIQUE: Contiguous axial images of the chest without contrast. This exam was performed according to the departmental dose optimization program which includes automated exposure control, adjustment of the mA and/or kV according to the patient size, and/or use of an iterative reconstruction technique. COMPARISON: CTPA dated 11/27/2017. Chest: Lungs/pleura: Moderate paraseptal and centrilobular emphysematous changes. Bilateral interlobular septal thickening particularly within the bilateral peripheral upper lobes The left pleural effusion. Unchanged size of the left lingular heterogeneously enhancing mass measuring approximately 5.6 x 3.5 m. There is adjacent left lingular consolidation may represent postobstructive collapse however superimposed infection cannot be excluded. The mass abuts the multiple lymph node conglomerates within the mediastinum. Triangular shaped nodule in the right minor fissure measuring approximately 3 mm may represent an intrafissural lymph node. Bilateral lower lobe dependent atelectasis. Mediastinum/archie: In the thenar multiple pathologically enlarged mediastinal and bilateral hilar lymph nodes not significantly change since 11/27/2017. The largest of which is in the left AP window measuring 3.9 x 3.2 cm with central heterogeneity suggestive of necrosis . Right upper paratracheal lymph node measuring 1.2 x 1.0 cm. Heart: The heart is normal in size. No pericardial effusion. Moderate to severe coronary artery calcifications. The thoracic aorta is normal in caliber. The pulmonary artery is normal in caliber. Axillae/subcutaneous soft tissues: No pathologically enlarged axillary lymph nodes. No suspicious subcutaneous nodules or fluid collections. Visualized upper abdomen: Unchanged nodularity of the right adrenal gland. Postsurgical changes of cholecystectomy. Remainder of the visualized abdomen is unremarkable. Bones: No aggressive osseous lesions or acute fractures. Multilevel degenerative changes in thoracic spine. 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 Consolidative opacity in the lingula may represent post objective collapse secondary to the mass however superimposed infection cannot excluded. Interlobular thickening superimposed on emphysematous changes may represent interstitial pulmonary edema versus fibrotic changes. Signed: Candy Merritt MD Report Verified Date/Time: 12/01/2017 22:48:30 Reading Location: [facility] Transitional Reading Room * Critical Care (11/29/2017 10:48 AM) Narrative Deo Plasencia MD 11/29/2017 10:48 AM Critical Care Performed by: DEO PLASENCIA Authorized by: LAUREN SEGOVIA Total critical care time: 60 minutes Critical care time was exclusive of separately billable procedures and treating other patients and teaching time. Critical care was necessary to treat or prevent imminent or life-threatening deterioration of the following conditions: neutropenic fever. Critical care was time spent personally by me on the following activities: blood draw for specimens, development of treatment plan with patient or surrogate, discussions with consultants, discussions with primary provider, evaluation of patient's response to treatment, interpretation of cardiac output measurements, examination of patient, obtaining history from patient or surrogate, ordering and performing treatments and interventions, ordering and review of laboratory studies, ordering and review of radiographic studies, pulse oximetry, re-evaluation of patient's condition and review of old charts. * Phosphorus (11/29/2017 4:17 AM) Only the most recent of 3 results within the time period is included. Component Value Ref Range Phosphorus 2.9 2.3 - 4.7 mg/dL Specimen Performing Laboratory Blood [facility] [address] [address] * Magnesium (11/29/2017 4:17 AM) Only the most recent of 14 results within the time period is included. Component Value Ref Range Magnesium 1.6 1.6 - 2.6 mg/dL Specimen [place] [address] * Hepatic function panel (11/29/2017 4:17 AM) Only the most recent of 3 results within the time period is included. Component Value Ref Range Protein, Total 6.7 6.0 - 8.3 gm/dL Albumin 3.1 (L) 3.5 - 5.0 g/dL Total Bilirubin 0.7 0.2 - 1.2 mg/dL Bilirubin, Direct 0.3 0.1 - 0.5 mg/dL Alkaline Phosphatase 45 40 - 150 U/L AST 18 5 - 34 U/L ALT 12 6 - 55 U/L Specimen Performing [place] [address] * Strep pneumoniae antigen (11/27/2017 8:01 PM) Component Value Ref Range Strep pneumoniae Antigen Presumptive negative for pneumococcal pneumonia - Presumptive negative for see comment pneumococcal pneumonia - see comment, Presumptive negative for pneumococcal meningitis - see comment Specimen Performing Laboratory Urine [address] [address] Narrative Presumptive negative for pneumococcal pneumonia, suggesting no current or recent pneumococcal infection. Infection due to S. pneumoniae cannot be ruled out since the antigen present in the sample may be below the detection limit of the test. * Lactic acid, venous, whole blood (11/27/2017 5:22 PM) Only the most recent of 4 results within the time period is included. Component Value Ref Range Lactate, Venous 1.3 0.5 - 2.2 mmol/L Specimen Performing Laboratory Blood - Arm, Right [address] [address] Narrative Effective 06/27/2015: Units/Reference Range Change New: 0.5-2.2 mmol/LPrevious: 5-20 mg/dL * Legionella antigen, urine (11/27/2017 5:22 PM) Component Value Ref Range Legionella Urine Antigen Negative - see commentComment: Negative for L. pneumophila serogroup 1 antigen, suggesting no recent or current infection with this serogroup. Legionellosis cannot be ruled out since other serogroups and species may cause disease. Specimen Performing Laboratory Urine - Urine, Voided [address] [address] * Troponin I (11/27/2017 11:13 AM) Only the most recent of 3 results within the time period is included. Component Value Ref Range Troponin I <0.01 0.00 - 0.03 ng/mL Specimen Performing Laboratory Blood - Arm, Right [facility] [address] [place] [address] Narrative Troponin I (TnI) levels must be interpreted in the context of the presenting symptoms and the clinical findings. Elevated TnI levels indicate myocardial damage, but are not specific for ischemic heart disease. Elevated TnI levels are seen in patients with other cardiac conditions (including myocarditis and congestive heart failure), and slight TnI elevations occur in patients with other conditions, including sepsis, renal failure, acidosis, acute neurological disease, and persistent tachyarrhythmia. * Creatine Kinase (CK), Total and MB (11/27/2017 11:13 AM) Only the most recent of 2 results within the time period is included. Component Value Ref Range Total CK 83 29 - 200 U/L CK-MB 2.2 0.0 - 6.6 ng/mL MB Relative Index 2.7 % Specimen Performing Laboratory Blood - Arm, Right [address] [address] Narrative CK-MB Reference Range: <6.7Normal 6.7-10.0Borderline >10.0 Abnormal * ECG 12 lead (11/27/2017 8:42 AM) Only the most recent of 6 results within the time period is included. Specimen Performing Laboratory [facility] Narrative Ventricular Rate 91 BPM Atrial Rate 91 BPM P-R Interval 142 ms QRS Duration 98 ms Q-T Interval 370 ms QTC Calculation(Bazett) 455 ms P [place] 46 degrees R [place] 56 degrees T [place] 25 degrees Normal sinus rhythm Normal ECG When compared with ECG of 27-NOV-2017 08:42, No significant change was found Confirmed by MD JOSE, MAHIN ([id number]) on 11/29/2017 10:19:26 AM Procedure Note Interface, External Ris In - 11/29/2017 10:19 AM CDT Ventricular Rate 91 BPM Atrial Rate 91 BPM P-R Interval 142 ms QRS Duration 98 ms Q-T Interval 370 ms QTC Calculation(Bazett) 455 ms P [place] 46 degrees R [place] 56 degrees T [place] 25 degrees Normal sinus rhythm Normal ECG When compared with ECG of 27-NOV-2017 08:42, No significant change was found Confirmed by MD JOSE, MAHIN ([id number]) on 11/29/2017 10:19:26 AM * Venous doppler legs bilateral (11/27/2017 8:16 AM) Component Value Ref Range Ejection Fraction Specimen Performing Laboratory [facility] CP[facility] Impressions Right Impression 1. There is no deep venous obstruction in the common femoral, profunda femoral, femoral, popliteal or posterior tibial veins. 2. The peroneal veins were not visualized. 3. There is no superficial venous obstruction in the great saphenous vein. Left Impression 1. There is no deep venous obstruction in the common femoral, profunda femoral, femoral, popliteal or posterior tibial veins. 2. The peroneal veins were not visualized. 3. There is no superficial venous obstruction in the great saphenous vein. Conclusions Summary Venous duplex imaging and compression of the bilateral lower extremities were performed. The veins were technically difficult to visualize due to edema and patient body habitus. The bilateral venous systems were patent and compressible with no evidence of thrombus where visualized. The venous Doppler waveforms were phasic with respiration . Signature Velocities are measured in cm/s ; Diameters are measured in cm Narrative [facility] - Lower Extremities DVT Study Demographics Patient NameJULIUS OMALLEY Date of Study 11/27/2017 JEAN 62 Visit [id number] of 1955 Number Referring [facility] Room Number 915 Physician ARIADNE Puzzle Assembler Richie Lagunas. InterpretingMore Cabrera RVT, Francie KRAUSE, RPJOURDAN Procedure Type of Study: Veins: Lower Extremities DVT Study, VENOUS DOPPLER LEG, BILATERAL. Indications for Study:Leg swelling. Patient Status:Routine. Study Location:Vascular Lab. Technical Quality:Adequate visualization. Risk Factors History of Disease + + + + !Diagnosis !Date !Comments ! + + + + !Other ! !COPD ! + + + + Procedure Note Interface, External Ris In - 11/27/2017 1:02 PM CDT [facility] - Lower Extremities DVT Study Demographics Patient Name JULIUS OMALLEY Date of Study 11/27/2017 JEAN Age 62 Visit Number [id number] Gender Male Date of 1955 Number Referring [facility] Room Number 915 Physician ARIADNE Puzzle Assembler Richie Lagunas. Interpreting More Cabrera RVT, MALATHI Physician , SARAH Procedure Type of Study: Veins: Lower Extremities DVT Study, VENOUS DOPPLER LEG, BILATERAL. Indications for Study:Leg swelling. Patient Status:Routine. Study Location:Vascular Lab. Technical Quality:Adequate visualization. Risk Factors History of Disease + + + + !Diagnosis !Date !Comments ! + + + + !Other ! !COPD ! + + + + Impressions Right Impression 1. There is no deep venous obstruction in the common femoral, profunda femoral, femoral, popliteal or posterior tibial veins. 2. The peroneal veins were not visualized. 3. There is no superficial venous obstruction in the great saphenous vein. Left Impression 1. There is no deep venous obstruction in the common femoral, profunda femoral, femoral, popliteal or posterior tibial veins. 2. The peroneal veins were not visualized. 3. There is no superficial venous obstruction in the great saphenous vein. Conclusions Summary Venous duplex imaging and compression of the bilateral lower extremities were performed. The veins were technically difficult to visualize due to edema and patient body habitus. The bilateral venous systems were patent and compressible with no evidence of thrombus where visualized. The venous Doppler waveforms were phasic with respiration . Signature Velocities are measured in cm/s ; Diameters are measured in cm * TSH/Free T4 If Indicated (11/27/2017 3:49 AM) Component Value Ref Range TSH 1.63 0.35 - 4.94 uIU/mL Specimen [place] [address] * C-Reactive Protein (11/27/2017 3:49 AM) Component Value Ref Range CRP 12.55 (H) 0.00 - 0.50 mg/dL Specimen Performing [place] [address] * Lactate dehydrogenase (LDH) (11/27/2017 3:49 AM) Component Value Ref Range LDH 337 (H) 125 - 220 U/L Specimen Per[place] [address] * Hemoglobin A1c (11/27/2017 3:49 AM) Component Value Ref Range Hemoglobin A1C 6.7 (H) 4.3 - 6.1 % Specimen [place] [address] * Lipid panel (11/27/2017 3:49 AM) Component Value Ref Range Triglycerides 79 mg/dL Cholesterol 113 mg/dL HDL 32 mg/dL LDL Calculated 65 mg/dL Specimen Performing [place] [address] Narrative Triglyceride Reference Range: Low Risk <150 [id number] High Risk 200-499 Very High Risk>=500 Cholesterol Reference Range: Low Risk <200 [id number] High Risk>240 HDL Cholesterol Reference Range: Low Risk >=60 High Risk <40 LDL Cholesterol Reference Range: Optimal<100 Near [id number] [id number] [id number] Very High >=190 * Urinalysis Microscopic Only (11/27/2017 3:40 AM) Component Value Ref Range RBC, UA <1 /HPF WBC, UA <1 /HPF Mucus Rare Squam Epithel, UA <1 /HPF Specimen [place] [address] * Urinalysis with Microscopic If Indicated (11/27/2017 3:40 AM) Component Value Ref Range Color, UA Light Yellow Clarity, UA Clear Specific Thomson, UA >1.050 (H) 1.001 - 1.035 pH, UA 5.5 5.0 - 8.0 Protein, UA 10 mg/dL (A) Negative Glucose, UA Negative Negative Ketones, UA Negative Negative Bilirubin, UA Negative Negative Blood, UA Negative Negative Nitrite, UA Negative Negative Leukocytes, UA Negative Negative Urobilinogen, UA 0.2 0.2 - 1.0 mg/dL Specimen Source Specimen Performing [place] [address] * Rapid Influenza A&B Screen (11/27/2017 3:39 AM) Component Value Ref Range Rapid Influenza A Antigen Negative Negative, Inconclusive Rapid influenza B Antigen Negative Negative, Inconclusive Specimen Performing Laboratory Nasal - Nasopharyngeal [facility] [address] [place] [address] * Respiratory Panel [facility] (11/27/2017 3:24 AM) Component Value Ref Range Human Metapneumovirus Not detected Not detected, Equivocal Rhinovirus Not detected Not detected, Equivocal Influenza A Not detected Not detected, Equivocal INFLUENZA A (NO SUBTYPE) Not detected Not detected, Equivocal Influenza A subtype H1 Not detected Not detected, Equivocal Influenza A Subtype H3 Not detected Not detected, Equivocal Influenza A Subtype Not detected Not detected, Equivocal H1-2009 Influenza B Not detected Not detected, Equivocal Respiratory Syncytial Not detected Not detected, Equivocal Virus Parainfluenza Virus 1 Not detected Not detected, Equivocal Parainfluenza Virus 2 Not detected Not detected, Equivocal Parainfluenza virus 3 Not detected Not detected, Equivocal Parainfluenza Virus 4 Not detected Not detected, Equivocal Adenovirus Not detected Not detected, Equivocal Coronavirus 229E Not detected Not detected, Equivocal Coronavirus HKU1 Not detected Not detected, Equivocal Coronavirus NL63 Not detected Not detected, Equivocal Coronavirus OC43 Not detected Not detected, Equivocal Bordetella Pertussis Not detected Not detected, Equivocal Chlamydophila Pneumoniae Not detected Not detected, Equivocal Mycoplasma Pneumoniae Not detected Not detected, Equivocal Specimen Performing [place] [address] Narrative Other viruses and bacteria not targeted by this PCR panel cannot be excluded; therefore clinical correlation and follow up of serology, culture results, and other molecular studies is required. The results are not intended to be used as the sole means for clinical diagnosis or patient management decisions. This sample was tested at the [facility] using the [employer] Respiratory Panel. It is FDA cleared and has been verified and approved by the [facility] for clinical use on nasal swab specimens. It is not FDA-cleared for use on bronchial wash/lavage samples. However, for this sample type, validation was performed and test characteristics were determined and approved, by [facility] for clinical use under the Clinical Laboratory Improvement Amendments (CLIA) of 1988 requirements. Therefore, FDA clearance is not required.This laboratory is CLIA-certified and [employer] ([employer])-accredited to perform high complexity testing. Other viruses and bacteria not targeted by this PCR panel cannot be excluded; therefore clinical correlation and follow up of serology, culture results, and other molecular studies is required. The results are not intended to be used as the sole means for clinical diagnosis or patient management decisions. This sample was tested at the [facility] using the [employer] Film[employer] Respiratory Panel. It is FDA cleared and has been verified and approved by the [facility] for clinical use on nasal swab specimens. It is not FDA-cleared for use on bronchial wash/lavage samples. However, for this sample type, validation was performed and test characteristics were determined and approved, by [facility] for clinical use under the Clinical Laboratory Improvement Amendments (CLIA) of 1988 r equirements. Therefore, FDA clearance is not required.This laboratory is CLIA-certified and [employer] ([employer])-accredited to perform high complexity testing. * CT chest for pulmonary embolus (11/27/2017 1:15 AM) Specimen Performing Laboratory [employer] Narrative FINAL REPORT Comparison: Indication: 62-year-old male with acute chest pain, hypoxia, and shortness of breath clinically suspicious for acute pulmonary embolism. Technique: Precontrast axial images were obtained at pulmonary trunk level for the purpose of monitoring subsequent IV contrast.Postcontrast axial images of the chest were obtained from above the arch level to the lower chest at maximum enhancement of the pulmonary artery. Delayed axial images of the entire chest were obtained subsequently. Multiplanar reformation of the pulmonary arteries was performed by the dictating physician using an independent ([employer] or [employer]) workstation. This exam was performed according to the departmental dose optimization program which includes automated exposure control, adjustment of the mA and/or kV according to the patient size, and/or use of an iterative reconstruction technique. Findings: Vascular: The study is diagnostic to the level of the segmental pulmonary arteries.Summation limited by timing of contrast bolus. Pulmonary arteries: Chronic appearing right lower lobe segmental synechiae.No evidence of acute pulmonary embolism. The pulmonary arteries are normal in size. Thoracic aorta: Normal in size. No acute aortic pathology. The arch vessel branching pattern is normal, and the origins of the arch branch vessels are all widely patent. Pulmonary veins: Normal configuration. Coronary arteries: Normal configuration with moderate atherosclerotic calcifications. Systemic veins: No identified thrombus. Chest: Lungs/pleura:Intralobular septal thickening particularly. Moderate paraseptal and centrilobular emphysematous changes. No pleural effusion. Interval increase in size of the left lingular heterogeneously enhancing mass measuring approximately 6.6 x 3.3 cm previously 4.7 x 3.3 cm when measured similarly. There is adjacent left lingular consolidation may represent postobstructive collapse however superimposed infection cannot be excluded. The mass abuts the multiple lymph node conglomerates within the mediastinum. Mediastinum/archie: No increase in size of multiple pathologically enlarged mediastinal and bilateral hilar lymph nodes:the largest of which is in the left AP window measuring 3.0 x 2.9 cm, previously 2.9 x 2.4 cm and measured similarly. Right upper paratracheal lymph node measuring 1.3 cm in short axis, previously 0.3 cm increase in size. Additionally the right prevascular lymph node measuring 1.5 cm in short axis, previously 1.2 cm. Heart: The cardiac chambers demonstrate normal atrioventricular and ventriculoarterial concordance, and systemic and pulmonary venous return. The cardiac chamber sizes are normal.No pericardial effusion. No thrombus identified within the cardiac chambers. Axillae/subcutaneous soft tissues: No pathologically enlarged axillary lymph nodes. No suspicious subcutaneous nodules or fluid collections. Visualized upper abdomen: Unchanged nodularity of the right adrenal gland. Postsurgical changes of cholecystectomy. Remainder of the visualized abdomen is unremarkable. Bones: No aggressive osseous lesions or acute fractures. Multilevel degenerative changes in thoracic spine. Impression: 1. Right lower lobe segmental synechia consistent with chronic pulmonary embolus. No evidence of acute pulmonary embolus. 2. No evidence for acute aortic pathology. 3. Progression of the left lingular neoplastic process with interval increase in size of the lingular mass and interval increase in mediastinal and hilar adenopathy as described above. 4. Consolidative opacity in the lingula may represent post objective collapse secondary to the mass however superimposed infection cannot excluded. 5. There are lobular septal thickening superimposed on emphysematous changes may represent interstitial pulmonary edema versus fibrotic changes. Signed: Candy Merritt MD Report Verified Date/Time:11/27/2017 02:00:01 Reading Location: [address] Transitional Reading Room Procedure Note Interface, External Ris In - 11/27/2017 2:02 AM CDT FINAL REPORT Comparison: Indication: 62-year-old male with acute chest pain, hypoxia, and shortness of breath clinically suspicious for acute pulmonary embolism. Technique: Precontrast axial images were obtained at pulmonary trunk level for the purpose of monitoring subsequent IV contrast. Postcontrast axial images of the chest were obtained from above the arch level to the lower chest at maximum enhancement of the pulmonary artery. Delayed axial images of the entire chest were obtained subsequently. Multiplanar reformation of the pulmonary arteries was performed by the dictating physician using an independent ([employer] or [employer]) workstation. This exam was performed according to the departmental dose optimization program which includes automated exposure control, adjustment of the mA and/or kV according to the patient size, and/or use of an iterative reconstruction technique. Findings: Vascular: The study is diagnostic to the level of the segmental pulmonary arteries. Summation limited by timing of contrast bolus. Pulmonary arteries: Chronic appearing right lower lobe segmental synechiae. No evidence of acute pulmonary embolism. The pulmonary arteries are normal in size. Thoracic aorta: Normal in size. No acute aortic pathology. The arch vessel branching pattern is normal, and the origins of the arch branch vessels are all widely patent. Pulmonary veins: Normal configuration. Coronary arteries: Normal configuration with moderate atherosclerotic calcifications. Systemic veins: No identified thrombus. Chest: Lungs/pleura: Intralobular septal thickening particularly. Moderate paraseptal and centrilobular emphysematous changes. No pleural effusion. Interval increase in size of the left lingular heterogeneously enhancing mass measuring approximately 6.6 x 3.3 cm previously 4.7 x 3.3 cm when measured similarly. There is adjacent left lingular consolidation may represent postobstructive collapse however superimposed infection cannot be excluded. The mass abuts the multiple lymph node conglomerates within the mediastinum. Mediastinum/archie: No increase in size of multiple pathologically enlarged mediastinal and bilateral hilar lymph nodes: the largest of which is in the left AP window measuring 3.0 x 2.9 cm, previously 2.9 x 2.4 cm and measured similarly. Right upper paratracheal lymph node measuring 1.3 cm in short axis, previously 0.3 cm increase in size. Additionally the right prevascular lymph node measuring 1.5 cm in short axis, previously 1.2 cm. Heart: The cardiac chambers demonstrate normal atrioventricular and ventriculoarterial concordance, and systemic and pulmonary venous return. The cardiac chamber sizes are normal. No pericardial effusion. No thrombus identified within the cardiac chambers. Axillae/subcutaneous soft tissues: No pathologically enlarged axillary lymph nodes. No suspicious subcutaneous nodules or fluid collections. Visualized upper abdomen: Unchanged nodularity of the right adrenal gland. Postsurgical changes of cholecystectomy. Remainder of the visualized abdomen is unremarkable. Bones: No aggressive osseous lesions or acute fractures. Multilevel degenerative changes in thoracic spine. Impression: 1. Right lower lobe segmental synechia consistent with chronic pulmonary embolus. No evidence of acute pulmonary embolus. 2. No evidence for acute aortic pathology. 3. Progression of the left lingular neoplastic process with interval increase in size of the lingular mass and interval increase in mediastinal and hilar adenopathy as described above. 4. Consolidative opacity in the lingula may represent post objective collapse secondary to the mass however superimposed infection cannot excluded. 5. There are lobular septal thickening superimposed on emphysematous changes may represent interstitial pulmonary edema versus fibrotic changes. Signed: Candy Merritt MD Report Verified Date/Time: 11/27/2017 02:00:01 Reading Location: [facility] B1 C013T Transitional Reading Room * Blood culture (11/27/2017 12:21 AM) Only the most recent of 4 results within the time period is included. Component Value Ref Range Result No growth in 5 days Specimen Performing Laboratory Blood - Arm, Right [address] [address] * POC-Lactic Acid, Venous (11/27/2017 12:01 AM) Only the most recent of 4 results within the time period is included. Component Value Ref Range POC-Lactic Acid, Venous 0.9Comment: TESTED AT [address] 0.9 - 1.7 mmol/[place] [id number] Specimen Performing Laboratory Blood [address] [address] * XR chest 1 view portable / bedside (11/26/2017 11:22 PM) Only the most recent of 11 results within the time period is included. Specimen Performing Laboratory [facility] Narrative FINAL REPORT Chest, 1 view. History: Chest pain Comparison: CT chest dated 07/18/2017. Plain radiograph the chest dated 07/17/2017.. Impression: Right chest wall Port-A-Cath with tip overlying the cavoatrial junction. Increased reticular nodular opacities bilaterally are favored to represent interstitial pulmonary edema superimposed on interstitial fibrosis. Unchanged size of the left lower/suprahilar mass favored to represent a pulmonary neoplasm. No pleural effusion or pneumothorax. Unchanged cardiac mediastinal silhouette. Increased bandlike opacities in the bilateral lower lungs represent atelectasis however superimposed infection cannot be excluded.The soft tissues and osseous structures are intact. Signed: Candy Merritt MD Report Verified Date/Time:11/26/2017 23:44:24 Reading Location: [address] Transitional Reading Room Procedure Note Interface, External Ris In - 11/26/2017 11:46 PM CDT FINAL REPORT Chest, 1 view. History: Chest pain Comparison: CT chest dated 07/18/2017. Plain radiograph the chest dated 07/17/2017.. Impression: Right chest wall Port-A-Cath with tip overlying the cavoatrial junction. Increased reticular nodular opacities bilaterally are favored to represent interstitial pulmonary edema superimposed on interstitial fibrosis. Unchanged size of the left lower/suprahilar mass favored to represent a pulmonary neoplasm. No pleural effusion or pneumothorax. Unchanged cardiac mediastinal silhouette. Increased bandlike opacities in the bilateral lower lungs represent atelectasis however superimposed infection cannot be excluded. The soft tissues and osseous structures are intact. Signed: Candy Merritt MD Report Verified Date/Time: 11/26/2017 23:44:24 Reading Location: [address] Transitional Reading Room * PT/aPTT (11/26/2017 10:31 PM) Only the most recent of 2 results within the time period is included. Component Value Ref Range Protime 14.8 (H) 11.7 - 14.7 seconds INR 1.2 <=5.9 PTT 32.5 22.5 - 36.0 seconds Specimen Performing Laboratory Blood - Arm, [address] [address] Narrative RECOMMENDED COUMADIN/WARFARIN INR THERAPY RANGES STANDARD DOSE: 2.0 - 3.0 Includes: PROPHYLAXIS for venous thrombosis, systemic embolization; TREATMENT for venous thrombosis and/or pulmonary embolus. HIGH RISK: Target INR is 2.5-3.5 for patients with mechanical heart valves. * B-type Natriuretic Factor (BNP) (11/26/2017 10:31 PM) Component Value Ref Range BNP 32 0 - 100 pg/mL Specimen Performing Laboratory Blood - Arm, [address] [address] * Comprehensive metabolic panel (11/26/2017 10:31 PM) Only the most recent of 3 results within the time period is included. Component Value Ref Range Protein, Total 7.7 6.0 - 8.3 gm/dL Albumin 3.6 3.5 - 5.0 g/dL Alkaline Phosphatase 55 40 - 150 U/L Total Bilirubin 0.6 0.2 - 1.2 mg/dL Sodium 134 (L) 136 - 145 meq/L Potassium 3.4 (L) 3.5 - 5.1 meq/L Chloride 103 98 - 107 meq/L CO2 22 22 - 29 meq/L BUN 15 7 - 21 mg/dL Creatinine 1.01 0.57 - 1.25 mg/dL Glucose 170 (H) 70 - 105 mg/dL Calcium 8.8 8.4 - 10.2 mg/dL AST 18 5 - 34 U/L ALT 19 6 - 55 U/L EGFR 75Comment: ESTIMATED GFR IS NOT ACCURATE mL/min/1.73 sq m CREATININE CLEARANCE IN PREDICTING GLOMERULAR FILTRATION RATE. ESTIMATED GFR IS NOT APPLICABLE FOR DIALYSIS PATIENTS. Specimen Performing Laboratory Blood - Arm, [place] [address] * CBC (Hemogram only) (07/22/2017 5:28 AM) Only the most recent of 2 results within the time period is included. Component Value Ref Range WBC 10.6 (H) 3.5 - 10.5 K/L RBC 4.50 (L) 4.63 - 6.08 M/L Hemoglobin 13.3 (L) 13.7 - 17.5 GM/DL Hematocrit 41.5 40.1 - 51.0 % MCV 92.2 79.0 - 92.2 fL MCH 29.6 25.7 - 32.2 pg MCHC 32.0 (L) 32.3 - 36.5 GM/DL RDW 15.4 (H) 11.6 - 14.4 % Platelets 336 150 - 450 K/CU MM MPV 9.2 (L) 9.4 - 12.4 fL nRBC 0 0 - 0 /100 WBC Specimen [place] [address] * Tissue Exam (07/19/2017 1:26 PM) Component Value Ref Range Case Report Surgical Pathology Report Case: [id number] Authorizing Provider:Javad Moctezuma, Collected: 07/19/2017 1326 Ordering Location: [address] Received:07/21/2017 0806 Service Pathologist: Clarissa Mercedes MD Specimen:Appendix DIAGNOSIS A. APPENDIX, APPENDECTOMY: - CHRONIC APPENDICITIS - NEGATIVE FOR MALIGNANCY Signing Pathologist Direct Phone Line: [phone] CPT Code(s) 01374 CLINICAL HISTORY Appendicitis SPECIMEN SOURCE Appendix GROSS DESCRIPTION Specimen is received in formalin-filled container labeled with the patient's information and labeled "appendix" and consists of an intact appendectomy measuring 5 cm in length x up to 0.8 cm in diameter. The margin has a portion of cecum measuring 0.8 cm in length x 1.5 cm in diameter. The mesoappendix measures 2 x 1 x 0.6 cm. Ink code: Margin blue. The specimen is serially sectioned. The lumen is filled with faria-pink fluid. There is no fecalith present or mass. Section code: A1, margin en face with tip bisected; A2, junior sales representative of appendix. CG/ew MICROSCOPIC DESCRIPTION Performed. Specimen Performing Laboratory Tissue - Appendix [facility] [address] [address] * CT chest without IV contrast (07/18/2017 6:49 PM) Only the most recent of 2 results within the time period is included. Specimen Performing Laboratory [employer] Narrative FINAL REPORT EXAMINATION: Noncontrast chest CT CLINICAL HISTORY: Left hilar mass COMPARISON EXAM: Chest radiograph 07/17/2017, chest CT 03/18/2017 TECHNIQUE: Axial noncontrast tomographic images were acquired through the thorax. The exam was performed according to our departmental dose optimization program which includes automated exposure control, adjustment of the mA and/or kV according to patient's size and/or use of iterative reconstructive technique. FINDINGS: The tip of the right sided Port-A-Cath projects along the expected course of the superior vena cava. Evaluation of the mediastinal structures is limited by the absence of IV contrast. The thoracic aorta is normal in caliber. Calcific atherosclerotic changes are noted involving the aorta, great vessels arising off of the aorta and the coronary arteries. The heart size is normal. No evidence of a pericardial effusion. The esophagus is decompressed. A mass with spiculated margins is again noted in the left upper lobe. The mass measures 6 cm in its greatest dimension on today study compared with approximately 3 cm on the prior exam. Subtle nodularity in the left suprahilar region may be related to the dominant mass. A second smaller satellite lesion which has also increased in size and is now confluent with the dominant lesion cannot be excluded. Multiple small stable subcentimeter nodules are again noted in both lungs, the largest involves the right lung and measures 6 mm. Pulmonary architectural distortion compatible with advanced emphysema is again noted. Groundglass and reticular opacities are again noted throughout both lungs which may reflect chronic changes with scarring. Mild superimposed pulmonary edema or pneumonitis are difficult to completely exclude. Trace fluid and/or chronic pleural thickening is noted in the dependent portion of the left pleural space. Overall the left-sided pleural effusion has significantly decreased in size compared with the prior chest CT examination 03/18/2017. Dilatation of the trachea and central airways is likely related to the underlying obstructive lung disease. No definite evidence of a discrete endobronchial lesion or significant endoluminal debris. Previously identified mediastinal lymphadenopathy has increased including a dominant prevascular space lymph node which 4.6 x 2.9 x 3.9 cm. Additional pathologically enlarged lymph nodes are again noted in the prevascular space, paratracheal space, subcarinal space and bilateral hilar regions. Limited images of the upper abdomen demonstrate postoperative changes of the gallbladder fossa and diffuse calcific atherosclerosis. No evidence of an acute osseous abnormality or definitive pathologic bone lesion. IMPRESSION: Increased size of the dominant left upper lobe lung mass as detailed above. Imaging characteristics concerning for a primary bronchogenic carcinoma. Pulmonary emphysema. Multiple small nonspecific noncalcified pulmonary nodules, grossly stable. Mediastinal and left hilar lymphadenopathy, increased from previous. Calcific atherosclerosis including coronary involvement. Trace left pleural effusion versus pleural thickening. Signed: Vic Montilla MD Report Verified Date/Time:07/19/2017 00:58:22 Reading Location: [address] Reading Room Procedure Note Interface, External Ris In - 07/19/2017 1:00 AM CDT FINAL REPORT EXAMINATION: Noncontrast chest CT CLINICAL HISTORY: Left hilar mass COMPARISON EXAM: Chest radiograph 07/17/2017, chest CT 03/18/2017 TECHNIQUE: Axial noncontrast tomographic images were acquired through the thorax. The exam was performed according to our departmental dose optimization program which includes automated exposure control, adjustment of the mA and/or kV according to patient's size and/or use of iterative reconstructive technique. FINDINGS: The tip of the right sided Port-A-Cath projects along the expected course of the superior vena cava. Evaluation of the mediastinal structures is limited by the absence of IV contrast. The thoracic aorta is normal in caliber. Calcific atherosclerotic changes are noted involving the aorta, great vessels arising off of the aorta and the coronary arteries. The heart size is normal. No evidence of a pericardial effusion. The esophagus is decompressed. A mass with spiculated margins is again noted in the left upper lobe. The mass measures 6 cm in its greatest dimension on today study compared with approximately 3 cm on the prior exam. Subtle nodularity in the left suprahilar region may be related to the dominant mass. A second smaller satellite lesion which has also increased in size and is now confluent with the dominant lesion cannot be excluded. Multiple small stable subcentimeter nodules are again noted in both lungs, the largest involves the right lung and measures 6 mm. Pulmonary architectural distortion compatible with advanced emphysema is again noted. Groundglass and reticular opacities are again noted throughout both lungs which may reflect chronic changes with scarring. Mild superimposed pulmonary edema or pneumonitis are difficult to completely exclude. Trace fluid and/or chronic pleural thickening is noted in the dependent portion of the left pleural space. Overall the left-sided pleural effusion has significantly decreased in size compared with the prior chest CT examination 03/18/2017. Dilatation of the trachea and central airways is likely related to the underlying obstructive lung disease. No definite evidence of a discrete endobronchial lesion or significant endoluminal debris. Previously identified mediastinal lymphadenopathy has increased including a dominant prevascular space lymph node which 4.6 x 2.9 x 3.9 cm. Additional pathologically enlarged lymph nodes are again noted in the prevascular space, paratracheal space, subcarinal space and bilateral hilar regions. Limited images of the upper abdomen demonstrate postoperative changes of the gallbladder fossa and diffuse calcific atherosclerosis. No evidence of an acute osseous abnormality or definitive pathologic bone lesion. IMPRESSION: Increased size of the dominant left upper lobe lung mass as detailed above. Imaging characteristics concerning for a primary bronchogenic carcinoma. Pulmonary emphysema. Multiple small nonspecific noncalcified pulmonary nodules, grossly stable. Mediastinal and left hilar lymphadenopathy, increased from previous. Calcific atherosclerosis including coronary involvement. Trace left pleural effusion versus pleural thickening. Signed: Vic Montilla MD Report Verified Date/Time: 07/19/2017 00:58:22 Reading Location: [address] Reading Room * Clostridium difficile GDH Toxin (07/18/2017 2:01 PM) Component Value Ref Range C. Difficle Toxin Negative Negative C. Difficile GDH Antigen NegativeComment: No indication of Clostridium Negative difficile infection and no colonization. Discontinue enteric isolation and therapy. Specimen Performing Laboratory Stool [facility] [place] [address] Narrative Testing performed by [employer].For GDH, published sensitivity of the assay is 98.7% compared to cytotoxicity testing.For Toxin AB, published sensitivity is 87.8% and specificity 99.4% compared to cytotoxicity testing. Verification of kit performance was done by the [facility] prior to clinical use. * STOOL PATH CHARGE (07/18/2017 2:01 PM) Component Value Ref Range Pathogen exam charged Done Specimen Performing Laboratory [place] [address] * Shiga Toxin Screen (07/18/2017 2:01 PM) Component Value Ref Range Shiga toxin 1 Not detected Not detected Shiga toxin 2 Not detected Not detected Specimen Performing Laboratory [place] [address] * Stool culture + Shiga toxin (07/18/2017 2:01 PM) Component Value Ref Range Result No Salmonella, Shigella or Campylobacter isolated Specimen Performing Laboratory [place] [address] * ED ECG Interpretation (07/18/2017 7:58 AM) Narrative Curt Keith MD 07/18/20177:58 AM ECG/EKG Interpretation Date/Time: 07/17/2017 9:53 PM Performed by: CURT KEITH Authorized by: CURT KEITH The ECG was interpreted by ED physician. This ECG was not compared with previous ECG(s).The ECG is interpreted as sinus tachycardia. Heart rate is 117 BPM. Conduction: conduction normal. ST segments normal. Clinical Impression: non-specific ECGECG reviewed and does not meet STEMI criteria. Patient tolerance: Patient tolerated the procedure well with no immediate complications * Urinalysis w/ Microscopic (07/18/2017 3:32 AM) Component Value Ref Range Color, UA Light Yellow Clarity, UA Clear Specific Thomson, UA 1.047 (H) 1.001 - 1.035 pH, UA 6.5 5.0 - 8.0 Protein, UA 20 mg/dL (A) Negative Glucose, UA Negative Negative Ketones, UA Negative Negative Bilirubin, UA Negative Negative Blood, UA Negative Negative Nitrite, UA Negative Negative Leukocytes, UA Negative Negative Urobilinogen, UA 0.2 0.2 - 1.0 mg/dL RBC, UA <1 /HPF WBC, UA <1 /HPF Mucus Occasional Squam Epithel, UA <1 /HPF Specimen Source Urine, Voided Specimen Performing Laboratory Urine - Urine, Voided [address] [address] * Urine culture (07/18/2017 3:32 AM) Component Value Ref Range Result >100,000 col/mL Enterococcus species (A) Result >100,000 col/mL Enterococcus species (A)Comment: of a second type Specimen Performing Laboratory Urine - Urine, Voided [address] [address] Narrative >100,000 col/mL skin seb Organism Antibiotic Method Susceptibility Enterococcus species Ampicillin <=2: Susceptible Enterococcus species Linezolid 2: Susceptible Enterococcus species Nitrofurantoin <=16: Susceptible Enterococcus species Tetracycline >=16: Resistant Enterococcus species Vancomycin <=0.5: Susceptible Enterococcus species Ampicillin 4: Susceptible Enterococcus species Linezolid 2: Susceptible Enterococcus species Nitrofurantoin <=16: Susceptible Enterococcus species Tetracycline >=16: Resistant Enterococcus species Vancomycin <=0.5: Susceptible * CT abdomen/pelvis with IV contrast (07/18/2017 12:03 AM) Specimen Performing Laboratory [facility] Narrative FINAL REPORT EXAMINATION:CT SCAN OF THE ABDOMEN AND PELVIS CLINICAL HISTORY:Abdominal pain, leukocytosis, fever. Recent chemotherapy. COMPARISON EXAM: Chest CT 03/18/2014, abdominal CT is 03/15/2016 TECHNIQUE: Following the administration of IV contrast, axial tomographic images were acquired through the abdomen and pelvis. The exam was performed according to our departmental dose optimization program which includes automated exposure control, adjustment of the mA and/or kV according to patient's size and/or use of iterative reconstructive technique. FINDINGS: The heart size is normal. No evidence of pericardial effusion. Reticular and groundglass opacities are noted in both lung bases. Although a component may reflect chronic changes, an acute pneumonitis and/or mild superimposed pulmonary edema would also be considerations. There is a tiny left pleural effusion. The left pleural effusion is significantly smaller than on the prior study 03/18/2017. The liver demonstrates homogeneous contrast enhancement. The gallbladder is absent. No evidence of pathologic biliary dilatation. The spleen is at the upper limit of normal in size measuring 12.6 cm. The pancreas is grossly unremarkable. The adrenal glands are associated with a relatively stable nodularity. No evidence of renal obstruction or nephrolithiasis. The infrarenal abdominal aorta measures 2.5 cm in width. Scattered atherosclerotic plaques are noted involving the aorta, mesenteric, renal, iliac and bilateral femoral arteries. Contrast also opacifies the portal venous system, mesenteric vessels, renal vessels and the iliac arteries. Evaluation of the IVC and iliac veins is limited by timing of the contrast bolus. The stomach is relatively decompressed. Fluid is noted throughout normal caliber loops of small bowel. A moderate volume of liquid stool is noted throughout the normal caliber colon. Segments of the colon also demonstrate mild wall thickening. No evidence of mechanical obstruction, pneumatosis or pneumoperitoneum. The appendix is fluid-filled and borderline dilated (7-8 mm). There is also subtle infiltration of the periappendiceal soft tissues. The prostate gland is mildly enlarged. The bladder is unremarkable. No significant intra-abdominal or pelvic free fluid. No evidence of an acute osseous abnormality or pathologic bone lesion. IMPRESSION: Fluid throughout the colon concerning for a nonspecific diarrheal illness. Sequela from recent chemotherapy would also be consideration. Mild wall thickening of the colon may reflect incomplete distention or an associated colitis. The fluid-filled borderline dilated appendix may be related to the fluid throughout the small bowel and colon. An early appendicitis cannot be excluded given the subtle periappendiceal fat stranding. Recommend clinical correlation. Nonspecific basilar lung opacities as detailed above. Tiny left pleural effusion. Signed: Vic Montilla MD Report Verified Date/Time:07/18/2017 02:04:00 Reading Location: [address] Reading Room Procedure Note Interface, External Ris In - 07/18/2017 2:06 AM CDT FINAL REPORT EXAMINATION: CT SCAN OF THE ABDOMEN AND PELVIS CLINICAL HISTORY:Abdominal pain, leukocytosis, fever. Recent chemotherapy. COMPARISON EXAM: Chest CT 03/18/2014, abdominal CT is 03/15/2016 TECHNIQUE: Following the administration of IV contrast, axial tomographic images were acquired through the abdomen and pelvis. The exam was performed according to our departmental dose optimization program which includes automated exposure control, adjustment of the mA and/or kV according to patient's size and/or use of iterative reconstructive technique. FINDINGS: The heart size is normal. No evidence of pericardial effusion. Reticular and groundglass opacities are noted in both lung bases. Although a component may reflect chronic changes, an acute pneumonitis and/or mild superimposed pulmonary edema would also be considerations. There is a tiny left pleural effusion. The left pleural effusion is significantly smaller than on the prior study 03/18/2017. The liver demonstrates homogeneous contrast enhancement. The gallbladder is absent. No evidence of pathologic biliary dilatation. The spleen is at the upper limit of normal in size measuring 12.6 cm. The pancreas is grossly unremarkable. The adrenal glands are associated with a relatively stable nodularity. No evidence of renal obstruction or nephrolithiasis. The infrarenal abdominal aorta measures 2.5 cm in width. Scattered atherosclerotic plaques are noted involving the aorta, mesenteric, renal, iliac and bilateral femoral arteries. Contrast also opacifies the portal venous system, mesenteric vessels, renal vessels and the iliac arteries. Evaluation of the IVC and iliac veins is limited by timing of the contrast bolus. The stomach is relatively decompressed. Fluid is noted throughout normal caliber loops of small bowel. A moderate volume of liquid stool is noted throughout the normal caliber colon. Segments of the colon also demonstrate mild wall thickening. No evidence of mechanical obstruction, pneumatosis or pneumoperitoneum. The appendix is fluid-filled and borderline dilated (7-8 mm). There is also subtle infiltration of the periappendiceal soft tissues. The prostate gland is mildly enlarged. The bladder is unremarkable. No significant intra-abdominal or pelvic free fluid. No evidence of an acute osseous abnormality or pathologic bone lesion. IMPRESSION: Fluid throughout the colon concerning for a nonspecific diarrheal illness. Sequela from recent chemotherapy would also be consideration. Mild wall thickening of the colon may reflect incomplete distention or an associated colitis. The fluid-filled borderline dilated appendix may be related to the fluid throughout the small bowel and colon. An early appendicitis cannot be excluded given the subtle periappendiceal fat stranding. Recommend clinical correlation. Nonspecific basilar lung opacities as detailed above. Tiny left pleural effusion. Signed: Vic Montilla MD Report Verified Date/Time: 07/18/2017 02:04:00 Reading Location: [address] Room * POC-Glucose meter (07/17/2017 10:22 PM) Component Value Ref Range POC-Glucose Meter 138 (H)Comment: TESTED AT [address] 70 - 110 mg/dL [place] [address] Specimen [place]forming [place] [address] * US chest (04/14/2017 1:42 PM) Specimen [...] MD Report Verified Date/Time:04/14/2017 15:00:07 Reading Location: [address] Ultrasound Reading Room Procedure Note Interface, External Ris In - 04/14/2017 3:02 PM RIG SUPERINTENDENT FINAL REPORT Ultrasound of the chest, 04/14/2017. CLINICAL HISTORY: Evaluate for pleural effusion. DISCUSSION: Sonographic evaluation of the left chest was performed to evaluate for possible thoracentesis. Only a small amount of multiloculated left pleural effusion is identified. IMPRESSION: Minimal left pleural effusion, insufficient for thoracentesis. Signed: Chad Velazquez MD Report Verified Date/Time: 04/14/2017 15:00:07 Reading Location: [address] Ultrasound Reading Room * Platelet count (04/14/2017 11:04 AM) Component Value Ref Range Platelets 354 150 - 450 K/CU MM Specimen [place] [address] * PERMANENT LAB REPORT - SCAN (04/09/2017 2:00 PM) * XR abdomen / KUB 1 view (03/26/2017 4:41 PM) Specimen Performing Laboratory GE RIS Narrative [...] MD Report Verified Date/Time:03/26/2017 17:04:56 Reading Location: [facility] Reading Room Procedure Note Interface, External Ris In - 03/26/2017 5:07 PM RIG SUPERINTENDENT FINAL REPORT EXAM: Supine AP radiographs of [...] Report Verified Date/Time: 03/26/2017 17:04:56 Reading Location: [facility] Reading Room * TRANSFUSION SERVICE REPORT - SCAN (03/20/2017 5:52 PM) Only the most recent of 3 results within the time period is included. * LIPASE (03/20/2017 12:27 PM) Component Value Ref Range Scan Result Specimen Performing Laboratory Body Fluid [facility] [address] [place], [place] * Glucose, body fluid (03/20/2017 12:23 PM) Component Value Ref Range Glucose, Body Fluid 5 (L) 70 - 110 mg/dL Specimen Performing Laboratory Body Fluid - Pleural, [facility] Left [address] [place] [place] [address] Narrative Absence of reference range indicates that normals have not been defined. Assay performance has not been validated for this type of specimen. USE EXISTING SPECIMEN USE EXISTING SPECIMEN * Amylase, body fluid (03/20/2017 12:23 PM) Component Value Ref Range Amylase, Fluid 45 30 - 110 U/L Specimen Performing Laboratory Body Fluid - Pleural, [facility] Left [address] [place] [address] Narrative Absence of reference range indicates that normals have not been defined. Assay performance has not been validated for this type of specimen. USE EXISTING SPECIMEN USE EXISTING SPECIMEN * Lactic acid, arterial, whole blood (03/19/2017 8:53 PM) Component Value Ref Range Lactate, Art 1.1 0.5 - 2.2 mmol/L Specimen Performing Laboratory Blood, Arterial [address] [address] Narrative Effective 06/27/2015: Units/Reference Range Change New: 0.5-2.2 mmol/LPrevious: 5-20 mg/dL * Calcium, Ionized (03/19/2017 8:52 PM) Component Value Ref Range Calcium, Ion 1.01 (L) 1.12 - 1.27 mmol/L pH, Blood 7.43 Specimen Performing Laboratory Blood [address] [address] * Blood gas, arterial (03/19/2017 8:52 PM) Only the most recent of 2 [...] 44.0 % Specimen Performing Laboratory Blood, Arterial [address] [address] * aPTT (03/19/2017 8:47 PM) Only the most recent of 2 results within the time period is included. Component Value Ref Range PTT 32.3 22.5 - 36.0 seconds Specimen Performing Laboratory Blood [address] [address] * Prothrombin time/INR (03/19/2017 8:47 PM) Only the most recent of 2 results within the time period is included. Component Value Ref Range Protime 14.8 (H) 11.7 - 14.7 seconds INR 1.2 <=5.9 Specimen Performing Laboratory Blood [address] [address] Narrative RECOMMENDED COUMADIN/WARFARIN INR THERAPY RANGES STANDARD DOSE: 2.0 - 3.0 Includes: PROPHYLAXIS for venous thrombosis, systemic embolization; TREATMENT for venous thrombosis and/or pulmonary embolus. HIGH RISK: Target INR is 2.5-3.5 for patients with mechanical heart valves. * Fibrinogen (03/19/2017 8:47 PM) Component Value Ref Range Fibrinogen 608 (H) 225 - 434 mg/dl Specimen Performing Laboratory Blood [address] [address] * Prepare RBC (03/19/2017 8:42 PM) Component Value Ref Range CROSSMATCH COMPATIBLE Unit ABO A Pos UNIT NUMBER [id number] Status RETURNED FROM ISSUE Blood Bank Product RED BLOOD CELLS PRODUCT CODE S5386R68 CROSSMATCH COMPATIBLE Unit ABO A Pos UNIT NUMBER [id number] Status RETURNED FROM ISSUE Blood Bank Product RED BLOOD CELLS PRODUCT CODE [id number] Specimen Performing Laboratory [place] * pH, body fluid (03/19/2017 8:37 PM) Component Value Ref Range pH, Body Fluid 7.36 Specimen Performing Laboratory Body Fluid - Pleural, [facility] Left [address] [place] [address] * Body fluid cell count with differential (03/19/2017 8:37 PM) Component Value Ref Range Appearance Bloody (A) Clear Color Red (A) Colorless, Straw RBCs [address] (H) <=1 /cu mm Adjusted WBC Count 2748 (H) <=5 /cu mm Lining Cells 962 (H) <=1 /cu mm % Segs 7 % % Lymphs 81 % % Monos 12 % % Eos 0 % % Baso 0 % Container Body Fluid EDTA Tube Specimen Performing Laboratory Body Fluid - Pleural, [facility] Left [address] [place] [address] * Protein, body fluid (03/19/2017 8:37 PM) [...] Fluid - Pleural, [facility] Left [address] [place] [address] Narrative Absence of reference range indicates that normals have not been defined. Assay performance has not been validated for this type of specimen. Left pleural effusion Left pleural effusion * Lactate dehydrogenase (LDH), body fluid (03/19/2017 8:37 PM) Component Value Ref Range LDH, Fluid >94879 Light's criteria identifies effusions if one or more are present: Pleural to serum protein ratio of more than 0.5; Pleural to serum LDH ratio of more than 0.6; Pleural LDH more than two third of upper serum reference limit U/L Specimen Performing Laboratory Body Fluid - Pleural, [facility] Left [address] [place] [address] Narrative Absence of reference range indicates that normals have not been defined. Assay performance has not been validated for this type of specimen. Left pleural effusion Left pleural effusion Left pleural effusion * AFB culture + smear (03/19/2017 8:27 PM) Component Value Ref Range Result No acid-fast bacilli isolated in 42 days AFB Smear No acid fast bacilli seen Specimen Performing Laboratory Body Fluid - Pleural, [facility] Left [address] [place] [address] * Anaerobic culture (03/19/2017 8:27 PM) Component Value Ref Range Result No anaerobes isolated Specimen Performing Laboratory Body Fluid - Pleural, [facility] Left [address] [place] [address] * Surgically obtained culture + gram stain (03/19/2017 8:27 PM) Component Value Ref Range Result No growth Gram Stain Result 1+ WBCs Gram Stain Result No organisms seen Specimen Performing Laboratory Body Fluid - Pleural, [facility] Left [address] [place] [address] * Fungus culture + smear (03/19/2017 8:27 PM) Component Value Ref Range Result No fungus isolated in 28 days Fungus Smear No fungi seen Specimen Performing Laboratory Body Fluid - Pleural, [facility] Left [address] [place] [address] * Cytology (03/19/2017 7:55 PM) Component Value Ref Range Cytology See Separate Report Specimen Performing Laboratory Body Fluid - Pleural, [facility] Left [address] [place] [address] * Cytology (03/19/2017 7:55 PM) Component Value Ref Range Case Report Medical Cytology Report Case: [id number] Authorizing Provider:Ivan Chaparro, Collected: 03/19/2017 Guillaume KRAUSE Ordering Location: [address] Received:03/20/2017 1010 Service Pathologist: Linh Abad MD Specimen:Pleural, Left DIAGNOSIS LEFT PLEURAL FLUID (CYTOSPINS AND CELL BLOCK): - POSITIVE FOR MALIGNANCY; FEATURES CONSISTENT WITH METASTATIC ADENOCARCINOMA WITH FEATURES SIMILAR TO THOSE NOTED IN PREVIOUS PERICARDIAL FLUID SEE COMMENT Signing Pathologist Direct Phone Line: [phone] COMMENT The malignant cells in this left pleural effusion are similar to those noted in this patient'sprior pericardial fluid sample, which also showed features consistent with metastatic adenocarcinoma ([id number]), from August 08, 2016. The cytologic features [...] case also shows cellular depletion in the block(slides A14 and A.15). Dr. Taylor Pena reviewed the initial study on 03/25/2017, and agrees with the findings, diagnosis as given, and comments. A report in Medical Records from [employer] [address], [address], [place] [address], is filed in Medical Records at [facility], from results obtained on 09/10/2016, in the prior pericardial sample ([id number]); indicating a POSITIVE result for PD-L1, IHC (antiboney clone 22C3); FISH studies for ALK(2p23) MET(7q31.2), ROS1 (6q22.1) and RET (10q11.21) were NEGATIVE (see entire report, available in the medical records department (Maggie Payton ), rechecked 03/27/2017. CPT Code(s) 27771, 59468 33130 x 1 58444 x 8 CLINICAL DATA Left pleural effusion, previous malignant pericardial effusion (see [id number]), history of lung cancer, Stage IV,based on the previous sample and the findings of a lung mass and probable necrotic lymph nodes, on radiologic exam. The lung tumor was not biopsied. SPECIMEN SOURCE LEFT PLEURAL FLUID GROSS DESCRIPTION 1300 mls bloody; 4 cytospins, cell block Collected: [id number] Received: [id number] MICROSCOPIC DESCRIPTION See comment. STATEMENT OF ADEQUACY Satisfactory SPECIAL STUDIES The following special studies were performed on this case and the interpretation is incorporated in the diagnostic report above: See comment section The immunohistochemistry test was developed and its performance characteristics determined by [facility], Pathology Laboratory. It has not been [...] complexity clinical laboratory testing. Technical component was [facility], Department of performed at Pathology, [address] [place] [address], [place] [address], Professional component [facility], Department of was performed at Pathology, [address] [place] [address], Specimen Performing Laboratory Body Fluid - Pleural, [facility] Left [address] [place] [address] * [facility] Critical Labs (ABG,NA,K,H&H,GLU) (03/19/2017 7:53 PM) Specimen Performing Laboratory Blood, Arterial Narrative The following orders were created for panel order [facility] Critical Labs (ABG,NA,K,H&H,GLU). Procedure Abnormality Status --------- ------ Blood gas, arterial[[id number]]Abnorma lFinal result Sodium Na-Stat Lab[[id number]] NormalFinal result Potassium-Stat Lab[[id number]] Normal Final result Glucose-Stat Lab[[id number]] AbnormalFinal result HGB/HCT (H&H)-Stat Lab[[id number]] AbnormalFinal result Please view results for these tests on the individual orders. * Potassium-Stat Lab (03/19/2017 7:53 PM) Component Value Ref Range Potassium 3.6 3.6 - 5.5 meq/L Specimen Performing Laboratory Blood, Arterial [address] [address] * Sodium Na-Stat Lab (03/19/2017 7:53 PM) Component Value Ref Range Sodium 139 135 - 148 meq/L Specimen Performing Laboratory Blood, Arterial [address] [address] * Glucose-Stat Lab (03/19/2017 7:53 PM) Component Value Ref Range Glucose 137 (H) 70 - 110 mg/dL Specimen Performing Laboratory Blood, Arterial [address] [address] * HGB/HCT (H&H)-Stat Lab (03/19/2017 7:53 PM) Component Value Ref Range Hemoglobin 12.2 (L) 13.0 - 16.8 g/dL Hematocrit 36.0 (L) 40.0 - 50.0 % Specimen Performing Laboratory Blood, Arterial [address] [address] * Type and screen, automated (03/16/2017 10:39 PM) Component Value Ref Range ABO/RH AUTOMATED (BEAKER) A POSITIVE Ab Scrn NEGATIVE Specimen Performing Laboratory Blood [facility] [address] [address] after 12/15/2016
[2017-12-16] MEDS ORDERED: SODIUM CHLORIDE 0.9% 1000ML 1,000 ML IV STA (18:22)
[2017-12-16] MEDS ORDERED: VANCOMYCIN 1GM/NS 250 ML 250 ML IV ONE (18:30)
[2017-12-16] MEDS ORDERED: CEFEPIME HCL 2 GM VIAL IV ONE (18:30)
[2017-12-16] MEDS ORDERED: ACETAMINOPHEN 325 MG TAB PO ONE (18:30)
[2017-12-16 18:41] LABS: BASOPHILS # (AUTO) 0.1 (0.0-0.1); BASOPHILS % 2.6 % (0.0-1.0); EOSINOPHILS % 0.5 % (0.0-6.0); HEMATOCRIT 32.3 % (38.2-49.6); HEMOGLOBIN 10.5 g/dL (14.0-18.0); LYMPHOCYTES # (AUTO) 1.4 (1.0-3.2); LYMPHOCYTES % 72.3 % (18.0-39.1); MEAN CORPUSCULAR HEMOGLOBIN 28.6 pg (28-32); MEAN CORPUSCULAR HGB CONC 32.5 g/dL (31-35); MONOCYTES # (AUTO) 0.4 (0.2-0.8); MONOCYTES % 21.5 % (4.4-11.3); NEUTROPHILS # (AUTO) 0.1 (2.1-6.9); NEUTROPHILS % 3.1 % (38.7-80.0); PLATELET COUNT 264 x10e3/uL (140-360); RED BLOOD COUNT 3.67 x10e6/uL (4.3-5.7); RED CELL DISTRIBUTION WIDTH 16.5 % (11.7-14.4)
[2017-12-16 18:56] LABS: ALANINE AMINOTRANSFERASE 17 IU/L (0-55); ALBUMIN 3.1 g/dL (3.5-5.0); ALBUMIN/GLOBULIN RATIO 0.7 (0.8-2.0); ALKALINE PHOSPHATASE 55 IU/L (40-150); ANION GAP 13.9 mmol/L (8-16); BLOOD UREA NITROGEN 10 mg/dL (7-26); BUN/CREATININE RATIO 8 (6-25); CALCIUM 8.9 mg/dL (8.4-10.2); CARBON DIOXIDE 29 mmol/L (22-29); CHLORIDE 95 mmol/L (98-107); CREATINE KINASE 104 IU/L (30-200); CREATININE, SERUM 1.24 mg/dL (0.72-1.25); EST GLOMERULAR FILTRATION RATE 59 ML/MIN (60-); GLUCOSE 131 mg/dL (74-118); SODIUM 135 mmol/L (136-145)
[2017-12-16 18:59] LABS: POTASSIUM 2.9 mmol/L (3.5-5.1)
--- NOTE | 2017-12-16 19:05 | Diagnostic Imaging Report ---
EXAM: CHEST SINGLE (PORTABLE) 11/12/2017 at 1437 hours INDICATION: Shortness of breath COMPARISON: Chest x-ray dated 11/12/2017. FINDINGS: Single portable AP view of the chest. Visualized bones, soft tissues and cardiomediastinal silhouette appear unchanged. Mediastinum is widened secondary to adenopathy. Diffuse emphysematous changes. IMPRESSION: Overall no change. 1. Lines/tubes: Right IJ chest port unchanged in unchanged in position. 2. Left central perihilar mass again noted estimated at 5.7 cm in critical dimension, unchanged. 3. Redemonstration of diffuse thickening of the pulmonary interstitium bilaterally, stable. Signed by: Dr. Angela Lopez M.D. on 12/16/2017 7:02 PM
[2017-12-16 19:09] LABS: BILIRUBIN,URINE NEGATIVE (NEGATIVE); CLARITY,URINE CLEAR (CLEAR); COLOR,URINE YELLOW (YELLOW); KETONES,URINE NEGATIVE (NEGATIVE); LEUKOCYTE ESTERASE ,URINE NEGATIVE (NEGATIVE); NITRITE,URINE NEGATIVE (NEGATIVE); PROTEIN,URINE DIPSTICK NEGATIVE (NEGATIVE); URINE UROBILINOGEN 0.2 mg/dL (0.2 - 1)
[2017-12-16 19:19] LABS: BACTERIA,URINE FEW /HPF; EPITHELIAL CELLS,URINE MODERATE /LPF; MUCUS,URINE MODERATE (RARE)
[2017-12-16] MEDS ORDERED: FUROSEMIDE INJ 10 MG/ML 4 ML VIAL IV ONE (19:30)
[2017-12-16] MEDS ORDERED: HYDROMORPHONE 1MG/1ML INJ IV PRN (19:45)
[2017-12-16] MEDS ORDERED: MORPHINE SULFATE 2 MG/ML SYR IV PRN (19:45)
[2017-12-16] MEDS ORDERED: HYDROMORPHONE 2MG/ML 2 MG/ML ML IV PRN (20:00)
[2017-12-16 20:24] LABS: LYMPHOCYTES % (MANUAL) 82 % (19-48); MONOCYTES % (MANUAL) 14 % (3.4-9.0); NEUTROPHILS % (MANUAL) 4 % (40-74); PLATELET ESTIMATE ADEQUATE; PLATELET MORPHOLOGY COMMENT FEW GIANT; RBC MORPHOLOGY COMMENT NORMAL
--- OUTSIDE RECORDS SUMMARY | 2017-12-16 20:24 | XMS REPORT | Clinical Summary ---
Author Author [facility] Organization [facility] Address Unknown Phone Unavailable Care Team Providers Care Ambulatory Care Nurse Name Role Phone PCP Unavailable Allergies Active [...] Dyspnea and respiratory abnormality 11/27/2017 Neutropenic fever ([facility]) 11/27/2017 Anemia 11/27/2017 Severe sepsis(995.92) 10/04/2016 COPD (chronic obstructive pulmonary disease) ([facility]) 08/14/2016 Metastatic lung carcinoma ([facility]) 08/13/2016 Resolved Problems Problem Noted Date [...] Date Type Specialty Care Team Description 11/26/2017 [facility] General Internal Medicine Deo Plasencia MD Dyspnea [...] Orders Only Iva Salas 07/19/2017 Anesthesia Artie Ornelas, Event AIRPORT LOCATION MANAGER 07/19/2017 Procedure Pass 07/19/2017 Surgery Javad Moctezuma, LAPAROSCOPY,APPENDECTOMY 07/17/2017 [facility] General Internal Medicine Curt Keith, Colitis (Primary - Encounter MD Dx);Lower abdominal 07/22/2017 Laurie Saavedra Judy, pain;Acute febrile MD illness;Malignant Caroline Peterson MD neoplasm of lung, unspecified laterality, unspecified part of lung (HCC);Sinus tachycardia;Secondary carcinoma of lung, unspecified laterality (HCC);Tobacco abuse;Other acute appendicitis;Centrilobula r emphysema (HCC) 07/17/2017 Orders Only General Internal Medicine 04/14/2017 [facility] Radiology Shukri Azul, Squamous cell carcinoma Encounter [...] 03/19/2017 Surgery Ivan Chaparro, THORACOSCOPY (VATS) 03/16/2017 [facility] Cardiology Ivan Chaparro, Pulmonary emphysema, - Encounter [...] THORACOSCOPY (VATS) 03/19/2017 RECURRENT PERICARDIAL 3:25 PM MARBLE CUTTER OPERATOR EFFUSION after 12/15/2016 Results * RHYTHM STRIP [...] Granulocytes-Relative Specimen Performing Laboratory Blood - Arm, [place] [address] * CBC with platelet count + automated diff (12/06/2017 4:52 AM) Only the most recent of 17 results within the time period is included. Specimen Performing Laboratory Blood Narrative The following orders were created for panel order CBC with platelet count + automated diff. Procedure Abnormality Status --------- ------ CBC with platelet count ...[[id number]]AbnormalFinal result Please view results for these tests [...] Specimen Performing Laboratory Blood - Arm, [place] [address] Narrative Received comment: User comments: Slide comments: * ECHOCARDIOGRAM REPORT - SCAN (12/03/2017 6:20 PM) * Vancomycin level, trough (12/03/2017 12:10 PM) Only the most recent of 3 results within the time period is included. Component Value Ref Range Vancomycin Tr 24.0 (H) 10.0 - 20.0 ug/mL Specimen [place] [address] Narrative Please draw 30 minutes prior to Vancomycin dose. Thank you. * 2D Echo W/Doppler(CW/PW/Color) (12/03/2017 11:06 AM) Component Value Ref Range Ejection Fraction Specimen Performing Laboratory [facility] MK[facility] Narrative Transthoracic Echocardiography Report (TTE) Demographics Patient Name JULIUS OMALLEYDate of Study 12/03/2017 JEAN [id number] GenderMale Visit Number [id number] [facility] [id number] Number 915 Number Date of Birth1955 Referring Physician Deo Plasencia MD Age62 year(s) Shipping Technician Chuy Heredia MD Physician Fellow TORRES Joseph [...] Study 12/03/2017 JEAN Gender Male Visit Number [id number] Race Unknown Room Number 915 Number Date of 1955 Referring Physician Deo Plasencia MD Age 62 year(s) Shipping Technician Chuy Solomon Interpreting Lalita Heredia MD Physician [...] (A) Specimen Performing Laboratory Sputum - Expectorated [address] [address] Narrative 1+ Normal respiratory seb present. Organism [...] Specimen Performing Laboratory Blood - Arm, Right [address] [address] * HISTOPLASMA AB,ID (12/02/2017 10:23 AM) Component [...] Specimen Performing Laboratory Blood - Arm, Right [facility] [id number] [place] [address] Narrative Performing Lab *QDID [facility] [address] [place] [phone] Wolf Ruano MD * Fungal Panel (12/02/2017 10:23 AM) Component Value Ref Range Fungal Panel1 Refer to individual Aspergillus, Blastomyces, Coccidioides & Histoplasma Ab results. Specimen Performing Laboratory Blood - Arm, [facility] [address] [address] * Coccidioides antibodies (12/02/2017 10:23 AM) Component [...] thereafter. Specimen Performing Laboratory Blood - Arm, [facility] [address] [address] Narrative Performing Lab *Hedge[employer] [facility] [address] [place] [phone] Wolf Ruano MD * Blastomyces antibody (12/02/2017 10:23 AM) Component Value Ref Range Blastomyces Ab,Id NEGATIVE Comment: REFERENCE RANGE: NEGATIVE INTERPRETIVE CRITERIA: NEGATIVE: Antibody Not Detected POSITIVE: Antibody Detected A positive result is diagnostic of active or recent blastomycosis and is found in approximately 80% of proven cases of blastomycosis. Specimen Performing Laboratory Blood - Arm, [facility] [address] [address] Narrative Performing Lab *QDID [facility] [address] [place] [phone] Wolf Ruano MD * Aspergillus antibodies (12/02/2017 [...] Specimen Performing Laboratory Blood - Arm, Right [facility] [address] [address] Narrative Performing Lab *QDID [facility] [address] [place] [phone] Wolf Ruano MD * Aspergillus galactomannan antigen (12/02/2017 10:23 AM) Component Value Ref Range Aspergillus Index Value <0.50 Aspergillus Antigen NOT DETECTED Comment: REFERENCE RANGE: <0.50, NOT DETECTED A negative result does not exclude invasive aspergillosis. Follow-up testing may be indicated for high-risk patients. Specimen Performing Laboratory Blood - Arm, Right [facility] [address] [address] Narrative Performing Lab *QDID [facility] [address] [place] [phone] Wolf Ruano MD * Histoplasma antigen, urine [...] analytical performance characteristics have been determined by [facility]. It has not been cleared or approved by the U.S. Food and Drug Administration.The FDA has determined that such clearance or approval is not necessary. This assay has been validated pursuant to the CLIA regulations andis used for clinical purposes. Specimen Performing Laboratory Urine - Urine, Voided [facility] [address] [place] [address] Narrative Performing Lab *QDID [facility] [address] [place] [phone] Wolf Ruano MD * CT chest with [...] MD Report Verified Date/Time:12/01/2017 22:48:30 Reading Location: [facility] C013 Transitional Reading Room Procedure Note Interface, [...] Report Verified Date/Time: 12/01/2017 22:48:30 Reading Location: [facility] Transitional Reading Room * Critical Care [...] 4.7 mg/dL Specimen Performing Laboratory Blood [facility] [address] [address] * Magnesium (11/29/2017 4:17 AM) Only the most recent of 14 results within the time period is included. Component Value Ref Range Magnesium 1.6 1.6 - 2.6 mg/dL Specimen [place] [address] * Hepatic function panel (11/29/2017 4:17 AM) [...] - 55 U/L Specimen [place] [address] * Strep pneumoniae antigen (11/27/2017 8:01 PM) Component Value Ref Range Strep pneumoniae Antigen Presumptive negative for pneumococcal pneumonia - Presumptive negative for see comment pneumococcal pneumonia - see comment, Presumptive negative for pneumococcal meningitis - see comment Specimen Performing Laboratory Urine [address] [address] Narrative Presumptive negative for pneumococcal pneumonia, suggesting [...] Specimen Performing Laboratory Blood - Arm, Right [address] [address] Narrative Effective 06/27/2015: Units/Reference Range Change New: [...] Specimen Performing Laboratory Urine - Urine, Voided [address] [address] * Troponin I (11/27/2017 11:13 AM) Only the most recent of 3 results within the time period is included. Component Value Ref Range Troponin I <0.01 0.00 - 0.03 ng/mL Specimen Performing Laboratory Blood - Arm, Right [facility] [address] [place] [address] Narrative Troponin I (TnI) levels must be [...] Specimen Performing Laboratory Blood - Arm, Right [address] [address] Narrative CK-MB Reference Range: <6.7Normal 6.7-10.0Borderline >10.0 Abnormal * ECG 12 lead (11/27/2017 8:42 AM) Only the most recent of 6 results within the time period is included. Specimen Performing Laboratory [facility] Narrative Ventricular Rate 91 BPM Atrial Rate 91 BPM P-R Interval 142 ms QRS Duration 98 ms Q-T Interval 370 ms QTC Calculation(Bazett) 455 ms P Garrison 46 degrees R Garrison 56 degrees T Garrison 25 degrees Normal sinus rhythm Normal ECG [...] 370 ms QTC Calculation(Bazett) 455 ms P Garrison 46 degrees R Garrison 56 degrees T Garrison 25 degrees Normal sinus rhythm Normal ECG When compared with ECG of 27-NOV-2017 08:42, No significant change was found Confirmed by MD JOSE, MAHIN ([id number]) on 11/29/2017 10:19:26 AM * Venous doppler legs bilateral (11/27/2017 8:16 AM) Component Value Ref Range Ejection Fraction Specimen Performing Laboratory [facility] CP[facility] Impressions Right Impression [...] Date of Study 11/27/2017 JEAN 62 Visit [id number] of 1955 Number Referring [facility] Room Number 915 Physician ARIADNE Shipping Technician Richie Lagunas. InterpretingMore Cabrera RVT, Francie KRAUSE, [...] Study 11/27/2017 JEAN Age 62 Visit Number [id number] Gender Male Date of 1955 Number Referring [facility] Room Number 915 Physician ARIADNE Shipping Technician Richie Lagunas. Interpreting More Cabrera RVT, MALATHI [...] - 4.94 uIU/mL Specimen [place] [address] * C-Reactive Protein (11/27/2017 3:49 AM) Component Value Ref Range CRP 12.55 (H) 0.00 - 0.50 mg/dL Specimen [place] [address] * Lactate dehydrogenase (LDH) (11/27/2017 3:49 AM) Component Value Ref Range LDH 337 (H) 125 - 220 U/L Specimen [place] [address] * Hemoglobin A1c (11/27/2017 3:49 AM) Component Value Ref Range Hemoglobin A1C 6.7 (H) 4.3 - 6.1 % Specimen [place] [address] * Lipid panel (11/27/2017 3:49 AM) Component Value Ref Range Triglycerides 79 mg/dL Cholesterol 113 mg/dL HDL 32 mg/dL LDL Calculated 65 mg/dL Specimen [place] [address] Narrative Triglyceride Reference Range: Low Risk <150 [id number] High Risk 200-499 Very High Risk>=500 Cholesterol Reference Range: Low Risk <200 Lsjxrdplwf238-389 High Risk>240 HDL Cholesterol Reference Range: Low Risk >=60 High Risk <40 LDL Cholesterol Reference Range: Optimal<100 Near Adembas838-147 Utkgtjlvwh168-774 Jclc379-505 Very High >=190 * Urinalysis Microscopic Only (11/27/2017 3:40 AM) Component Value Ref Range RBC, UA <1 /HPF WBC, UA <1 /HPF Mucus Rare Squam Epithel, UA <1 /HPF Specimen [place] [address] * Urinalysis with Microscopic If Indicated (11/27/2017 3:40 AM) Component Value Ref Range Color, UA Light Yellow Clarity, UA Clear Specific Reedley, UA >1.050 (H) 1.001 - 1.035 pH, UA 5.5 5.0 - 8.0 Protein, UA 10 mg/dL (A) Negative Glucose, UA Negative Negative Ketones, UA Negative Negative Bilirubin, UA Negative Negative Blood, UA Negative Negative Nitrite, UA Negative Negative Leukocytes, UA Negative Negative Urobilinogen, UA 0.2 0.2 - 1.0 mg/dL Specimen Source Specimen [place] [address] * Rapid Influenza A&B Screen (11/27/2017 3:39 AM) Component Value Ref Range Rapid Influenza A Antigen Negative Negative, Inconclusive Rapid influenza B Antigen Negative Negative, Inconclusive Specimen Performing Laboratory Nasal - Nasopharyngeal [facility] Swab [address] [place] [address] * Respiratory Panel SLHS (11/27/2017 3:24 AM) [...] Not detected, Equivocal Specimen [place] [address] Narrative Other viruses and bacteria not targeted by this PCR panel cannot be excluded; therefore clinical correlation and follow up of serology, culture results, and other molecular studies is required. The results are not intended to be used as the sole means for clinical diagnosis or patient management decisions. This sample was tested at the [facility] Molecular Diagnostics Laboratory using the [employer] FilmArray Respiratory Panel. It is FDA cleared and has been verified and approved by the [facility] Molecular Diagnostics Laboratory for clinical use on nasal swab specimens. It is not FDA-cleared for use on bronchial wash/lavage samples. However, for this sample type, validation was performed and test characteristics were determined and approved, by [facility] Molecular Diagnostics laboratory for clinical use under the Clinical Laboratory Improvement Amendments (CLIA) of 1988 requirements. Therefore, FDA clearance is not required.This laboratory is CLIA-certified and [employer] (CAP)-accredited to perform high complexity testing. Other viruses and bacteria not targeted by this PCR panel cannot be excluded; therefore clinical correlation and follow up of serology, culture results, and other molecular studies is required. The results are not intended to be used as the sole means for clinical diagnosis or patient management decisions. This sample was tested at the [facility] Molecular Diagnostics Laboratory using the Bio[employer] FilmArray Respiratory Panel. It is FDA cleared and has been verified and approved by the [facility] Molecular Diagnostics Laboratory for clinical use on nasal swab specimens. It is not FDA-cleared for use on bronchial wash/lavage samples. However, for this sample type, validation was performed and test characteristics were determined and approved, by [facility] Molecular Diagnostics laboratory for clinical use under the Clinical Laboratory Improvement Amendments (CLIA) of 1988 r equirements. Therefore, FDA clearance is not required.This laboratory is CLIA-certified and [employer] (CAP)-accredited to perform high complexity testing. * CT chest for pulmonary embolus (11/27/2017 1:15 AM) Specimen Performing Laboratory [employer] Narrative FINAL REPORT Comparison: Indication: 62-year-old male [...] by the dictating physician using an independent ([employer] or [employer]) workstation. This exam was performed according to [...] MD Report Verified Date/Time:11/27/2017 02:00:01 Reading Location: [address] Transitional Reading Room Procedure Note Interface, [...] by the dictating physician using an independent ([employer] or [employer]) workstation. This exam was performed according to [...] Report Verified Date/Time: 11/27/2017 02:00:01 Reading Location: [facility] B1 C013T Transitional Reading Room * Blood culture (11/27/2017 12:21 AM) Only the most recent of 4 results within the time period is included. Component Value Ref Range Result No growth in 5 days Specimen Performing Laboratory Blood - Arm, Right [address] [address] * POC-Lactic Acid, Venous (11/27/2017 12:01 AM) Only the most recent of 4 results within the time period is included. Component Value Ref Range POC-Lactic Acid, Venous 0.9Comment: TESTED AT [address] 0.9 - 1.7 mmol/[place] [address] Specimen Performing Laboratory Blood [address] [address] * XR chest 1 view portable / [...] MD Report Verified Date/Time:11/26/2017 23:44:24 Reading Location: [address] Transitional Reading Room Procedure Note Interface, [...] Report Verified Date/Time: 11/26/2017 23:44:24 Reading Location: [address] Transitional Reading Room * PT/aPTT (11/26/2017 10:31 PM) Only the most recent of 2 results within the time period is included. Component Value Ref Range Protime 14.8 (H) 11.7 - 14.7 seconds INR 1.2 <=5.9 PTT 32.5 22.5 - 36.0 seconds Specimen Performing Laboratory Blood - Arm, [address] [address] Narrative RECOMMENDED COUMADIN/WARFARIN INR THERAPY RANGES STANDARD DOSE: 2.0 - 3.0 Includes: PROPHYLAXIS for venous thrombosis, systemic embolization; TREATMENT for venous thrombosis and/or pulmonary embolus. HIGH RISK: Target INR is 2.5-3.5 for patients with mechanical heart valves. * B-type Natriuretic Factor (BNP) (11/26/2017 10:31 PM) Component Value Ref Range BNP 32 0 - 100 pg/mL Specimen Performing Laboratory Blood - Arm, [address] [address] * Comprehensive metabolic panel (11/26/2017 10:31 PM) [...] Specimen Performing Laboratory Blood - Arm, [place] [address] * CBC (Hemogram only) (07/22/2017 5:28 AM) [...] 0 /100 WBC Specimen [place] [address] * Tissue Exam (07/19/2017 1:26 PM) Component Value Ref Range Case Report Surgical Pathology Report Case: [id number] Authorizing Provider:Javad Moctezuma, Collected: 07/19/2017 1326 Ordering Location: [address] Received:07/21/2017 0806 Service Pathologist: Clarissa Mercedes MD Specimen:Appendix DIAGNOSIS A. APPENDIX, APPENDECTOMY: - CHRONIC APPENDICITIS - NEGATIVE FOR MALIGNANCY Signing Pathologist Direct Phone Line: [phone] CPT Code(s) 17733 CLINICAL HISTORY Appendicitis SPECIMEN SOURCE Appendix GROSS [...] margin en face with tip bisected; A2, manufacturers representative of appendix. CG/ew MICROSCOPIC DESCRIPTION Performed. Specimen Performing Laboratory Tissue - Appendix [facility] [address] [address] * CT chest without IV contrast (07/18/2017 6:49 PM) Only the most recent of 2 results within the time period is included. Specimen Performing Laboratory [employer] Narrative FINAL REPORT EXAMINATION: Noncontrast chest CT [...] MD Report Verified Date/Time:07/19/2017 00:58:22 Reading Location: [address] Reading Room Procedure Note Interface, External [...] Report Verified Date/Time: 07/19/2017 00:58:22 Reading Location: [address] Reading Room * Clostridium difficile GDH Toxin (07/18/2017 2:01 PM) Component Value Ref Range C. Difficle Toxin Negative Negative C. Difficile GDH Antigen NegativeComment: No indication of Clostridium Negative difficile infection and no colonization. Discontinue enteric isolation and therapy. Specimen Performing Laboratory [place] [address] Narrative Testing performed by [employer] Rapid Cassette Assay.For GDH, published sensitivity of the assay is 98.7% compared to cytotoxicity testing.For Toxin AB, published sensitivity is 87.8% and specificity 99.4% compared to cytotoxicity testing. Verification of kit performance was done by the [facility] Microbiology Lab prior to clinical use. * STOOL PATH CHARGE (07/18/2017 2:01 PM) Component Value Ref Range Pathogen exam charged Done Specimen Performing [place] [address] * Shiga Toxin Screen (07/18/2017 2:01 PM) Component Value Ref Range Shiga toxin 1 Not detected Not detected Shiga toxin 2 Not detected Not detected Specimen Performing Laboratory [place] [address] * Stool culture + Shiga toxin (07/18/2017 2:01 PM) Component Value Ref Range Result No Salmonella, Shigella or Campylobacter isolated Specimen Performing Laboratory [place] [address] * ED ECG Interpretation (07/18/2017 7:58 AM) [...] UA Light Yellow Clarity, UA Clear Specific Reedley, UA 1.047 (H) 1.001 - 1.035 pH, [...] Specimen Performing Laboratory Urine - Urine, Voided [address] [address] * Urine culture (07/18/2017 3:32 AM) Component Value Ref Range Result >100,000 col/mL Enterococcus species (A) Result >100,000 col/mL Enterococcus species (A)Comment: of a second type Specimen Performing Laboratory Urine - Urine, Voided [address] [address] Narrative >100,000 col/mL skin seb Organism Antibiotic [...] MD Report Verified Date/Time:07/18/2017 02:04:00 Reading Location: [address] Reading Room Procedure Note Interface, External [...] Report Verified Date/Time: 07/18/2017 02:04:00 Reading Location: [address] Room * POC-Glucose meter (07/17/2017 10:22 PM) Component Value Ref Range POC-Glucose Meter 138 (H)Comment: TESTED AT [address] 70 - 110 mg/dL [place] [address] Specimen [place] [address] * US chest (04/14/2017 1:42 PM) Specimen [...] MD Report Verified Date/Time:04/14/2017 15:00:07 Reading Location: [address] Ultrasound Reading Room Procedure Note Interface, External Ris In - 04/14/2017 3:02 PM MARBLE CUTTER OPERATOR FINAL REPORT Ultrasound of the chest, 04/14/2017. CLINICAL HISTORY: Evaluate for pleural effusion. DISCUSSION: Sonographic evaluation of the left chest was performed to evaluate for possible thoracentesis. Only a small amount of multiloculated left pleural effusion is identified. IMPRESSION: Minimal left pleural effusion, insufficient for thoracentesis. Signed: Chad Velazquez MD Report Verified Date/Time: 04/14/2017 15:00:07 Reading Location: [address] Ultrasound Reading Room * Platelet count (04/14/2017 11:04 AM) Component Value Ref Range Platelets 354 150 - 450 K/CU MM Specimen [place] [address] * PERMANENT LAB REPORT - SCAN (04/09/2017 [...] MD Report Verified Date/Time:03/26/2017 17:04:56 Reading Location: [facility] Reading Room Procedure Note Interface, External Ris In - 03/26/2017 5:07 PM MARBLE CUTTER OPERATOR FINAL REPORT EXAM: Supine AP radiographs of [...] Report Verified Date/Time: 03/26/2017 17:04:56 Reading Location: [facility] Reading Room * TRANSFUSION SERVICE REPORT - SCAN (03/20/2017 5:52 PM) Only the most recent of 3 results within the time period is included. * LIPASE (03/20/2017 12:27 PM) Component Value Ref Range Scan Result Specimen Performing Laboratory Body Fluid [facility] [address] [place], [place] * Glucose, body fluid (03/20/2017 12:23 PM) Component Value Ref Range Glucose, Body Fluid 5 (L) 70 - 110 mg/dL Specimen Performing Laboratory Body Fluid - Pleural, [facility] [address] [place] [address] Narrative Absence of reference range indicates that normals have not been defined. Assay performance has not been validated for this type of specimen. USE EXISTING SPECIMEN USE EXISTING SPECIMEN * Amylase, body fluid (03/20/2017 12:23 PM) Component Value Ref Range Amylase, Fluid 45 30 - 110 U/L Specimen Performing Laboratory Body Fluid - Pleural, [facility] Left [address] [place] [address] Narrative Absence of reference range indicates that normals have not been defined. Assay performance has not been validated for this type of specimen. USE EXISTING SPECIMEN USE EXISTING SPECIMEN * Lactic acid, arterial, whole blood (03/19/2017 8:53 PM) Component Value Ref Range Lactate, Art 1.1 0.5 - 2.2 mmol/L Specimen Performing Laboratory Blood, Arterial [address] [address] Narrative Effective 06/27/2015: Units/Reference Range Change New: 0.5-2.2 mmol/LPrevious: 5-20 mg/dL * Calcium, Ionized (03/19/2017 8:52 PM) Component Value Ref Range Calcium, Ion 1.01 (L) 1.12 - 1.27 mmol/L pH, Blood 7.43 Specimen Performing Laboratory Blood [address] [address] * Blood gas, arterial (03/19/2017 8:52 PM) [...] 44.0 % Specimen Performing Laboratory Blood, Arterial [address] [address] * aPTT (03/19/2017 8:47 PM) Only the most recent of 2 results within the time period is included. Component Value Ref Range PTT 32.3 22.5 - 36.0 seconds Specimen Performing Laboratory Blood [address] [address] * Prothrombin time/INR (03/19/2017 8:47 PM) Only the most recent of 2 results within the time period is included. Component Value Ref Range Protime 14.8 (H) 11.7 - 14.7 seconds INR 1.2 <=5.9 Specimen Performing Laboratory Blood [address] [address] Narrative RECOMMENDED COUMADIN/WARFARIN INR THERAPY RANGES STANDARD DOSE: 2.0 - 3.0 Includes: PROPHYLAXIS for venous thrombosis, systemic embolization; TREATMENT for venous thrombosis and/or pulmonary embolus. HIGH RISK: Target INR is 2.5-3.5 for patients with mechanical heart valves. * Fibrinogen (03/19/2017 8:47 PM) Component Value Ref Range Fibrinogen 608 (H) 225 - 434 mg/dl Specimen Performing Laboratory Blood [address] [address] * Prepare RBC (03/19/2017 8:42 PM) Component Value Ref Range CROSSMATCH COMPATIBLE Unit ABO A Pos UNIT NUMBER [id number] Status RETURNED FROM ISSUE Blood Bank Product RED BLOOD CELLS PRODUCT CODE I6198I91 CROSSMATCH COMPATIBLE Unit ABO A Pos UNIT NUMBER [id number] Status RETURNED FROM ISSUE Blood Bank Product RED BLOOD CELLS PRODUCT CODE [id number] Specimen Performing Laboratory [place] * pH, body fluid (03/19/2017 8:37 PM) Component Value Ref Range pH, Body Fluid 7.36 Specimen Performing Laboratory Body Fluid - Pleural, [facility] Left [address] [place] [address] * Body fluid cell count with differential (03/19/2017 8:37 PM) Component Value Ref Range Appearance Bloody (A) Clear Color Red (A) Colorless, Straw RBCs 85454 (H) <=1 /cu mm Adjusted WBC Count 2748 (H) <=5 /cu mm Lining Cells 962 (H) <=1 /cu mm % Segs 7 % % Lymphs 81 % % Monos 12 % % Eos 0 % % Baso 0 % Container Body Fluid EDTA Tube Specimen Performing Laboratory Body Fluid - Pleural, [facility] Left [address] [place] [address] * Protein, body fluid (03/19/2017 8:37 PM) Component Value Ref Range Protein, Fluid 7.8 Light's criteria identifies effusions if one or more are present: Pleural to serum protein ratio of more than 0.5; Pleural to Serum LDH of more than 0.6; Pleural LDH of more than two third of upper serum reference limit g/dL Specimen Performing Laboratory Body Fluid - Pleural, [facility] Left [address] [place] [address] Narrative Absence of reference range indicates that normals have not been defined. Assay performance has not been validated for this type of specimen. Left pleural effusion Left pleural effusion * Lactate dehydrogenase (LDH), body fluid (03/19/2017 8:37 PM) Component Value Ref Range LDH, Fluid >42333 Light's criteria identifies effusions if one or more are present: Pleural to serum protein ratio of more than 0.5; Pleural to serum LDH ratio of more than 0.6; Pleural LDH more than two third of upper serum reference limit U/L Specimen Performing Laboratory Body Fluid - Pleural, [facility] Left [address] [place] [address] Narrative Absence of reference range indicates that [...] Specimen Performing Laboratory Body Fluid - Pleural, [facility] Left [address] [place] [address] * Anaerobic culture (03/19/2017 8:27 PM) Component Value Ref Range Result No anaerobes isolated Specimen Performing Laboratory Body Fluid - Pleural, [facility] Left [address] [place] [address] * Surgically obtained culture + gram stain (03/19/2017 8:27 PM) Component Value Ref Range Result No growth Gram Stain Result 1+ WBCs Gram Stain Result No organisms seen Specimen Performing Laboratory Body Fluid - Pleural, [facility] Left [address] [place] [address] * Fungus culture + smear (03/19/2017 8:27 PM) Component Value Ref Range Result No fungus isolated in 28 days Fungus Smear No fungi seen Specimen Performing Laboratory Body Fluid - Pleural, [facility] Left [address] [place] [address] * Cytology (03/19/2017 7:55 PM) Component Value Ref Range Cytology See Separate Report Specimen Performing Laboratory Body Fluid - Pleural, [facility] Left [address] [place] [address] * Cytology (03/19/2017 7:55 PM) Component Value Ref Range Case Report Medical Cytology Report Case: [id number] Authorizing Provider:Ivan Chaparro, Collected: 03/19/2017 Guillaume KRAUSE Ordering Location: [address] Received:03/20/2017 1010 Service Pathologist: Linh Abad MD Specimen:Pleural, Left DIAGNOSIS LEFT PLEURAL FLUID (CYTOSPINS AND CELL BLOCK): - POSITIVE FOR MALIGNANCY; FEATURES CONSISTENT WITH METASTATIC ADENOCARCINOMA WITH FEATURES SIMILAR TO THOSE NOTED IN PREVIOUS PERICARDIAL FLUID SEE COMMENT Signing Pathologist Direct Phone Line: [phone] COMMENT The malignant cells in this left pleural effusion are similar to those noted in this patient'sprior pericardial fluid sample, which also showed features consistent with metastatic adenocarcinoma ([id number]), from August 08, 2016. The cytologic features [...] comments. A report in Medical Records from [facility] [address] [address], [address], [place] [address], is filed in Medical Records at [facility], from results obtained on 09/10/2016, in the prior pericardial sample ([id number]); indicating a POSITIVE result for PD-L1, IHC (antiboney clone 22C3); FISH studies for ALK(2p23) MET(7q31.2), ROS1 (6q22.1) and RET (10q11.21) were NEGATIVE (see entire report, available in the medical records department (Maggie Payton ), rechecked 03/27/2017. CPT Code(s) 89270, 06050 63060 x 1 37320 x 8 CLINICAL DATA Left pleural effusion, previous malignant pericardial effusion (see [id number]), history of lung cancer, Stage IV,based on the previous sample and the findings of a lung mass and probable necrotic lymph nodes, on radiologic exam. The lung tumor was not biopsied. SPECIMEN SOURCE LEFT PLEURAL FLUID GROSS DESCRIPTION 1300 mls bloody; 4 cytospins, cell block Collected: [id number] Received: [id number] MICROSCOPIC DESCRIPTION See comment. STATEMENT OF ADEQUACY Satisfactory SPECIAL STUDIES The following special studies were performed on this case and the interpretation is incorporated in the diagnostic report above: See comment section The immunohistochemistry test was developed and its performance characteristics determined by [facility], Pathology Laboratory. It has [...] complexity clinical laboratory testing. Technical component was [facility], Department of performed at Pathology, [address] [place] [address], [place] [address], Professional component [facility], Department of was performed at Pathology, [address] [place] [address], Specimen Performing Laboratory Body Fluid - Pleural, [facility] Left [address] [place] [address] * RRL Critical Labs (ABG,NA,K,H&H,GLU) (03/19/2017 7:53 PM) Specimen Performing Laboratory Blood, Arterial Narrative The following orders were created for panel order RRL Critical Labs (ABG,NA,K,H&H,GLU). Procedure Abnormality Status --------- ------ Blood gas, arterial[[id number]]Abnorma lFinal result Sodium Na-Stat Lab[[id number]] NormalFinal result Potassium-Stat Lab[[id number]] Normal Final result Glucose-Stat Lab[[id number]] AbnormalFinal result HGB/HCT (H&H)-Stat Lab[[id number]] AbnormalFinal result Please view results for these tests on the individual orders. * Potassium-Stat Lab (03/19/2017 7:53 PM) Component Value Ref Range Potassium 3.6 3.6 - 5.5 meq/L Specimen Performing Laboratory Blood, Arterial [address] [address] * Sodium Na-Stat Lab (03/19/2017 7:53 PM) Component Value Ref Range Sodium 139 135 - 148 meq/L Specimen Performing Laboratory Blood, Arterial [address] [address] * Glucose-Stat Lab (03/19/2017 7:53 PM) Component Value Ref Range Glucose 137 (H) 70 - 110 mg/dL Specimen Performing Laboratory Blood, Arterial [address] [address] * HGB/HCT (H&H)-Stat Lab (03/19/2017 7:53 PM) Component Value Ref Range Hemoglobin 12.2 (L) 13.0 - 16.8 g/dL Hematocrit 36.0 (L) 40.0 - 50.0 % Specimen Performing Laboratory Blood, Arterial [address] [address] * Type and screen, automated (03/16/2017 10:39 PM) Component Value Ref Range ABO/RH AUTOMATED (BEAKER) A POSITIVE Ab Scrn NEGATIVE Specimen Performing Laboratory Blood [facility] [address] [address] after 12/15/2016
[2017-12-16] MEDS: SODIUM CHLORIDE 0.9% 1000ML 1,000 ML IV SCH (20:57)
[2017-12-16] MEDS ORDERED: POTASSIUM CHLORIDE 20 MEQ TAB CR PO ONE (21:45)
[2017-12-16] MEDS ORDERED: POTASSIUM CHLORIDE 10MEQ/100ML 100 ML IV ONE (21:45)
[2017-12-17] MEDS: MORPHINE SULFATE INJ 4 MG/ML INJ IV PRN ×3 (00:07→21:22)
[2017-12-17] MEDS: SODIUM CHLORIDE 0.9% 1000ML 1,000 ML IV SCH ×3 (04:34→21:21)
[2017-12-17 05:06] LABS: BASOPHILS % 1.6 % (0.0-1.0); EOSINOPHILS % 0.5 % (0.0-6.0); HEMATOCRIT 29.6 % (38.2-49.6); HEMOGLOBIN 9.6 g/dL (14.0-18.0); LYMPHOCYTES # (AUTO) 1.3 (1.0-3.2); LYMPHOCYTES % 70.7 % (18.0-39.1); MEAN CORPUSCULAR HEMOGLOBIN 28.7 pg (28-32); MEAN CORPUSCULAR HGB CONC 32.4 g/dL (31-35); MEAN CORPUSCULAR VOLUME 88.4 fL (81-99); MONOCYTES # (AUTO) 0.5 (0.2-0.8); MONOCYTES % 23.9 % (4.4-11.3); NEUTROPHILS # (AUTO) 0.1 (2.1-6.9); NEUTROPHILS % 2.8 % (38.7-80.0); PLATELET COUNT 218 x10e3/uL (140-360); RED BLOOD COUNT 3.35 x10e6/uL (4.3-5.7); RED CELL DISTRIBUTION WIDTH 16.6 % (11.7-14.4)
[2017-12-17 05:34] LABS: ALANINE AMINOTRANSFERASE 14 IU/L (0-55); ALBUMIN 2.7 g/dL (3.5-5.0); ALBUMIN/GLOBULIN RATIO 0.7 (0.8-2.0); ALKALINE PHOSPHATASE 57 IU/L (40-150); ANION GAP 10.8 mmol/L (8-16); BLOOD UREA NITROGEN 8 mg/dL (7-26); BUN/CREATININE RATIO 8 (6-25); CALCIUM 8.2 mg/dL (8.4-10.2); CARBON DIOXIDE 29 mmol/L (22-29); CHLORIDE 97 mmol/L (98-107); CREATININE, SERUM 1.03 mg/dL (0.72-1.25); EST GLOMERULAR FILTRATION RATE > 60 ML/MIN (60-); GLUCOSE 97 mg/dL (74-118); SODIUM 134 mmol/L (136-145)
[2017-12-17 05:52] LABS: POTASSIUM 2.8 mmol/L (3.5-5.1)
[2017-12-17] MEDS ORDERED: POTASSIUM CHLORIDE 20 MEQ TAB CR PO STA (05:54)
[2017-12-17] MEDS ORDERED: POTASSIUM CHLORIDE 10MEQ/100ML 100 ML IV STA (05:54)
[2017-12-17] MEDS ORDERED: POTASSIUM CHLORIDE 10MEQ/100ML 100 ML ONE (06:06)
[2017-12-17] MEDS ORDERED: POTASSIUM CHLORIDE 20 MEQ TAB CR PO ONE (06:06)
[2017-12-17] MEDS: POTASSIUM CHLORIDE 10MEQ/100ML 100 ML INJ SCH ×3 (06:20→10:25)
[2017-12-17] MEDS ORDERED: POTASSIUM CHLORIDE 20 MEQ TAB CR PO SCH (06:30)
[2017-12-17] MEDS ORDERED: POTASSIUM CHLORIDE 10MEQ/100ML 10 MEQ in POTASSIUM CHLORIDE 10MEQ/100ML 100 ML IV ONE (07:00)
[2017-12-17] MEDS ORDERED: POTASSIUM CHLORIDE 10MEQ/100ML 100 ML IV ONE (08:00)
[2017-12-17 08:20] LABS: ANISOCYTOSIS MODERATE; BLAST CELLS % MANUAL 3; HYPOCHROMASIA SLIGHT; LYMPHOCYTES % (MANUAL) 77 % (19-48); MONOCYTES % (MANUAL) 14 % (3.4-9.0); NEUTROPHILS % (MANUAL) 1 % (40-74); PLATELET ESTIMATE ADEQUATE; PLATELET MORPHOLOGY COMMENT FEW LARGE; POIKILOCYTOSIS SLIGHT; RBC MORPHOLOGY COMMENT ABNORMAL; SMUDGE CELLS FEW
[2017-12-17] MEDS: FILGRASTIM 480 MCG/0.8 ML VIAL SC SCH (09:07)
--- NOTE | 2017-12-17 10:59 | History and Physical ---
Mr. Omalley is a 62-year-old man, former smoker, with history of lung cancer, small cell, stage 4, undergoing his 4th round of chemotherapy in the last year, history of pericardial window due to effusion, came to the emergency room complaining of fever, sore throat, mouth ulcers, and white count was very low. Admitted with possible diagnosis of neutropenic sepsis. PAST MEDICAL HISTORY: He has small cell lung cancer, stage 4, on chemotherapy. He has history of pleural effusion and pericardial window. SURGICAL HISTORY: He had bilateral knee surgeries, right elbow surgery, appendectomy, cholecystectomy, and a hernia repair. ALLERGIES: HE IS ALLERGIC TO HALDOL. SOCIAL HISTORY: He does not drink but he smoked and quit 15 months ago. PHYSICAL EXAMINATION GENERAL: Today, he is awake and alert. He states he is feeling better. VITALS: Temperature 99.2, blood pressure 94/56. HEART: Regular rate. LUNGS: Decreased breath sounds. ABDOMEN: Distended and soft. LOWER EXTREMITIES: No edema. BLOOD WORK: White count is 1.88, hemoglobin is 9.6, and hematocrit is 29.6. Potassium is 2.8, calcium is 8.2, and creatinine 1.02. Urine does not show any white cells. Influenza negative. Streptococcal is negative Chest x-ray shows left central perihilar mass, thickening of the pulmonary . ADMITTING DIAGNOSES 1. Neutropenic sepsis. 2. History of lung cancer, small cell, stage 4. 3. Former smoker. PLAN: At the present time is to admit the patient to the hospital. Oncology consult with Dr. Vazquez, infectious disease consult with Dr. Higgins. We are going to continue IV cefepime and vancomycin. We are awaiting a throat culture and blood culture. Continue other home medications. All this was discussed with patient and questions were answered to satisfaction. Job#: [id number]
[2017-12-17 13:56] LABS: ALANINE AMINOTRANSFERASE 13 IU/L (0-55); ALBUMIN 2.5 g/dL (3.5-5.0); ALBUMIN/GLOBULIN RATIO 0.7 (0.8-2.0); ALKALINE PHOSPHATASE 51 IU/L (40-150); ANION GAP 11.3 mmol/L (8-16); BLOOD UREA NITROGEN 9 mg/dL (7-26); BUN/CREATININE RATIO 9 (6-25); CALCIUM 7.9 mg/dL (8.4-10.2); CARBON DIOXIDE 27 mmol/L (22-29); CHLORIDE 99 mmol/L (98-107); CREATININE, SERUM 0.96 mg/dL (0.72-1.25); EST GLOMERULAR FILTRATION RATE > 60 ML/MIN (60-); GLUCOSE 110 mg/dL (74-118); POTASSIUM 3.3 mmol/L (3.5-5.1); SODIUM 134 mmol/L (136-145)
[2017-12-17 15:51] VITALS: BP 106/55
[2017-12-17] MEDS: ONDANSETRON HCL INJ 2 MG/ML VIAL IV PRN (16:43)
[2017-12-17 19:50] VITALS: BP 112/62
[2017-12-17] MEDS: CEFEPIME HCL 1 GM VIAL IV SCH (20:15)
[2017-12-17] MEDS: VANCOMYCIN 1GM/NS 250 ML 250 ML IV SCH (20:15)
[2017-12-18] VITALS (7 sets, daily range): BP systolic 84–107; BP diastolic 50–60
[2017-12-18] MEDS: MORPHINE SULFATE INJ 4 MG/ML INJ IV PRN ×2 (01:26→11:20)
[2017-12-18] MEDS: SODIUM CHLORIDE 0.9% 1000ML 1,000 ML IV SCH ×3 (05:35→21:05)
[2017-12-18 06:21] LABS: BASOPHILS % 1.4 % (0.0-1.0); EOSINOPHILS % 0.5 % (0.0-6.0); HEMATOCRIT 27.3 % (38.2-49.6); HEMOGLOBIN 8.8 g/dL (14.0-18.0); LYMPHOCYTES # (AUTO) 1.3 (1.0-3.2); LYMPHOCYTES % 56.3 % (18.0-39.1); MEAN CORPUSCULAR HEMOGLOBIN 28.7 pg (28-32); MEAN CORPUSCULAR HGB CONC 32.2 g/dL (31-35); MEAN CORPUSCULAR VOLUME 88.9 fL (81-99); MONOCYTES # (AUTO) 0.8 (0.2-0.8); MONOCYTES % 34.7 % (4.4-11.3); NEUTROPHILS # (AUTO) 0.2 (2.1-6.9); NEUTROPHILS % 6.6 % (38.7-80.0); PLATELET COUNT 219 x10e3/uL (140-360); RED BLOOD COUNT 3.07 x10e6/uL (4.3-5.7)
[2017-12-18] MEDS: FILGRASTIM 480 MCG/0.8 ML VIAL SC SCH (09:20)
[2017-12-18] MEDS: CEFEPIME HCL 1 GM VIAL IV SCH (09:20)
[2017-12-18 09:30] LABS: EOSINOPHILS % (MANUAL) 1 % (0-7); LYMPHOCYTES % (MANUAL) 60 % (19-48); MONOCYTES % (MANUAL) 31 % (3.4-9.0); NEUTROPHILS % (MANUAL) 6 % (40-74)
[2017-12-18 09:31] LABS: ANISOCYTOSIS SLIGHT; HYPOCHROMASIA SLIGHT; PLATELET ESTIMATE ADEQUATE; PLATELET MORPHOLOGY COMMENT NORMAL; RBC MORPHOLOGY COMMENT NORMAL
--- NOTE | 2017-12-18 09:44 | Progress Note ---
DATE: December 18, 2017 Mr. Omalley is a 62-year-old former smoker with history of small cell lung carcinoma, stage IV, undergoing his 4th round of chemotherapy. Apparently, he had some pleural effusion and pericardial effusion. He had a pericardial window done. He came to the emergency room complaining of fever, sore throat, mouth ulcers, and decreased white count. He has been seen by Dr. Vazquez, oncologist. We are going to request an infectious disease consult with Dr. Higgins. PHYSICAL EXAMINATION GENERAL: Today, he is awake and alert. He is feeling a little better. VITALS: He still has low-grade temp. Now it is 99.4. Blood pressure is 99/57. HEART: Regular rate. LUNGS: Poor inspiratory effort. ABDOMEN: Soft. LABS: On the blood work, potassium is 3.3, creatinine 0.96, glucose 110. White count is 2.22, hemoglobin 8.8, hematocrit 27.3. Influenza test was negative. Streptococcal test was negative. ADMITTING DIAGNOSES 1. Probably neutropenic sepsis. 2. History of small cell carcinoma of the lung, stage IV, on chemotherapy. 3. Former smoker. 4. Leukopenia. 5. Anemia. The plan at the present time is to continue to monitor for fever. Continue IV cefepime and vancomycin. Continue home medications. Follow up throat and blood culture results. All this was discussed with patient, and questions were answered to satisfaction. Job#: [id number]
--- NOTE | 2017-12-18 09:57 | Consultation ---
DATE OF CONSULTATION: December 17, 2017 Srinivasan Omalley is a 62-year-old white male who has been treated downtown for inoperable lung cancer. The last systemic chemotherapy he had was last Thursday. The patient presents with fever, fairly neutropenic with a white count of 1800. ANC less than 1000. Subsequently, referred to me for further evaluation and treatment. HISTORY OF PAST ILLNESSES: History of lung cancer, history of pleural effusion, history of pericardial effusion being treated with systemic chemotherapy. SOCIAL HISTORY: History of smoking. FAMILY HISTORY: Noncontributory. ALLERGIES: REPORTED NONE. MEDICATIONS: At this time: 1. Vancomycin. 2. Potassium. 3. Ondansetron. 4. Cefepime. 5. Morphine. REVIEW OF SYSTEMS HEENT: Normal. CARDIAC: History of pericardial effusion. RESPIRATORY: Inoperable nonsmall cell lung cancer as per history. I do not have the pathology at this institution. GI: Normal. : Normal. MUSCULOSKELETAL: Normal. SKIN AND BREASTS: Normal. NEUROENDOCRINE: Normal. PHYSICAL EXAMINATION GENERAL: A large-built male. No adenopathy. HEART: Within normal limits. LUNGS: A few rales at the right base. ABDOMEN: Obese. There is no hepatosplenomegaly. RECTAL: Exam deferred. CENTRAL NERVOUS SYSTEM: Essentially normal. EXTREMITIES: Essentially normal. LAB INVESTIGATIONS: Of interest shows a sodium of 135, potassium 2.9, chloride 95, CO2 29, BUN 10, creatinine 1.2, glucose 131. Total protein 6.2, albumin 2.5, globulin 3.5. CBC shows a hemoglobin of 9.6, hematocrit 29.6, white count 1800, and platelets are reported at 218,000 with 77% lymphocytes and 1% neutrophils. Absolute neutrophil count 0.1. Chest x-ray is reported with left central perihilar mass, 5.7 cm. Diffuse thickening of the pulmonary interstitium bilaterally. IMPRESSION 1. Neutropenia. 2. Anemia. 3. Hypokalemia. 4. Hypoproteinemia. 5. Hypoalbuminemia. 6. Urinary tract infection until proven otherwise. He has some bacteria in the urine. 7. Perihilar mass. 8. Pulmonary interstitial fibrosis. 9. History of congestive heart failure. 10. History of chronic obstructive pulmonary disease. 11. History of lung cancer. 12. History of malignant pleural effusion. 13. Hypocalcemia. PLAN, COMMENTS AND SUGGESTIONS: Suggest Neupogen. Suggest strict handwashing technique. Suggest antibiotics. Suggest potassium supplement. When stable, the patient will be discharged for his medical oncologist to take over. Thank you very much for allowing me to participate in the management of this patient. I will confine myself to hematology/oncology during this hospitalization only. Job#: [id number] RI cc:KURT AHUMADA MD
[2017-12-18] MEDS: ONDANSETRON HCL INJ 2 MG/ML VIAL IV PRN (11:20)
--- NOTE | 2017-12-18 15:34 | Consultation ---
DATE OF CONSULTATION: December 17, 2017 The patient was seen on 12/17/2017, and this was dictated the next day. The patient was seen and evaluated in the emergency room. He is a 62-year-old gentleman with history of smoking before and history of lung cancer, small cell stage IV. He is under chemotherapy. He is getting his 4th round of chemotherapy. The patient has a history of pericardial window because of effusion. Patient is followed by MD Lagunas. He is coming to us with shortness of breath, fever, chills and sore throat for 1 day, not feeling well. I did see the patient in the emergency room, contacted by the ER physician. Case was discussed. The patient was being admitted. Infectious disease was consulted. When I saw the patient, he was complaining of sore throat. PAST MEDICAL HISTORY: Lung cancer, stage IV, on chemotherapy. History of pleural effusion. History of pericardial effusion. PAST SURGICAL HISTORY: Bilateral total knee replacement, right knee surgery, cholecystectomy, appendectomy and hernia repair. ALLERGIES: HALDOL. SOCIAL HISTORY: There is no smoking, drug abuse or alcohol abuse. He quit smoking 15 months ago. REVIEW OF SYSTEMS HEENT: There is no headache, visual changes or hearing changes. The patient does have some sore throat he said. There is no pain in the neck. HEART: No arrhythmia. No chest pain. : There is no urgency, no frequency. SKIN: There is no rash, jaundice, swelling or erythema. NEURO: Nonfocal. PSYCH: No depression. OTHER: All other systems within normal limits. LABORATORY DATA: White count 1.8. Hemoglobin 9.6. Hematocrit of 29. Calcium of 8.21. Creatinine 1.2. His influenza screen and streptococcus screen were negative. Chest x-ray showed left central perihilar mass. MEDICATIONS: Reviewed. PHYSICAL EXAMINATION GENERAL: He is currently alert and oriented, does not seem to be in acute distress. VITALS: Stable. Afebrile. When he first came, had 101.0. HEENT: Normocephalic, not icteric. NECK: Supple. CHEST: Clear bilaterally. COR: S1 and S2, no murmur. ABDOMEN: Soft. Bowel sounds present. No tenderness. EXTREMITIES: No edema. IMPRESSION: Fever in a patient leukopenic with lung cancer. Concern about infection. Concern about pneumonia. Obtain blood cultures. Will start him on vancomycin 1 gram q.12 and cefepime 1 gram q.8. Recheck CBC. Recheck chem panel. Oncology consulted. Agree with IV fluids and supportive care. Will follow with you. YOLY CALDERON MD Job#: [id number]
[2017-12-18] MEDS: VANCOMYCIN 1GM/NS 250 ML 250 ML IV SCH (21:05)
[2017-12-19] VITALS: BP 109/60
[2017-12-19 04:00] VITALS: BP 102/55
[2017-12-19 06:14] LABS: BASOPHILS # (AUTO) 0.1 (0.0-0.1); BASOPHILS % 0.9 % (0.0-1.0); EOSINOPHILS % 0.1 % (0.0-6.0); HEMATOCRIT 29.4 % (38.2-49.6); HEMOGLOBIN 9.4 g/dL (14.0-18.0); LYMPHOCYTES # (AUTO) 1.7 (1.0-3.2); LYMPHOCYTES % 25.2 % (18.0-39.1); MEAN CORPUSCULAR HEMOGLOBIN 28.6 pg (28-32); MEAN CORPUSCULAR VOLUME 89.4 fL (81-99); MONOCYTES # (AUTO) 1.6 (0.2-0.8); MONOCYTES % 23.2 % (4.4-11.3); NEUTROPHILS # (AUTO) 3.2 (2.1-6.9); NEUTROPHILS % 48.4 % (38.7-80.0); PLATELET COUNT 228 x10e3/uL (140-360); RED BLOOD COUNT 3.29 x10e6/uL (4.3-5.7); RED CELL DISTRIBUTION WIDTH 17.5 % (11.7-14.4)
[2017-12-19 07:35] LABS: BAND NEUTROPHILS % (MANUAL) 12 %; LYMPHOCYTES % (MANUAL) 33 % (19-48); MONOCYTES % (MANUAL) 27 % (3.4-9.0); MYELOCYTES % (MANUAL) 1 % (0-0); NEUTROPHILS % (MANUAL) 25 % (40-74); NUCLEATED RED BLOOD CELLS 5; PLATELET ESTIMATE ADEQUATE; PLATELET MORPHOLOGY COMMENT NORMAL; RBC MORPHOLOGY COMMENT NORMAL
[2017-12-19 08:19] VITALS: BP 100/61
[2017-12-19 09:30] VITALS: BP 100/61
[2017-12-19] MEDS: FILGRASTIM 480 MCG/0.8 ML VIAL SC SCH (09:30)
[2017-12-19] MEDS: CEFEPIME HCL 1 GM VIAL IV SCH (09:30)
[2017-12-19] MEDS ORDERED: POTASSIUM CHLORIDE 20 MEQ TAB CR PO ONE (14:00)
[2017-12-19 15:09] LABS: ANION GAP 12.4 mmol/L (8-16); BLOOD UREA NITROGEN < 5 mg/dL (7-26); CALCIUM 8.4 mg/dL (8.4-10.2); CARBON DIOXIDE 25 mmol/L (22-29); CHLORIDE 106 mmol/L (98-107); CREATININE, SERUM 0.88 mg/dL (0.72-1.25); EST GLOMERULAR FILTRATION RATE > 60 ML/MIN (60-); GLUCOSE 95 mg/dL (74-118); POTASSIUM 3.4 mmol/L (3.5-5.1); SODIUM 140 mmol/L (136-145)
[2017-12-19 15:10] LABS: BUN/CREATININE RATIO 6 (6-25)
--- NOTE | 2017-12-19 15:33 | Progress Note ---
DATE: December 19, 2017 INTERNAL MEDICINE PROGRESS NOTE SUBJECTIVE: Patient is doing better today. PHYSICAL EXAM VITAL SIGNS: Blood pressure 100/61, temperature 99.3, heart rate 105 per minute, respiratory rate is 20 per minute, oxygen saturation 97%. HEART: Shows regular rhythm. Normal S1, S2 sounds. LUNGS: Clear bilaterally. ABDOMEN: Soft. EXTREMITIES: Show 1+ bilateral pedal edema. Blood Work: BMP shows sodium of 134, potassium 3.3, chloride 99, CO2 of 27, BUN 9, creatinine 0.96, glucose 110. On the CBC; white blood count 6.67, hemoglobin 9.4, hematocrit 29.4, platelet count 220,000. AST 18, ALT 13, total bilirubin 1.0, alkaline phosphatase 51. FINAL IMPRESSION 1. Neutropenic fever with hypokalemia. 2. Chronic obstructive pulmonary disease. 3. Anemia of chronic disease. 4. History of lung cancer. 5. Congestive heart failure. PLAN OF TREATMENT: Continue vancomycin 1 g IV once a day, Zofran 4 mg IV q.4 hours, cefepime 1 g daily, filgrastim which is Neupogen 480 mcg daily, morphine 4 mg IV q.4 hours as needed. I am going to discontinue the morphine. Dilaudid 1 mg IV q.3 hours as needed. Continue [place] 5/325 q.4 hours as needed. Discontinue IV fluids. Continue following blood culture and urine culture. Job#: [id number] RAISA
[2017-12-19] MEDS ORDERED: MAGNESIUM SULFATE 2GM/50ML 50 ML IV ONE ×3 (15:45→20:30)
[2017-12-19 17:07] VITALS: BP 101/57
[2017-12-19 20:00] VITALS: BP 102/56
[2017-12-19] MEDS: VANCOMYCIN 1GM/NS 250 ML 250 ML IV SCH (20:40)
[2017-12-20] VITALS (7 sets, daily range): BP systolic 97–115; BP diastolic 55–72
[2017-12-20] MEDS: HYDROCODONE/APAP 5MG-325MG TAB PO PRN (00:38)
[2017-12-20 06:26] LABS: BASOPHILS # (AUTO) 0.1 (0.0-0.1); BASOPHILS % 0.2 % (0.0-1.0); HEMATOCRIT 30.2 % (38.2-49.6); HEMOGLOBIN 9.6 g/dL (14.0-18.0); LYMPHOCYTES # (AUTO) 2.1 (1.0-3.2); LYMPHOCYTES % 10.2 % (18.0-39.1); MEAN CORPUSCULAR HEMOGLOBIN 28.8 pg (28-32); MEAN CORPUSCULAR HGB CONC 31.8 g/dL (31-35); MEAN CORPUSCULAR VOLUME 90.7 fL (81-99); MONOCYTES # (AUTO) 2.5 (0.2-0.8); MONOCYTES % 12.3 % (4.4-11.3); NEUTROPHILS # (AUTO) 13.3 (2.1-6.9); NEUTROPHILS % 65.3 % (38.7-80.0); PLATELET COUNT 228 x10e3/uL (140-360); RED BLOOD COUNT 3.33 x10e6/uL (4.3-5.7)
[2017-12-20 06:39] LABS: ANION GAP 10.5 mmol/L (8-16); BLOOD UREA NITROGEN < 5 mg/dL (7-26); CALCIUM 8.7 mg/dL (8.4-10.2); CARBON DIOXIDE 25 mmol/L (22-29); CHLORIDE 108 mmol/L (98-107); CREATININE, SERUM 0.82 mg/dL (0.72-1.25); EST GLOMERULAR FILTRATION RATE > 60 ML/MIN (60-); GLUCOSE 87 mg/dL (74-118); POTASSIUM 3.5 mmol/L (3.5-5.1); SODIUM 140 mmol/L (136-145)
[2017-12-20 06:42] LABS: BUN/CREATININE RATIO 6 (6-25)
[2017-12-20] MEDS: CEFEPIME HCL 1 GM VIAL IV SCH (10:00)
[2017-12-20 10:01] LABS: BAND NEUTROPHILS % (MANUAL) 18 %; LYMPHOCYTES % (MANUAL) 18 % (19-48); MONOCYTES % (MANUAL) 8 % (3.4-9.0); NEUTROPHILS % (MANUAL) 56 % (40-74); NUCLEATED RED BLOOD CELLS 3; PLATELET ESTIMATE ADEQUATE; RBC MORPHOLOGY COMMENT NORMAL
[2017-12-20] MEDS: SODIUM CHLORIDE 0.9% 1000ML 1,000 ML IV SCH (10:30)
--- NOTE | 2017-12-20 13:51 | Progress Note ---
DATE: December 20, 2017 INTERNAL MEDICINE PROGRESS NOTE SUBJECTIVE: Patient is doing better right now. White blood count is coming up. We are going to discontinue the reverse isolation. Patient is doing better. The magnesium was low. We replaced the magnesium . PHYSICAL EXAM VITAL SIGNS: Blood pressure 100/60, temperature 98 degrees, heart rate 99 per minute, respiratory rate 20 per minute, and ox saturation 94%. HEART: Regular rhythm. Normal S1, S2 sounds. LUNGS: Clear bilaterally. ABDOMEN: Soft. EXTREMITIES: Show no evidence of cyanosis, edema, or trauma. BLOOD WORK: On the BMP; sodium 140, potassium 3.5, chloride 108, CO2 25, BUN 5, creatinine 0.82, and glucose 87. On the CBC; white blood count 22.3, hemoglobin 9.6, hematocrit 30.2, and platelet count of 228,000. AST 18, ALT 13, total bilirubin 1.0, and alkaline phosphatase 51. FINAL IMPRESSION 1. Neutropenic fever. 2. Hypokalemia. 3. Chronic obstructive pulmonary disease. 4. Anemia of chronic disease. PLAN OF TREATMENT: Continue vancomycin 1 g IV once a day. Continue sodium chloride 50 mL per hour. Zofran 4 mg IV q.4 hours. Cefepime 1 g IV daily. We are going to discontinue Neupogen because the white blood count is extremely elevated. Discontinue reverse isolation. Continue [place] 1 tablet q.4 hours as needed and Dilaudid 1 mg IV q.3 hours. CBC tomorrow. Job#: [id number] GERARDO
[2017-12-20] MEDS: VANCOMYCIN 1GM/NS 250 ML 250 ML IV SCH (20:22)
[2017-12-21] VITALS: BP 115/59
[2017-12-21 04:00] VITALS: BP 118/58
[2017-12-21 06:15] LABS: BASOPHILS # (AUTO) 0.1 (0.0-0.1); BASOPHILS % 0.6 % (0.0-1.0); EOSINOPHILS % 0.1 % (0.0-6.0); HEMATOCRIT 29.6 % (38.2-49.6); HEMOGLOBIN 9.3 g/dL (14.0-18.0); LYMPHOCYTES # (AUTO) 2.2 (1.0-3.2); LYMPHOCYTES % 17.5 % (18.0-39.1); MEAN CORPUSCULAR HEMOGLOBIN 28.6 pg (28-32); MEAN CORPUSCULAR HGB CONC 31.4 g/dL (31-35); MEAN CORPUSCULAR VOLUME 91.1 fL (81-99); MONOCYTES # (AUTO) 2.1 (0.2-0.8); MONOCYTES % 16.4 % (4.4-11.3); NEUTROPHILS # (AUTO) 6.7 (2.1-6.9); NEUTROPHILS % 53.9 % (38.7-80.0); PLATELET COUNT 227 x10e3/uL (140-360); RED BLOOD COUNT 3.25 x10e6/uL (4.3-5.7)
[2017-12-21 08:03] VITALS: BP 116/69
[2017-12-21 08:40] VITALS: BP 116/69
[2017-12-21] MEDS: CEFEPIME HCL 1 GM VIAL IV SCH (08:40)
[2017-12-21] MEDS: HYDROCODONE/APAP 5MG-325MG TAB PO PRN (08:40)
--- NOTE | 2017-12-21 09:18 | Discharge Summary ---
Mr. Omalley is a 62-year-old former smoker with stage-IV small cell carcinoma of the lung undergoing his 4th round of chemotherapy. He came to the emergency room complaining of fever, sore throat and decreased white count. He was started on Neupogen, and the white count went up. Infectious disease and oncology are following the patient with us. If the patient gets cleared, he is going to be able to go home today. On physical examination, he is awake and alert. Temperature is 97. Blood pressure 116/69. The heart is regular rate. Lungs have poor inspiratory effort. Abdomen is soft. On the blood work, potassium is 3.5, creatinine 0.82, glucose 87, white count 12.4, hemoglobin 9.3, hematocrit 29.6. Blood culture and throat cultures came back negative. Chest x-ray shows the left central perihilar mass and right IJ chest port. DISCHARGE DIAGNOSES 1. Neutropenic sepsis. 2. Small cell carcinoma of the lung, stage IV, on chemotherapy. 3. Former smoker. 4. Leukopenia, improving. 5. Anemia. The plan at the present time is, if the patient gets cleared by the oncologist, he may go home on p.o. antibiotics. He has to follow up with his oncologist sometime this week. Please see home medication reconciliation list. All of this was discussed with the patient, and all questions were answered to satisfaction. KURT AHUMADA MD Job#: [id number]
[2017-12-21] MEDS: SODIUM CHLORIDE 0.9% 1000ML 1,000 ML IV SCH (10:30)
[2017-12-21 11:58] VITALS: BP 100/58
[2017-12-21 12:52] LABS: BAND NEUTROPHILS % (MANUAL) 7 %; LYMPHOCYTES % (MANUAL) 21 % (19-48); METAMYELOCYTES % (MANUAL) 1 % (0-0); MONOCYTES % (MANUAL) 15 % (3.4-9.0); MYELOCYTES % (MANUAL) 1 % (0-0); NEUTROPHILS % (MANUAL) 55 % (40-74)
[2017-12-21 12:53] LABS: PLATELET ESTIMATE ADEQUATE
[2017-12-21 16:30] VITALS: BP 108/63
[2017-12-21] MEDS ORDERED: HEPARIN 500 UNITS/5ML MDV INJ ONE (17:30)
== END 2017-12-21 17:23 | disposition home or self-care (01) | DRG 872 ==
LOC: ER 18:12 → OBSVTOIN 20:20 → ERHOLD 20:20 → MED/SURG 12-17 14:47
PROVIDERS: ADMIT Internal Medicine; ATTEND Internal Medicine
DX: A41.9 Sepsis, unspecified organism (principal); N39.0 Urinary tract infection, site not specified; C34.02 Malignant neoplasm of left main bronchus; R50.81 Fever presenting with conditions classified elsewhere; Z87.891 Personal history of nicotine dependence; E87.6 Hypokalemia; E77.8 Other disorders of glycoprotein metabolism; E88.09 Other disorders of plasma-protein metabolism, not elsewhere classified; J84.10 Pulmonary fibrosis, unspecified; I50.9 Heart failure, unspecified; E83.51 Hypocalcemia; J44.9 Chronic obstructive pulmonary disease, unspecified; D70.3 Neutropenia due to infection; D70.1 Agranulocytosis secondary to cancer chemotherapy; R53.81 Other malaise
CPT/HCPCS: 36415; 71045; 80048; 80053; 81001; 82550; 82553; 83518; 83605; 83735; 84484; 85025; 87040; 87070; 87400; 93005; 96367; 96374; 99285; J0692; J1442; J1940; J2270; J2405; J3370; J3475; J3480; J7030

== ENCOUNTER 2018-03-23 18:28 | Observation (INO) | payer OTHER ==
[~2018-03-23] VITALS: Ht 177.8 cm; Wt 95.3 kg
[2018-03-23] MEDS ORDERED: SODIUM CHLORIDE 0.9% 1000ML 1,000 ML IV ONE ×2 (20:45→23:00)
[2018-03-23] MEDS ORDERED: ONDANSETRON HCL INJ 2MG/ML 2ML 2 MG/ML VIAL IV NR (21:00)
[2018-03-23 21:17] LABS: BASOPHILS % 0.5 % (0.0-1.0); EOSINOPHILS # (AUTO) 0.1 (0.0-0.4); EOSINOPHILS % 1.3 % (0.0-6.0); HEMATOCRIT 43.6 % (38.2-49.6); HEMOGLOBIN 13.5 g/dL (14.0-18.0); LYMPHOCYTES # (AUTO) 1.6 (1.0-3.2); LYMPHOCYTES % 18.8 % (18.0-39.1); MEAN CORPUSCULAR HEMOGLOBIN 27.4 pg (28-32); MEAN CORPUSCULAR VOLUME 88.6 fL (81-99); MONOCYTES # (AUTO) 0.5 (0.2-0.8); MONOCYTES % 6.2 % (4.4-11.3); NEUTROPHILS # (AUTO) 6.4 (2.1-6.9); NEUTROPHILS % 72.9 % (38.7-80.0); PLATELET COUNT 384 x10e3/uL (140-360); RED BLOOD COUNT 4.92 x10e6/uL (4.3-5.7); RED CELL DISTRIBUTION WIDTH 15.3 % (11.7-14.4)
[2018-03-23 21:35] LABS: ALANINE AMINOTRANSFERASE 6 IU/L (0-55); ALBUMIN 3.2 g/dL (3.5-5.0); ALBUMIN/GLOBULIN RATIO 0.6 (0.8-2.0); ALKALINE PHOSPHATASE 71 IU/L (40-150); ANION GAP 16.1 mmol/L (8-16); BLOOD UREA NITROGEN 10 mg/dL (7-26); BUN/CREATININE RATIO 10 (6-25); CALCIUM 9.8 mg/dL (8.4-10.2); CARBON DIOXIDE 25 mmol/L (22-29); CHLORIDE 101 mmol/L (98-107); CREATINE KINASE 62 IU/L (30-200); CREATININE, SERUM 1.02 mg/dL (0.72-1.25); EST GLOMERULAR FILTRATION RATE > 60 ML/MIN (60-); GLUCOSE 112 mg/dL (74-118); POTASSIUM 4.1 mmol/L (3.5-5.1); SODIUM 138 mmol/L (136-145)
[2018-03-23 21:46] LABS: AMYLASE 66 U/L (25-125); LIPASE 21 U/L (8-78)
--- NOTE | 2018-03-23 22:56 | Diagnostic Imaging Report ---
EXAM: CT ABDOMEN/PELVIS W DATE: 03/23/2018 8:34 PM INDICATION: Abdominal pain, known lung cancer COMPARISON: Prior chest CT from 09/04/2017 TECHNIQUE: The abdomen and pelvis were scanned using a multidetector helical scanner. Coronal and sagittal reformations were obtained. CT low dose techniques were utilized, as applicable. IV Contrast: 100 ml Isovue 300/370 FINDINGS: LOWER THORAX: Emphysema with underlying scarring/fibrosis. Partially imaged mass along the medial anterior left upper lobe/mediastinum likely corresponding to known malignancy. Small left pleural effusion and/or thickening as seen on prior chest CT. LIVER/BILIARY: No masses. No ductal dilatation. GALLBLADDER: Surgically absent SPLEEN: Unremarkable PANCREAS: Unremarkable ADRENALS: Stable right adrenal dominant 1.9 cm nodule and left adrenal nodularity over multiple priors. KIDNEYS: No suspicious renal masses. No hydronephrosis. GI TRACT: Appendectomy. There is mild rectal wall thickening and hyperemia. No bowel obstruction. VESSELS: Severe atherosclerotic changes with borderline ectasia of the infrarenal abdominal aorta at 2.5 cm PERITONEUM/RETROPERITONEUM: No free air or fluid LYMPH NODES: No lymphadenopathy REPRODUCTIVE ORGANS/BLADDER: Nonspecific mild circumferential bladder wall thickening. SOFT TISSUES: Postsurgical changes likely related to prior ventral hernia repair BONES: No suspicious bone lesions. IMPRESSION: Findings which can be seen with proctitis. Signed by: Dr Adia Lopez MD on 03/23/2018 10:53 PM
[2018-03-23 23:28] LABS: BILIRUBIN,URINE NEGATIVE (NEGATIVE); CLARITY,URINE CLEAR (CLEAR); COLOR,URINE YELLOW (YELLOW); KETONES,URINE NEGATIVE (NEGATIVE); LEUKOCYTE ESTERASE ,URINE NEGATIVE (NEGATIVE); NITRITE,URINE NEGATIVE (NEGATIVE); PROTEIN,URINE DIPSTICK 1+ (NEGATIVE); URINE UROBILINOGEN 0.2 mg/dL (0.2 - 1)
[2018-03-23 23:36] LABS: BACTERIA,URINE RARE /HPF; EPITHELIAL CELLS,URINE RARE /LPF; MUCUS,URINE MANY (RARE); RBC,URINE 0-5 /HPF (0-5); WBC,URINE (MAN) 0-5 /HPF (0-5)
[2018-03-24] VITALS (9 sets, daily range): BP systolic 106–133; BP diastolic 60–71
[2018-03-24] MEDS ORDERED: ACETAMINOPHEN 325 MG TAB PO PRN
[2018-03-24] MEDS ORDERED: HYDROMORPHONE 1MG/1ML INJ IV PRN
[2018-03-24] MEDS: SODIUM CHLORIDE 0.9% 1000ML 1,000 ML IV SCH ×4 (01:11→23:42)
[2018-03-24] MEDS: LEVOFLOXACIN 500MG/D5W 100ML 100 ML IV SCH (01:11)
[2018-03-24] MEDS ORDERED: HYDROMORPHONE 2MG/ML 2 MG/ML ML ONE (01:48)
[2018-03-24] MEDS: ONDANSETRON HCL INJ 2MG/ML 2ML 2 MG/ML VIAL IV PRN ×5 (02:04→20:30)
--- NOTE | 2018-03-24 02:20 | NUR ---
PT ARRIVED TO THE UNIT FROM ER IN A STRETCHER WITH C/O VOMITING,DEHYDRATION AFTER RADIATION THERAPY.ASSESSMENT DONE.NO RESP.DISTRESS.GENERALIZED PAIN VOICED /10.PT IS ON O2 3L NC.AAOX3.IV NS CONNECTED TO LAC #20.SCD APPLIED.BED LOCKED AND IN LOWEST POSITION.PHONE NAD CALL LIGHT WITHIN REACH.INSTRUCTED TO CALL FOR ASISTANCE NEEDED.GETTING NEB.TREATMENT.
[2018-03-24] MEDS: ALBUTEROL/IPRATROPIUM 3 ML NEB NEB SCH ×6 (03:25→23:50)
[2018-03-24] MEDS: METRONIDAZOLE 500MG/NS 100ML 100 ML IV SCH ×5 (04:54→23:30)
[2018-03-24] MEDS ORDERED: IOPAMIDOL 370 MG/ML 200 ML INFUS..BTL INJ ONE (05:04)
[2018-03-24] MEDS ORDERED: SODIUM CHLORIDE 0.9% 50ML 50 ML ONE (05:04)
[2018-03-24] MEDS: HYDROMORPHONE 2MG/ML 2 MG/ML ML IV PRN ×2 (05:15→09:00)
--- NOTE | 2018-03-24 06:50 | NUR ---
REPORT GIVEN TO THE ONCOMING RN.WALKING ROUNDS DONE.STABLE CONDITION.
--- NOTE | 2018-03-24 07:30 | NUR ---
Rcvd patient in report this am. Patient is asleep in bed at this time. No s/s of distress noted
[2018-03-24 07:50] LABS: BASOPHILS % 0.6 % (0.0-1.0); EOSINOPHILS # (AUTO) 0.1 (0.0-0.4); EOSINOPHILS % 0.7 % (0.0-6.0); HEMATOCRIT 36.8 % (38.2-49.6); HEMOGLOBIN 11.5 g/dL (14.0-18.0); LYMPHOCYTES # (AUTO) 1.5 (1.0-3.2); LYMPHOCYTES % 21.8 % (18.0-39.1); MEAN CORPUSCULAR HEMOGLOBIN 27.4 pg (28-32); MEAN CORPUSCULAR HGB CONC 31.3 g/dL (31-35); MEAN CORPUSCULAR VOLUME 87.8 fL (81-99); MONOCYTES # (AUTO) 0.5 (0.2-0.8); MONOCYTES % 7.7 % (4.4-11.3); NEUTROPHILS # (AUTO) 4.7 (2.1-6.9); NEUTROPHILS % 68.8 % (38.7-80.0); PLATELET COUNT 314 x10e3/uL (140-360); RED BLOOD COUNT 4.19 x10e6/uL (4.3-5.7); RED CELL DISTRIBUTION WIDTH 15.6 % (11.7-14.4)
[2018-03-24 08:05] LABS: ALANINE AMINOTRANSFERASE 6 IU/L (0-55); ALBUMIN 2.7 g/dL (3.5-5.0); ALBUMIN/GLOBULIN RATIO 0.6 (0.8-2.0); ALKALINE PHOSPHATASE 60 IU/L (40-150); ANION GAP 13.7 mmol/L (8-16); BLOOD UREA NITROGEN 9 mg/dL (7-26); BUN/CREATININE RATIO 9 (6-25); CALCIUM 8.8 mg/dL (8.4-10.2); CARBON DIOXIDE 22 mmol/L (22-29); CHLORIDE 103 mmol/L (98-107); EST GLOMERULAR FILTRATION RATE > 60 ML/MIN (60-); GLUCOSE 109 mg/dL (74-118); POTASSIUM 3.7 mmol/L (3.5-5.1); SODIUM 135 mmol/L (136-145)
[2018-03-24] MEDS ORDERED: DOCUSATE SODIUM 100 MG CAP PO PRN (09:00)
[2018-03-24] MEDS ORDERED: HYDRALAZINE HCL 20 MG/ML VIAL IV PRN (09:00)
[2018-03-24] MEDS ORDERED: POTASSIUM CHLORIDE 20 MEQ TAB CR PO SCH (09:00)
[2018-03-24] MEDS ORDERED: HYDROCODONE/APAP 5MG-325MG TAB PO PRN (09:00)
[2018-03-24] MEDS ORDERED: OXYCODONE HCL 20 MG TAB CR PO PRN (10:15)
[2018-03-24] MEDS ORDERED: ALBUTEROL/IPRATROPIUM 3 ML NEB NEB PRN (11:00)
--- NOTE | 2018-03-24 11:24 | History and Physical ---
CHIEF COMPLAINT: Nausea, vomiting and diarrhea. HPI: This is a 62-year-old male with known stage-IV lung cancer, nonsmall cell, being treated by his oncologist, Dr. Azul in the [facility], COPD, chronic smoker, who came into the ED with complaints of underlying nausea, vomiting and dehydration and underlying diarrhea ongoing for the last several days at home. The patient denies any chest pain or any palpitations. The patient reports having a recent colonoscopy about a month ago, found to be normal. Here, imaging studies were consistent with enteritis and proctitis. He denies any fever at home. No chest pain and no palpitations. The patient was seen and evaluated at bedside on the medical floor. Currently, he is doing well with no other issues at this time. REVIEW OF SYSTEMS Pertinent positives: Nausea, vomiting, diarrhea, abdominal pain. Pertinent negatives: Denies any chest pain, palpitations, dysuria, hematuria, frequency, urgency, lightheadedness, dizziness, headache, shortness of breath, cough, congestion, fever, or any other complaints. The rest of the 14-point review of systems have been reviewed with the patient and are negative. ALLERGIES: HALDOL. HOME MEDICATIONS 1. Aspirin 81 mg daily. 2. Lasix 40 mg a day. 3. Hydrochlorothiazide 25 mg a day. 4. Metolazone 2.5 mg daily. 5. Oxycodone 30 mg every 4 hours as needed for pain. 6. Tessalon Perles 100 mg p.o. t.i.d. p.r.n. 7. Zofran. 8. Advair. 9. Folic acid. 10. Gabapentin. 11. Metoprolol 12.5 mg p.o. b.i.d. PAST MEDICAL HISTORY: Stage-IV lung cancer with metastases, hypertension, chronic pain, COPD, chronic smoker. SURGICAL HISTORY: Reports none. FAMILY HISTORY: Hypertension and diabetes. SOCIAL HISTORY: No drugs. No alcohol. Is a former smoker. . VITAL SIGNS: Temperature 98.1, pulse 102, respiratory rate 18, blood pressure 133/64. Pulse ox 98% on 4 L nasal cannula, which he is on chronically. LAB FINDINGS: White count 6.7, hemoglobin 11.5, hematocrit 37, platelets 214. Chemistries: Sodium 135, potassium 3.7, chloride 103, bicarb 22, anion gap 13, BUN 9, creatinine 1, albumin 2.7, lipase 21. Troponins were negative. Urinalysis was negative. MICROBIOLOGY: None. IMAGING STUDIES: CT abdomen and pelvis shows evidence of proctitis. He does have a mass in the anterior upper lobe of the mediastinum which is currently on treatment with radiation. PHYSICAL EXAMINATION GENERAL: No acute distress. Alert and oriented x3. Cooperative on examination. HEENT: Head is normocephalic and atraumatic. Eyes: Pupils are equal and reactive to light bilaterally. Extraocular movements are intact bilaterally. NECK: Supple. Good range of motion. Throat with no evidence of any erythema or exudates in the posterior pharynx. Has poor dentition. PULMONARY: Clear to auscultation bilaterally. No wheezing. No rales. No rhonchi. No crackles appreciated. CARDIOVASCULAR: Positive S1, S2. No murmurs, rubs, or gallops appreciated. ABDOMEN: Soft, nondistended, and nontender to palpation. Bowel sounds are present. MUSCULOSKELETAL: Strength is 5/5 throughout. No evidence of any musculoskeletal deficit on examination. No weakness appreciated. NEUROLOGICAL: Cranial nerves II through XII are grossly intact. No evidence of any neurological deficits on exam. SKIN: Intact. Warm to touch. Good cap refill. PSYCHIATRIC: Normal affect and mood. EXTREMITIES: No edema. Good range of motion throughout. IMPRESSION 1. Abdominal pain with nausea, vomiting, and dehydration. 2. Sigmoid proctitis. 3. Stage-IV lung cancer. 4. Decreased oral intake. 5. Chronic obstructive pulmonary disease. 6. Hypertension. PLAN: At this time, continue with IV antibiotics. Start on clear liquid diet and advance as tolerated. Continue with IV antibiotics for the proctitis. Convert his pain medicines to what he takes at home. We are going to resume his pain meds and antihypertensive medications. Continue with Advair due to his COPD. We are going to get a.m. labs. Put him on neb treatments. He will be on Lovenox for DVT prophylaxis. Otherwise, we will continue the same plan of care and monitor closely. Job#: [id number]
--- NOTE | 2018-03-24 12:00 | NUR ---
Patient is AAOx3. Patient lung bland diminished to auscultation with some wheezing noted. No shortness of breath noted on exertion. Bowel sounds present x4. Patient c/o generalized pain all over. PRN pain meds given. Patient ambulates on his own. Left AC IV in place with IV fluids infusing. Patient not tolerating clear liquids at this time.
[2018-03-24] MEDS: FOLIC ACID 1 MG TAB PO SCH (12:18)
[2018-03-24] MEDS: GABAPENTIN 300 MG CAP PO SCH ×3 (12:18→20:34)
[2018-03-24] MEDS: METOPROLOL TARTRATE 25 MG TAB PO SCH ×2 (12:18→16:20)
[2018-03-24] MEDS: GUAIFENESIN 600MG/DEXTROMETHORPHAN 30MG TABSR PO SCH ×2 (12:19→20:34)
[2018-03-24] MEDS: OXYCODONE HCL IR 5 MG TAB PO PRN ×2 (12:31→20:30)
[2018-03-24] MEDS: ENOXAPARIN SOD INJ 40 MG/0.4 ML SYR SC SCH (16:20)
[2018-03-24] MEDS: SALMETEROL/FLUTICASONE 250/50 INH SCH ×2 (17:07→19:50)
--- NOTE | 2018-03-24 19:10 | NUR ---
REPORT TAKEN FROM AM RN.WALKING ROUNDS DONE.RESTING IN THE BED.STABLE CONDITION.
--- NOTE | 2018-03-24 21:45 | NUR ---
ASSESSMENT DONE.NO RESP.DISTRESS.AMBULATES .PAIN VOICED 10/02.PAIN MEDICATION GIVEN.VOIDED.BED LOCKED AND IN LOWEST POSITION.PHONE AND CALL LIGHT WITHIN REACH.INSTRUCTED TO CALL FOR ASSISTANCE NEEDED.
[2018-03-25] VITALS: BP 100/47
[2018-03-25] MEDS: LEVOFLOXACIN 500MG/D5W 100ML 100 ML IV SCH (00:32)
[2018-03-25] MEDS: ALBUTEROL/IPRATROPIUM 3 ML NEB NEB SCH ×4 (03:00→15:48)
[2018-03-25] MEDS: ONDANSETRON HCL INJ 2MG/ML 2ML 2 MG/ML VIAL IV PRN (03:20)
[2018-03-25] MEDS: OXYCODONE HCL IR 5 MG TAB PO PRN ×2 (03:22→10:16)
[2018-03-25 04:00] VITALS: BP 104/55
[2018-03-25 05:21] LABS: BASOPHILS % 0.3 % (0.0-1.0); EOSINOPHILS # (AUTO) 0.1 (0.0-0.4); EOSINOPHILS % 1.4 % (0.0-6.0); HEMATOCRIT 34.4 % (38.2-49.6); HEMOGLOBIN 10.6 g/dL (14.0-18.0); LYMPHOCYTES # (AUTO) 1.2 (1.0-3.2); LYMPHOCYTES % 18.4 % (18.0-39.1); MEAN CORPUSCULAR HEMOGLOBIN 27.3 pg (28-32); MEAN CORPUSCULAR HGB CONC 30.8 g/dL (31-35); MEAN CORPUSCULAR VOLUME 88.7 fL (81-99); MONOCYTES # (AUTO) 0.6 (0.2-0.8); MONOCYTES % 9.8 % (4.4-11.3); NEUTROPHILS # (AUTO) 4.3 (2.1-6.9); NEUTROPHILS % 69.3 % (38.7-80.0); PLATELET COUNT 274 x10e3/uL (140-360); RED BLOOD COUNT 3.88 x10e6/uL (4.3-5.7); RED CELL DISTRIBUTION WIDTH 15.8 % (11.7-14.4)
[2018-03-25] MEDS: METRONIDAZOLE 500MG/NS 100ML 100 ML IV SCH ×3 (05:28→17:34)
[2018-03-25 05:42] LABS: ANION GAP 11.5 mmol/L (8-16); BLOOD UREA NITROGEN 11 mg/dL (7-26); BUN/CREATININE RATIO 11 (6-25); CALCIUM 8.4 mg/dL (8.4-10.2); CARBON DIOXIDE 23 mmol/L (22-29); CHLORIDE 104 mmol/L (98-107); CREATININE, SERUM 1.04 mg/dL (0.72-1.25); EST GLOMERULAR FILTRATION RATE > 60 ML/MIN (60-); GLUCOSE 106 mg/dL (74-118); POTASSIUM 3.5 mmol/L (3.5-5.1); SODIUM 135 mmol/L (136-145)
--- NOTE | 2018-03-25 06:50 | NUR ---
Report given to the oncoming rn.walking rounds done.stable condition.
--- NOTE | 2018-03-25 07:12 | NUR ---
Rcvd patient in report this am. Patient is asleep in bed at this time. No s/s of distress noted
[2018-03-25] MEDS: SALMETEROL/FLUTICASONE 250/50 INH SCH (07:29)
[2018-03-25 07:50] VITALS: BP 104/58
[2018-03-25] MEDS: SODIUM CHLORIDE 0.9% 1000ML 1,000 ML IV SCH ×2 (07:58→15:19)
[2018-03-25] MEDS: METOPROLOL TARTRATE 25 MG TAB PO SCH ×2 (08:17→17:31)
[2018-03-25] MEDS: FOLIC ACID 1 MG TAB PO SCH (08:17)
[2018-03-25] MEDS: GUAIFENESIN 600MG/DEXTROMETHORPHAN 30MG TABSR PO SCH (08:17)
[2018-03-25] MEDS: GABAPENTIN 300 MG CAP PO SCH ×2 (08:17→15:16)
[2018-03-25] MEDS ORDERED: POTASSIUM CHLORIDE 10MEQ EA PO SCH (09:00)
--- NOTE | 2018-03-25 09:15 | NUR ---
Pt. expressed no spiritual or emotional concerns at this time. Provided hospitality and information on how to contact laundry machine tender, if needed. BLANCO NAYAK Claims Correspondence Clerk Spiritual Care Department O: [phone] Pager: [phone] ([phone] number calling from)
[2018-03-25 12:16] VITALS: BP 99/55
[2018-03-25 14:38] VITALS: BP 99/55
--- NOTE | 2018-03-25 16:13 | NUR ---
IV removed from left AC at this time. Pressure dressing applied. Tip intact
[2018-03-25 16:14] VITALS: BP 105/53
--- NOTE | 2018-03-25 16:26 | Discharge Summary ---
FINAL DISCHARGE DIAGNOSES 1. Abdominal pain with associated nausea, vomiting and dehydration, all resolved. 2. Sigmoid proctitis. 3. Stage-IV lung cancer on chemotherapy and radiation as an outpatient. 4. Decreased oral intake, resolved. 5. Chronic obstructive pulmonary disease. 6. Hypertension. SECOND BAKER: None. VITAL SIGNS: Temperature 97.8, pulse 111, respiratory rate 18, blood pressure 104/58, pulse ox 96%. He is on 3 liters nasal cannula chronically. LAB FINDINGS: White count 6.2, hemoglobin 10.6, hematocrit 34, platelets 274. Chemistries: Sodium 135, potassium 3.5, chloride 104, bicarb 23, anion gap 11, BUN 11, creatinine 1, calcium 8.4, lipase 21. Urinalysis was negative. MICROBIOLOGY: None. IMAGING STUDIES: CT abdomen and pelvis showed evidence of proctitis. HOSPITAL COURSE: This is a 62-year-old male with known stage-IV lung cancer on chemo and radiation as an outpatient with an oncologist [facility]. He comes in with complaints of abdominal pain, nausea, vomiting, and decreased oral intake. Patient was also found to be dehydrated. Patient was given IV fluids and started on a clear liquid diet, advanced as tolerated. Patient was also given antinausea medication, and he improved throughout the hospital course. Imaging studies were consistent with proctitis. He was started on IV antibiotics. The patient will be discharged on oral Cipro and Flagyl. On discharge, patient was doing well and back to normal baseline. He was tolerating a regular diet well. On the day of discharge, vital signs were stable. Labs were reviewed and stable. The patient was seen and evaluated and examined thoroughly on the day of discharge. No new complaints. Patient verbalized an understanding and agreed with the plan of care to follow up accordingly as an outpatient with primary care physician in 1 week and with his oncologist in 1 week's time. MEDICATIONS: See med reconciliation form. DISPOSITION: To home. CONDITION: Stable. DIET: Heart healthy. In the event of any worsening symptoms, the patient was advised to come back to the ED for further evaluation. Discharge summary took greater than 35 minutes. BOAZ PATEL MD Job#: [id number] MH
[2018-03-25] MEDS: ENOXAPARIN SOD INJ 40 MG/0.4 ML SYR SC SCH (17:30)
--- NOTE | 2018-03-25 17:58 | NUR ---
Patient discharged from facility to home. Patient assisted out via staff. Reviewed all discharge paperwork, follow up appts and RX's given.
== END 2018-03-25 17:59 | disposition home or self-care (01) ==
LOC: ER 18:28 → INTOOBSV 03-24 00:02 → ERHOLD 03-24 00:02 → MED/SURG 03-24 02:16
PROVIDERS: ADMIT Internal Medicine; ATTEND Internal Medicine
DX: E86.0 Dehydration (principal); K62.89 Other specified diseases of anus and rectum; C34.12 Malignant neoplasm of upper lobe, left bronchus or lung; C78.1 Secondary malignant neoplasm of mediastinum; J44.9 Chronic obstructive pulmonary disease, unspecified; I10 Essential (primary) hypertension; Z87.891 Personal history of nicotine dependence
CPT/HCPCS: 36415 ×3; 74177; 80048; 80053 ×2; 81001; 82150; 82550; 82553; 83690; 84484; 85025 ×3; 93005; 94640 ×4; 94664; 99284; G0378 ×2; J1170; J1650 ×2; J1956; J2405 ×3; J7030 ×2; Q9967

== ENCOUNTER 2018-05-05 18:50 | Emergency (ER) | payer OTHER ==
[~2018-05-05] VITALS: Ht 177.8 cm; Wt 95.3 kg
--- OUTSIDE RECORDS SUMMARY | 2018-05-05 18:56 | XMS REPORT | Clinical Summary ---
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 Active gabapentin (NEURONTIN) Take 1 0 300 MG capsule capsule (300 8 mg total) by mouth 3 (three) times daily. Active folic acid (FOLVITE) 1 MG Take 1 mg by 0 tabletIndications: folate mouth daily. deficiency Active fluticasone-salmeterol Inhale 1 puff 0 (ADVAIR DISKUS) 250-50 by mouth via mcg/dose diskus inhaler inhaler daily. Active potassium chloride SA Take 20 mEq 0 (K-DUR,KLOR-CON) 20 MEQ by mouth tablet daily. Active albuterol (PROVENTIL) 2.5 USE 1 UNIT 2 mg /3 mL (0.083 %) DOSE VIA 8 nebulizer solution NEBULIZER EVERY 6 HOURS Active benzonatate (TESSALON) Take 100 mg 0 100 MG capsule by mouth 8 every 8 (eight) hours. Active furosemide (LASIX) 40 MG Take 40 mg by 1 tablet mouth as 8 directed. Active hydroCHLOROthiazide Take 25 mg by 5 (HYDRODIURIL) 25 MG mouth daily. 8 tablet 01/23/2019 Active enoxaparin (LOVENOX) 80 Inject 0.8 48 mL 11 mg/0.8 mL Syrg mLs (80 mg 8 total) subcutaneousl y every 12 (twelve) hours. 01/23/2018 Discontinued aspirin 81 MG EC tablet Take 81 mg by 0 mouth daily. 07/22/2017 Discontinued HYDROcodone-acetaminophen Take 1 tablet 0 (NORCO 7.5-325) 7.5-325 by mouth mg per tablet every 6 (six) hours as needed for Pain. 08/14/2017 tiotropium (SPIRIVA) 18 Inhale 1 30 capsule 2 mcg inhalation capsule capsule (18 7 mcg total) by mouth via inhaler daily. 08/14/2017 albuterol HFA (VENTOLIN Inhale 1 puff 1 Inhaler 0 HFA) 90 mcg/actuation by mouth via 7 inhaler inhaler every 6 (six) hours as needed for Wheezing. 08/15/2017 fluticasone-salmeterol Inhale 1 puff 1 Inhaler 3 (ADVAIR) 250-50 mcg/dose by mouth via 7 diskus inhaler inhaler 2 (two) times daily. 07/27/2017 nitrofurantoin, Take 1 10 capsule 0 macrocrystal-monohydrate, capsule (100 8 (MACROBID) 100 MG capsule mg total) by mouth every 12 (twelve) hours for 5 days. 01/17/2018 Discontinued dexamethasone (DECADRON) Take 4 mg by 2 4 MG tablet mouth 2 (two) 8 times daily. 01/17/2018 Discontinued metOLazone (ZAROXOLYN) Take 2.5 mg 1 2.5 MG tablet by mouth 8 daily. 01/17/2018 Discontinued acetaminophen (TYLENOL) Take 2 30 tablet 0 325 MG tablet tablets (650 8 mg total) by mouth every 6 (six) hours as needed for up to 360 days. 12/16/2017 docusate sodium (COLACE) Take 1 10 capsule 0 100 MG capsule capsule (100 8 mg total) by mouth 2 (two) times daily for 10 days. 12/12/2017 levoFLOXacin (LEVAQUIN) Take 1 tablet 5 tablet 0 750 MG tablet (750 mg 8 total) by mouth daily for 5 days. 01/17/2018 Discontinued pantoprazole (PROTONIX) Take 1 tablet 30 tablet 0 40 MG tablet (40 mg total) 8 by mouth daily. 01/14/2018 levoFLOXacin (LEVAQUIN) Take 1 tablet 5 tablet 0 500 MG tablet (500 mg 8 total) by mouth daily for 5 days. Active Problems Problem Noted Date Chest pain, rule out acute myocardial infarction 02/07/2018 Other acute pulmonary embolism without acute cor pulmonale 01/17/2018 Pneumonia 01/04/2018 Dyspnea and respiratory abnormality 11/27/2017 Neutropenic fever 11/27/2017 Anemia 11/27/2017 Severe sepsis(995.92) 10/04/2016 COPD (chronic obstructive pulmonary disease) 08/14/2016 Metastatic lung carcinoma 08/13/2016 Resolved Problems Problem Noted Date Resolved Date Appendicitis 07/19/2017 11/27/2017 Acute appendicitis with generalized peritonitis 07/19/2017 11/27/2017 Colitis 07/18/2017 11/27/2017 Neutropenic fever, enteritis 10/04/2016 11/27/2017 Enteritis 10/04/2016 11/27/2017 Sinus tachycardia 10/04/2016 11/27/2017 Pleural effusion 10/04/2016 11/27/2017 Neuropathy 08/09/2016 11/27/2017 Mediastinal lymphadenopathy 08/08/2016 11/27/2017 Lung mass 08/08/2016 11/27/2017 Tobacco abuse 08/08/2016 11/27/2017 Shock 08/08/2016 11/27/2017 Acute pulmonary insufficiency following thoracic surgery 08/08/2016 11/27/2017 Pericardial effusion 08/07/2016 11/27/2017 S/P thoracotomy 11/27/2017 Encounters Care Team Description Date Type Specialty Osito Enriquez MD Brann, MD Shahida Mendoza Sonal Muralinath, MD Chest pain, rule out acute myocardial infarction (Primary Dx); Positive D dimer; Shortness of breath at rest; Anemia due to other cause, not classified; Non compliance with medical treatment; Other emphysema (HCC) 02/07/2018 Emergency Cardiology - 02/09/2018 02/07/2018 Orders Only General Internal Medicine 02/07/2018 Travel Reena Brady CRNA 01/22/2018 Anesthesia Gastroenterology Event Sylvester Treviño MD COLONOSCOPY 01/22/2018 Surgery Gastroenterology 01/22/2018 Travel Deo Plasencia MD Vernon, Kimberly Ann, MD Henderson, Edith Ifeoma, MD Bhattarai, Alok, MD Other acute pulmonary embolism without acute cor pulmonale (HCC) (Primary Dx); Other emphysema (HCC); Secondary carcinoma of lung, unspecified laterality (HCC); Acute on chronic respiratory failure, unspecified whether with hypoxia or hypercapnia (HCC); Hypomagnesemia; Hematochezia; Anemia in neoplastic disease; Family history of colon cancer in mother 01/17/2018 Hospital Cardiology - Encounter 01/23/2018 01/17/2018 Travel 01/05/2018 Kat Wright MD Shamsee, MD Martín Jiménez Elie G., MD Asim, MD Lauren Fever, unspecified fever cause; Neutropenia, unspecified type (HCC); Secondary carcinoma of lung, unspecified laterality (HCC); Other emphysema (HCC); Neutropenic fever (HCC) 01/04/2018 Hospital Oncology - Encounter 01/08/2018 Los Lin MD 01/04/2018 Orders Only Oncology Deo Plasencia MD Shamsee, Syed-Saleem Iqbal-Ahmed, MD Asim, Amna, MD Neal, Ryan Christopher, MD Dyspnea and respiratory abnormality (Primary Dx); Secondary carcinoma of lung, unspecified laterality (HCC); Neutropenic fever (HCC); Other hypervolemia; Centrilobular emphysema (HCC); Severe sepsis (HCC); Other emphysema (HCC) 11/26/2017 Hospital General Internal Medicine - Encounter 12/06/2017 11/26/2017 Orders Only General Internal Medicine Shukri Azul MD Non-small cell lung cancer, unspecified laterality (HCC) (Primary Dx) 09/18/2017 Outside Orders Radiology Iva Salas 07/22/2017 Orders Only Javad Moctezuma MD LAPAROSCOPY,APPENDECTOMY 07/19/2017 Surgery Artie Ornelas, ANITA 07/19/2017 Anesthesia Event Curt Keith MD Henderson, MD Kristen Templeton Sahar, MD Colitis (Primary Dx); Lower abdominal pain; Acute febrile illness; Malignant neoplasm of lung, unspecified laterality, unspecified part of lung (HCC); Sinus tachycardia; Secondary carcinoma of lung, unspecified laterality (HCC); Tobacco abuse; Other acute appendicitis; Centrilobular emphysema (HCC) 07/17/2017 Hospital General Internal Medicine - Encounter 07/22/2017 07/17/2017 Orders Only General Internal Medicine after 05/04/2017 Immunizations Name Dates Previously Given Next Due Influenza Four-QIV Non-PF 12/06/2017 5+ YR Pneumococcal 08/12/2016 Polysaccharide (Pneumovax) Family History Medical History Relation Name Comments Cancer Brother Cancer Father Cancer Mother Relation Name Status Comments Brother Father Mother Social History Date Tobacco Use Types Packs/Day Years Used Former Smoker 2 Smokeless Tobacco: Never Used Tobacco Cessation: Counseling Given: No Comments: Patient states counseling given Alcohol Use Drinks/Week oz/Week Comments No Sex Assigned at Date Recorded Not on file Industry Job Start Date Occupation Not on file Not on file Not on file Travel End Travel History Travel Start No recent travel history available. Last Filed Vital Signs Time Taken Vital Sign Reading 02/09/2018 8:00 AM HUMAN RESOURCES BENEFITS COORDINATOR Blood Pressure 101/60 02/09/2018 8:00 AM HUMAN RESOURCES BENEFITS COORDINATOR Pulse 99 02/09/2018 8:00 AM HUMAN RESOURCES BENEFITS COORDINATOR Temperature 36.9 C (98.5 F) 02/09/2018 8:00 AM HUMAN RESOURCES BENEFITS COORDINATOR Respiratory Rate 18 02/09/2018 8:00 AM HUMAN RESOURCES BENEFITS COORDINATOR Oxygen Saturation 99% 01/17/2018 9:20 PM HUMAN RESOURCES BENEFITS COORDINATOR Inhaled Oxygen 32% Concentration 02/09/2018 8:00 AM HUMAN RESOURCES BENEFITS COORDINATOR Weight 101.1 kg (222 lb 14.4 oz) 02/07/2018 9:34 PM HUMAN RESOURCES BENEFITS COORDINATOR Height 180.3 cm (5' 11") 02/09/2018 8:00 AM HUMAN RESOURCES BENEFITS COORDINATOR Body Mass Index 31.09 Plan of Treatment Not on file Procedures Comments Procedure Name Priority Date/Time Associated Diagnosis REPORT OF PROCEDURE - 04/23/2018 ENDOSCOPY SCAN 11:03 AM HUMAN RESOURCES BENEFITS COORDINATOR RHYTHM STRIP - SCAN 03/01/2018 8:10 AM HUMAN RESOURCES BENEFITS COORDINATOR ECHOCARDIOGRAM REPORT - 02/09/2018 SCAN 8:22 AM HUMAN RESOURCES BENEFITS COORDINATOR PROTHROMBIN TIME/INR Routine 02/09/2018 3:52 AM HUMAN RESOURCES BENEFITS COORDINATOR BASIC METABOLIC PANEL (7) Routine 02/09/2018 3:52 AM HUMAN RESOURCES BENEFITS COORDINATOR 2D ECHO W/ DOPPLER Routine 02/08/2018 (CW/PW/COLOR) 4:38 PM HUMAN RESOURCES BENEFITS COORDINATOR CBC W/PLT COUNT & AUTO Routine 02/08/2018 DIFFERENTIAL 5:47 AM HUMAN RESOURCES BENEFITS COORDINATOR TROPONIN I Routine 02/08/2018 5:47 AM HUMAN RESOURCES BENEFITS COORDINATOR CBC W/PLT COUNT & AUTO Routine 02/08/2018 DIFFERENTIAL 5:47 AM HUMAN RESOURCES BENEFITS COORDINATOR PROTHROMBIN TIME/INR Routine 02/08/2018 5:47 AM HUMAN RESOURCES BENEFITS COORDINATOR BASIC METABOLIC PANEL (7) Routine 02/08/2018 5:47 AM HUMAN RESOURCES BENEFITS COORDINATOR TROPONIN I Routine 02/07/2018 11:07 PM HUMAN RESOURCES BENEFITS COORDINATOR URINALYSIS W/ MICROSCOPIC Routine 02/07/2018 11:03 PM HUMAN RESOURCES BENEFITS COORDINATOR CT CHEST PE TEST DESIGN STAT 02/07/2018 6:40 PM HUMAN RESOURCES BENEFITS COORDINATOR CBC W/PLT COUNT & AUTO STAT 02/07/2018 DIFFERENTIAL 5:49 PM HUMAN RESOURCES BENEFITS COORDINATOR CBC W/PLT COUNT & AUTO STAT 02/07/2018 DIFFERENTIAL 5:49 PM HUMAN RESOURCES BENEFITS COORDINATOR COMPREHENSIVE METABOLIC STAT 02/07/2018 PANEL 5:49 PM HUMAN RESOURCES BENEFITS COORDINATOR TROPONIN I STAT 02/07/2018 5:49 PM HUMAN RESOURCES BENEFITS COORDINATOR PT/APTT STAT 02/07/2018 5:49 PM HUMAN RESOURCES BENEFITS COORDINATOR B-TYPE NATRIURETIC FACTOR STAT 02/07/2018 (BNP) 5:49 PM HUMAN RESOURCES BENEFITS COORDINATOR PHOSPHORUS STAT 02/07/2018 5:49 PM HUMAN RESOURCES BENEFITS COORDINATOR MAGNESIUM STAT 02/07/2018 5:49 PM HUMAN RESOURCES BENEFITS COORDINATOR ECG 12-LEAD Routine 02/07/2018 5:20 PM HUMAN RESOURCES BENEFITS COORDINATOR Procedure Note - Interface, External Ris In - 02/07/2018 9:41 PM HUMAN RESOURCES BENEFITS COORDINATOR Ventricula r Rate 136 BPM Atrial Rate 136 BPM P-R Interval 124 ms QRS Duration 88 ms Q-T Interval 288 ms QTC Calculatio n(Bazett) 433 ms P [place] 52 degrees R [place] 105 degrees T [place] 39 degrees Sinus tachycardi a Rightward axis Possible Anterior infarct , age undetermin ed Abnormal ECG When compared with ECG of 14:01, No significan t change was found ECG 12-LEAD STAT 02/07/2018 5:20 PM HUMAN RESOURCES BENEFITS COORDINATOR RHYTHM STRIP - SCAN 01/26/2018 2:00 PM HUMAN RESOURCES BENEFITS COORDINATOR PROTHROMBIN TIME/INR Routine 01/23/2018 4:42 AM HUMAN RESOURCES BENEFITS COORDINATOR BASIC METABOLIC PANEL (7) Routine 01/23/2018 4:42 AM HUMAN RESOURCES BENEFITS COORDINATOR CYTOLOGY REQUEST Routine 01/22/2018 9:20 AM HUMAN RESOURCES BENEFITS COORDINATOR CYTOLOGY AP Routine 01/22/2018 9:20 AM HUMAN RESOURCES BENEFITS COORDINATOR BRONCHIAL CULTURE + GRAM Routine 01/22/2018 STAIN 9:19 AM HUMAN RESOURCES BENEFITS COORDINATOR REPORT OF PROCEDURE - 01/22/2018 ENDOSCOPY URL 9:17 AM HUMAN RESOURCES BENEFITS COORDINATOR REPORT OF PROCEDURE - 01/22/2018 ENDOSCOPY URL 8:45 AM HUMAN RESOURCES BENEFITS COORDINATOR BRONCHOSCOPY,BRONCHIAL 01/22/2018 Gastrointestinal ALVEOLAR LAVAGE 8:00 AM HUMAN RESOURCES BENEFITS COORDINATOR hemorrhage, unspecified gastrointestinal hemorrhage type COLONOSCOPY 01/22/2018 Gastrointestinal 8:00 AM HUMAN RESOURCES BENEFITS COORDINATOR hemorrhage, unspecified gastrointestinal hemorrhage type CBC W/PLT COUNT & AUTO Routine 01/22/2018 DIFFERENTIAL 4:48 AM HUMAN RESOURCES BENEFITS COORDINATOR CBC W/PLT COUNT & AUTO Routine 01/22/2018 DIFFERENTIAL 4:48 AM HUMAN RESOURCES BENEFITS COORDINATOR PROTHROMBIN TIME/INR Routine 01/22/2018 4:48 AM HUMAN RESOURCES BENEFITS COORDINATOR BASIC METABOLIC PANEL (7) Routine 01/22/2018 4:48 AM HUMAN RESOURCES BENEFITS COORDINATOR TRANSFUSION SERVICE 01/21/2018 REPORT - SCAN 6:00 PM HUMAN RESOURCES BENEFITS COORDINATOR VITAMIN B12 AND FOLATE Routine 01/21/2018 6:00 PM HUMAN RESOURCES BENEFITS COORDINATOR FERRITIN Routine 01/21/2018 6:00 PM HUMAN RESOURCES BENEFITS COORDINATOR IRON, TIBC, % SAT. Routine 01/21/2018 (WITHOUT FERRITIN) 6:00 PM HUMAN RESOURCES BENEFITS COORDINATOR VENOUS DOPPLER ARMS Routine 01/21/2018 BILATERAL 3:19 PM HUMAN RESOURCES BENEFITS COORDINATOR CBC W/PLT COUNT & AUTO Routine 01/21/2018 DIFFERENTIAL 4:26 AM HUMAN RESOURCES BENEFITS COORDINATOR PROTHROMBIN TIME/INR Routine 01/21/2018 4:26 AM HUMAN RESOURCES BENEFITS COORDINATOR BASIC METABOLIC PANEL (7) Routine 01/21/2018 4:26 AM HUMAN RESOURCES BENEFITS COORDINATOR CBC W/PLT COUNT & AUTO Routine 01/21/2018 DIFFERENTIAL 4:26 AM HUMAN RESOURCES BENEFITS COORDINATOR TYPE AND SCREEN, Routine 01/20/2018 AUTOMATED 7:32 PM HUMAN RESOURCES BENEFITS COORDINATOR VENOUS DOPPLER LEGS Routine 01/20/2018 BILATERAL 6:01 PM HUMAN RESOURCES BENEFITS COORDINATOR ECHOCARDIOGRAM REPORT - 01/20/2018 SCAN 5:50 PM HUMAN RESOURCES BENEFITS COORDINATOR MAGNESIUM Routine 01/20/2018 11:11 AM HUMAN RESOURCES BENEFITS COORDINATOR CBC W/PLT COUNT & AUTO Routine 01/20/2018 DIFFERENTIAL 4:57 AM HUMAN RESOURCES BENEFITS COORDINATOR BASIC METABOLIC PANEL (7) Routine 01/20/2018 4:57 AM HUMAN RESOURCES BENEFITS COORDINATOR CBC W/PLT COUNT & AUTO Routine 01/20/2018 DIFFERENTIAL 4:57 AM HUMAN RESOURCES BENEFITS COORDINATOR D-DIMER STAT 01/19/2018 5:01 PM HUMAN RESOURCES BENEFITS COORDINATOR FIBRINOGEN STAT 01/19/2018 5:01 PM HUMAN RESOURCES BENEFITS COORDINATOR HEPARIN ASSAY - LOW STAT 01/19/2018 MOLECULAR WEIGHT 5:01 PM HUMAN RESOURCES BENEFITS COORDINATOR LIMITED 2D ECHOCARDIOGRAM Routine 01/19/2018 1:29 PM HUMAN RESOURCES BENEFITS COORDINATOR CBC W/PLT COUNT & AUTO Routine 01/19/2018 DIFFERENTIAL 5:18 AM HUMAN RESOURCES BENEFITS COORDINATOR MAGNESIUM Routine 01/19/2018 5:18 AM HUMAN RESOURCES BENEFITS COORDINATOR COMPREHENSIVE METABOLIC Routine 01/19/2018 PANEL 5:18 AM HUMAN RESOURCES BENEFITS COORDINATOR CBC W/PLT COUNT & AUTO Routine 01/19/2018 DIFFERENTIAL 5:18 AM HUMAN RESOURCES BENEFITS COORDINATOR LACTIC ACID, VENOUS Routine 01/18/2018 4:10 AM HUMAN RESOURCES BENEFITS COORDINATOR CBC W/PLT COUNT & AUTO Routine 01/18/2018 DIFFERENTIAL 4:02 AM HUMAN RESOURCES BENEFITS COORDINATOR MAGNESIUM Routine 01/18/2018 4:02 AM HUMAN RESOURCES BENEFITS COORDINATOR BASIC METABOLIC PANEL (7) Routine 01/18/2018 4:02 AM HUMAN RESOURCES BENEFITS COORDINATOR CBC W/PLT COUNT & AUTO Routine 01/18/2018 DIFFERENTIAL 4:02 AM HUMAN RESOURCES BENEFITS COORDINATOR CT CHEST PE TEST DESIGN STAT 01/17/2018 4:15 PM HUMAN RESOURCES BENEFITS COORDINATOR MAGNESIUM STAT 01/17/2018 2:20 PM HUMAN RESOURCES BENEFITS COORDINATOR PT/APTT STAT 01/17/2018 2:20 PM HUMAN RESOURCES BENEFITS COORDINATOR TROPONIN I STAT 01/17/2018 2:20 PM HUMAN RESOURCES BENEFITS COORDINATOR XR CHEST 1 VIEW STAT 01/17/2018 PORTABLE/BEDSIDE 2:20 PM HUMAN RESOURCES BENEFITS COORDINATOR POCT-GLUCOSE METER Routine 01/17/2018 2:17 PM HUMAN RESOURCES BENEFITS COORDINATOR POCT-LACTIC ACID, VENOUS Routine 01/17/2018 2:16 PM HUMAN RESOURCES BENEFITS COORDINATOR CBC W/PLT COUNT & AUTO STAT 01/17/2018 DIFFERENTIAL 2:13 PM HUMAN RESOURCES BENEFITS COORDINATOR COMPREHENSIVE METABOLIC STAT 01/17/2018 PANEL 2:13 PM HUMAN RESOURCES BENEFITS COORDINATOR CBC W/PLT COUNT & AUTO STAT 01/17/2018 DIFFERENTIAL 2:13 PM HUMAN RESOURCES BENEFITS COORDINATOR CRITICAL CARE Routine 01/17/2018 2:08 PM HUMAN RESOURCES BENEFITS COORDINATOR ECG 12-LEAD Routine 01/17/2018 2:01 PM HUMAN RESOURCES BENEFITS COORDINATOR Procedure Note - Interface, External Ris In - 01/17/2018 7:20 PM HUMAN RESOURCES BENEFITS COORDINATOR Ventricula r Rate 114 BPM Atrial Rate 114 BPM P-R Interval 132 ms QRS Duration 90 ms Q-T Interval 320 ms QTC Calculatio n(Bazett) 441 ms P [place] 47 degrees R [place] 77 degrees T [place] 42 degrees Sinus tachycardi a Otherwise normal ECG When compared with ECG of 8 08:42, No significan t change was found ECG 12-LEAD STAT 01/17/2018 2:01 PM HUMAN RESOURCES BENEFITS COORDINATOR (CELLAVISION MANUAL DIFF) Routine 01/07/2018 5:45 AM HUMAN RESOURCES BENEFITS COORDINATOR CBC W/PLT COUNT & AUTO Routine 01/07/2018 DIFFERENTIAL 5:45 AM HUMAN RESOURCES BENEFITS COORDINATOR BASIC METABOLIC PANEL (7) Routine 01/07/2018 5:45 AM HUMAN RESOURCES BENEFITS COORDINATOR CBC W/PLT COUNT & AUTO Routine 01/07/2018 DIFFERENTIAL 5:45 AM HUMAN RESOURCES BENEFITS COORDINATOR VANCOMYCIN LEVEL, RANDOM Routine 01/06/2018 2:54 PM HUMAN RESOURCES BENEFITS COORDINATOR RESPIRATORY PANEL SLHS Routine 01/05/2018 11:32 PM HUMAN RESOURCES BENEFITS COORDINATOR (CELLAVISION MANUAL DIFF) Routine 01/05/2018 4:44 AM HUMAN RESOURCES BENEFITS COORDINATOR CBC W/PLT COUNT & AUTO Routine 01/05/2018 DIFFERENTIAL 4:44 AM HUMAN RESOURCES BENEFITS COORDINATOR BASIC METABOLIC PANEL (7) Routine 01/05/2018 4:44 AM HUMAN RESOURCES BENEFITS COORDINATOR CBC W/PLT COUNT & AUTO Routine 01/05/2018 DIFFERENTIAL 4:44 AM HUMAN RESOURCES BENEFITS COORDINATOR SPUTUM CULTURE + GRAM Routine 01/05/2018 STAIN 3:40 AM HUMAN RESOURCES BENEFITS COORDINATOR URINALYSIS W/ MICROSCOPIC Routine 01/05/2018 12:06 AM HUMAN RESOURCES BENEFITS COORDINATOR XR CHEST 2 VIEWS Routine 01/04/2018 11:48 PM HUMAN RESOURCES BENEFITS COORDINATOR HEPATIC FUNCTION PANEL Routine 01/04/2018 11:11 PM HUMAN RESOURCES BENEFITS COORDINATOR BASIC METABOLIC PANEL (7) Routine 01/04/2018 11:11 PM HUMAN RESOURCES BENEFITS COORDINATOR BLOOD CULTURE Routine 01/04/2018 11:11 PM HUMAN RESOURCES BENEFITS COORDINATOR (CELLAVISION MANUAL DIFF) Routine 01/04/2018 9:14 PM HUMAN RESOURCES BENEFITS COORDINATOR CBC W/PLT COUNT & AUTO Routine 01/04/2018 DIFFERENTIAL 9:14 PM HUMAN RESOURCES BENEFITS COORDINATOR LACTIC ACID, VENOUS Routine 01/04/2018 9:14 PM HUMAN RESOURCES BENEFITS COORDINATOR CBC W/PLT COUNT & AUTO Routine 01/04/2018 DIFFERENTIAL 9:14 PM HUMAN RESOURCES BENEFITS COORDINATOR BLOOD CULTURE Routine 01/04/2018 9:13 PM HUMAN RESOURCES BENEFITS COORDINATOR RHYTHM STRIP - SCAN 12/08/2017 11:21 AM CDT CBC W/PLT COUNT & AUTO KATHLEEN 12/06/2017 DIFFERENTIAL 4:52 AM CDT CBC W/PLT COUNT & AUTO KATHLEEN 12/06/2017 DIFFERENTIAL 4:52 AM CDT CBC W/PLT COUNT & AUTO KATHLEEN 12/05/2017 DIFFERENTIAL 5:10 AM CDT CBC W/PLT COUNT & AUTO KATHLEEN 12/05/2017 DIFFERENTIAL 5:10 AM CDT (CELLAVISION MANUAL DIFF) KATHLEEN 12/04/2017 10:35 AM CDT CBC W/PLT COUNT & AUTO KATHLEEN 12/04/2017 DIFFERENTIAL 10:35 AM CDT CBC W/PLT COUNT & AUTO KATHLEEN 12/04/2017 DIFFERENTIAL 10:35 AM CDT ECHOCARDIOGRAM REPORT - 12/03/2017 SCAN 6:20 PM CDT VANCOMYCIN LEVEL, TROUGH Timed 12/03/2017 12:10 PM CDT 2D ECHO W/ DOPPLER Routine 12/03/2017 (CW/PW/COLOR) 11:06 AM CDT SPUTUM CULTURE + GRAM Routine 12/03/2017 STAIN 5:48 AM CDT (CELLAVISION MANUAL DIFF) Routine 12/03/2017 4:55 AM CDT CBC W/PLT COUNT & AUTO Routine 12/03/2017 DIFFERENTIAL 4:55 AM CDT BASIC METABOLIC PANEL (7) Routine 12/03/2017 4:55 AM CDT CBC W/PLT COUNT & AUTO Routine 12/03/2017 DIFFERENTIAL 4:55 AM CDT HISTOPLASMA AB,ID Routine 12/02/2017 10:23 AM CDT COCCIDIOIDES ANTIBODIES Routine 12/02/2017 10:23 AM CDT BLASTOMYCES ANTIBODY Routine 12/02/2017 10:23 AM CDT ASPERGILLUS ANTIBODIES Routine 12/02/2017 10:23 AM CDT ASPERGILLUS GALACTOMANNAN Routine 12/02/2017 ANTIGEN 10:23 AM CDT FUNGAL PANEL Routine 12/02/2017 10:23 AM CDT HISTOPLASMA ANTIGEN, Routine 12/02/2017 URINE 7:44 AM CDT BASIC METABOLIC PANEL (7) Routine 12/02/2017 6:06 AM CDT (CELLAVISION MANUAL DIFF) Routine 12/02/2017 3:57 AM CDT CBC W/PLT COUNT & AUTO Routine 12/02/2017 DIFFERENTIAL 3:57 AM CDT CBC W/PLT COUNT & AUTO Routine 12/02/2017 DIFFERENTIAL 3:[address] CHEST WITH IV CONTRAST Routine 12/01/2017 10:24 PM CDT VANCOMYCIN LEVEL, TROUGH Timed 12/01/2017 12:49 PM CDT (CELLAVISION MANUAL DIFF) Routine 12/01/2017 2:59 AM CDT CBC W/PLT COUNT & AUTO Routine 12/01/2017 DIFFERENTIAL 2:59 AM CDT BASIC METABOLIC PANEL (7) Routine 12/01/2017 2:59 AM CDT CBC W/PLT COUNT & AUTO Routine 12/01/2017 DIFFERENTIAL 2:59 AM CDT CRITICAL CARE Routine 11/29/2017 10:48 AM CDT (CELLAVISION MANUAL DIFF) Routine 11/29/2017 4:17 AM CDT CBC W/PLT COUNT & AUTO Routine 11/29/2017 DIFFERENTIAL 4:17 AM CDT CBC W/PLT COUNT & AUTO Routine 11/29/2017 DIFFERENTIAL 4:17 AM CDT MAGNESIUM Routine 11/29/2017 4:17 AM CDT PHOSPHORUS Routine 11/29/2017 4:17 AM CDT HEPATIC FUNCTION PANEL Routine 11/29/2017 4:17 AM CDT BASIC METABOLIC PANEL (7) Routine 11/29/2017 4:17 AM CDT VANCOMYCIN LEVEL, TROUGH Timed 11/28/2017 11:01 AM CDT (CELLAVISION MANUAL DIFF) Routine 11/28/2017 4:59 AM CDT CBC W/PLT COUNT & AUTO Routine 11/28/2017 DIFFERENTIAL 4:59 AM CDT CBC W/PLT COUNT & AUTO Routine 11/28/2017 DIFFERENTIAL 4:59 AM CDT MAGNESIUM Routine 11/28/2017 4:59 AM CDT PHOSPHORUS Routine 11/28/2017 4:59 AM CDT HEPATIC FUNCTION PANEL Routine 11/28/2017 4:59 AM CDT BASIC METABOLIC PANEL (7) Routine 11/28/2017 4:59 AM CDT STREP PNEUMONIAE ANTIGEN Routine 11/27/2017 8:01 PM CDT LACTIC ACID, VENOUS Routine 11/27/2017 5:22 PM CDT LEGIONELLA URINE ANTIGEN Routine 11/27/2017 5:22 PM CDT SPUTUM CULTURE + GRAM Routine 11/27/2017 STAIN 5:22 PM CDT CREATINE KINASE (CK), Routine 11/27/2017 TOTAL AND MB 11:13 AM CDT TROPONIN I Routine 11/27/2017 11:13 AM CDT MAGNESIUM Routine 11/27/2017 11:13 AM CDT BASIC METABOLIC PANEL (7) Routine 11/27/2017 11:13 AM CDT LACTIC ACID, VENOUS Routine 11/27/2017 11:13 AM CDT ECG 12-LEAD Routine 11/27/2017 8:42 AM CDT ECG 12-LEAD Routine 11/27/2017 8:42 AM CDT Procedure Note - Interface, External Ris In - 11/27/2017 8:45 AM CDT Ventricula r Rate 91 BPM Atrial Rate 91 BPM P-R Interval 142 ms QRS Duration 98 ms Q-T Interval 370 ms QTC Calculatio n(Bazett) 455 ms P [place] 46 degrees R [place] 56 degrees T [place] 25 degrees Normal sinus rhythm Normal ECG When compared with ECG of 8 08:42, No significan t change was found ECG 12-LEAD Routine 11/27/2017 8:42 AM CDT ECG 12-LEAD Routine 11/27/2017 8:42 AM CDT Procedure Note - Interface, External Ris In - 11/27/2017 8:45 AM CDT Ventricula r Rate 90 BPM Atrial Rate 90 BPM P-R Interval 140 ms QRS Duration 98 ms Q-T Interval 374 ms QTC Calculatio n(Bazett) 457 ms P [place] 53 degrees R [place] 57 degrees T [place] 26 degrees Poor data quality, interpreta tion may be adversely affected Normal sinus rhythm Normal ECG When compared with ECG of 8 06:10, No significan t change was found VENOUS DOPPLER LEGS Routine 11/27/2017 BILATERAL 8:16 AM CDT LACTIC ACID, VENOUS Routine 11/27/2017 6:21 AM CDT ECG 12-LEAD Routine 11/27/2017 6:10 AM CDT Procedure Note - Interface, External Ris In - 11/27/2017 6:11 AM CDT Ventricula r Rate 93 BPM Atrial Rate 93 BPM P-R Interval 142 ms QRS Duration 96 ms Q-T Interval 370 ms QTC Calculatio n(Bazett) 460 ms P [place] 53 degrees R [place] 43 degrees T [place] 33 degrees Normal sinus rhythm Normal ECG When compared with ECG of 8 22:06, No significan t change was found ECG 12-LEAD Routine 11/27/2017 6:10 AM CDT CBC W/PLT COUNT & AUTO Routine 11/27/2017 DIFFERENTIAL 3:49 AM CDT LACTATE DEHYDROGENASE Routine 11/27/2017 (LDH) 3:49 AM CDT CREATINE KINASE (CK), Routine 11/27/2017 TOTAL AND MB 3:49 AM CDT TROPONIN I Routine 11/27/2017 3:49 AM CDT LACTIC ACID, VENOUS Routine 11/27/2017 3:49 AM CDT C-REACTIVE PROTEIN Routine 11/27/2017 3:49 AM CDT TSH/FREE T4 IF INDICATED Routine 11/27/2017 3:49 AM CDT CBC W/PLT COUNT & AUTO Routine 11/27/2017 DIFFERENTIAL 3:49 AM CDT HEMOGLOBIN A1C Routine 11/27/2017 3:49 AM CDT LIPID PANEL Routine 11/27/2017 3:49 AM CDT MAGNESIUM Routine 11/27/2017 3:49 AM CDT PHOSPHORUS Routine 11/27/2017 3:49 AM CDT HEPATIC FUNCTION PANEL Routine 11/27/2017 3:49 AM CDT BASIC METABOLIC PANEL (7) Routine 11/27/2017 3:49 AM CDT URINALYSIS MICROSCOPIC Routine 11/27/2017 3:40 AM CDT URINALYSIS WITH STAT 11/27/2017 MICROSCOPIC IF INDICATED 3:40 AM CDT RAPID INFLUENZA A&B Routine 11/27/2017 SCREEN 3:39 AM CDT RESPIRATORY PANEL [facility] Routine 11/27/2017 3:[address] CHEST PE TEST DESIGN STAT 11/27/2017 1:15 AM CDT BLOOD CULTURE STAT 11/27/2017 12:21 AM CDT BLOOD CULTURE STAT 11/27/2017 12:21 AM CDT POCT-LACTIC ACID, VENOUS Routine 11/27/2017 12:01 AM CDT XR CHEST 1 VIEW STAT 11/26/2017 PORTABLE/BEDSIDE 11:22 PM CDT (CELLAVISION MANUAL DIFF) Routine 11/26/2017 10:31 PM CDT CBC W/PLT COUNT & AUTO Routine 11/26/2017 DIFFERENTIAL 10:31 PM CDT MAGNESIUM STAT 11/26/2017 10:31 PM CDT PT/APTT STAT 11/26/2017 10:31 PM CDT B-TYPE NATRIURETIC FACTOR STAT 11/26/2017 (BNP) 10:31 PM CDT TROPONIN I STAT 11/26/2017 10:31 PM CDT CBC W/PLT COUNT & AUTO STAT 11/26/2017 DIFFERENTIAL 10:31 PM CDT COMPREHENSIVE METABOLIC STAT 11/26/2017 PANEL 10:31 PM CDT ECG 12-LEAD STAT 11/26/2017 10:06 PM CDT RHYTHM STRIP - SCAN 07/23/2017 1:20 PM CDT CBC (HEMOGRAM ONLY) Routine 07/22/2017 5:28 AM CDT BASIC METABOLIC PANEL (7) Routine 07/22/2017 5:28 AM CDT CBC (HEMOGRAM ONLY) Routine 07/21/2017 3:45 AM CDT BASIC METABOLIC PANEL (7) Routine 07/21/2017 3:45 AM CDT CBC W/PLT COUNT & AUTO Routine 07/20/2017 DIFFERENTIAL 6:10 AM CDT MAGNESIUM Routine 07/20/2017 6:10 AM CDT CBC W/PLT COUNT & AUTO Routine 07/20/2017 DIFFERENTIAL 6:10 AM CDT BASIC METABOLIC PANEL (7) Routine 07/20/2017 6:10 AM CDT LAPAROSCOPY,APPENDECTOMY 07/19/2017 Acute appendicitis with 1:30 PM CDT generalized peritonitis TISSUE EXAM AP Routine 07/19/2017 1:26 PM CDT CBC W/PLT COUNT & AUTO Routine 07/19/2017 DIFFERENTIAL 4:32 AM CDT CBC W/PLT COUNT & AUTO Routine 07/19/2017 DIFFERENTIAL 4:32 AM CDT BASIC METABOLIC PANEL (7) Routine 07/19/2017 4:[address] CHEST WITHOUT IV Routine 07/18/2017 CONTRAST 6:49 PM CDT STOOL PATH CHARGE Routine 07/18/2017 2:01 PM CDT SHIGA TOXIN SCREEN Routine 07/18/2017 2:01 PM CDT C. DIFFICILE GDH TOXIN Routine 07/18/2017 2:01 PM CDT STOOL CULTURE + SHIGA Routine 07/18/2017 TOXIN 2:01 PM CDT ED ECG INTERPRETATION Routine 07/18/2017 7:58 AM CDT MAGNESIUM Routine 07/18/2017 6:33 AM CDT POCT-LACTIC ACID, VENOUS Routine 07/18/2017 3:39 AM CDT URINALYSIS W/ MICROSCOPIC STAT 07/18/2017 3:32 AM CDT URINE CULTURE STAT 07/18/2017 3:[address] ABDOMEN/PELVIS WITH IV STAT 07/18/2017 CONTRAST 12:03 AM CDT BLOOD CULTURE STAT 07/17/2017 10:44 PM CDT BLOOD CULTURE STAT 07/17/2017 10:37 PM CDT XR CHEST 1 VIEW STAT 07/17/2017 PORTABLE/BEDSIDE 10:35 PM CDT POCT-GLUCOSE METER Routine 07/17/2017 10:22 PM CDT CBC W/PLT COUNT & AUTO STAT 07/17/2017 DIFFERENTIAL 10:14 PM CDT POCT-LACTIC ACID, VENOUS Routine 07/17/2017 10:14 PM CDT COMPREHENSIVE METABOLIC STAT 07/17/2017 PANEL 10:14 PM CDT CBC W/PLT COUNT & AUTO STAT 07/17/2017 DIFFERENTIAL 10:14 PM CDT ECG 12-LEAD Routine 07/17/2017 9:53 PM CDT Procedure Note - Interface, External Ris In - 07/17/2017 10:56 PM CDT Ventricula r Rate 117 BPM Atrial Rate 117 BPM P-R Interval 130 ms QRS Duration 94 ms Q-T Interval 344 ms QTC Calculatio n(Bazett) 479 ms P Harviell 61 degrees R Harviell 86 degrees T Harviell 62 degrees Sinus tachycardi a Otherwise normal ECG When compared with ECG of 8 23:01, No significan t change was found ECG 12-LEAD STAT 07/17/2017 9:53 PM CDT after 05/04/2017 Results * EKG-SCANNED (04/23/2018 11:03 AM HUMAN RESOURCES BENEFITS COORDINATOR) Narrative Performed At * RHYTHM STRIP - SCAN (03/01/2018 8:10 AM HUMAN RESOURCES BENEFITS COORDINATOR) Only the most recent of 4 results within the time period is included. Narrative Performed At * ECHOCARDIOGRAM REPORT - SCAN (02/09/2018 8:22 AM HUMAN RESOURCES BENEFITS COORDINATOR) Narrative Performed At * Prothrombin time/INR (02/09/2018 3:52 AM HUMAN RESOURCES BENEFITS COORDINATOR) Only the most recent of 5 results within the time period is included. Protime 15.4 (H) 11.7 - 14.7 seconds [facility] INR 1.2 <=5.9 [facility] Specimen Blood - Arm, Right Narrative Performed At RECOMMENDED COUMADIN/WARFARIN INR THERAPY RANGES [facility] STANDARD DOSE: 2.0 - 3.0 Includes: PROPHYLAXIS for venous thrombosis, [facility] systemic embolization; TREATMENT for venous thrombosis and/or pulmonary embolus. HIGH RISK: Target INR is 2.5-3.5 for patients with mechanical heart valves. Performing Organization Address City/State/Zipcode Phone Number [facility] [address] [place] [address] [facility] * Basic metabolic panel (02/09/2018 3:52 AM HUMAN RESOURCES BENEFITS COORDINATOR) Only the most recent of 21 results within the time period is included. Sodium 136 136 - 145 meq/L [facility] Potassium 4.0 3.5 - 5.1 meq/L [facility] Chloride 102 98 - 107 meq/L [facility] CO2 26 22 - 29 meq/L [facility] BUN 14 7 - 21 mg/dL [facility] Creatinine 1.01 0.57 - 1.25 mg/dL [facility] Glucose 102 70 - 105 mg/dL [facility] Calcium 9.3 8.4 - 10.2 mg/dL [facility] EGFR 75Comment: ESTIMATED GFR IS mL/min/1.73 sq m [facility] NOT ACCURATE CREATININE [facility] CLEARANCE IN PREDICTING GLOMERULAR FILTRATION RATE. ESTIMATED GFR IS NOT APPLICABLE FOR DIALYSIS PATIENTS. Specimen Blood - Arm, Right Performing Organization Address City/State/Zipcode Phone Number [facility] [address] [place] [address] MEDICAL [facility]ENTER * 2D Echo W/Doppler(CW/PW/Color) (02/08/2018 4:38 PM HUMAN RESOURCES BENEFITS COORDINATOR) Ejection Fraction [facility] Narrative Performed At Transthoracic Echocardiography Report (TTE) [facility] Demographics [facility] Patient NameVesna OMALLEYte of Study 02/08/2018 JEAN GenderMale Visit [id number] RaceCaucasian Number [id number] Number Date of 1955 Referring KEREN MARIE Physician Age 62 year(s) Refresh Technician HAMIDA Hernandez, RDCS,RVT,RDMS Pbx Wire Chief Lew Berrios MD Physician Procedure Type of Study TTE procedure:2DECHO W DOPPLER(CW/PW/COLOR) (Pending Discharge) Indications:Acute Chest Pain/ Suspected CAD. Clinical History CANCER, COPD,NEUROPATHY, STROKE Height: 70 inches Weight: 101.15 kg (223 lbs) BSA: 2.19 m^2 BMI: 32 kg/m^2 HR: 93 bpm BP: 111/64 mmHg Summary 1. Normal left ventricular chamber size. Normal wall thickness. Normal overall left ventricular systolic function. No apparent segmental wall motion abnormalities. Good endocardial definition with use of IV echo contrast. LVEF by Chavez's method of disk assessment is normal ( 60%) . Normal diastolic function. 2. Normal right ventricle structure and function. S' 13 cm/sec. 3. LA size is normal . RA is at the upper limit of normal in size. 4. A trace of tricuspid regurgitation. Unable to estimate peak systolic PA pressure; inadequate TR velocity signal. The estimated RA pressure by IVC dynamics 0-5mmHg . Previous Study In comparison with the prior exam on 01/19/2018 there are no significant changes. Signature Findings Left Ventricle Normal left ventricular chamber size. Normal wall thickness. Normal overall left ventricular systolic function. No apparent segmental wall motion abnormalities. Good endocardial definition with use of IV echo contrast. LVEF by Chavez's method of disk assessment is normal ( 60%) . Normal diastolic function. Left AtriumLA size is normal . Right VentricleNormal right ventricle structure and function. S' 13 cm/sec. Right Atrium RA is at the upper limit of normal in size. Aortic Valve Mild AoV cusp thickening. No evidence of aortic stenosis. No evidence of aortic regurgitation. Mitral Valve Normal MV structure. Trace mitral regurgitation. Tricuspid ValveA trace of tricuspid regurgitation. Unable to estimate peak systolic PA pressure; inadequate TR velocity signal. Pulmonic Valve Normal PV structure and function by limited views and Doppler. AortaAortic root size (SInus of Valsalva diameter) is normal . PericardiumNo evidence of pericardial effusion. IVC/SVC/PA/PV/PleuralThe estimated RA pressure by IVC dynamics 0-5mmHg . Chambers/Structures Left Atrium LA Dimension: 3.8 cm LA Area: 20.88 cm^2 LA Volume: 60 ml LA Vol. Index: 27 ml/m^2 Left Ventricle LVIDd: 4.89 cm LV Septum Diastolic: 1.01 cm LV PW Diastolic: 1.03 cm LVEDV Chavez's:95 ml LVESV Chavez's:28 ml LVEF Chavez's: 69 %LVEDVI: 43 ml/m^2 LVESVI: 13 ml/m^2 LVOT Diameter: 2.25 cm Right Atrium RA Area: 16 cm^2 RA Vol. (Sngl Plane): 42 ml Right Ventricle RV Diast Dim.: 3.5 cm TAPSE: 16 cm Aorta Ao Root S of Arely.: 3.25 cm Doppler/Quantitative Measurements Mitral Valve MV Peak E-Wave: 0.94 m/s MV Peak A-Wave: 0.85 m/s E/A Ratio: 1.11 Peak Gradient: 3.53 mmHg MV Jamie. Peak: Tissue Doppler E' Septal Velocity: 0.11 m/s E/E': 7 E' Lateral Velocity: 0.15 m/s LVOT Peak Velocity: 1.28 m/s Peak Gradient: 6.53 mmHg Mean Velocity: 0.71 m/s Mean Gradient: 2.66 mmHg LVOT Diameter: 2.25 cmLVOT VTI: 18.38 cm LVOT Area: 3.98 cm^2LVOT SV:73.04 ml LVOT CO: 6.79 l/min LVOT CI: 3.1 l/min/m^2 Procedure Note Interface, External Ris In - 02/09/2018 7:31 AM HUMAN RESOURCES BENEFITS COORDINATOR Transthoracic Echocardiography Report (TTE) Demographics Patient Name JULIUS OMALLEY Date of Study 02/08/2018 JEAN Gender Male Visit Number [id number] Race Room Number [id number] Number Date of 1955 Referring KEREN MARIE Physician Age 62 year(s) Refresh Technician HAMIDA Hernandez, RDCS,RVT,RDMS Pbx Wire Chief Lew Cuevas Interpreting Janis Berrios MD Physician Procedure Type of Study TTE procedure:2DECHO W DOPPLER(CW/PW/COLOR) (Pending Discharge) Indications:Acute Chest Pain/ Suspected CAD. Clinical History CANCER, COPD,NEUROPATHY, STROKE Height: 70 inches Weight: 101.15 kg (223 lbs) BSA: 2.19 m^2 BMI: 32 kg/m^2 HR: 93 bpm BP: 111/64 mmHg Summary 1. Normal left ventricular chamber size. Normal wall thickness. Normal overall left ventricular systolic function. No apparent segmental wall motion abnormalities. Good endocardial definition with use of IV echo contrast. LVEF by Chavez's method of disk assessment is normal ( 60%) . Normal diastolic function. 2. Normal right ventricle structure and function. S' 13 cm/sec. 3. LA size is normal . RA is at the upper limit of normal in size. 4. A trace of tricuspid regurgitation. Unable to estimate peak systolic PA pressure; inadequate TR velocity signal. The estimated RA pressure by IVC dynamics 0-5mmHg . Previous Study In comparison with the prior exam on 01/19/2018 there are no significant changes. Signature Findings Left Ventricle Normal left ventricular chamber size. Normal wall thickness. Normal overall left ventricular systolic function. No apparent segmental wall motion abnormalities. Good endocardial definition with use of IV echo contrast. LVEF by Chavez's method of disk assessment is normal ( 60%) . Normal diastolic function. Left Atrium LA size is normal . Right Ventricle Normal right ventricle structure and function. S' 13 cm/sec. Right Atrium RA is at the upper limit of normal in size. Aortic Valve Mild AoV cusp thickening. No evidence of aortic stenosis. No evidence of aortic regurgitation. Mitral Valve Normal MV structure. Trace mitral regurgitation. Tricuspid Valve A trace of tricuspid regurgitation. Unable to estimate peak systolic PA pressure; inadequate TR velocity signal. Pulmonic Valve Normal PV structure and function by limited views and Doppler. Aorta Aortic root size (SInus of Valsalva diameter) is normal . Pericardium No evidence of pericardial effusion. IVC/SVC/PA/PV/Pleural The estimated RA pressure by IVC dynamics 0-5mmHg . Chambers/Structures Left Atrium LA Dimension: 3.8 cm LA Area: 20.88 cm^2 LA Volume: 60 ml LA Vol. Index: 27 ml/m^2 Left Ventricle LVIDd: 4.89 cm LV Septum Diastolic: 1.01 cm LV PW Diastolic: 1.03 cm LVEDV Chavez's:95 ml LVESV Chavez's:28 ml LVEF Chavez's: 69 % LVEDVI: 43 ml/m^2 LVESVI: 13 ml/m^2 LVOT Diameter: 2.25 cm Right Atrium RA Area: 16 cm^2 RA Vol. (Sngl Plane): 42 ml Right Ventricle RV Diast Dim.: 3.5 cm TAPSE: 16 cm Aorta Ao Root S of Arely.: 3.25 cm Doppler/Quantitative Measurements Mitral Valve MV Peak E-Wave: 0.94 m/s MV Peak A-Wave: 0.85 m/s E/A Ratio: 1.11 Peak Gradient: 3.53 mmHg MV Jamie. Peak: Tissue Doppler E' Septal Velocity: 0.11 m/s E/E': 7 E' Lateral Velocity: 0.15 m/s LVOT Peak Velocity: 1.28 m/s Peak Gradient: 6.53 mmHg Mean Velocity: 0.71 m/s Mean Gradient: 2.66 mmHg LVOT Diameter: 2.25 cm LVOT VTI: 18.38 cm LVOT Area: 3.98 cm^2 LVOT SV:73.04 ml LVOT CO: 6.79 l/min LVOT CI: 3.1 l/min/m^2 Performing Organization Address City/State/Zipcode Phone Number [facility] * CBC with platelet count + automated diff (02/08/2018 5:47 AM HUMAN RESOURCES BENEFITS COORDINATOR) Only the most recent of 24 results within the time period is included. [facility] 6.9 3.5 - 10.5 K/L [facility] RBC 3.85 (L) 4.63 - 6.08 M/L [facility] Hemoglobin 11.3 (L) 13.7 - 17.5 GM/DL [facility] Hematocrit 36.6 (L) 40.1 - 51.0 % [facility] MCV 95.1 (H) 79.0 - 92.2 fL [facility] MCH 29.4 25.7 - 32.2 pg [facility] MCHC 30.9 (L) 32.3 - 36.5 GM/DL [facility] RDW 18.1 (H) 11.6 - 14.4 % [facility] Platelets 311 150 - 450 K/CU MM [facility] MPV 8.9 (L) 9.4 - 12.4 fL [facility] nRBC 0 0 - 0 /100 WBC [facility] % Neutros 57 % [facility] % Lymphs 32 % [facility] % Monos 8 % [facility] % Eos 3 % [facility] % Baso 1 % [facility] # Neutros 3.89 1.78 - 5.38 K/L [facility] # Lymphs 2.21 1.32 - 3.57 K/L [facility] # Monos 0.54 0.30 - 0.82 K/L [facility] # Eos 0.18 0.04 - 0.54 K/L [facility] # Baso 0.04 0.01 - 0.08 K/L [facility] Immature 0 0 - 1 % [facility] Granulocytes-Relative [facility] Specimen Blood Performing Organization Address City/[facility]/Zipcode Phone Number [facility] [address] [place], [place] [id number] [facility] * Troponin I (02/08/2018 5:47 AM HUMAN RESOURCES BENEFITS COORDINATOR) Only the most recent of 7 results within the time period is included. Troponin I 0.02 0.00 - 0.03 ng/mL [facility] Specimen Blood Narrative Performed At Troponin I (TnI) levels must be interpreted in the context of the presenting [facility] symptoms and the clinical findings. Elevated TnI levels indicate myocardial [facility] damage, but are not specific for ischemic heart disease. Elevated TnI levels are seen in patients with other cardiac conditions (including myocarditis and congestive heart failure), and slight TnI elevations occur in patients with other conditions, including sepsis, renal failure, acidosis, acute neurological disease, and persistent tachyarrhythmia. Performing Organization Address [facility] Cent[facility] Phone Number [facility] [address] [place] [address] [facility] * Urinalysis w/ Microscopic (02/07/2018 11:03 PM HUMAN RESOURCES BENEFITS COORDINATOR) Only the most recent of 3 results within the time period is included. Color, UA Light Yellow [facility] Clarity, UA Clear [facility] Specific [place], UA 1.036 (H) 1.001 - 1.035 [facility] pH, UA 8.0 5.0 - 8.0 [facility] Protein, UA Negative Negative [facility] Glucose, UA Negative Negative [facility] Ketones, UA Negative Negative [facility] Bilirubin, UA Negative Negative [facility] Blood, UA Negative Negative [facility] Nitrite, UA Negative Negative [facility] Leukocytes, UA Negative Negative [facility] Urobilinogen, UA 0.2 0.2 - 1.0 mg/dL [facility] RBC, UA 0 /HPF [facility] WBC, UA <1 /HPF [facility] Squam Epithel, UA <1 /HPF [facility] Specimen Source [facility] Specimen Urine Performing Organization Address City/State/Zipcode Phone Number [facility] [address] [place] [address] [facility] * CT chest PE test design (02/07/2018 6:40 PM HUMAN RESOURCES BENEFITS COORDINATOR) Only the most recent of 3 results within the time period is included. Narrative Performed At FINAL REPORT [facility] CT scan of the chest pulmonary embolism protocol: CLINICAL HISTORY: Chest pain, shortness of breath Comparison exam: 01/17/2018 TECHNIQUE: CT scan of the chest with intravenous contrast according to the pulmonary embolism protocol. Dose modulation, iterative reconstruction, and/or weight based adjustment of the mA/kV was utilized to reduce the radiation dose to as low as reasonably achievable. FINDINGS: No pulmonary embolism. Left upper lobe mass similar in size to 01/17/2018. Pulmonary emphysema, most severe in the upper lobes. Normal trachea and mainstem bronchi. Normal thyroid gland. Normal great vessels and thoracic aorta. Prevascular, paratracheal, subcarinal, and bilateral hilar lymphadenopathy, similar to 01/17/2018. Normal heart. No pericardial effusion. No acute or significant skeletal abnormalities. Right chest port terminates in the superior vena cava. Normal muscles and subcutaneous fat. Images of the upper abdomen demonstrate no significant abnormality. IMPRESSION: 1. No pulmonary embolism. 2. 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 3. Pulmonary emphysema. Signed: Félix Colon MD Report Verified Date/Time:02/07/2018 19:05:45 Reading Location: [address] Reading Room Procedure Note Interface, External Ris In - 02/07/2018 7:07 PM HUMAN RESOURCES BENEFITS COORDINATOR FINAL REPORT CT scan of the chest pulmonary embolism protocol: CLINICAL HISTORY: Chest pain, shortness of breath Comparison exam: 01/17/2018 TECHNIQUE: CT scan of the chest with intravenous contrast according to the pulmonary embolism protocol. Dose modulation, iterative reconstruction, and/or weight based adjustment of the mA/kV was utilized to reduce the radiation dose to as low as reasonably achievable. FINDINGS: No pulmonary embolism. Left upper lobe mass similar in size to 01/17/2018. Pulmonary emphysema, most severe in the upper lobes. Normal trachea and mainstem bronchi. Normal thyroid gland. Normal great vessels and thoracic aorta. Prevascular, paratracheal, subcarinal, and bilateral hilar lymphadenopathy, similar to 01/17/2018. Normal heart. No pericardial effusion. No acute or significant skeletal abnormalities. Right chest port terminates in the superior vena cava. Normal muscles and subcutaneous fat. Images of the upper abdomen demonstrate no significant abnormality. IMPRESSION: 1. No pulmonary embolism. 2. 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 3. Pulmonary emphysema. Signed: Félix Colon MD Report Verified Date/Time: 02/07/2018 19:05:45 Reading Location: [address] Reading Room Performing Organization Address City/[facility] Centercode Phone Number [facility] * PT/aPTT (02/07/2018 5:49 PM HUMAN RESOURCES BENEFITS COORDINATOR) Only the most recent of 3 results within the time period is included. Protime 15.1 (H) 11.7 - 14.7 seconds [facility] INR 1.2 <=5.9 [facility] PTT 35.5 22.5 - 36.0 seconds [facility] Specimen Blood Narrative Performed At RECOMMENDED COUMADIN/WARFARIN INR THERAPY RANGES [facility] STANDARD DOSE: 2.0 - 3.0 Includes: PROPHYLAXIS for venous thrombosis, [facility] systemic embolization; TREATMENT for venous thrombosis and/or pulmonary embolus. HIGH RISK: Target INR is 2.5-3.5 for patients with mechanical heart valves. Performing Organization Address City/[facility]/Zipcode Phone Number [place] [phone] [place] [phone] * Phosphorus (02/07/2018 5:49 PM HUMAN RESOURCES BENEFITS COORDINATOR) Only the most recent of 4 results within the time period is included. Phosphorus 2.9 2.3 - 4.7 mg/dL [facility] Specimen Blood Performing Organization Address [facility] [place] [address] [phone] * B-type Natriuretic Factor (BNP) (02/07/2018 5:49 PM HUMAN RESOURCES BENEFITS COORDINATOR) Only the most recent of 2 results within the time period is included. BNP <10 0 - 100 pg/mL [facility] Specimen Blood Performing Organization Address City/[facility] Centercond Phone Number [place] [phone] [place] [address] * Magnesium (02/07/2018 5:49 PM HUMAN RESOURCES BENEFITS COORDINATOR) Only the most recent of 12 results within the time period is included. Magnesium 1.4 (L) 1.6 - 2.6 mg/dL [facility] Specimen Blood Performing Organization Address City/[facility] Centercond Phone Number [address] * Comprehensive metabolic panel (02/07/2018 5:49 PM HUMAN RESOURCES BENEFITS COORDINATOR) Only the most recent of 5 results within the time period is included. Protein, Total 8.4 (H) 6.0 - 8.3 gm/dL [facility] Albumin 3.7 3.5 - 5.0 g/dL [facility] Alkaline Phosphatase 50 40 - 150 U/L [facility] Total Bilirubin 0.6 0.2 - 1.2 mg/dL [facility] Sodium 136 136 - 145 meq/L [facility] Potassium 4.0 3.5 - 5.1 meq/L [facility] Chloride 103 98 - 107 meq/L [facility] CO2 25 22 - 29 meq/L [facility] BUN 13 7 - 21 mg/dL [facility] Creatinine 0.99 0.57 - 1.25 mg/dL [facility] Glucose 118 (H) 70 - 105 mg/dL [facility] Calcium 9.5 8.4 - 10.2 mg/dL [facility] AST 13 5 - 34 U/L [facility] ALT 8 6 - 55 U/L [facility] EGFR 77Comment: ESTIMATED GFR IS mL/min/1.73 sq m [facility] NOT ACCURATE CREATININE [facility] CLEARANCE IN PREDICTING GLOMERULAR FILTRATION RATE. ESTIMATED GFR IS NOT APPLICABLE FOR DIALYSIS PATIENTS. Specimen Blood Performing Organization Address City/State/Zipcode Phone Number [facility] [address] [place] [address] [facility] * ECG 12 lead (02/07/2018 5:20 PM HUMAN RESOURCES BENEFITS COORDINATOR) Only the most recent of 7 results within the time period is included. Narrative Performed At Ventricular Rate 136 BPM GE MUSE Atrial Rate 136 BPM P-R Interval 124 ms QRS Duration 88 ms Q-T Interval 288 ms QTC Calculation(Bazett) 433 ms P Harviell 52 degrees R Harviell 105 degrees T Harviell 39 degrees Sinus tachycardia Rightward axis Poor R wave progression ,Possible Anterior infarct , age undetermined Abnormal ECG When compared with ECG of 17-JAN-2018 14:01, No significant change was found Confirmed by MD MANDI, CLARE ([id number]) on 02/08/2018 6:46:06 AM Procedure Note Interface, External Ris In - 02/08/2018 6:46 AM HUMAN RESOURCES BENEFITS COORDINATOR Ventricular Rate 136 BPM Atrial Rate 136 BPM P-R Interval 124 ms QRS Duration 88 ms Q-T Interval 288 ms QTC Calculation(Bazett) 433 ms P Harviell 52 degrees R Harviell 105 degrees T Harviell 39 degrees Sinus tachycardia Rightward axis Poor R wave progression , Possible Anterior infarct , age undetermined Abnormal ECG When compared with ECG of 17-JAN-2018 14:01, No significant change was found Confirmed by MD MANDI, CLARE ([id number]) on 02/08/2018 6:46:06 AM Performing Organization Address City/State/Zipcode Phone Number ELSY LOPEZ * CYTOLOGY REQUEST (01/22/2018 9:20 AM HUMAN RESOURCES BENEFITS COORDINATOR) Cytology See Separate Report [facility] Specimen BAL - Lingula Performing Organization Address City/[facility]/Zipcode Phone Number [address] [address] MEDICAL CENTER * Cytology (01/22/2018 9:20 AM HUMAN RESOURCES BENEFITS COORDINATOR) Case Report Medical Cytology [facility] Report [facility] Case: [id number] Authorizing Provider:Sylvester Treviño MDCollected: 01/22/2018 0920 Ordering Location: [address] Received: 01/22/2018 1439 Service Pathologist: Melissa Gleason MD Specimen:Lingula, BAL DIAGNOSIS LUNG, LINGULA BAL (CYTOSPINS): [facility] - RARE CLUSTERS OF ATYPICAL [facility] CELLS SUSPICIOUS FOR MALIGNANCY Signing Pathologist Direct Phone Line: [phone] CPT Code(s) 00332 [facility] CLINICAL DATA COPD, metastatic lung cancer [facility] currently receiving [facility] chemotherapy presenting with shortness of breath SPECIMEN SOURCE LUNG, LINGULA BAL [facility] GROSS DESCRIPTION 30 mls in cytorich red; 4 [facility] cytospins [facility] Collected: [id number] Received: [id number] STATEMENT OF ADEQUACY Satisfactory [facility] Gross assessment was [facility] performed at [place], Department of [facility] Pathology, [address] [place] [address], Technical component was [facility] performed at [place], Department of [facility] Pathology, [address] [place] [id number], Professional component [facility] was performed at [facility], Department of [facility] Pathology, [address] [place] [address], [place] [address], Specimen BAL - Lingula Performing Organization Address City/[facility]/Zipcode Phone Number [facility] [address] [place] [phone] [facility] * Bronchial culture + gram stain (01/22/2018 9:19 AM HUMAN RESOURCES BENEFITS COORDINATOR) Result 3+ Normal respiratory seb [facility] present [facility] Gram Stain Result 1+ WBCs [facility] Gram Stain Result 1+ gram negative rods [facility] Gram Stain Result 1+ gram positive cocci in [facility] chains, pairs and clusters [facility] Gram Stain Result 1+ gram variable rods [facility] Specimen BAL - Lingula Performing Organization Address City/[facility] Phone Number [facility] [address] [place] [address] [facility] * REPORT OF PROCEDURE - ENDOSCOPY URL (01/22/2018 9:17 AM HUMAN RESOURCES BENEFITS COORDINATOR) Narrative Performed At * REPORT OF PROCEDURE - ENDOSCOPY URL (01/22/2018 8:45 AM HUMAN RESOURCES BENEFITS COORDINATOR) Narrative Performed At * TRANSFUSION SERVICE REPORT - SCAN (01/21/2018 6:00 PM HUMAN RESOURCES BENEFITS COORDINATOR) Narrative Performed At * Vitamin B12 and Folate (01/21/2018 6:00 PM HUMAN RESOURCES BENEFITS COORDINATOR) Vitamin B12 531 213 - 816 pg/mL [facility] Folate 14.1 >=7.0 ng/mL [facility] Specimen Blood - Arm, Right Performing Organization Address [facility]/Zipcode Phone Number [facility] [address] [place], [place] [phone] [facility] * Iron, TIBC, % sat. (without ferritin) (01/21/2018 6:00 PM HUMAN RESOURCES BENEFITS COORDINATOR) Iron 43 40 - 160 ug/dL [facility] TIBC 270 250 - 450 ug/dL [facility] Iron % Saturation 16 (L) 20 - 55 % [facility] Specimen Blood - Arm, Right Performing Organization Address City/State/Zipcode Phone Number [facility] [address] [place], [place] [phone] [facility] * Ferritin (01/21/2018 6:00 PM HUMAN RESOURCES BENEFITS COORDINATOR) Ferritin 203 5 - 275 ng/mL [facility] Specimen Blood - Arm, Right Performing Organization Address [facility]/Zipcode Phone Number [facility] [address] [place] [address] [facility] * Venous doppler arms bilateral (01/21/2018 3:19 PM HUMAN RESOURCES BENEFITS COORDINATOR) Ejection Fraction [facility] Impressions Performed At Right Impression [facility] 1. There is no deep venous obstruction in the jugular, subclavian, axillary, [facility] brachial, radial or ulnar veins. 2. There is no superficial venous obstruction in the cephalic or basilic veins. Left Impression 1. There is no deep venous obstruction in the jugular, subclavian, axillary, brachial, radial or ulnar veins. 2. There is partial echolucent superficial venous obstruction in the cephalic and basilic veins. Conclusions Summary Venous duplex imaging and compression of the bilateral upper extremities was performed. The veins were adequately visualized. The bilateral venous systems were patent and compressible with no evidence of deep venous thrombus. The left superficial venous system was positive with acute thrombus. Signature Velocities are measured in cm/s ; Diameters are measured in cm Narrative Performed At [facility] - Upper Extremities Veins [facility] Demographics [facility] Patient Name JULIUS OMALLEYDate of Study01/21/2018 JEAN [id number] Age62 Visit Number [id number] Gender Male Accession Number [id number] Date of Birth1955 ReferringEscudier Haritha LeesJeramyRoom [id number] Physician SonographPablo Rodriguezting Amy Burrows MD RVTPhysicichar Mendiola, RVT Procedure Type of Study: Veins: Upper Extremities Veins, VENOUS DOPPLER ARMS, BILATERAL. Indications for Study:R/O PE. Patient Status:Routine. Study Location:Portable. Technical Quality:Adequate visualization. - Results were reported to:KELSEY Cuenca@15:24. Risk Factors History of Disease +---------+----+ + !Diagnosis!Date!Comments ! +---------+----+ + !Other!!COPD, Cancer ! +---------+----+ + Procedure Note Interface, External Ris In - 01/21/2018 9:20 PM HUMAN RESOURCES BENEFITS COORDINATOR [facility] - Upper Extremities Veins Demographics Patient Name OMALLEY, JULIUS Date of Study 01/21/2018 JEAN Age 62 Visit Number [id number] Gender Male Accession Number [id number] Date of 1955 Referring Escudier Haritha Pulido Room Number 1450 Physician Refresh Technician Vic Murillo Interpreting Amy Burrows MD RVT Physician Yris Mendiola, RVT Procedure Type of Study: Veins: Upper Extremities Veins, VENOUS DOPPLER ARMS, BILATERAL. Indications for Study:R/O PE. Patient Status:Routine. Study Location:Portable. Technical Quality:Adequate visualization. - Results were reported to:KELSEY Cuenca@15:24. Risk Factors History of Disease +---------+----+ + !Diagnosis!Date!Comments ! +---------+----+ + !Other ! !COPD, Cancer ! +---------+----+ + Impressions Right Impression 1. There is no deep venous obstruction in the jugular, subclavian, axillary, brachial, radial or ulnar veins. 2. There is no superficial venous obstruction in the cephalic or basilic veins. Left Impression 1. There is no deep venous obstruction in the jugular, subclavian, axillary, brachial, radial or ulnar veins. 2. There is partial echolucent superficial venous obstruction in the cephalic and basilic veins. Conclusions Summary Venous duplex imaging and compression of the bilateral upper extremities was performed. The veins were adequately visualized. The bilateral venous systems were patent and compressible with no evidence of deep venous thrombus. The left superficial venous system was positive with acute thrombus. Signature Velocities are measured in cm/s ; Diameters are measured in cm Performing Organization Address City/State/Zipcode Phone Number [facility] CPA * Type and screen, automated (01/20/2018 7:32 PM HUMAN RESOURCES BENEFITS COORDINATOR) ABO/RH AUTOMATED (BEAKER) A POSITIVE [facility] Ab Scrn NEGATIVE [facility] Specimen Blood - Antecubital, Right Performing Organization Address City/State/Zipcode Phone Number [facility] [address] [place], [place] [phone] MEDICAL CENTER * Venous doppler legs bilateral (01/20/2018 6:01 PM HUMAN RESOURCES BENEFITS COORDINATOR) Only the most recent of 2 results within the time period is included. Ejection Fraction [facility] Impressions Performed At Right Impression [facility] 1. There is no deep venous obstruction in the common femoral, profunda [facility] femoral, femoral, popliteal, posterior tibial or peroneal veins. 2. There is no superficial venous obstruction in the great saphenous vein. Left Impression 1. There is no deep venous obstruction in the common femoral, profunda femoral, femoral, popliteal, posterior tibial or peroneal veins. 2. There is no superficial venous obstruction in the great saphenous vein. Conclusions Summary Venous duplex imaging and compression of the bilateral lower extremities were performed. The veins were adequately visualized. The bilateral venous systems were patent and compressible with no evidence of thrombus. The venous Doppler waveforms were phasic with respiration . Signature Velocities are measured in cm/s ; Diameters are measured in cm Narrative Performed At PV [facility] - Lower Extremities DVT Study [facility] Demographics [facility] Patient NameMert OMALLEY of Study 01/20/2018 JEAN Age 62 Visit [id number] GenderMale Date of 1955 Referring Haritha Velez Room Number 1450 Physician Refresh Technician Vic Burrows RVTPhyjorge l KRAUSE Procedure Type of Study: Veins: Lower Extremities DVT Study, VENOUS DOPPLER LEG, BILATERAL. Indications for Study:Pulmonary embolus . Patient Status:Routine. Study Location:Vascular Lab. Technical Quality:Adequate visualization. Risk Factors History of Disease +---------+----+ + !Diagnosis!Date!Comments ! +---------+----+ + !Other!!COPD, Cancer ! +---------+----+ + Procedure Note Interface, External Ris In - 01/20/2018 8:57 PM HUMAN RESOURCES BENEFITS COORDINATOR [facility] - Lower Extremities DVT Study Demographics Patient Name JULIUS OMALLEY Date of Study 01/20/2018 JEAN Age 62 Visit Number [id number] Gender Male Accession Number [id number] Date of 1955 Referring Haritha Velez Room Number 1565 Physician Refresh Technician Vic Murillo Interpreting Amy Burrows T Physician Procedure Type of Study: Veins: Lower Extremities DVT Study, VENOUS DOPPLER LEG, BILATERAL. Indications for Study:Pulmonary embolus . Patient Status:Routine. Study Location:Vascular Lab. Technical Quality:Adequate visualization. Risk Factors History of Disease +---------+----+ + !Diagnosis!Date!Comments ! +---------+----+ + !Other ! !COPD, Cancer ! +---------+----+ + Impressions Right Impression 1. There is no deep venous obstruction in the common femoral, profunda femoral, femoral, popliteal, posterior tibial or peroneal veins. 2. There is no superficial venous obstruction in the great saphenous vein. Left Impression 1. There is no deep venous obstruction in the common femoral, profunda femoral, femoral, popliteal, posterior tibial or peroneal veins. 2. There is no superficial venous obstruction in the great saphenous vein. Conclusions Summary Venous duplex imaging and compression of the bilateral lower extremities were performed. The veins were adequately visualized. The bilateral venous systems were patent and compressible with no evidence of thrombus. The venous Doppler waveforms were phasic with respiration . Signature Velocities are measured in cm/s ; Diameters are measured in cm Performing Organization Address City/State/Zipcode Phone Number [facility] * ECHOCARDIOGRAM REPORT - SCAN (01/20/2018 5:50 PM HUMAN RESOURCES BENEFITS COORDINATOR) Narrative Performed At * Heparin Assay - Low Molecular Weight (01/19/2018 5:01 PM HUMAN RESOURCES BENEFITS COORDINATOR) Anti 10A-Lovenox 0.59 (L) 0.60 - 2.00 u/ml [facility] Specimen Blood - Arm, Right Narrative Performed At Anti-Factor 10-A Level (Heparin Assay for Low Molecular Weight Heparin) [facility] Monitoring Guidelines: [facility] Blood samples should be obtained 4 hours post subcutaneous injection (time of Peak level) Therapeutic Peak Levels: 0.6-1.0 units/mLtwice daily enoxaparin 1.0-2.0 units/mLonce daily enoxaparin Ref: CHEST 2012;141:[id number] Performing Organization Address [facility] Cent[facility]ode Phone Number [place] [phone] * Fibrinogen (01/19/2018 5:01 PM HUMAN RESOURCES BENEFITS COORDINATOR) Fibrinogen 380 225 - 434 mg/dl [facility] Specimen Blood - Arm, Right Performing Organization Address [facility] Centercode Phone Number [address] * D-dimer (01/19/2018 5:01 PM HUMAN RESOURCES BENEFITS COORDINATOR) D-Dimer, Quant 1.25 (H) <0.50 MG/L FEU [facility] Specimen Blood - Arm, Right Narrative Performed At Intended Use: The D-Dimer Assay can be used to aid in the diagnosis of Deep Vein [facility] Thrombosis (DVT) and Pulmonary Embolism Disease (PED). [facility] In patients with low pre-test probability, various studies concerning STA Liatest D-dimer test have reported that with a cutoff value of 0.50 MG/L FEU, the Negative Predictive Value (NPV) regarding the exclusion of thrombosis is within 95-100% range. Performing Organization Address [facility] Phone Number [place] [phone] [place] [address] * Limited 2D Echocardiogram (01/19/2018 1:29 PM HUMAN RESOURCES BENEFITS COORDINATOR) Ejection Fraction [facility] Narrative Performed At Transthoracic Echocardiography Report (TTE) [facility] Demographics [facility] Patient Name Mert OMALLEY of Study 01/19/2018 JEAN [id number] GenderMale Visit Number [id number] RaceCaucasian [id number] Number [id number] Number Date of Birth1955 Referring Physician Deo Plasencia MD Age62 year(s) Refresh Technician Luther Landa [facility] AnalystIzoldxiomy Garcia InterpretingStlizzette Bowers MD Procedure Type of Study TTE procedure:LIMITED 2D ECHOCARDIOGRAM (Routine) Indications:Known or suspected heart failure. Clinical History HGB 10.1 HCT 33.2 % COPD, CVA, PERICARDIAL WINDOW (08/08/16), HX SMOKING, LUNG CA, CHEMO Height: 71 inches Weight: 102.97 kg (227 lbs) BSA: 2.23 m^2 BMI: 31.66 kg/m^2 HR: 103 bpm BP: 107/55 mmHg Summary 1. Estimated LVEF by qualitative assessment is normal (55-60%) All of the LV segments contract normally . 2. RV chamber size is mildly enlarged . Global RV systolic function is low normal . 3. No significant pericardial effusion is visualized. Signature Findings Rhythm/BPSinus tachycardia during the exam. Left Ventricle Limited 2D exam to address study indication. The left ventricle is chamber size (by PSLAX dimension) is normal (male - LVIDd 4.2-5.8cm) . Normal LV wall thickness. All of the LV segments contract normally . Global LV systolic function normal . Estimated LVEF by qualitative assessment is normal (55-60%) . Estimation of LV systolic function is less reliable in the presence of tachycardia. Left AtriumLA size is normal (16-34 ml/m2) . Right VentricleRV chamber size is mildly enlarged . Global RV systolic function is low normal . Right Atrium RA cavity size is normal . Aortic Valve Mild AoV cusp calcification. Mitral Valve Mild MV leaflet thickening. Tricuspid ValveUnable to estimate peak systolic PA pressure; inadequate TR velocity signal. Pulmonic Valve Normal PV structure and function. AortaAortic root size (SInus of Valsalva diameter) is normal . Proximal ascending aorta size is normal . PericardiumNo significant pericardial effusion is visualized. IVC/SVC/PA/PV/PleuralThe estimated RA pressure by IVC dynamics 5-10mmHg . Chambers/Structures Left Atrium LA Volume: 37.83 ml LA Area: 16.45 cm^2 LA Vol. Index: 17 ml/m^2 Left Ventricle LVIDd: 5.33 cm LV Septum Diastolic: 0.71 cm LV PW Diastolic: 0.92 cm LVOT Diameter: 2.08 cm Right Atrium RA Vol. (Sngl Plane): 48.6 ml Aorta Ao Root S of Arely.: 3.25 cmAscending Aorta: 3.25 cm Doppler/Quantitative Measurements LVOT LVOT Diameter: 2.08 cm LVOT Area: 3.4 cm^2 Procedure Note Interface, External Ris In - 01/20/2018 5:09 PM HUMAN RESOURCES BENEFITS COORDINATOR Transthoracic Echocardiography Report (TTE) Demographics Patient Name JULIUS OMALLEY Date of Study 01/19/2018 JEAN Gender Male Visit Number [id number] Race Room Number 1450 Number Date of 1955 Referring Physician Deo Plasencia MD Age 62 year(s) Refresh Technician Luther Landa [facility] Pbx Wire Chief Mary Garcia Interpreting Deisi Bowers MD Procedure Type of Study TTE procedure:LIMITED 2D ECHOCARDIOGRAM (Routine) Indications:Known or suspected heart failure. Clinical History HGB 10.1 HCT 33.2 % COPD, CVA, PERICARDIAL WINDOW (08/08/16), HX SMOKING, LUNG CA, CHEMO Height: 71 inches Weight: 102.97 kg (227 lbs) BSA: 2.23 m^2 BMI: 31.66 kg/m^2 HR: 103 bpm BP: 107/55 mmHg Summary 1. Estimated LVEF by qualitative assessment is normal (55-60%) All of the LV segments contract normally . 2. RV chamber size is mildly enlarged . Global RV systolic function is low normal . 3. No significant pericardial effusion is visualized. Signature Findings Rhythm/BP Sinus tachycardia during the exam. Left Ventricle Limited 2D exam to address study indication. The left ventricle is chamber size (by PSLAX dimension) is normal (male - LVIDd 4.2-5.8cm) . Normal LV wall thickness. All of the LV segments contract normally . Global LV systolic function normal . Estimated LVEF by qualitative assessment is normal (55-60%) . Estimation of LV systolic function is less reliable in the presence of tachycardia. Left Atrium LA size is normal (16-34 ml/m2) . Right Ventricle RV chamber size is mildly enlarged . Global RV systolic function is low normal . Right Atrium RA cavity size is normal . Aortic Valve Mild AoV cusp calcification. Mitral Valve Mild MV leaflet thickening. Tricuspid Valve Unable to estimate peak systolic PA pressure; inadequate TR velocity signal. Pulmonic Valve Normal PV structure and function. Aorta Aortic root size (SInus of Valsalva diameter) is normal . Proximal ascending aorta size is normal . Pericardium No significant pericardial effusion is visualized. IVC/SVC/PA/PV/Pleural The estimated RA pressure by IVC dynamics 5-10mmHg . Chambers/Structures Left Atrium LA Volume: 37.83 ml LA Area: 16.45 cm^2 LA Vol. Index: 17 ml/m^2 Left Ventricle LVIDd: 5.33 cm LV Septum Diastolic: 0.71 cm LV PW Diastolic: 0.92 cm LVOT Diameter: 2.08 cm Right Atrium RA Vol. (Sngl Plane): 48.6 ml Aorta Ao Root S of Arely.: 3.25 cm Ascending Aorta: 3.25 cm Doppler/Quantitative Measurements LVOT LVOT Diameter: 2.08 cm LVOT Area: 3.4 cm^2 Performing Organization Address City/State/Zipcode Phone Number [facility] * Lactic acid, venous, whole blood (01/18/2018 4:10 AM HUMAN RESOURCES BENEFITS COORDINATOR) Only the most recent of 6 results within the time period is included. Lactate, Venous 1.1 0.5 - 2.2 mmol/L [facility] Specimen Blood - Arm, Right Performing Organization Address City/State/Zipcode Phone Number [facility] [address] [place] [address] MEDICAL CENTER * XR chest 1 view portable / bedside (01/17/2018 2:20 PM HUMAN RESOURCES BENEFITS COORDINATOR) Only the most recent of 3 results within the time period is included. Narrative Performed At FINAL REPORT GE RIS Chest dated 01/17/2018 COMPARISON: January 04, 2022 Clinical Information: chest pain Comment: Heart is enlarged. Pulmonary vasculature is indistinct. Interstitial disease is seen bilaterally suggestive of vascular congestion. A 7.3 x 8.0 cm mass is seen in the left perihilar region, previously 6.6 x 5.8 cm. Port-A-Cath remains in place. No pleural effusion or pneumothorax is seen. Impression: Interval increase in size of the left perihilar mass and persistent interstitial pulmonary disease. Signed: Ric Varner MD Report Verified Date/Time:01/17/2018 14:49:31 Reading Location: [facility] C[facility] Consult Reading Room Procedure Note Interface, External Ris In - 01/17/2018 2:51 PM HUMAN RESOURCES BENEFITS COORDINATOR FINAL REPORT Chest dated 01/17/2018 COMPARISON: January 04, 2022 Clinical Information: chest pain Comment: Heart is enlarged. Pulmonary vasculature is indistinct. Interstitial disease is seen bilaterally suggestive of vascular congestion. A 7.3 x 8.0 cm mass is seen in the left perihilar region, previously 6.6 x 5.8 cm. Port-A-Cath remains in place. No pleural effusion or pneumothorax is seen. Impression: Interval increase in size of the left perihilar mass and persistent interstitial pulmonary disease. Signed: Ric Varner MD Report Verified Date/Time: 01/17/2018 14:49:31 Reading Location: [facility] B1 C013W Consult Reading Room Performing Organization Address City/[facility] Phone Number GE RIS * POC-Glucose meter (01/17/2018 2:17 PM HUMAN RESOURCES BENEFITS COORDINATOR) Only the most recent of 2 results within the time period is included. POC-Glucose Meter 140 (H)Comment: TESTED AT 70 - 110 mg/dL [address] [address] Specimen Blood Performing Organization Address [facility] Phone Number [address] [address] [phone] [place] [address] * POC-Lactic Acid, Venous (01/17/2018 2:16 PM HUMAN RESOURCES BENEFITS COORDINATOR) Only the most recent of 4 results within the time period is included. POC-Lactic Acid, Venous 2.3 (H)Comment: TESTED AT 0.9 - 1.7 mmol/L [address] [address] Specimen Blood Performing Organization Address [facility] Phone Number [address] [address] [phone] [place] [address] * CRITICAL CARE (01/17/2018 2:08 PM HUMAN RESOURCES BENEFITS COORDINATOR) Narrative Performed At Deo Plasencia MD 01/18/20181:26 PM Critical Care Performed by: Deo Plasencia MD Authorized by: Nita Smart MD Total critical care time: 60 minutes Critical care time was exclusive of separately billable procedures and treating other patients and teaching time. Critical care was necessary to treat or prevent imminent or life-threatening deterioration of the following conditions: respiratory failure. Critical care was time spent personally by me on the following activities: blood draw for specimens, development of treatment plan with patient or surrogate, discussions with primary provider, interpretation of cardiac output measurements, evaluation of patient's response to treatment, examination of patient, obtaining history from patient or surrogate, ordering and performing treatments and interventions, ordering and review of laboratory studies, ordering and review of radiographic studies, pulse oximetry, re-evaluation of patient's condition and review of old charts. * Manual Differential (01/07/2018 5:45 AM HUMAN RESOURCES BENEFITS COORDINATOR) Only the most recent of 10 results within the time period is included. % Neutros 71 % [facility] % Lymphs 12 % [facility] % Monos 7 % [facility] % Metamyelo 1 (H) 0 - 0 % [facility] % Myelo 1 (H) 0 - 0 % [facility] % Bands 3 0 - 10 % [facility] % Atypical Lymphs 5 (H) 0 - 0 % [facility] # Neutros 4.90 1.78 - 5.38 K/ul [facility] # Lymphs 0.83 (L) 1.32 - 3.57 K/ul [facility] # Monos 0.48 0.30 - 0.82 K/uL [facility] # Metamyelo 0.07 (H) 0.00 - 0.00 K/uL [facility] # Myelo 0.07 (H) 0.00 - 0.00 K/uL [facility] # Bands 0.21 0.00 - 0.80 K/uL [facility] # Atypical Lymphs 0.35 (H) 0.00 - 0.00 K/uL [facility] Total Counted 100 [facility] nRBC (manual) 5 (H) 0 - 0 /100 WBC [facility] WBC Morphology Normal [facility] Large Platelet Present [facility] Polychromasia 1+ few [facility] Hypochromia 1+ few [facility] Artifact Present [facility] Platelet Conc Adequate [facility] Specimen Blood - Central Venous Line Narrative Performed At Received comment: [facility] User comments: [facility] Slide comments: Performing Organization Address City/State/Zipcode Phone Number [facility] [address] [place], [place] [phone] [facility] * Vancomycin level, random (01/06/2018 2:54 PM HUMAN RESOURCES BENEFITS COORDINATOR) Vancomycin Rm 12.2 ug/mL [facility] Specimen Blood Narrative Performed At Reference Range: No Normals [facility] Hold further dosing for level > 20, alert MD and [facility] Performing Organization Address City/State/Zipcode Phone Number [facility] [address] [place], [place] [phone] [facility] * RESPIRATORY PANEL [facility] (01/05/2018 11:32 PM HUMAN RESOURCES BENEFITS COORDINATOR) Only the most recent of 2 results within the time period is included. Human Metapneumovirus Not detected Not detected, [facility]ocal [facility] Rhinovirus Not detected Not detected, [facility] Influenza A Not detected Not detected, [facility] INFLUENZA A (NO SUBTYPE) Not detected, [facility]ocal [facility] Influenza A subtype H1 Not detected, Equivocal [facility] Influenza A Subtype H3 Not detected, Equivocal [facility] Influenza A Subtype Not detected, Equivocal [facility] H1-2009 [facility] Influenza B Not detected Not detected, [facility]ocal [facility] Respiratory Syncytial Not detected Not detected, Equivocal [facility] Virus [facility] Parainfluenza Virus 1 Not detected Not detected, Equivocal [facility] Parainfluenza Virus 2 Not detected Not detected, Equivocal [facility] Parainfluenza virus 3 Not detected Not detected, [facility] Parainfluenza Virus 4 Not detected Not detected, [facility] Adenovirus Not detected Not detected, [facility]ocal [facility] Coronavirus 229E Not detected Not detected, [facility] Coronavirus HKU1 Not detected Not detected, [facility]ocal [facility] Coronavirus NL63 Not detected Not detected, [facility]ocal [facility] Coronavirus OC43 Not detected Not detected, [facility]ocal [facility] Bordetella Pertussis Not detected Not detected, Equ[facility]ocal [facility] Chlamydophila Pneumoniae Not detected Not detected, [facility] Mycoplasma Pneumoniae Not detected Not detected, Equivocal [facility] Specimen Nasopharyngeal - Nasopharyngeal Swab Narrative Performed At Other viruses and bacteria not targeted by this PCR panel cannot be excluded; [facility] therefore clinical correlation and follow up of serology, culture results, and [facility] other molecular studies is required. The results are not intended to be used as the sole means for clinical diagnosis or patient management decisions. This sample was tested at the [facility] using the PiniOnArray Respiratory Panel. It is FDA cleared and has been verified and approved by the [facility] for clinical use on nasal swab specimens. It is not FDA-cleared for use on bronchial wash/lavage samples. However, for this sample type, validation was performed and test characteristics were determined and approved, by [facility] for clinical use under the Clinical Laboratory Improvement Amendments (CLIA) of 1988 requirements. Therefore, FDA clearance is not required.This laboratory is CLIA-certified and [employer] (CAP)-accredited to perform high complexity testing. Performing Organization Address City/State/Zipcode Phone Number [facility] [address] [place] [address] [facility] * Sputum Culture + Gram Stain (01/05/2018 3:40 AM HUMAN RESOURCES BENEFITS COORDINATOR) Only the most recent of 3 results within the time period is included. Result 4+ Normal respiratory seb [facility] Gram Stain Result 1+ WBCs [facility] Gram Stain Result >25 epithelial cells [facility] Gram Stain Result 1+ gram negative rods [facility] Gram Stain Result 1+ gram positive rods [facility] Gram Stain Result 4+ gram positive cocci in [facility] chains, pairs and clusters [facility] Specimen Sputum - Expectorated Performing Organization Address City/State/Zipcode Phone Number [facility] [address] [place] [address] [facility]ENTER * XR chest 2 views (01/04/2018 11:48 PM HUMAN RESOURCES BENEFITS COORDINATOR) Narrative Performed At FINAL REPORT [facility] EXAMINATION: 2 VIEW CHEST CLINICAL INDICATION: FEVER, LUNG CANCER. IMPRESSION: Compared with chest CT 12/01/2017, AP portable chest 11/26/2017 A large masslike opacity is again noted in the left suprahilar region-left upper lobe, grossly stable in size and morphology. Large lung volumes and apical radiolucency are compatible with underlying obstructive lung disease/emphysema. Scattered reticular opacities are again noted throughout both lungs, a component of which is favored to reflect scarring and/or fibrosis. Mild superimposed pulmonary edema or an underlying pneumonia are difficult to completely exclude. However, no definite evidence of new parenchymal lung consolidation. The heart size is normal. Mediastinal contours are overall sharp and stable. A small pleural effusion is again noted.No definite evidence of an acute osseous abnormality or pneumothorax. Right-sided Port-A-Cath with tip along the superior vena cava redemonstrated. In summary, no significant interval change. Signed: Vic Montilla MD Report Verified Date/Time:01/05/2018 00:02:33 Reading Location: [address] Reading Room Procedure Note Interface, External Ris In - 01/05/2018 12:04 AM HUMAN RESOURCES BENEFITS COORDINATOR FINAL REPORT EXAMINATION: 2 VIEW CHEST CLINICAL INDICATION: FEVER, LUNG CANCER. IMPRESSION: Compared with chest CT 12/01/2017, AP portable chest 11/26/2017 A large masslike opacity is again noted in the left suprahilar region-left upper lobe, grossly stable in size and morphology. Large lung volumes and apical radiolucency are compatible with underlying obstructive lung disease/emphysema. Scattered reticular opacities are again noted throughout both lungs, a component of which is favored to reflect scarring and/or fibrosis. Mild superimposed pulmonary edema or an underlying pneumonia are difficult to completely exclude. However, no definite evidence of new parenchymal lung consolidation. The heart size is normal. Mediastinal contours are overall sharp and stable. A small pleural effusion is again noted. No definite evidence of an acute osseous abnormality or pneumothorax. Right-sided Port-A-Cath with tip along the superior vena cava redemonstrated. In summary, no significant interval change. Signed: Vic Montilla MD Report Verified Date/Time: 01/05/2018 00:02:33 Reading Location: [address] Reading Room Performing Organization Address [facility] Centercode Phone Number [facility] * Blood culture #2 (01/04/2018 11:11 PM HUMAN RESOURCES BENEFITS COORDINATOR) Only the most recent of 6 results within the time period is included. Result No growth in 5 days [facility] Specimen Blood - Central Venous Line Performing Organization Address [facility] [place] [address] [phone] [place] [address] * Hepatic function panel (01/04/2018 11:11 PM HUMAN RESOURCES BENEFITS COORDINATOR) Only the most recent of 4 results within the time period is included. Protein, Total 6.7 6.0 - 8.3 gm/dL [facility] Albumin 3.2 (L) 3.5 - 5.0 g/dL [facility] Total Bilirubin 0.8 0.2 - 1.2 mg/dL [facility] Bilirubin, Direct 0.4 0.1 - 0.5 mg/dL [facility] Alkaline Phosphatase 47 40 - 150 U/L [facility] AST 17 5 - 34 U/L [facility] ALT 11 6 - 55 U/L [facility] Specimen Blood - Central Venous Line Performing Organization Address [facility] Centercode Phone Number [facility] [address] [place] [phone] * ECHOCARDIOGRAM REPORT - SCAN (12/03/2017 6:20 PM CDT) Narrative Performed At * Vancomycin level, trough (12/03/2017 12:10 PM CDT) Only the most recent of 3 results within the time period is included. Vancomycin Tr 24.0 (H) 10.0 - 20.0 ug/mL [facility] Specimen Blood Narrative Performed At Please draw 30 minutes prior to Vancomycin dose. Thank you. [facility] Performing Organization Address City/State/Zipcode Phone Number [facility] [address] [place] [phone] [place] [address] * 2D Echo W/Doppler(CW/PW/Color) (12/03/2017 11:06 AM CDT) Ejection Fraction [facility] Narrative Performed At Transthoracic Echocardiography Report (TTE) [facility] Demographics [facility] Patient Name Mert OMALLEY of Study 12/03/2017 JEAN [id number] GenderMale Visit Number [id number] RaceUnknown [id number] Number [id number] Number Date of Birth1955 Referring Physician Deo Plasencia MD Age62 year(s) Refresh Technician Chuy Heredia MD Physician Fellow TORRES [...] Name JULIUS OMALLEY Date of Study 12/03/2017 [id number] Gender Male Visit Number [id number] Race Unknown Room Number 915 Number Date of 1955 Referring Physician Deo Plasencia MD Age 62 year(s) Refresh Technician Chuy Solomon Interpreting Lalita Heredia MD Physician Fellow TRORES Joseph Procedure Type of Study TTE procedure:2DECHO [...] CO: 5.28 l/min LVOT CI: 2.41 l/min/m^2 Performing Organization Address City/State/Zipcode Phone Number [facility] [employer] [facility] * HISTOPLASMA AB,ID (12/02/2017 10:23 AM CDT) Histoplasma Ab,Id NEGATIVE [facility] Comment: INCORPORATED REFERENCE RANGE:NEGATIVE INTERPRETIVE CRITERIA: NEGATIVE:Antibody Not Detected POSITIVE:Antibody Detected Positive immunodiffusion (ID) reactions involve one [...] often (approx. 10% of proven cases.) Specimen Blood - Arm, Right Narrative Performed At Performing Lab [facility] *QDID [employer] [address] [place] [phone] Wolf Ruano MD Performing Organization Address [facility] Centercond Phone Number [employer] [place], [address] [place], [place] [address] [place] [facility] [address] * Fungal Panel (12/02/2017 10:23 AM CDT) Fungal Panel1 Refer to individual [facility] Aspergillus, Blastomyces, INCORPORATED Coccidioides & Histoplasma Ab results. Specimen Blood - Arm, Right Performing Organization Address [facility] Phone Number [facility] [employer], [address] [place], [place] [address] [address] * Coccidioides antibodies (12/02/2017 10:23 AM CDT) Coccidioides Ab,Id NEGATIVE [facility] Comment: INCORPORATED REFERENCE RANGE:NEGATIVE INTERPRETIVE CRITERIA: NEGATIVE:Antibody Not Detected POSITIVE:Antibody Detected The immunodiffusion (ID) procedure correlates both [...] for up to 1 year thereafter. Specimen Blood - Arm, Right Narrative Performed At Performing Lab [facility] *QDID [employer] [facility] [id number] [place] [phone] Wolf Ruano MD Performing Organization Address [facility] Centercode Phone Number [employer], [address] [place], [place] [address] [address] * Blastomyces antibody (12/02/2017 10:23 AM CDT) Blastomyces Ab,Id NEGATIVE [facility] Comment: INCORPORATED REFERENCE RANGE: NEGATIVE INTERPRETIVE CRITERIA: NEGATIVE: Antibody Not Detected POSITIVE: Antibody Detected A positive result is diagnostic of active or recent blastomycosis and is found in approximately 80% of proven cases of blastomycosis. Specimen Blood - Arm, Right Narrative Performed At Performing Lab [facility] *CO EverywhereID [employer] [address] [place] [phone] Wolf Ruano MD Performing Organization Address [facility] Phone Number [facility], [address] [place] [address] * Aspergillus antibodies (12/02/2017 10:23 AM CDT) Aspergillus flavus Ab NEGATIVE [facility] Aspergillus niger Ab NEGATIVE [facility] Aspergillus Fumigatus NEGATIVE [facility] Comment: INCORPORATED REFERENCE RANGE: NEGATIVE INTERPRETIVE CRITERIA: Negative: Antibody not detected Positive: Antibody detected A positive result is represented by 1 or more precipitin bands, and may indicate fungus ball, allergic bronchopulmonary aspergillosis (PATRICIO) or invasive aspergillosis.Generally, the appearance of 3-4 bands indicates either fungus ball or PATRICIO. Specimen Blood - Arm, Right Narrative Performed At Performing Lab [facility] *CO EverywhereID [employer] [address] [place] [phone] Wolf Ruano MD Performing Organization Address [facility] Number [facility] [employer] [place], [address] [place] [address] * Aspergillus galactomannan antigen (12/02/2017 10:23 AM CDT) Aspergillus Index Value <0.50 [facility] INC[facility] Aspergillus Antigen NOT DETECTED [facility] Comment: INCORPORATED REFERENCE RANGE: <0.50, NOT DETECTED A negative result does not exclude invasive aspergillosis. Follow-up testing may be indicated for high-risk patients. Specimen Blood - Arm, Right Narrative Performed At Performing Lab [facility] *CO EverywhereID [employer] [address] [place] [phone] Wolf Ruano MD Performing Organization Address [facility] Phone Number [facility], [address] [facility] [address] * Histoplasma antigen, urine (12/02/2017 7:44 AM CDT) Histoplasma Antigen <0.5 ng/mL [facility] Comment: INCORPORATED REFERENCE RANGE: <0.5 ng/mL Histoplasma galactomannan is [...] analytical performance characteristics have been determined by [facility]. It has not been cleared or approved by the U.S. Food and Drug Administration.The FDA has determined that such clearance or approval is not necessary. This assay has been validated pursuant to the CLIA regulations andis used for clinical purposes. Specimen Urine - Urine, Voided Narrative Performed At Performing Lab [facility] *QDID INCORPORATED [facility] [address] [place] [phone] Wolf Ruano MD Performing Organization Address [facility] Centercode Phone Number [facility], [address] [facility] [address] * CT chest with IV contrast (12/01/2017 10:24 PM CDT) Narrative Performed At FINAL REPORT [facility] Chest CT without contrast CLINICAL HISTORY: Lung [...] MD Report Verified Date/Time:12/01/2017 22:48:30 Reading Location: [facility] C0[facility] Transitional Reading Room Procedure Note Interface, External [...] Report Verified Date/Time: 12/01/2017 22:48:30 Reading Location: [facility] B1 C013T Transitional Reading Room Performing Organization Address City/State/Zipcode Phone Number [facility] * CRITICAL CARE (11/29/2017 10:48 AM CDT) Narrative Performed At ErinnDeo cole MD 11/29/2017 10:48 AM Critical Care Performed by: DEO PLASENCIA Authorized by: LAUREN DE SANTIAGO Total critical care time: 60 minutes Critical [...] condition and review of old charts. * Strep pneumoniae antigen (11/27/2017 8:01 PM CDT) Strep pneumoniae Antigen Presumptive negative for Presumptive negative for [facility] pneumococcal pneumonia - see pneumococcal pneumonia - [facility] comment see comment, Presumptive negative for pneumococcal meningitis - see comment Specimen Urine Narrative Performed At Presumptive negative for pneumococcal pneumonia, suggesting no current or recent [facility] pneumococcal infection. Infection due to S. pneumoniae cannot be ruled out since [facility] the antigen present in the sample may be below the detection limit of the test. Performing Organization Address City/[facility]/[place] [address] [facility] * Legionella antigen, urine (11/27/2017 5:22 PM CDT) Legionella Urine Antigen Negative - see commentComment: [facility] Negative for L. pneumophila [facility] serogroup 1 antigen, suggesting no recent or current infection with this serogroup. Legionellosis cannot be ruled out since other serogroups and species may cause disease. Specimen Urine - Urine, Voided Performing Organization Address City/[facility]/Zipcode Phone Number [address] [address] [facility] * Creatine Kinase (CK), Total and MB (11/27/2017 11:13 AM CDT) Only the most recent of 2 results within the time period is included. Total CK 83 29 - 200 U/L [facility] CK-MB 2.2 0.0 - 6.6 ng/mL [facility] MB Relative Index 2.7 % [facility] Specimen Blood - Arm, Right Narrative Performed At CK-MB Reference Range: [facility] <6.7Normal [facility] 6.7-10.0Borderline >10.0 Abnormal Performing Organization Address City/State/[facility] Centercode Phone Number [address] * TSH/Free T4 If Indicated (11/27/2017 3:49 AM CDT) TSH 1.63 0.35 - 4.94 uIU/mL [facility] Specimen Blood Performing Organization Address City/[facility] Centercode Phone Number [address] * C-Reactive Protein (11/27/2017 3:49 AM CDT) CRP 12.55 (H) 0.00 - 0.50 mg/dL [facility] Specimen Blood Performing Organization Address City/[facility] Centercond Phone Number [address] * Lactate dehydrogenase (LDH) (11/27/2017 3:49 AM CDT) LDH 337 (H) 125 - 220 U/L [facility] Specimen Blood Performing Organization Address City/[facility] Centercode Phone Number [address] * Hemoglobin A1c (11/27/2017 3:49 AM CDT) Hemoglobin A1C 6.7 (H) 4.3 - 6.1 % [facility] Specimen Blood Performing Organization Address City/[facility]/Zipcode Phone Number [address] * Lipid panel (11/27/2017 3:49 AM CDT) Triglycerides 79 mg/dL [facility] Cholesterol 113 mg/dL [facility] HDL 32 mg/dL [facility] LDL Calculated 65 mg/dL [facility] Specimen Blood Narrative Performed At Triglyceride Reference Range: [facility] Low Risk <150 [facility] [id number] High Risk 200-499 Very High Risk>=500 Cholesterol Reference Range: Low Risk <200 [id number] High Risk>240 HDL Cholesterol Reference Range: Low Risk >=60 High Risk <40 LDL Cholesterol Reference Range: Optimal<100 Near [id number] Very High >=190 Performing Organization Address City/[facility] Centercond Phone Number [address] * Urinalysis Microscopic Only (11/27/2017 3:40 AM CDT) RBC, UA <1 /HPF [facility] WBC, UA <1 /HPF [facility] Mucus Rare [facility] Squam Epithel, UA <1 /HPF [facility] Specimen Urine Performing Organization Address City/[facility] Centercond Phone Number [address] * Urinalysis with Microscopic If Indicated (11/27/2017 3:40 AM CDT) Color, UA Light Yellow [facility] Clarity, UA Clear [facility] Specific [place], UA >1.050 (H) 1.001 - 1.035 [facility] pH, UA 5.5 5.0 - 8.0 [facility] Protein, UA 10 mg/dL (A) Negative [facility] Glucose, UA Negative Negative [facility] Ketones, UA Negative Negative [facility] CENTER Bilirubin, UA Negative Negative [facility] Blood, UA Negative Negative [facility] Nitrite, UA Negative Negative [facility] Leukocytes, UA Negative Negative [facility] Urobilinogen, UA 0.2 0.2 - 1.0 mg/dL [facility] Specimen Source [facility] Specimen Urine Performing Organization Address [facility] Phone Number [address] * Rapid Influenza A&B Screen (11/27/2017 3:39 AM CDT) Rapid Influenza A Antigen NEGATIVE LABORATORY FINDING Negative, Inconclusive [facility] Rapid influenza B Antigen NEGATIVE LABORATORY FINDING Negative, Inconclusive [facility] Specimen Nasal - Nasopharyngeal Swab Performing Organization Address City/[facility] Phone Number [address] * CBC (Hemogram only) (07/22/2017 5:28 AM CDT) Only the most recent of 2 results within the time period is included. WBC 10.6 (H) 3.5 - 10.5 K/L [facility] RBC 4.50 (L) 4.63 - 6.08 M/L [facility] Hemoglobin 13.3 (L) 13.7 - 17.5 GM/DL [facility] Hematocrit 41.5 40.1 - 51.0 % [facility] MCV 92.2 79.0 - 92.2 fL [facility] MCH 29.6 25.7 - 32.2 pg [facility] MCHC 32.0 (L) 32.3 - 36.5 GM/DL [facility] RDW 15.4 (H) 11.6 - 14.4 % [facility] Platelets 336 150 - 450 K/CU MM [facility] MPV 9.2 (L) 9.4 - 12.4 fL [facility] nRBC 0 0 - 0 /100 WBC [facility] Specimen Blood Performing Organization Address City/State/Zipcode Phone Number [facility] [address] [place] [address] MEDICAL CENTER * Tissue Exam (07/19/2017 1:26 PM CDT) Case Report Surgical Pathology [facility] Case: [id number] Authorizing Provider:Javad Moctezuma, Collected: 07/19/2017 1326 Ordering Location: [address] Received: 07/21/2017 0806 Service Pathologist: Clarissa Mercedes MD Specimen:Appendix DIAGNOSIS A. APPENDIX, APPENDECTOMY: [facility] - CHRONIC APPENDICITIS [facility] - NEGATIVE FOR MALIGNANCY Signing Pathologist Direct Phone Line: [phone] CPT Code(s) 79234 [facility] CLINICAL HISTORY Appendicitis [facility] SPECIMEN SOURCE Appendix [facility] GROSS DESCRIPTION Specimen is received in [facility] formalin-filled [facility] labeled with the patient's information and labeled [...] margin en face with tip bisected; A2, sales training representative of appendix. CG/ew MICROSCOPIC DESCRIPTION Performed. [facility] Specimen Tissue - Appendix Performing Organization Address City/State/Zipcode Phone Number [facility] [address] [place] [address] MEDICAL CENTER * CT chest without IV contrast (07/18/2017 6:49 PM CDT) Narrative Performed At FINAL REPORT [facility] EXAMINATION: Noncontrast chest CT CLINICAL HISTORY: Left [...] MD Report Verified Date/Time:07/19/2017 00:58:22 Reading Location: [address] Reading Room Procedure Note Interface, External [...] Report Verified Date/Time: 07/19/2017 00:58:22 Reading Location: [address] Reading Room Performing Organization Address City/State/Zipcode Phone Number [facility] * Clostridium difficile [facility] Toxin (07/18/2017 2:01 PM CDT) C. Difficle Toxin Negative Negative [facility] C. Difficile [facility] Antigen NegativeComment: No indication Negative [facility] of Clostridium difficile [facility] infection and no colonization. Discontinue enteric isolation and therapy. Specimen Stool - Stool Narrative Performed At Testing performed by [facility] Rapid Cassette Assay.For [facility], published [facility] sensitivity of the assay is 98.7% compared to cytotoxicity testing.For Toxin [facility] AB, published sensitivity is 87.8% and specificity 99.4% compared to cytotoxicity testing. Verification of kit performance was done by the [facility] Microbiology Lab prior to clinical use. Performing Organization Address City/State/Zipcode Phone Number [address] [address] [phone] * STOOL PATH CHARGE (07/18/2017 2:01 PM CDT) Pathogen exam charged Done [facility] Specimen Stool - Rectum Performing Organization Address [facility] Phone Number [address] * Shiga Toxin Screen (07/18/2017 2:01 PM CDT) Shiga toxin 1 Not detected Not detected [facility] Shiga toxin 2 Not detected Not detected [facility] Specimen Stool - Rectum Performing Organization Address City/[facility] [place] [place] [address] [phone] [place] [address] * Stool culture + Shiga toxin (07/18/2017 2:01 PM CDT) Result No Salmonella, Shigella or [facility] Campylobacter isolated [facility] Specimen Stool - Rectum Performing Organization Address [facility] Phone Number [address] * ED ECG Interpretation (07/18/2017 7:58 AM CDT) Narrative Performed At Curt Keith MD 07/18/20177:58 AM ECG/EKG Interpretation [...] procedure well with no immediate complications * Urine culture (07/18/2017 3:32 AM CDT) Result >100,000 col/mL Enterococcus [facility] species (A) [facility] Result >100,000 col/mL Enterococcus [facility] species (A)Comment: of a [facility] second type Specimen Urine - Urine, Voided Narrative Performed At >100,000 col/mL skin seb [facility] Antibiotic Method Susceptibility Organism Ampicillin <=2: Susceptible Enterococcus species Linezolid 2: Susceptible Enterococcus species Nitrofurantoin <=16: Susceptible Enterococcus species Tetracycline >=16: Resistant Enterococcus species Vancomycin <=0.5: Susceptible Enterococcus species Ampicillin 4: Susceptible Enterococcus species Linezolid 2: Susceptible Enterococcus species Nitrofurantoin <=16: Susceptible Enterococcus species Tetracycline >=16: Resistant Enterococcus species Vancomycin <=0.5: Susceptible Enterococcus species Performing Organization Address City/State/Zipcode Phone Number [facility] [address] [place] [address] [facility] * CT abdomen/pelvis with IV contrast (07/18/2017 12:03 AM CDT) Narrative Performed At FINAL REPORT [facility] EXAMINATION:CT SCAN OF THE ABDOMEN AND PELVIS [...] MD Report Verified Date/Time:07/18/2017 02:04:00 Reading Location: [address] Reading Room Procedure Note Interface, External [...] Report Verified Date/Time: 07/18/2017 02:04:00 Reading Location: [address] Reading Room Performing Organization Address City/State/Zipcode Phone Number [facility] after 05/04/2017 Insurance Payer Benefit Subscriber ID Type Phone Address Plan / Group [employer] xxxxxxxxxx [employer] E EXCHANGE Advance Directives For more information, please contact: [facility] [address] [place] [address] Date Inactivated Comments Code Status Date Activated Full Code 02/07/2018 9:32 PM This code status was determined by: Patient 02/07/2018 5:15 PM Full Code 01/17/2018 5:48 PM This code status was determined by: Patient 01/17/2018 1:51 PM Full Code 01/04/2018 11:30 PM This code status was determined by: Patient 01/04/2018 11:30 PM Full Code 01/04/2018 8:14 PM This code status was determined by: Patient 12/06/2017 1:06 PM Full Code 11/27/2017 2:50 AM This code status was determined by: Patient
[2018-05-05] MEDS ORDERED: SODIUM CHLORIDE 0.9% 1000ML 1,000 ML IV ONE (19:15)
[2018-05-05] MEDS ORDERED: DIATRIZOATE MEGL/DIATRIZOA SOD 30 ML BTL PO ONE (19:41)
[2018-05-05] MEDS ORDERED: ONDANSETRON HCL INJ 2MG/ML 2ML 2 MG/ML VIAL ONE (19:41)
[2018-05-05] MEDS ORDERED: ONDANSETRON HCL INJ 2MG/ML 2ML 2 MG/ML VIAL IV ONE ×2 (19:42→21:41)
[2018-05-05 19:43] LABS: BASOPHILS % 0.5 % (0.0-1.0); EOSINOPHILS # (AUTO) 0.1 (0.0-0.4); HEMOGLOBIN 12.6 g/dL (14.0-18.0); LYMPHOCYTES # (AUTO) 0.7 (1.0-3.2); LYMPHOCYTES % 11.2 % (18.0-39.1); MEAN CORPUSCULAR HEMOGLOBIN 27.6 pg (28-32); MEAN CORPUSCULAR HGB CONC 30.7 g/dL (31-35); MEAN CORPUSCULAR VOLUME 89.7 fL (81-99); MONOCYTES # (AUTO) 0.4 (0.2-0.8); MONOCYTES % 6.7 % (4.4-11.3); NEUTROPHILS # (AUTO) 5.1 (2.1-6.9); NEUTROPHILS % 79.1 % (38.7-80.0); PLATELET COUNT 338 x10e3/uL (140-360); RED BLOOD COUNT 4.57 x10e6/uL (4.3-5.7); RED CELL DISTRIBUTION WIDTH 17.2 % (11.7-14.4)
[2018-05-05 20:01] LABS: ALANINE AMINOTRANSFERASE 6 IU/L (0-55); ALBUMIN 2.7 g/dL (3.5-5.0); ALBUMIN/GLOBULIN RATIO 0.5 (0.8-2.0); ALKALINE PHOSPHATASE 91 IU/L (40-150); AMYLASE 56 U/L (25-125); ANION GAP 13.7 mmol/L (8-16); BLOOD UREA NITROGEN 11 mg/dL (7-26); BUN/CREATININE RATIO 12 (6-25); CALCIUM 8.7 mg/dL (8.4-10.2); CARBON DIOXIDE 24 mmol/L (22-29); CHLORIDE 99 mmol/L (98-107); CREATININE, SERUM 0.94 mg/dL (0.72-1.25); EST GLOMERULAR FILTRATION RATE > 60 ML/MIN (60-); GLUCOSE 114 mg/dL (74-118); LIPASE 16 U/L (8-78); POTASSIUM 3.7 mmol/L (3.5-5.1); SODIUM 133 mmol/L (136-145)
[2018-05-05 21:07] LABS: BILIRUBIN,URINE NEGATIVE (NEGATIVE); CLARITY,URINE CLEAR (CLEAR); COLOR,URINE YELLOW (YELLOW); KETONES,URINE NEGATIVE (NEGATIVE); LEUKOCYTE ESTERASE ,URINE NEGATIVE (NEGATIVE); NITRITE,URINE NEGATIVE (NEGATIVE); PROTEIN,URINE DIPSTICK NEGATIVE (NEGATIVE); URINE UROBILINOGEN 1 mg/dL (0.2 - 1)
--- NOTE | 2018-05-05 21:13 | Diagnostic Imaging Report ---
EXAM: CT Abdomen and Pelvis WITH contrast INDICATION: ^ABD PAIN, VOMITING X4 DAYS COMPARISON: CT abdomen and pelvis 03/23/2018. Chest x-ray 12/16/2017. 11/12/2017. CT chest 10/06/2017. 09/04/2017. TECHNIQUE: Abdomen and pelvis were scanned utilizing a multidetector helical scanner from the lung base to the pubic symphysis after administration of IV contrast. Coronal and sagittal reformations were obtained. Routine protocol was performed. Scan was performed when during portal venous phase. IV CONTRAST: 100 mL of Isovue 370 ORAL CONTRAST: Gastrografin COMPLICATIONS: None RADIATION DOSE: Total DLP: 632.78 mGy*cm Estimated effective dose: (DLP x 0.015 x size factor) mSv CTDIvol has been reviewed. It is below the limits set by the Radiation Protocol Committee (RPC). Dose modulation, iterative reconstruction, and/or weight based adjustment of the mA/kV was utilized to reduce the radiation dose to as low as reasonably achievable. FINDINGS: LINES and TUBES: None. LOWER THORAX: Again seen is severe centrilobular emphysema superimposed on moderate to severe scarring/fibrosis in the lung bases. No honeycombing. There is some associated bronchiectasis. Partially imaged mass in the left upper lobe with lymphangitic spread of tumor along the posterior aspect of the left upper lobe. Slight increase in small left pleural effusion. HEPATOBILIARY: No focal hepatic lesions. There is intra- and extra- hepatic biliary dilation likely post cholecystectomy resevoir effect. GALLBLADDER: There are cholecystectomy clips. SPLEEN: No splenomegaly. PANCREAS: No focal masses or ductal dilatation. ADRENALS: Stable 2.5 cm right and 2 cm left adrenal nodularity. KIDNEYS/URETERS: Kidneys enhance symmetrically. No hydronephrosis. Interval development of an ill-defined 2.7 cm hypodensity in the inferior pole of the right kidney. No stones. GI TRACT: No abnormal distention, wall thickening, or evidence of bowel obstruction. Previous mild rectal wall thickening is no longer visualized. There are post surgical changes of appendectomy. PELVIC ORGANS/BLADDER: Stable mild bladder wall thickening. LYMPH NODES: Interval development of 2 prominent gastrohepatic lymph nodes at the level of the diaphragm. 0.7 cm (series 2, image 24), previously 0.4 cm. 1.2 cm (image 25), previously 1.0 cm. VESSELS: There is severe atherosclerotic disease in the aorta and major arterial branches. Mild infrarenal abdominal ectasia measuring 2.5 cm. PERITONEUM / RETROPERITONEUM: No free air or fluid. BONES: Unremarkable. SOFT TISSUES: Stable anterior ventral hernia repair with mesh. IMPRESSION: 1. No evidence of bowel obstruction. 2. New 2.7 cm wedge-shaped hypodensity in the inferior pole of the right kidney. This may represent focal polynephritis versus infarct. 3. Interval development of 2 prominent gastrohepatic lymph nodes at the level of the diaphragm. Signed by: Dr. Lane Ross M.D. on 05/05/2018 9:10 PM
[2018-05-05] MEDS ORDERED: HYDROMORPHONE 2MG/ML 2 MG/ML ML IV ONE ×2 (21:45→22:00)
[2018-05-05 22:20] VITALS: BP 122/89
[2018-05-05] MEDS ORDERED: SODIUM CHLORIDE 0.9% 50ML 50 ML ONE (23:28)
[2018-05-05] MEDS ORDERED: IOPAMIDOL 370 MG/ML 200 ML INFUS..BTL INJ ONE (23:28)
== END 2018-05-05 22:28 | disposition home or self-care (01) ==
LOC: ER 18:50
DX: R10.30 Lower abdominal pain, unspecified (principal); R11.2 Nausea with vomiting, unspecified; D64.9 Anemia, unspecified; J44.9 Chronic obstructive pulmonary disease, unspecified; Z85.118 Personal history of other malignant neoplasm of bronchus and lung; Z87.891 Personal history of nicotine dependence
CPT/HCPCS: 36415; 74177; 80053; 81001; 82150; 83690; 85025; 96374; 96376; 99284; J1170; J2405; J7030; Q9967

== ENCOUNTER 2018-05-30 18:29 | Emergency (ER) | payer BC, OTHER ==
[~2018-05-30] VITALS: Ht 177.8 cm; Wt 95.3 kg
[2018-05-30 19:03] LABS: ABG HCO3 26 mmol/L (23-28); ABG PCO2 31 mmHg (41-51); ABG PH 7.54 (7.31-7.41); ABG PO2 99 mmHg (80-105)
[2018-05-30 19:08] LABS: BASOPHILS % 0.5 % (0.0-1.0); EOSINOPHILS # (AUTO) 0.2 (0.0-0.4); EOSINOPHILS % 2.3 % (0.0-6.0); HEMOGLOBIN 12.6 g/dL (14.0-18.0); LYMPHOCYTES # (AUTO) 0.8 (1.0-3.2); LYMPHOCYTES % 11.9 % (18.0-39.1); MEAN CORPUSCULAR HEMOGLOBIN 28.8 pg (28-32); MEAN CORPUSCULAR HGB CONC 31.5 g/dL (31-35); MEAN CORPUSCULAR VOLUME 91.5 fL (81-99); MONOCYTES # (AUTO) 0.5 (0.2-0.8); MONOCYTES % 7.6 % (4.4-11.3); NEUTROPHILS # (AUTO) 5.1 (2.1-6.9); NEUTROPHILS % 77.1 % (38.7-80.0); PLATELET COUNT 178 x10e3/uL (140-360); RED BLOOD COUNT 4.37 x10e6/uL (4.3-5.7); RED CELL DISTRIBUTION WIDTH 17.2 % (11.7-14.4)
--- NOTE | 2018-05-30 19:10 | NUR ---
PT STATED, " I NEED TO TAKE MY PAIN MEDICATON TODAY." EXPLAINED TO THE PT THAT HIS RESP. STATUS IS MORE IMPORTANT AT THIS TIME.
[2018-05-30 19:12] LABS: INR 1.02; PROTHROMBIN TIME 13.9 seconds (11.9-14.5)
[2018-05-30 19:13] LABS: PARTIAL THROMBOPLASTIN TIME 34.7 seconds (23.8-35.5)
--- NOTE | 2018-05-30 19:13 | NUR ---
DR. MONROE IN ROOM AT THIS TIME
[2018-05-30] MEDS ORDERED: METHYLPREDNISOLONE SOD SUCC 125 MG/2ML VIAL IV ONE (19:15)
[2018-05-30] MEDS ORDERED: LEVALBUTEROL HCL SOLN NEBU 1.25 MG/3 ML NEB INH ONE (19:15)
[2018-05-30] MEDS ORDERED: SODIUM CHLORIDE 0.9% 1000ML 1,000 ML IV SCH (19:15)
[2018-05-30] MEDS ORDERED: IPRATROPIUM BROMIDE 0.02% 2.5 ML NEB NEB NR (19:15)
[2018-05-30 19:18] LABS: ALANINE AMINOTRANSFERASE 10 IU/L (0-55); ALBUMIN 2.7 g/dL (3.5-5.0); ALBUMIN/GLOBULIN RATIO 0.5 (0.8-2.0); ALKALINE PHOSPHATASE 75 IU/L (40-150); ANION GAP 14.3 mmol/L (8-16); BLOOD UREA NITROGEN 10 mg/dL (7-26); BUN/CREATININE RATIO 8 (6-25); CALCIUM 9.5 mg/dL (8.4-10.2); CARBON DIOXIDE 28 mmol/L (22-29); CHLORIDE 103 mmol/L (98-107); CREATINE KINASE 38 IU/L (30-200); EST GLOMERULAR FILTRATION RATE > 60 ML/MIN (60-); GLUCOSE 147 mg/dL (74-118); POTASSIUM 4.3 mmol/L (3.5-5.1); SODIUM 141 mmol/L (136-145)
--- NOTE | 2018-05-30 19:18 | NUR ---
RT notified for nebs
--- NOTE | 2018-05-30 19:28 | Diagnostic Imaging Report ---
Examination: Single AP view of the chest. COMPARISON: December 16, 2017 INDICATION: Shortness of breath DISCUSSION: Lines/tubes: Chest port Lungs: Left upper lobe mass with increased opacification within the left hemithorax. Fibrotic change. Pleura: Left effusion. Heart and mediastinum: Prominent heart size. Bones and soft tissues: No acute bony abnormalities. IMPRESSION: 1. Left upper lobe mass with increased opacification within the left hemithorax. 2. Small left effusion 3. Fibrotic change in the lungs Signed by: Dr. Dallas Reynolds M.D. on 05/30/2018 7:25 PM
--- NOTE | 2018-05-30 19:35 | NUR ---
PT TOLERATING NEB TX WELL AT THIS TIME. FAMILY WAS HERE AND UPDATED ON POC. LEFT FOR HOME TO P-UP PT. BELONGINGS
[2018-05-30] MEDS ORDERED: MORPHINE SULFATE INJ 4 MG/ML INJ 1ML IV PRN (20:00)
--- NOTE | 2018-05-30 20:53 | NUR ---
PT RESTING IN BED TALKING WITH FAMILY AND NO S/SX OF RESP. DISTRESS AT THIS TIME. MEDICATED FOR PAIN WITH 4 MG OF MORPHINE
--- NOTE | 2018-05-30 21:01 | Diagnostic Imaging Report ---
EXAMINATION: CT scan of the chest with contrast. TECHNIQUE: Helical CT images of the chest were performed from the lung apices to the level of the adrenal glands after the intravenous administration of 100 cc of Omnipaque 300. Coronal and sagittal reformatted images were obtained.Dose modulation, iterative reconstruction, and/or weight based adjustment of the mA/kV was utilized to reduce the radiation dose to as low as reasonably achievable. COMPARISON: None. CLINICAL HISTORY:Chest pain DISCUSSION: LINES/TUBES: None. LUNGS AND AIRWAYS: No pulmonary embolism. Emphysematous change. Increase in the left upper lobe mass predominantly involving the lingula. Narrowing of the pulmonary arteries. Probable lymphangitic spread adjacent to the mass. Extensive lymphadenopathy involving the lower cervical, mediastinum, and hilar regions PLEURA: Left pleural effusion. HEART AND MEDIASTINUM: The thyroid gland is normal. The heart and pericardium are within normal limits. LYMPH NODES: There is no mediastinal, hilar or axillary lymphadenopathy. ABDOMEN: Metastatic nodules to the adrenal glands. BONES AND SOFT TISSUES: No acute bony abnormalities. IMPRESSION: No pulmonary embolism. Increase in size in the left upper lobe mass with mediastinal invasion, lymphadenopathy, and adrenal metastasis. Signed by: Dr. Dallas Reynolds M.D. on 05/30/2018 8:58 PM
--- NOTE | 2018-05-30 21:15 | NUR ---
DR. MONROE IN WITH PT/FAMILY RE POC/ORDERS; POSSIBLE DC HOME
[2018-05-30 21:37] VITALS: BP 114/72
[2018-05-31] MEDS ORDERED: IOPAMIDOL 370 MG/ML 200 ML INFUS..BTL INJ ONE (06:21)
[2018-05-31] MEDS ORDERED: SODIUM CHLORIDE 0.9% 50ML 50 ML ONE (06:21)
== END 2018-05-30 22:12 | disposition home or self-care (01) ==
LOC: ER 18:29
DX: R06.09 Other forms of dyspnea (principal); R05 Cough; J44.1 Chronic obstructive pulmonary disease with (acute) exacerbation; C34.90 Malignant neoplasm of unspecified part of unspecified bronchus or lung
CPT/HCPCS: 36415; 36600; 71045; 71260; 80053; 82550; 82553; 82805; 83605; 83880; 84484; 85025; 85379; 85610; 85730; 87040; 87071; 87205; 87400; 93005; 94640; 99284; J2270; J2930; J7030

== ENCOUNTER 2018-05-31 12:01 | Emergency (ER) | payer BC, OTHER ==
[~2018-05-31] VITALS: Ht 177.8 cm; Wt 88.0 kg
== END 2018-05-31 15:23 | disposition short-term general hospital (02) ==
LOC: ER 12:01
DX: R52 Pain, unspecified (principal)

== ENCOUNTER 2018-06-03 13:10 | Emergency (ER) | payer OTHER ==
[~2018-06-03] VITALS: Ht 177.8 cm; Wt 88.0 kg
[2018-06-03] MEDS ORDERED: SODIUM CHLORIDE 0.9% 1000ML 1,000 ML IV STA (13:41)
--- NOTE | 2018-06-03 13:58 | NUR ---
pt. rec'd via [facility] from home for "pain all over." moved to stretcher with max assist. placed on the monitor and iv access obtained, labs sent and ivf started. no family has arrived as of yet. siderails up x2 and call richards in hand. bed low/locked.
[2018-06-03 14:09] LABS: BASOPHILS % 0.6 % (0.0-1.0); EOSINOPHILS # (AUTO) 0.1 (0.0-0.4); EOSINOPHILS % 1.8 % (0.0-6.0); HEMATOCRIT 42.8 % (38.2-49.6); HEMOGLOBIN 13.6 g/dL (14.0-18.0); LYMPHOCYTES % 14.2 % (18.0-39.1); MEAN CORPUSCULAR HEMOGLOBIN 28.6 pg (28-32); MEAN CORPUSCULAR HGB CONC 31.8 g/dL (31-35); MEAN CORPUSCULAR VOLUME 89.9 fL (81-99); MONOCYTES # (AUTO) 0.6 (0.2-0.8); MONOCYTES % 8.9 % (4.4-11.3); NEUTROPHILS % 73.9 % (38.7-80.0); PLATELET COUNT 192 x10e3/uL (140-360); RED BLOOD COUNT 4.76 x10e6/uL (4.3-5.7); RED CELL DISTRIBUTION WIDTH 16.9 % (11.7-14.4)
[2018-06-03 14:31] LABS: ALANINE AMINOTRANSFERASE 8 IU/L (0-55); ALBUMIN 2.8 g/dL (3.5-5.0); ALBUMIN/GLOBULIN RATIO 0.6 (0.8-2.0); ALKALINE PHOSPHATASE 78 IU/L (40-150); ANION GAP 15.1 mmol/L (8-16); BLOOD UREA NITROGEN 19 mg/dL (7-26); BUN/CREATININE RATIO 17 (6-25); CALCIUM 9.4 mg/dL (8.4-10.2); CARBON DIOXIDE 24 mmol/L (22-29); CHLORIDE 101 mmol/L (98-107); CREATINE KINASE 65 IU/L (30-200); CREATININE, SERUM 1.09 mg/dL (0.72-1.25); EST GLOMERULAR FILTRATION RATE > 60 ML/MIN (60-); GLUCOSE 92 mg/dL (74-118); POTASSIUM 4.1 mmol/L (3.5-5.1); SODIUM 136 mmol/L (136-145)
--- NOTE | 2018-06-03 14:58 | Diagnostic Imaging Report ---
Exam: Head CT without contrast History: Left-sided weakness Comparison studies: None Technique: Axial images were obtained from the skull base to the vertex. Coronal and sagittal images reconstructed from the axial data. Dose modulation, iterative reconstruction, and/or weight based adjustment of the mA/kV was utilized to reduce the radiation dose to as low as reasonably achievable. Radiation dose: Total DLP: 9 or 21 mGy*cm. Estimated effective dose: DLP x 0.015 Intravenous contrast: None Findings: Scalp: No abnormalities. Bones: No fractures, blastic or lytic lesions. Brain sulci: Right parietal sulci are effaced, as below. Remaining sulci are mildly prominent. Ventricles: Normal in size and configuration. No hydrocephalus. Extra-axial spaces: No masses, no fluid collection. Parenchyma: Recent (likely late acute to subacute) nonhemorrhagic cortical/subcortical hypodense infarct centered in the right parietal lobe which extends along the right posterior right insula and posterior superior temporal gyrus in the right MCA territory. Mass effect remains local with effacement sulci. No midline shift/herniation. Additional smaller foci of hypodensity in the deep right centrum semiovale and christianson radiata along the right internal MCA border zone compatible with age-indeterminate ischemia. Chronic cortical/subcortical insults in the left superior frontal gyrus in the left JAME vascular territory and within the left pars opercular which extends to the adjacent left middle temporal gyrus. Sellar/suprasellar region: No abnormalities. Craniocervical junction: Patent foramen magnum. No Chiari one malformation. Incidental findings: Nonspecific mucosal thickening in the right sphenoid sinus and left frontal sinus. Atherosclerotic calcifications in the carotid siphons an in the left intradural vertebral artery. IMPRESSION: 1. 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 Cervical and intracranial CTA or MRA could further evaluate. 2. No acute intracranial hemorrhage. 3. Chronic left frontal insults in the left JAME and MCA territories. Cardioembolic etiology are considerations in the context of multi territory vascular involvement. Findings discussed with Dr. Love at 2:44 PM on 06/03/2018. Signed by: Dr. Wood Walton M.D. on 06/03/2018 2:54 PM
[2018-06-03] MEDS ORDERED: ONDANSETRON HCL INJ 2MG/ML 2ML 2 MG/ML VIAL IV ONE (15:00)
[2018-06-03] MEDS ORDERED: HYDROMORPHONE 2MG/ML 2 MG/ML ML IV ONE (15:00)
--- NOTE | 2018-06-03 15:23 | NUR ---
pt appears to be in no acute distress at this time. pt. stated," i can't believe my family isn't here yet. they were so concerned about me and want to know whats going on, but they're not here." called to the lobby 3x for his family and no response
--- NOTE | 2018-06-03 15:30 | NUR ---
family is at [facility] and dr. aquino is in speaking with them
--- NOTE | 2018-06-03 15:55 | NUR ---
call placed to [facility] for case managment to set-up hospice for this patient.
[2018-06-03] MEDS ORDERED: FENTANYL 50 MCG/HR PATCH TOP ONE (16:15)
--- NOTE | 2018-06-03 16:30 | NUR ---
duragesic patch 50mcg; applied to left shoulder
[2018-06-03 16:39] VITALS: BP 114/82
== END 2018-06-03 16:50 | disposition home or self-care (01) ==
LOC: ER 13:10
DX: R52 Pain, unspecified (principal); I63.411 Cerebral infarction due to embolism of right middle cerebral artery; C34.90 Malignant neoplasm of unspecified part of unspecified bronchus or lung; R53.1 Weakness; J44.9 Chronic obstructive pulmonary disease, unspecified; D64.9 Anemia, unspecified
CPT/HCPCS: 36415; 70450; 80053; 82550; 82553; 84484; 85025; 93005; 99284; J1170; J2405; J7030